=== PATIENT | male | born 1950 | race Caucasian/White ===

== ENCOUNTER → 2017-07-12 09:49 | Outpatient (CLI) | payer MEDICARE, OTHER, SELFPAY ==
[2017-07-12 11:12] LABS: PSA,Total- Diagnostic < 0.01 ng/mL (0.0-4.0)
== END ==
PROVIDERS: Family Provider Family Medicine; PCP Family Medicine; Visit Provider Urology
DX: C61 Malignant neoplasm of prostate (principal)
CPT/HCPCS: 36415; 84153

== ENCOUNTER → 2017-07-18 15:56 | Outpatient (CLI) | payer MEDICARE, OTHER, SELFPAY | PROVIDERS: Visit Provider Nurse Practitioner Adult Health | DX: C61 Malignant neoplasm of prostate (principal); R82.99 Other abnormal findings in urine | CPT/HCPCS: 87077; 87086; 87088; 87186 ==

== ENCOUNTER → 2017-09-19 09:23 | Outpatient (CLI) | payer MEDICARE, OTHER, SELFPAY ==
[2017-09-19 10:29] LABS: Absolute Neutrophil Count 1.8 X10^3/uL (2.0-7.7); Basophil# 0.03 X10^3/uL; Basophil% 0.9 % (0-1); Eosinophil# 0.05 X10^3/uL; Eosinophils% 1.4 % (0-5); Hematocrit 46.4 % (40-54); Hemoglobin 15.4 g/dl (13.0-16.5); Mean Corp Hgb Conc 33.2 g/gl (32-36); Mean Corpuscular Hgb 28.5 pg (27.0-32.0); Mean Corpuscular Volume 85.8 fL (80-94); Mean Platelet Vol. 9.8 fl (6.2-12.0); Monocyte# 0.29 X10^3/uL; Monocyte% 8.3 % (0-10); Neutrophil # 1.84 X10^3/uL (2.7-7.7); Neutrophil % 52.4 % (47-70); Platelet Count 223 K/mm3 (150-450); RBC Distribution Width CV 14.3 % (11.6-14.6); RBC Distribution Width SD 44.9 fl (35.1-43.9); Red Blood Count 5.41 M/mm3 (4.6-6.2); White Blood Count 3.5 K/mm3 (4.4-11.0)
[2017-09-19 10:30] LABS: POSITIVE COUNT NO; POSITIVE DIFFERENTIAL NO; POSITIVE MORPHOLOGY NO
[2017-09-19 11:03] LABS: AST(SGOT) 22 U/L (15-37); Alanine Aminotransfer ALT/SGPT 32 U/L (16-61); Albumin, Serum 3.5 g/dL (3.2-5.0); Alkaline Phosphatase 100 U/L (45-117); Anion Gap 9 (5-15); BUN 22 mg/dL (7-18); BUN/Creat Ratio 15.5 RATIO (10-20); Calcium,Total 8.8 mg/dL (8.5-10.1); Chloride 104 mmol/L (98-107); Creatinine, Serum 1.42 mg/dL (0.70-1.30); EST Glomerular Filtration Rate 53 mL/min (>60); Est Glom Filt Rate - Afr Amer 64 mL/min (>60); Globulin 3.6 g/dL (2.2-4.2); Glucose 127 mg/dL (74-106); Potassium 4.1 mmol/L (3.5-5.1); Protein, Total 7.1 g/dL (6.4-8.2); Sodium Level 142 mmol/L (136-145)
== END ==
PROVIDERS: Family Provider Family Medicine; PCP Family Medicine; Visit Provider Internal Medicine Rheumatology
DX: L40.59 Other psoriatic arthropathy (principal); L40.8 Other psoriasis; Z85.46 Personal history of malignant neoplasm of prostate
CPT/HCPCS: 36415; 80053; 85025

== ENCOUNTER → 2017-09-27 18:52 | Outpatient (CLI) | payer MEDICARE, OTHER, SELFPAY | PROVIDERS: Family Provider Family Medicine; PCP Family Medicine; Visit Provider Urology | DX: R31.9 Hematuria, unspecified (principal) | CPT/HCPCS: 87086; 87088 ==

== ENCOUNTER → 2018-01-26 06:27 | Outpatient (CLI) | payer MEDICARE, OTHER, SELFPAY ==
[2018-01-26 07:34] LABS: PSA,Total- Diagnostic < 0.01 ng/mL (0.0-4.0)
== END ==
PROVIDERS: Family Provider Family Medicine; PCP Family Medicine; Referring Provider Nurse Practitioner Adult Health; Visit Provider Nurse Practitioner Adult Health
DX: C61 Malignant neoplasm of prostate (principal); R82.99 Other abnormal findings in urine
CPT/HCPCS: 36415; 84153

== ENCOUNTER → 2018-04-14 08:01 | Outpatient (CLI) | payer MEDICARE, OTHER, SELFPAY ==
[2018-04-14 10:12] LABS: Erythrocyte Sedimentation Rate 13 mm/hr (0-20)
[2018-04-14 10:38] LABS: AST(SGOT) 21 U/L (15-37); Absolute Lymphocyte Count 1.46 X10^3/ul (0.83-4.51); Alanine Aminotransfer ALT/SGPT 26 U/L (16-61); Albumin, Serum 3.6 g/dL (3.2-5.0); Alkaline Phosphatase 86 U/L (45-117); Anion Gap 8 (5-15); BUN 26 mg/dL (7-18); BUN/Creat Ratio 17.7 RATIO (10-20); Basophil# 0.02 X10^3/uL; Basophil% 0.5 % (0-1); CRP < 2.90 mg/L (0.0-3.0); Calcium,Total 8.8 mg/dL (8.5-10.1); Chloride 109 mmol/L (98-107); Creatinine, Serum 1.47 mg/dL (0.70-1.30); EST Glomerular Filtration Rate 51 mL/min (>60); Eosinophil# 0.13 X10^3/uL; Eosinophils% 3.3 % (0-5); Est Glom Filt Rate - Afr Amer 61 mL/min (>60); Globulin 3.6 g/dL (2.2-4.2); Glucose 82 mg/dL (74-106); Hematocrit 48.5 % (40-54); Hemoglobin 15.5 g/dl (13.0-16.5); Lymphocyte # 1.46 X10^3/ul (4.0); Lymphocyte % 36.6 % (19-41); Mean Corpuscular Hgb 27.6 pg (27.0-32.0); Mean Corpuscular Volume 86.3 fL (80-94); Mean Platelet Vol. 10.1 fl (6.2-12.0); Monocyte# 0.43 X10^3/uL; Monocyte% 10.8 % (0-10); Neutrophil # 1.95 X10^3/uL (2.7-7.7); Neutrophil % 48.8 % (47-70); Platelet Count 214 K/mm3 (150-450); Potassium 4.1 mmol/L (3.5-5.1); Protein, Total 7.2 g/dL (6.4-8.2); RBC Distribution Width CV 14.5 % (11.6-14.6); RBC Distribution Width SD 45.6 fl (35.1-43.9); Red Blood Count 5.62 M/mm3 (4.6-6.2); Sodium Level 143 mmol/L (136-145)
[2018-04-14 10:39] LABS: POSITIVE COUNT NO; POSITIVE DIFFERENTIAL NO; POSITIVE MORPHOLOGY NO
--- OUTSIDE RECORDS SUMMARY | 2018-05-30 19:38 | XMS RPT_ITS ---
:1950 Author Organization OHIP Care Team Providers Name Role Phone Isamar Haddad Attending Unavailable Catie, Isamar Referring Unavailable MAYTE WHITFIELD Primary Care Unavailable Nickolas Segovia Attending Unavailable MAYTE WHITFIELD Primary Care Unavailable Melanie Tovar Attending Unavailable Melanie Tovar Attending Unavailable MAYTE WHITFIELD Primary Care Unavailable Melanie Tovar Referring Unavailable Melanie Tovar Attending Unavailable MAYTE WHITFIELD Primary Care Unavailable Germanlanki, Isamar Attending Unavailable Germanlandontrell, Isamar Referring Unavailable MAYTE WHITFIELD Primary Care Unavailable Nickolas Segovia Attending Unavailable MAYTE WHITFIELD Primary Care Unavailable PROBLEMS PROBLEMS DATE TYPE CONDITION / CODE ATTENDING STATUS SOURCE 04/14/2018 Unknown 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, 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 / Hospital L40.59(ICD-10) Repository 04/14/2018 Unknown L40.8 - Other Vellanki, Isamar Active [facility] psoriasis / Community L40.8(ICD-10) Hospital Repository 04/14/2018 Unknown Z85.46 - Personal Isamar Haddad Active [facility] history of Community malignant Hospital neoplasm of Repository prostate / Z85.46(ICD-10) 01/26/2018 Unknown C61 - Malignant Melanie Tovar Active [facility] neoplasm of M Community prostate / Hospital C61(ICD-10) Repository 07/18/2017 Unknown R82.99 - Other Melanie Tovar Active [facility] abnormal findings M [facility] in urine / Hospital R82.99(ICD-10) Repository PROCEDURES PROCEDURES No Procedure Records FoundRESULTS RESULTS ERYTHROCYTE SED RATE Collected: 04/14/2018 Status: F Source: [place] 8:07 AM [facility] REPOSITORY TYPE CODE TESTS RESULT OUT OF RANGE REFERENCE UNITS LAB L102.0000 0-20 mm/hr Normal SED RATE 13 Performed By: #### L101.9900, L100.0100 #### [facility] [address] [place], [address] CBC W/DIFF, AUTOMATED Collected: 04/14/2018 Status: F Source: [place] 8:07 AM [facility] REPOSITORY TYPE CODE TESTS RESULT OUT OF RANGE REFERENCE UNITS LAB L100.1000 4.4-11.0 K/mm3 Low WBC 4.0 LAB L100.1200 4.6-6.2 M/mm3 Normal RBC 5.62 LAB L100.1300 13.0-16.5 g/dl Normal HGB 15.5 LAB L100.1400 40-54 % Normal HCT 48.5 LAB L100.1500 80-94 fL Normal MCV 86.3 LAB L100.1600 27.0-32.0 pg Normal MCH 27.6 LAB L100.1700 32-36 g/gl Normal MCHC 32.0 LAB L100.1810 11.6-14.6 % Normal RDW CV 14.5 LAB L100.1820 35.1-43.9 fl High RDW SD 45.6 LAB L100.1900 150-450 K/mm3 Normal PLT 214 LAB L100.2000 6.2-12.0 fl Normal MPV 10.1 LAB L100.2100 47-70 % Normal NEUT% 48.8 LAB L100.2200 19-41 % Normal LY% 36.6 LAB L100.2300 0-10 % High MONO% 10.8 LAB L100.2400 0-5 % Normal EO% 3.3 LAB L100.2500 0-1 % Normal BASO% 0.5 LAB L100.2550 0.0-0.9 % Normal IM GRAN % 0.000 Result Comment: IG% - Immature Granulocytes (promyelocytes, myelocytes and metamyelocytes) > 1% indicates that a LEFT SHIFT is Present. LAB L100.2620 2.0-7.7 X10 3/uL Normal Absolute Neut 2.0 LAB L100.2720 0.83-4.51 X10 3/ul Normal Absolute Lymph 1.46 Performed By: #### L101.9900, L100.0100 #### [facility] [address] [place], [place], [address] COMPREHENSIVE METABOLIC Collected: 04/14/2018 Status: F Source: [facility] 8:07 AM [facility] REPOSITORY TYPE CODE TESTS RESULT OUT OF RANGE REFERENCE UNITS LAB L501.0100 74-106 mg/dL Normal GLU 82 Result Comment: Please note revised GLUCOSE reference range effective 2017. LAB L501.1000 7-18 mg/dL High BUN 26 LAB L501.1100 0.70-1.30 mg/dL High CREAT,SERUM 1.47 Result Comment: The validity of the calculated GFR AND GFRAA in patients over 70 years has not been determined. Clinical correlation is essential. LAB L501.1110 >60 mL/min Low EST GFR 51 Result Comment: Non- GFR Calc LAB L501.1115 >60 mL/min Normal EST GFR - AA 61 Result Comment: GFR Calc LAB L501.1300 10-20 RATIO Normal BUN/CRE 17.7 LAB L501.1500 6.4-8.2 g/dL T Normal PROT 7.2 LAB L501.1800 3.2-5.0 g/dL Normal ALB 3.6 LAB L501.1950 2.2-4.2 g/dL Normal GLOB 3.6 LAB L501.2000 0.9-2.4 RATIO Normal A/G 1.0 LAB L501.2200 8.5-10.1 mg/dL CA Normal 8.8 LAB L501.4100 15-37 U/L Normal AST 21 LAB L501.4305 45-117 U/L Normal ALK P 86 LAB L501.4405 16-61 U/L Normal ALT 26 LAB L501.4600 0.20-1.00 mg/dL T Normal BILI 0.40 LAB L501.5300 136-145 mmol/L NA Normal 143 LAB L501.5600 3.5-5.1 mmol/L K Normal 4.1 LAB L501.5900 98-107 mmol/L High CL 109 LAB L501.6100 21.0-32.0 mmol/L Normal CO2 26.0 LAB L501.6200 5-15 Normal GAP 8 Performed By: #### L500.4050, L501.6710 #### [facility] [address] [place], [address] CRP Collected: 04/14/2018 Status: F Source: [place] 8:07 AM [facility] REPOSITORY TYPE CODE TESTS RESULT OUT OF RANGE REFERENCE UNITS LAB L501.6710 0.0-3.0 mg/L Normal < 2.90 C-REACTIVE PROT Result Comment: C-Reactive Protein (CRP) provides useful information for the diagnosis, therapy and monitoring of inflammatory processes and associated diseases. For the evaluation of Relative Risk for Cardiovascular Disease, a High Sensitivity CRP (HSCRP) should be ordered. Performed By: #### L500.4050, L501.6710 #### [facility] [address] [place], [address] PSA,TOTAL- DIAGNOSTIC Collected: 01/26/2018 Status: F Source: [place] 6:35 AM [facility] REPOSITORY TYPE CODE TESTS RESULT OUT OF RANGE REFERENCE UNITS LAB L501.9940 0.0-4.0 ng/mL PSA, Normal DIAGNOSTIC < 0.01 Result Comment: This test was performed using the TPSA assay method for the [employer] chemistry system. Values obtained with different assay methods cannot be used interchangably. When changing PSA assays in the course of monitoring a patient, additional sequential testing should be carried out to confirm baseline values. Performed By: #### L501.9940 #### [facility] [address] [place], [address] Observed: 09/27/2017 Status: F Source: [facility] CULTURE, URINE 10:30 AM [facility] REPOSITORY Urine Culture Below infection level. ORGANISM 1: GPC Poss Enterococcus sp [place] Count <1000 Performed By: #### M100.0650 #### [facility] [address] [place], [address] CBC W/DIFF, AUTOMATED Collected: 09/19/2017 Status: F Source: [facility] 9:28 AM [facility] REPOSITORY TYPE CODE TESTS RESULT OUT OF RANGE REFERENCE UNITS LAB L100.1000 4.4-11.0 K/mm3 Low WBC 3.5 LAB L100.1200 4.6-6.2 M/mm3 Normal RBC 5.41 LAB L100.1300 13.0-16.5 g/dl Normal HGB 15.4 LAB L100.1400 40-54 % Normal HCT 46.4 LAB L100.1500 80-94 fL Normal MCV 85.8 LAB L100.1600 27.0-32.0 pg Normal MCH 28.5 LAB L100.1700 32-36 g/gl Normal MCHC 33.2 LAB L100.1810 11.6-14.6 % Normal RDW CV 14.3 LAB L100.1820 35.1-43.9 fl High RDW SD 44.9 LAB L100.1900 150-450 K/mm3 Normal PLT 223 LAB L100.2000 6.2-12.0 fl Normal MPV 9.8 LAB L100.2100 47-70 % Normal NEUT% 52.4 LAB L100.2200 19-41 % Normal LY% 37.0 LAB L100.2300 0-10 % Normal MONO% 8.3 LAB L100.2400 0-5 % Normal EO% 1.4 LAB L100.2500 0-1 % Normal BASO% 0.9 LAB L100.2550 0.0-0.9 % Normal IM GRAN % 0.000 Result Comment: IG% - Immature Granulocytes (promyelocytes, myelocytes and metamyelocytes) > 1% indicates that a LEFT SHIFT is Present. LAB L100.2620 2.0-7.7 X10 3/uL Low Absolute Neut 1.8 LAB L100.2720 0.83-4.51 X10 3/ul Normal Absolute Lymph 1.30 Performed By: #### L100.0100 #### [facility] [address] [place], [address] COMPREHENSIVE METABOLIC Collected: 09/19/2017 Status: F Source: [facility] [place] 9:28 AM [facility] REPOSITORY TYPE CODE TESTS RESULT OUT OF RANGE REFERENCE UNITS LAB L501.0100 74-106 mg/dL High GLU 127 Result Comment: Fasting Glucose result greater than or equal to 126 mg/dL suggests DIABETES MELLITUS per A.D.A. criteria. Please note revised GLUCOSE reference range effective 2017. LAB L501.1000 7-18 mg/dL High BUN 22 LAB L501.1100 0.70-1.30 mg/dL High CREAT,SERUM 1.42 Result Comment: The validity of the calculated GFR AND GFRAA in patients over 70 years has not been determined. Clinical correlation is essential. LAB L501.1110 >60 mL/min Low EST GFR 53 Result Comment: Non- GFR Calc LAB L501.1115 >60 mL/min Normal EST GFR - AA 64 Result Comment: GFR Calc LAB L501.1300 10-20 RATIO Normal BUN/CRE 15.5 LAB L501.1500 6.4-8.2 g/dL T Normal PROT 7.1 LAB L501.1800 3.2-5.0 g/dL Normal ALB 3.5 LAB L501.1950 2.2-4.2 g/dL Normal GLOB 3.6 LAB L501.2000 0.9-2.4 RATIO Normal A/G 1.0 LAB L501.2200 8.5-10.1 mg/dL CA Normal 8.8 LAB L501.4100 15-37 U/L Normal AST 22 LAB L501.4305 45-117 U/L Normal ALK P 100 LAB L501.4405 16-61 U/L Normal ALT 32 LAB L501.4600 0.20-1.00 mg/dL T Normal BILI 0.30 LAB L501.5300 136-145 mmol/L NA Normal 142 LAB L501.5600 3.5-5.1 mmol/L K Normal 4.1 LAB L501.5900 98-107 mmol/L CL Normal 104 LAB L501.6100 21.0-32.0 mmol/L Normal CO2 29.0 LAB L501.6200 5-15 Normal GAP 9 Performed By: #### L500.4050 #### [facility] [address] [place], [address] Observed: 07/18/2017 Status: F Source: [place] CULTURE, URINE 9:30 AM [facility] REPOSITORY Urine Culture ORGANISM 1: Klebsiella oxytoca [place] Count 80,000-100,000 Klebsiella oxytoca: REACTION Amoxacillin/Clavulanic Acid $ <=2 S Ampicillin $ 16 R Ampicillin/Sulbactam $ 4 S Cefazolin $ <=4 S Cefepime $ <=1 S Ceftriaxone $ <=1 S Ciprofloxacin $ <=0.25 S ESBL - Ertapenim $$$ <=0.5 S Gentamicin $ <=1 S Imipenem *NF <=0.25 S Levofloxacin $ <=0.12 S Nitrofurantoin $ >=512 R Piperacillin/Tazobactam $$ <=4 S Tobramycin $ <=1 S Trimethoprim/Sulfametho $ <=20 S (NF) indicates non-formulary drug at [facility]. Approval by Infectious Disease Specialist required before non-formulary drugs may be ordered and/or dispensed. Performed By: #### M100.0650 #### [facility] [address] [place], [address] PSA,TOTAL- DIAGNOSTIC Collected: 07/12/2017 Status: F Source: [place] 10:14 AM [facility] REPOSITORY TYPE CODE TESTS RESULT OUT OF RANGE REFERENCE UNITS LAB L501.9940 0.0-4.0 ng/mL PSA, Normal DIAGNOSTIC < 0.01 Result Comment: This test was performed using the TPSA assay method for the [employer] chemistry system. Values obtained with different assay methods cannot be used interchangably. When changing PSA assays in the course of monitoring a patient, additional sequential testing should be carried out to confirm baseline values. Performed By: #### L501.9940 #### [facility] [address] [place], [address] ALLERGIES ALLERGIES No Allergies Records FoundENCOUNTERS ENCOUNTERS ADMIT/DISCHARGE ACCOUNT ADMITTING ENCOUNTER LOCATION SOURCE NUMBER [facility] 04/14/2018 [id number] Ambulatory [facility] 4 [facility] ing:LAB Repository 01/26/2018 [id number] Ambulatory [facility] 6 [facility] ing:LAB.FUTUR Repository E 11/30/2017 [id number] Ambulatory [facility] 1 [facility] ing:LAB.FUTUR Repository E 09/27/2017 [id number] Ambulatory [facility] 1 [facility] ing:LABSPEC Repository 09/19/2017 [id number] Ambulatory [facility] 3 [facility] ing:LAB Repository 07/18/2017 [id number] Ambulatory [facility] 4 [facility] ing:LABSPEC Repository 07/12/2017 [id number] Ambulatory [facility] 5 [facility] ing:LAB Repository PAYERS PAYERS ENCOUNTER GUARANTOR PAYER SUBSCRIBER SOURCE 04/14/2018 NETTA S Primary NETTA S [facility] [id number] Insurance:MEDICARE LEHMANDOB: [address] Number: Repository [id number]: [phone] [id number] (HP) Date:2018-04-14 04/14/2018 Secondary NETTA S [facility] Insurance[facility] [id number] Hospital Number: Repository [id number] Date:[id number] [address]YS: 04/14/2018 Tertiary NOT GIVENUNK [facility] Insurance:SELF PAY [facility] Number: Effective Repository Date:2018-04-14 01/26/2018 NETTA S Primary NETTA S [facility] [id number] Insurance:MEDICARE LEHMANDOB: [facility] [id number] Number: Repository [address]Waq: [phone] [id number] (HP) Date:2017-07-18 01/26/2018 Secondary NETTA S [facility] Insurance:[facility] [id number] Hospital Number: Repository [id number] Date:[id number] [place] [address]LO: 01/26/2018 Tertiary NOT GIVENUNK [place] Insurance:SELF PAY [facility] Number: Effective Repository Date:2017-07-18 11/30/2017 NETTA S Primary NETTA S [facility] [id number] Insurance:MEDICARE LEHMANDOB: [facility] PART A [facility] [id number] [place] Number: Repository [address]Ttf: [id number] [phone] () Date:2017-07-19 11/30/2017 Secondary NETTA S [place] Insurance:EVERENCE LEHMANDOB: [facility] [id number] Hospital Number: Repository [id number] Date:[id number] [facility] [address] [address]EO: 11/30/2017 Tertiary NOT GIVENUNK [place] Insurance:SELF PAY [facility] Number: Effective Repository Date:2017-07-19 09/27/2017 NETTA S Primary NETTA S [facility] [id number] Insurance:MEDICARE LEHMANDOB: [facility] PART A [facility] [id number] [place] Number: Repository [id number]: 330 [id number] [phone] () Date:2017-09-27 09/27/2017 Secondary NETTA S [facility] Insurance:EVERENCE LEHMANDOB: [facility] [id number] Hospital Number: Repository [id number] Date:[id number] [address] [place] [place] [address]DB: 09/27/2017 Tertiary NOT GIVENUNK [facility] Insurance:SELF PAY [facility] Number: Effective Repository Date:2017-09-27 09/19/2017 NETTA S Primary NETTA S [facility] [id number] Insurance:MEDICARE LEHMANDOB: [facility] PART A [facility] [id number] [place] Number: Repository [phone]: 330 [id number] (HP) Date:2017-09-19 09/19/2017 Secondary NETTA S [facility] Insurance:EVERENCE LEANDOB: [facility] [id number] Hospital Number: Repository [id number] Date:[id number] [address] [place] [address] [place] [address]YO: 09/19/2017 Tertiary NOT GIVENUNK [place] Insurance:SELF PAY [facility]: Effective Repository Date:2017-09-19 07/18/2017 NETTA S Primary NETTA S [place] [id number] Insurance:MEDICARE LEANDOB: [facility] [id number] Repository [id number]: 330 [id number] () Date:2017-07-18 07/18/2017 Secondary NETTA S [facility] Insurance:EVERENCE LEHMANDOB: [facility] [id number] Hospital Number: Repository [id number] Date:[id number] [address] [place] [address]JN: 07/18/2017 Tertiary NOT GIVENUNK [facility] Insurance:SELF PAY [facility] Number: Effective Repository Date:2017-07-18 07/12/2017 NETTA S Primary NETTA S [facility] [id number] Insurance:MEDICARE LEANDOB: [facility] [id number] Number: Repository [id number]: 330 [id number] () Date:2017-07-12 07/12/2017 Secondary NETTA S [place] Insurance:EVERENCE LEHMANDOB: [facility] [id number] Hospital Number: Repository [id number] Date:4801-80-44UK [address] [place] [address]YI: 07/12/2017 Tertiary NOT GIVENUNK [facility] Insurance:SELF PAY [facility] Number: Effective Repository Date:2017-07-12
== END ==
PROVIDERS: Family Provider Family Medicine; PCP Family Medicine; Referring Provider Internal Medicine Rheumatology; Visit Provider Internal Medicine Rheumatology
DX: L40.59 Other psoriatic arthropathy (principal); L40.8 Other psoriasis; Z85.46 Personal history of malignant neoplasm of prostate
CPT/HCPCS: 36415; 80053; 85025; 85652; 86140

== ENCOUNTER → 2018-06-22 13:52 | Outpatient (CLI) | payer MEDICARE, OTHER, SELFPAY | PROVIDERS: Family Provider Family Medicine; PCP Family Medicine; Referring Provider Nurse Practitioner Adult Health; Visit Provider Nurse Practitioner Adult Health | DX: R39.15 Urgency of urination (principal); R30.0 Dysuria | CPT/HCPCS: 87077; 87086; 87088; 87186 ==

== ENCOUNTER → 2018-07-18 13:14 | Outpatient (CLI) | payer MEDICARE, OTHER, SELFPAY ==
[2018-07-18 14:42] LABS: PSA,Total- Diagnostic < 0.01 ng/mL (0.0-4.0)
== END ==
PROVIDERS: Family Provider Family Medicine; PCP Family Medicine; Referring Provider Nurse Practitioner Adult Health; Visit Provider Nurse Practitioner Adult Health
DX: C61 Malignant neoplasm of prostate (principal)
CPT/HCPCS: 36415; 84153

== ENCOUNTER → 2018-11-28 11:07 | Outpatient (CLI) | payer MEDICARE, OTHER, SELFPAY ==
[2018-11-28 11:39] LABS: Absolute Lymphocyte Count 1.42 X10^3/uL (0.83-4.51); Absolute Neutrophil Count 2.3 X10^3/uL (2.0-7.7); Basophil# 0.05 X10^3/uL; Basophil% 1.1 % (0-1); Eosinophil# 0.09 X10^3/uL; Hematocrit 46.4 % (40-54); Hemoglobin 14.7 g/dL (13.0-16.5); Lymphocyte # 1.42 X10^3/ul (4.0); Lymphocyte % 32.1 % (19-41); Mean Corp Hgb Conc 31.7 g/dL (32-36); Mean Corpuscular Hgb 27.6 pg (27.0-32.0); Mean Corpuscular Volume 87.1 fL (80-94); Mean Platelet Vol. 9.4 fl (6.2-12.0); Monocyte# 0.51 X10^3/uL; Monocyte% 11.5 % (0-10); NRBC Flagged by Analyzer 0 % (0-5); Neutrophil # 2.34 X10^3/uL (2.7-7.7); Neutrophil % 53.1 % (47-70); Platelet Count 191 K/mm3 (150-450); RBC Distribution Width CV 14.1 % (11.6-14.6); RBC Distribution Width SD 45.1 fl (35.1-43.9); Red Blood Count 5.33 M/mm3 (4.6-6.2); White Blood Count 4.4 K/mm3 (4.4-11.0)
[2018-11-28 11:56] LABS: Erythrocyte Sedimentation Rate 14 mm/hr (0-20)
[2018-11-28 12:52] LABS: AST(SGOT) 23 U/L (15-37); Alanine Aminotransfer ALT/SGPT 24 U/L (16-61); Albumin, Serum 3.5 g/dL (3.2-5.0); Alkaline Phosphatase 78 U/L (45-117); Anion Gap 7 (5-15); BUN 27 mg/dL (7-18); BUN/Creat Ratio 17.8 RATIO (10-20); CRP < 2.90 mg/L (0.0-3.0); Calcium,Total 8.6 mg/dL (8.5-10.1); Chloride 107 mmol/L (98-107); Creatinine, Serum 1.52 mg/dL (0.70-1.30); EST Glomerular Filtration Rate 49 mL/min (>60); Est Glom Filt Rate - Afr Amer 59 mL/min (>60); Globulin 3.6 g/dL (2.2-4.2); Glucose 83 mg/dL (74-106); Protein, Total 7.1 g/dL (6.4-8.2); Sodium Level 140 mmol/L (136-145)
== END ==
PROVIDERS: Family Provider Family Medicine; PCP Family Medicine; Referring Provider Internal Medicine Rheumatology; Visit Provider Internal Medicine Rheumatology
DX: L40.59 Other psoriatic arthropathy (principal); L40.8 Other psoriasis; Z85.46 Personal history of malignant neoplasm of prostate
CPT/HCPCS: 36415; 80053; 85025; 85652; 86140

== ENCOUNTER → 2019-01-23 08:03 | Outpatient (CLI) | payer MEDICARE, OTHER, SELFPAY ==
[2019-01-23 09:01] LABS: PSA,Total- Diagnostic < 0.01 ng/mL (0.0-4.0)
== END ==
LOC: LAB.FUTURE 08:05 → LAB 08:07
PROVIDERS: Family Provider Family Medicine; PCP Family Medicine; Visit Provider Nurse Practitioner Adult Health
DX: C61 Malignant neoplasm of prostate (principal)
CPT/HCPCS: 36415; 84153

== ENCOUNTER → 2019-08-01 10:10 | Outpatient (CLI) | payer MEDICARE, OTHER, SELFPAY ==
[2019-08-01 10:58] LABS: Absolute Lymphocyte Count 1.25 X10^3/uL (0.83-4.51); Absolute Neutrophil Count 2.5 X10^3/uL (2.0-7.7); Basophil# 0.02 X10^3/uL; Basophil% 0.5 % (0-1); Eosinophil# 0.06 X10^3/uL; Eosinophils% 1.4 % (0-5); Hematocrit 47.9 % (40-54); Hemoglobin 15.3 g/dL (13.0-16.5); Lymphocyte # 1.25 X10^3/ul (4.0); Mean Corp Hgb Conc 31.9 g/dL (32-36); Mean Corpuscular Hgb 27.1 pg (27.0-32.0); Mean Corpuscular Volume 84.8 fL (80-94); Mean Platelet Vol. 9.2 fl (6.2-12.0); Monocyte# 0.34 X10^3/uL; Monocyte% 8.2 % (0-10); NRBC Flagged by Analyzer 0 % (0-5); Neutrophil # 2.49 X10^3/uL (2.7-7.7); Neutrophil % 59.7 % (47-70); Platelet Count 207 K/mm3 (150-450); RBC Distribution Width CV 13.7 % (11.6-14.6); RBC Distribution Width SD 41.8 fl (35.1-43.9); Red Blood Count 5.65 M/mm3 (4.6-6.2); White Blood Count 4.2 K/mm3 (4.4-11.0)
[2019-08-01 11:12] LABS: Erythrocyte Sedimentation Rate 12 mm/hr (0-20)
[2019-08-01 11:21] LABS: AST(SGOT) 19 U/L (15-37); Alanine Aminotransfer ALT/SGPT 21 U/L (16-61); Albumin, Serum 3.5 g/dL (3.2-5.0); Alkaline Phosphatase 87 U/L (45-117); Anion Gap 5 (5-15); BUN 22 mg/dL (7-18); BUN/Creat Ratio 16.9 RATIO (10-20); CRP < 2.90 mg/L (0.0-3.0); Calcium,Total 8.4 mg/dL (8.5-10.1); Chloride 105 mmol/L (98-107); EST Glomerular Filtration Rate 58 mL/min (>60); Est Glom Filt Rate - Afr Amer 71 mL/min (>60); Globulin 3.6 g/dL (2.2-4.2); Glucose 107 mg/dL (74-106); PSA,Total- Diagnostic < 0.01 ng/mL (0.0-4.0); Potassium 3.9 mmol/L (3.5-5.1); Protein, Total 7.1 g/dL (6.4-8.2); Sodium Level 137 mmol/L (136-145)
== END ==
PROVIDERS: PCP Family Medicine; Referring Provider Internal Medicine Rheumatology; Visit Provider Internal Medicine Rheumatology
DX: L40.59 Other psoriatic arthropathy (principal); L40.8 Other psoriasis; Z85.46 Personal history of malignant neoplasm of prostate
CPT/HCPCS: 36415; 80053; 84153; 85025; 85652; 86140

== ENCOUNTER → 2020-01-22 12:06 | Outpatient (CLI) | payer MEDICARE, OTHER, SELFPAY ==
[2020-01-22 15:38] LABS: PSA,Total- Diagnostic < 0.01 ng/mL (0.0-4.0)
== END ==
PROVIDERS: PCP Family Medicine; Referring Provider Nurse Practitioner Adult Health; Visit Provider Nurse Practitioner Adult Health
DX: Z85.46 Personal history of malignant neoplasm of prostate (principal)
CPT/HCPCS: 36415; 84153

== ENCOUNTER → 2020-02-04 10:23 | Outpatient (CLI) | payer MEDICARE, OTHER, SELFPAY ==
[2020-02-04 11:13] LABS: Absolute Lymphocyte Count 1.44 X10^3/uL (0.83-4.51); Absolute Neutrophil Count 2.6 X10^3/uL (2.0-7.7); Basophil# 0.02 X10^3/uL; Basophil% 0.4 % (0-1); Eosinophils% 2.2 % (0-5); Hematocrit 48.1 % (40-54); Hemoglobin 15.5 g/dL (13.0-16.5); Lymphocyte # 1.44 X10^3/ul (4.0); Lymphocyte % 31.3 % (19-41); Mean Corp Hgb Conc 32.2 g/dL (32-36); Mean Corpuscular Hgb 28.1 pg (27.0-32.0); Mean Corpuscular Volume 87.3 fL (80-94); Mean Platelet Vol. 9.8 fl (6.2-12.0); Monocyte# 0.42 X10^3/uL; Monocyte% 9.1 % (0-10); NRBC Flagged by Analyzer 0 % (0-5); Neutrophil # 2.61 X10^3/uL (2.7-7.7); Neutrophil % 56.8 % (47-70); Platelet Count 228 K/mm3 (150-450); RBC Distribution Width CV 13.9 % (11.6-14.6); RBC Distribution Width SD 44.3 fl (35.1-43.9); Red Blood Count 5.51 M/mm3 (4.6-6.2); White Blood Count 4.6 K/mm3 (4.4-11.0)
[2020-02-04 12:19] LABS: AST(SGOT) 21 U/L (15-37); Alanine Aminotransfer ALT/SGPT 30 U/L (16-61); Albumin, Serum 3.6 g/dL (3.2-5.0); Alkaline Phosphatase 84 U/L (45-117); Anion Gap 4 (5-15); BUN 21 mg/dL (7-18); BUN/Creat Ratio 12.8 RATIO (10-20); Calcium,Total 8.5 mg/dL (8.5-10.1); Chloride 107 mmol/L (98-107); Creatinine, Serum 1.64 mg/dL (0.70-1.30); EST Glomerular Filtration Rate 45 mL/min (>60); Est Glom Filt Rate - Afr Amer 54 mL/min (>60); Globulin 3.5 g/dL (2.2-4.2); Glucose 119 mg/dL (74-106); Potassium 4.3 mmol/L (3.5-5.1); Protein, Total 7.1 g/dL (6.4-8.2); Sodium Level 139 mmol/L (136-145)
== END ==
PROVIDERS: PCP Family Medicine; Referring Provider Internal Medicine Rheumatology; Visit Provider Internal Medicine Rheumatology
DX: L40.59 Other psoriatic arthropathy (principal); L40.8 Other psoriasis; Z85.46 Personal history of malignant neoplasm of prostate
CPT/HCPCS: 36415; 80053; 85025

== ENCOUNTER → 2020-07-21 13:55 | Outpatient (CLI) | payer MEDICARE, OTHER, SELFPAY ==
[2020-07-21 14:24] LABS: Absolute Neutrophil Count 4.5 X10^3/uL (2.0-7.7); Basophil# 0.06 X10^3/uL; Basophil% 0.9 % (0-1); Eosinophil# 0.24 X10^3/uL; Eosinophils% 3.8 % (0-5); Hematocrit 45.6 % (40-54); Hemoglobin 14.6 g/dL (13.0-16.5); Lymphocyte % 18.8 % (19-41); Mean Corpuscular Hgb 28.1 pg (27.0-32.0); Mean Corpuscular Volume 87.7 fL (80-94); Mean Platelet Vol. 9.4 fl (6.2-12.0); Monocyte# 0.41 X10^3/uL; Monocyte% 6.4 % (0-10); NRBC Flagged by Analyzer 0 % (0-5); Neutrophil # 4.47 X10^3/uL (2.7-7.7); Neutrophil % 69.8 % (47-70); Platelet Count 259 K/mm3 (150-450); RBC Distribution Width CV 13.7 % (11.6-14.6); RBC Distribution Width SD 43.8 fl (35.1-43.9); White Blood Count 6.4 K/mm3 (4.4-11.0)
[2020-07-21 14:50] LABS: ALB/GLOB Ratio 0.9 RATIO (0.9-2.4); AST(SGOT) 20 U/L (15-37); Alanine Aminotransfer ALT/SGPT 28 U/L (16-61); Albumin, Serum 3.3 g/dL (3.2-5.0); Alkaline Phosphatase 129 U/L (45-117); Anion Gap 6 (5-15); BUN 21 mg/dL (7-18); BUN/Creat Ratio 14.3 RATIO (10-20); Calcium,Total 8.8 mg/dL (8.5-10.1); Chloride 104 mmol/L (98-107); Creatinine, Serum 1.47 mg/dL (0.70-1.30); EST Glomerular Filtration Rate 50 mL/min (>60); Est Glom Filt Rate - Afr Amer 61 mL/min (>60); Globulin 3.7 g/dL (2.2-4.2); Glucose 135 mg/dL (74-106); Potassium 3.9 mmol/L (3.5-5.1); Sodium Level 139 mmol/L (136-145)
== END ==
PROVIDERS: PCP Family Medicine; Referring Provider Internal Medicine Rheumatology; Visit Provider Internal Medicine Rheumatology
DX: L40.59 Other psoriatic arthropathy (principal); L40.8 Other psoriasis; Z85.46 Personal history of malignant neoplasm of prostate
CPT/HCPCS: 36415; 80053; 85025

== ENCOUNTER 2020-07-22 03:47 | Emergency (ER) | payer MEDICARE, OTHER, SELFPAY ==
[2020-07-22 03:47] VITALS: BP 177/85; PULSE 89; RESP 16; TEMP 36; O2SAT 98; BMI 26.0
--- NOTE | 2020-07-22 04:10 | ED.DCSUM_ITS ---
History of Present Illness Chief Complaint: Complaint Informant: Patient Narrative: Patient stated that he has hematuria that started tonight approximately 4 hours ago. He had a few episodes of bright red blood in his urine. He is restarted Plavix and aspirin 3 weeks ago after having a heart attack and stent placement. He does not have a local customer service receptionist [place]. Denies any UTI symptoms. He does self cath that she has scarring after prostate cancer treatment remotely. He does see a local urologist for this. He has never had hematuria. Current severity is mild. Has not noticed any clots. Past Medical History - Allergies and Home Meds Allergies/Adverse Reactions: Allergies ciprofloxacin [From Cipro] Allergy (Verified 07/22/20 03:53) Rash latex Allergy (Verified 07/22/20 03:53) Rash Sulfa (Sulfonamide Antibiotics) Allergy (Verified 07/22/20 03:53) Rash Primary Care Physician: Du Howe MD [Primary Care Provider] - Prior records reviewed: Yes Past Medical History: - - Coronary artery disease, prostate cancer Surgical History: - - Reviewed Smoking Status: Never smoker Alcohol: None Drugs: None Review of Systems General: Denies: Chills, Fever, Sweats Eyes: Denies: Visual changes - bilaterally, Diplopia ENT: Denies: Rhinorrhea, Sore throat Cardiovascular: Denies: Chest pain, Palpitations Respiratory: Denies: Dyspnea, Cough, Dyspnea on exertion Gastrointestinal: Denies: Abdominal pain, Nausea, Vomiting, Diarrhea, Melena, Hematochezia Genitourinary: Reports: Hematuria. Denies: Dysuria, Frequency Musculoskeletal: Denies: Back pain, Extremity Pain Skin: Denies: Rash, Wounds Neurological: Denies: Headache, Weakness, Numbness Physical Exam Vital Signs/Narrative: Vital Signs Temp Pulse Resp BP Pulse Ox 07/22/20 03:47 96.8 F L 89 16 177/85 H 98 General: Well nourished, Well developed, No Acute Distress Head: Normocephalic, Atraumatic Eyes: Perrl, EOMI ENT: Moist mucous membranes, No rhinorrhea Neck: Supple, Nontender Cardiovascular: Regular rate, Regular rhythm, No murmurs Respiratory: No distress, CTA bilaterally, Chest nontender Abdomen: Soft, Nontender, Nondistended, Normal bowel sounds Back: Nontender, Normal Inspection Extremities: Nontender, No edema Skin: Normal color, No rash Neurological: Alert, Oriented x3, Cranial nerves II-XII grossly intact, Normal Strength, Normal Sensation Psychological: Normal affect, Normal Mood Diagnostic/Tx/Re-eval - Medical Decision Making Saldivar catheter placed with bladder irrigation. This was able to be irrigated clear, clots. Urinalysis obtained. Analysis shows evidence of red blood cells significant white blood cells and 4+ bacteria. Urine culture sent. Given Augmentin. Given a leg bag. Initially we attempted an 18 Fijian coud? but could not get past the scar tissue therefore a 16 Fijian was placed. He understands he may have to flush this at home if it clots. He is used to handling his Saldivar catheter. We will follow-up with his urologist and customer service receptionist. He will hold his Plavix for 2 days ED Disposition - Plan for ED Patient: Disposition: Home or Assisted Living Diagnosis: Hematuria, Urinary tract infection Instructions: ED Bladder Infection, Male (Adult), ED Hematuria Prescriptions: Amox/Clavulanate Tablet [Augmentin Tablet] 875 mg PO Q12H #14 tab Prescription Printed Referrals: Dane Campbell MD [STAFF PHYSICIAN] - Additional Instructions: also follow-up with your urologist
[2020-07-22 04:41] LABS: Color, Urine Red (Yellow); Glucose, Dipstick Normal (Normal); Ketone-Dipstick Negative (Negative); Leukocyte Esterase-Dipstick 500 /ul (Negative); Mucous, Urine 0 SEEN /hpf (<or=2+); Nitrite-Dipstick Negative (Negative); Occult Blood-Urine 250 /ul (Negative); Protein-Dipstick 100 mg/dl (Negative); Squamous Epithelial Cells - UA 0 SEEN /hpf (0-5); Urine Bilirubin Dipstick Negative (Negative); Urine Clarity Cloudy (Clear); Urine Urobilinogen Normal (Normal)
[2020-07-22 04:50] LABS: Bacteria 4+ /hpf (None Seen)
[2020-07-22 04:52] LABS: White Blood Cells 10-25 SEEN /hpf (0-5)
[2020-07-22 04:53] LABS: Red Blood Cells-Urine > 100 SEEN /hpf (0-5)
[2020-07-22] MEDS: Amox/Clavulanate 875 MG Tablet PO (05:07)
== END 2020-07-22 05:26 | disposition home or self-care (01) ==
PROVIDERS: Emergency Provider Emergency Medicine; PCP Family Medicine
DX: R31.9 Hematuria, unspecified (principal); N39.0 Urinary tract infection, site not specified; I25.10 Atherosclerotic heart disease of native coronary artery without angina pectoris
CPT/HCPCS: 51702; 81001; 87086; 87088; 87186; 99284

== ENCOUNTER → 2021-01-07 09:12 | Outpatient (CLI) | payer MEDICARE, OTHER, SELFPAY ==
[2021-01-07 10:22] LABS: Absolute Lymphocyte Count 1.43 X10^3/uL (0.83-4.51); Basophil# 0.03 X10^3/uL; Basophil% 0.4 % (0-1); Eosinophil# 0.11 X10^3/uL; Eosinophils% 1.4 % (0-5); Hematocrit 47.7 % (40-54); Hemoglobin 15.1 g/dL (13.0-16.5); Lymphocyte # 1.43 X10^3/ul (0.83-4.51); Lymphocyte % 17.6 % (19-41); Mean Corp Hgb Conc 31.7 g/dL (32-36); Mean Corpuscular Hgb 27.7 pg (27.0-32.0); Mean Corpuscular Volume 87.4 fL (80-94); Mean Platelet Vol. 9.8 fl (6.2-12.0); Monocyte# 0.57 X10^3/uL; NRBC Flagged by Analyzer 0 % (0-5); Neutrophil # 5.95 X10^3/uL (2.7-7.7); Neutrophil % 73.4 % (47-70); Platelet Count 217 K/mm3 (150-450); RBC Distribution Width CV 14.2 % (11.6-14.6); Red Blood Count 5.46 M/mm3 (4.6-6.2); White Blood Count 8.1 K/mm3 (4.4-11.0)
[2021-01-07 10:48] LABS: ALB/GLOB Ratio 0.9 RATIO (0.9-2.4); AST(SGOT) 39 U/L (15-37); Alanine Aminotransfer ALT/SGPT 65 U/L (16-61); Albumin, Serum 3.4 g/dL (3.2-5.0); Alkaline Phosphatase 100 U/L (45-117); Anion Gap 5 (5-15); BUN 24 mg/dL (7-18); Calcium,Total 8.7 mg/dL (8.5-10.1); Chloride 105 mmol/L (98-107); Creatinine, Serum 1.41 mg/dL (0.70-1.30); EST Glomerular Filtration Rate 53 mL/min (>60); Est Glom Filt Rate - Afr Amer 64 mL/min (>60); Globulin 3.7 g/dL (2.2-4.2); Glucose 102 mg/dL (74-106); Potassium 4.2 mmol/L (3.5-5.1); Protein, Total 7.1 g/dL (6.4-8.2); Sodium Level 140 mmol/L (136-145)
== END ==
PROVIDERS: PCP Family Medicine; Referring Provider Internal Medicine Rheumatology; Visit Provider Internal Medicine Rheumatology
DX: L40.59 Other psoriatic arthropathy (principal); L40.8 Other psoriasis; Z85.46 Personal history of malignant neoplasm of prostate
CPT/HCPCS: 36415; 80053; 85025

== ENCOUNTER → 2021-01-16 07:36 | Outpatient (CLI) | payer MEDICARE, OTHER, SELFPAY ==
--- NOTE | 2021-01-16 07:45 | US_ITS ---
STUDY: ABDOMINAL ULTRASOUND - RIGHT UPPER QUADRANT REASON FOR VISIT: Male, 70 years old ELEVATED LIVER ENZYMES TECHNIQUE: Ultrasound evaluation of the right upper quadrant was performed with real-time and static munoz-scale imaging. TECHNICAL QUALITY: Limited. Examination limited by bowel gas. COMPARISON: None. FINDINGS: Liver: The liver measures 16.4 cm. There is normal echogenicity of the liver. The bile ducts are within normal limits. There is hepatic color flow. The direction of portal flow is hepatopetal. There is no demonstrated mass lesion. Gallbladder: Normal distended gallbladder. The gallbladder wall measures 2.9 mm. There is a negative sonographic Hendrickson''s sign. There is no pericholecystic fluid. There are no gallstones. Common Bile Duct (C.B.D.): The common bile duct measures 2.7 mm. Pancreas: There is nonvisualization of the pancreas due to overlying bowel gas. Right Kidney: Normal size of the right kidney. The right kidney measures 10.7 cm x 5 cm x 4.1 cm. Normal renal cortex. The right cortex measures 1.2 cm. There is a 9 mm x 9 mm x 9 mm right renal cyst with the finding suggests above the peripheral calcification. There is no right hydronephrosis. US/Liver IMPRESSION: Findings suggestive of a small lateral right renal cyst with rim calcification. Electronically Signed: Rahul Amador MD at 14:32 EDT , Service support ,
== END ==
PROVIDERS: PCP Family Medicine; Visit Provider Internal Medicine Rheumatology
DX: L40.59 Other psoriatic arthropathy (principal); L40.8 Other psoriasis; I25.10 Atherosclerotic heart disease of native coronary artery without angina pectoris; Z85.46 Personal history of malignant neoplasm of prostate
CPT/HCPCS: 76705

== ENCOUNTER → 2021-01-27 07:02 | Outpatient (CLI) | payer MEDICARE, OTHER, SELFPAY ==
--- NOTE | 2021-01-27 19:54 | STRESSREP_ITS ---
Stress Test Report Date: 01-27-2021 Procedure: Exercise tolerance test/imaging study Indications: CAD; status post MN; status post PCI Consent: Per the patient Procedure: The patient exercised on a Raciel protocol for 8 minutes and 25 completing Stage II and 2 minutes and 25 seconds of Stage III achieving a peak heart rate of 150 bpm (99% predicted maximal heart rate) with a peak blood pressure 190/60 mmHg and a peak MET capacity of 9 METs. The baseline ECG demonstrated sinus bradycardia. The peak exercise ECG demonstrated no obvious ECG changes. There were no cardiac dysrhythmias pretest, during exercise, or recovery. The functional capacity was considered good. There was no complaint of chest discomfort during exercise or recovery. The examination was discontinued secondary to dyspnea. Impression: 1. Technically adequate (percent predicted maximal heart rate greater than 85%) exercise tolerance test 2. Peak exercise ECG with no obvious ECG changes 3. There were no cardiac dysrhythmias pretest, during exercise, or recovery 4. Nuclear images pending Myocardial perfusion imaging study: Technique: The patient was injected with 11.3 mCi of technetium 99m Cardiolite and subsequently rest SPECT Cardiolite nuclear imaging was obtained in the horizontal long, vertical long, and short axis views. The patient exercised on a Raciel protocol for 8 minutes and 25 completing Stage II and 2 minutes and 25 seconds of Stage III achieving a peak heart rate of 150 bpm (99% predicted maximal heart rate) with a peak blood pressure 190/60 mmHg and a peak MET capacity of 9 METs. The patient was injected with 32.7 mCi of technetium 99m Cardiolite and subsequently stress SPECT Cardiolite nuclear imaging was obtained in the horizontal long, vertical long, and short axis views. A gated Cardiolite study at peak stress was obtained. Interpretation: Rest and stress SPECT Cardiolite nuclear imaging status post realignment, normalization, and attenuation correction, demonstrates the appearance on preattenuation images of diminished myocardial perfusion/tracer uptake in portions of the basal to mid inferior segments which appear to be somewhat more prominent following stress and on post attenuation images the appearance of subtle diminished tracer uptake in the basal towards mid inferior segments. There is diminished end systolic thickening and brightening in the aforementioned area. The gated Cardiolite study demonstrates myocardial thickening and inward wall motion. The reported LVEF is 74%. Impression: 1. Rest and stress SPECT Cardiolite nuclear imaging demonstrate myocardial perfusion changes concerning for an area of previous myocardial injury/infarction involving portions of the basal to mid inferior segments with post stress images concerning for an area of obey-infarct related myocardial ischemia. 2. The gated Cardiolite study reports an LVEF of 74%. This note was generated with [employer]asteBookation software. It may contain incorrect words, spelling, and punctuation that were not noted in checking the note before signing.
== END ==
PROVIDERS: PCP Family Medicine; Referring Provider Internal Medicine Cardiovascular Disease; Visit Provider Internal Medicine Cardiovascular Disease
DX: I25.10 Atherosclerotic heart disease of native coronary artery without angina pectoris (principal); I21.11 ST elevation (STEMI) myocardial infarction involving right coronary artery; I10 Essential (primary) hypertension; E78.2 Mixed hyperlipidemia; Z95.5 Presence of coronary angioplasty implant and graft
CPT/HCPCS: 78452; 93017; A9500; A4216

== ENCOUNTER → 2021-02-10 11:19 | Outpatient (CLI) | payer MEDICARE, OTHER, SELFPAY ==
[2021-02-10 13:57] LABS: PSA,Total- Diagnostic < 0.01 ng/mL (0.0-4.0)
== END ==
PROVIDERS: PCP Family Medicine; Referring Provider Urology; Visit Provider Urology
DX: Z85.46 Personal history of malignant neoplasm of prostate (principal)
CPT/HCPCS: 36415; 84153

== ENCOUNTER 2021-03-03 10:19 | Observation (INO) | payer MEDICARE, OTHER, SELFPAY ==
--- NOTE | 2021-02-19 11:20 | RAD_ITS ---
STUDY: X-RAY CHEST REASON FOR EXAM: Male, 71 years old. UPCOMING CARDIAC CATH, ABNORMAL STRESS TEST TECHNIQUE: PA and lateral chest radiographs COMPARISON: None. FINDINGS: The lungs are clear and expanded. There is no demonstrated pleural abnormality. Normal size heart. Normal mediastinum and jory. Normal visualized pulmonary arteries. Normal visualized aortic arch and descending thoracic aorta. There is no demonstrated abnormality of the visualized soft tissue structures of the upper abdomen. RAD/Chest PA and Lateral IMPRESSION: No acute abnormal cardiopulmonary finding. The the Electronically Signed: Dane Flores MD at 22:15 EDT Tel , Service support ,
[2021-02-19 12:08] LABS: Absolute Lymphocyte Count 1.75 X10^3/uL (0.83-4.51); Absolute Neutrophil Count 3.9 X10^3/uL (2.0-7.7); Basophil# 0.04 X10^3/uL; Basophil% 0.6 % (0-1); Eosinophil# 0.16 X10^3/uL; Eosinophils% 2.5 % (0-5); Hematocrit 45.9 % (40-54); Hemoglobin 14.9 g/dL (13.0-16.5); Lymphocyte # 1.75 X10^3/ul (0.83-4.51); Lymphocyte % 26.9 % (19-41); Mean Corp Hgb Conc 32.5 g/dL (32-36); Mean Corpuscular Hgb 27.8 pg (27.0-32.0); Mean Corpuscular Volume 85.6 fL (80-94); Mean Platelet Vol. 9.5 fl (6.2-12.0); Monocyte# 0.63 X10^3/uL; Monocyte% 9.7 % (0-10); NRBC Flagged by Analyzer 0 % (0-5); Neutrophil # 3.91 X10^3/uL (2.7-7.7); Platelet Count 226 K/mm3 (150-450); RBC Distribution Width CV 13.9 % (11.6-14.6); RBC Distribution Width SD 43.1 fl (35.1-43.9); Red Blood Count 5.36 M/mm3 (4.6-6.2); White Blood Count 6.5 K/mm3 (4.4-11.0)
[2021-02-19 12:18] LABS: International Normalized Ratio 1.1; Prothrombin Time (Protime)PT. 13.2 SECONDS (11.7-14.9)
[2021-02-19 12:19] LABS: Partial Thromboplast Time 30.8 Seconds (24.1-36.2)
[2021-02-19 13:07] LABS: Anion Gap 4 (5-15); BUN 21 mg/dL (7-18); BUN/Creat Ratio 15.2 RATIO (10-20); Calcium,Total 9.2 mg/dL (8.5-10.1); Chloride 107 mmol/L (98-107); Creatinine, Serum 1.38 mg/dL (0.70-1.30); EST Glomerular Filtration Rate 54 mL/min (>60); Est Glom Filt Rate - Afr Amer 66 mL/min (>60); Glucose 75 mg/dL (74-106); Potassium 4.2 mmol/L (3.5-5.1); Sodium Level 139 mmol/L (136-145)
[2021-03-02 09:03] VITALS: BMI 26.3
--- NOTE | 2021-03-02 17:56 | PCM.HP.BLA ---
History and Physical Date of Admission: 03/03/21 [facility] [address] [place] [address] [phone] OFFICE VISITDate of Service: 02/19/21 MR#:[id number]:[id number]: NETTA DAVIS [facility] #:[id number]:1950 Provider: FERNANDO Vuong/Sex: 71/M [facility] HPI HPI History of Present Illness Surgical H&P: Yes Details: This is a 71-year-old white male who presents today for outpatient cardiovascular visit. He has a history of underlying CAD with an acute inferior ST segment elevation KS requiring an RCA PTCA/stent with a 3 mm x 23 mm Xience stent. In June of this year, he was traveling and during his travels based upon ongoing concerning symptoms he stopped in [place]. He was evaluated at the [facility] in [place], [place]. At that time he was diagnosed with an acute inferior STEMI. He underwent diagnostic cardiac catheterization. Per the report the left main coronary artery was normal, the LAD had 30% stenosis in the midsection, the LCx was normal, the RCA had 99% thrombotic stenosis in the mid section. He subsequently underwent the aforementioned RCA PTCA/stent procedure. He also has a history of hypertension, hyperlipidemia, chronic kidney disease, and obstructive sleep apnea. He completed cardiac rehab with [facility]. 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 He underwent a stress test in December of this year which was abnormal. He is scheduled to have a cardiac catheterization on 03/03/2021. From a cardiac standpoint, the patient is doing well. He denies any palpitations, chest pain, pressure or heaviness. He does not have SOB, Orthopnea, and PND. He denies any bleeding issues; no blood in urine, stool or nosebleeds. He denies any decrease in energy level, myalgias, or claudication. He does not have edema, or sudden weight gain. He denies dizziness, lightheadedness, syncopal or near syncopal episodes, and headaches. Intake Vital Signs 02/19/21 09:58 Height 5 ft 11 in Weight: 189 lb BMI 26.3 BP 108/56 L Blood Pressure Location Lt brachial Position Sitting Respiration 16 Pulse 66 Pulse Source Auscultation Intake Visit Reasons: UPDATE H&P FOR CATH Outreach Clinician Required: No Accompanied by: None Is patient in pain?: No Allergies ciprofloxacin [From Cipro] Allergy (Verified 02/19/21 11:14) Rash latex Allergy (Verified 02/19/21 11:14) Rash Sulfa (Sulfonamide Antibiotics) Allergy (Verified 02/19/21 11:14) Rash Medications aspirin 81 mg tablet,delayed release 81 mg PO DAILY 07/22/20 [History Confirmed 02/19/21] atorvastatin 80 mg tablet 80 mg PO QHS #90 tab 11/17/20 [Rx Confirmed 02/19/21] clopidogrel 75 mg tablet 75 mg PO DAILY #90 tab 11/17/20 [Rx Confirmed 02/19/21] metoprolol succinate 25 mg tablet,extended release 24 hr 12.5 mg PO DAILY #45 tab 11/17/20 [Rx Confirmed 02/19/21] nitroglycerin 0.4 mg sublingual tablet 0.4 mg SL Q5-15M PRN #25 tab 11/17/20 [Rx Confirmed 02/19/21] nitrofurantoin monohydrate/macrocrystals 100 mg capsule 100 mg PO QWEEK cap 02/19/21 [History Confirmed 02/19/21] Ejection fraction %: 50 to 54 PFSH Medical History Abnormal stress test Atherosclerotic heart disease of [place] coronary artery without angina pectoris CKD (chronic kidney disease) stage 3, GFR 30-59 ml/min Essential hypertension History of prostate cancer Mixed hyperlipidemia LEON (obstructive sleep apnea) PAD (peripheral artery disease) Presence of stent in coronary artery (~06/30/20) ST elevation (STEMI) myocardial infarction Surgical History History of coronary artery stent placement (06/30/20) History of inguinal hernia repair Presence of coronary angioplasty implant and graft (~06/30/20) Family History Father CAD (coronary artery disease) Cancer Bladder Mother CAD (coronary artery disease) History of coronary artery bypass surgery Heart valve replaced Social History Smoking Status: Never smoker alcohol intake: never substance use type: does not use caffeine: Yes (3 servings daily) ROS Const Const: Negative for fatigue, weakness, fever(s), headache(s), chills, frequent falls, weight gain or weight loss Eyes Eyes: Negative for blind spots, loss of peripheral vision, transient loss of vision, blurry vision, change in vision, double vision, floaters or tunnel vision ENT ENT: Negative for headache(s), dizziness, Nosebleed/epistaxis, balance problems or neck pain Cardio Chest Pain: No Palpitations: No Edema: None Muscle aches with walking: None Resp Respiratory: Negative for SOB with activity, SOB at rest or SOB orthopnea\SOB lying down GI GI: Negative nausea, vomiting, heartburn, bloating, vomiting blood/hematemesis, bright, red blood in stools or black,tarry stools : Negative for hematuria Musc Musc: Negative for muscle aches/ myalgia, muscle weakness, joint pain or balance problems Skin Skin: Negative non-healing lesions, rash or unusual bruising Neuro Neuro: Negative for dizziness, lightheadedness, near syncope, syncope, orthostatic symptoms, frequent falls, headache(s), weakness, blurry vision or double vision Edward Hematologic/Lymphatic: Negative for easy bleeding or easy bruising Endo Endo: Negative for fatigue Psych Psych: Negative for anxiety or depression Allergy Allergy/Immunology: Negative for hives and Negative for rash Cardiology Exam Const Appearance: cooperative and no acute distress Orientation: alert and oriented x3 Head Head: normal to inspection Ears: hearing grossly normal bilaterally Nose: external nose normal Face and Sinus: face symmetric Eyes General: appearance normal, both eyes and all related structures Eyelids: eyelids normal Conjunctivae: conjunctivae normal Pupils: PERRL and pupil size EOM: EOM intact bilaterally Neck Neck: normal visual inspection Carotids: Negative bruit Chest Chest inspection: normal inspection of the chest and normal respiratory effort Auscultation: Bilateral: Clear to Auscultation Cardio Palpation: normal PMI Rate: regular rate Rhythm: regular rhythm Heart sounds: S1 normal and S2 normal; Negative rub, gallop or murmur GI GI: normal to inspection and soft; Negative no hepatosplenomegaly Neuro General: patient alert, patient oriented x3 and CN's II-XI intact bilaterally Skin Skin: no rashes or lesions noted Extremities Pulses: Normal: Right Posterior Tibial Pulse, Left Posterior Tibial Pulse, Right Radial Pulse and Left Radial Pulse Lower Extremity Edema: None: Bilateral Psych Psychological: normal affect Assessment and Plan Assessment and Plan (1) Abnormal stress test: Status: Acute Orders: Orders: 12 Lead EKG performed by [facility] Today Basic Metabolic Profile (BMP) Today Prothrombin Time w/INR Today CBC W/Diff, Automated Today Chest PA and Lateral Today Partial Thromboplast Time Today Alex Robertson PHOTO INTERN, PHOTO INTERN-C: Patient's stress test from 01/27/2021 was abnormal. He will be scheduled for a heart catheterization on 03/03/2021. His EKG today demonstrated sinus rhythm with heart rate of 61. Cardiac catheterization instructions given to patient. (2) Atherosclerotic heart disease of [place] coronary artery without angina pectoris: Status: Chronic Qualifiers: [place] vs. transplanted heart: [place] heart Qualified Code(s): I25.10 - Atherosclerotic heart disease of [place] coronary artery without angina pectoris Orders: Orders: 12 Lead EKG performed by [facility] Today Basic Metabolic Profile (BMP) Today Prothrombin Time w/INR Today CBC W/Diff, Automated Today Chest PA and Lateral Today Partial Thromboplast Time Today Alex Robertson PHOTO INTERN, PHOTO INTERN-C: Patient has a history of coronary artery disease. He denies any recent symptoms or events at this time. He did have an abnormal stress on 01/27/2021, in which we will obtain a cardiac catheterization to evaluate this. He will continue his current medications at this time. (3) Presence of stent in coronary artery: Status: Chronic Comment: PCI/CARLOS to mid RCA 06/30/20 @ [facility] in [place], [place] Orders: Orders: 12 Lead EKG performed by [facility] Today Alex Robertson NP, PHOTO INTERN-C: Patient has a history of coronary artery disease with stent placement in June 2020. He recently had an abnormal stress test on 01/27/2021. He denies any recent symptoms or events at this time. We will obtain a cardiac catheterization to evaluate his coronary arteries. He will continue with his current medications at this time. (4) PAD (peripheral artery disease): Status: Acute Alex Robertson NP, PHOTO INTERN-C: Patient has a history of peripheral artery disease. He does follow with Dr. Sparrow. He was last seen in September 2020 with plan to repeat scan approximately 1 year and we will continue to monitor on account of being asymptomatic. (5) CKD (chronic kidney disease) stage 3, GFR 30-59 ml/min: Status: Chronic Alex - Sabrina Robertson PHOTO INTERN, PHOTO INTERN-C: Patient does have a history of chronic kidney disease. We will obtain a BMP to monitor his kidney function. He will continue to follow-up with his PCP for this. (6) Essential hypertension: Status: Chronic Orders: Orders: 12 Lead EKG performed by [facility] Today Alex - Sabrina Robertson PHOTO INTERN, PHOTO INTERN-C: Patient has a history of hypertension. His blood pressure is well controlled in the office today. He will continue with his current medications. We will continue to monitor. (7) Mixed hyperlipidemia: Status: Chronic Plan - Sabrina Robertson PHOTO INTERN, PHOTO INTERN-C: Patient has a history of hyperlipidemia. His PCP monitors this. He will continue atorvastatin 80 mg p.o. daily. Plan Details Other Orders: Orders: Partial Thromboplast Time Today I21.11 Additional Comments: Patient will follow up in 3 months, or sooner if needed. Thank you for allowing me to participate in the care of your patient. Please don't hesitate to call if any issues arise. This note was generated using a voice recognition system and there may be incorrect words, spelling, or punctuation that were not noted when reviewing the office note prior to saving. Follow Up: 3 Months (PHOTO INTERN/PA) Keep as is (PFM) COVID (Procedure Consent) Procedure Criteria Procedure Criteria: Yes Elective The surgeon/proceduralist and patient have discussed in detail the risk of exposure to and/or potential harm posed by the COVID-19 virus with having a surgery/procedure at this time versus the risk of delaying the surgery/procedure. It is not possible to know either the risk of delaying the surgery or procedure or chance of getting an infection with perfect accuracy, but a joint decision was made between the patient and the surgeon/proceduralist to proceed at this time with the scheduled surgery/procedure as indicated on the consent form. Coding Level of Care Code Off vis,est,level 4 Diagnoses Abnormal stress test R94.39 Atherosclerotic heart disease of [place] coronary artery without angina pectoris I25.10 [place] vs. transplanted heart: [place] heart Presence of stent in coronary artery Z95.5 PAD (peripheral artery disease) I73.9 CKD (chronic kidney disease) stage 3, GFR 30-59 ml/min N18.30 Essential hypertension I10 Mixed hyperlipidemia E78.2 Coding Level of Care Code Off vis,est,level 4 Diagnoses Abnormal stress test R94.39 Atherosclerotic heart disease of [place] coronary artery without angina pectoris I25.10 [place] vs. transplanted heart: [place] heart Presence of stent in coronary artery Z95.5 PAD (peripheral artery disease) I73.9 CKD (chronic kidney disease) stage 3, GFR 30-59 ml/min N18.30 Essential hypertension I10 Mixed hyperlipidemia E78.2 Supplemental Info Supplemental Information While admitted to outside facility he underwent echocardiogram that per a summary report in his discharge findings it stated that the left ventricle was normal in size with mild LVH with moderate hypokinesis of the basal inferior septum and the basal to mid inferolateral wall with severe hypokinesis of the basal to mid inferior wall with an estimated LVEF 50% with no hemodynamically significant valvular abnormalities. Stress Test : Procedure: Exercise tolerance test/imaging study Indications: CAD; status post KS; status post PCI Consent: Per the patient Procedure: The patient exercised on a Raciel protocol for 8 minutes and 25 completing Stage II and 2 minutes and 25 seconds of Stage III achieving a peak heart rate of 150 bpm (99% predicted maximal heart rate) with a peak blood pressure 190/60 mmHg and a peak MET capacity of 9 METs. The baseline ECG demonstrated sinus bradycardia. The peak exercise ECG demonstrated no obvious ECG changes. There were no cardiac dysrhythmias pretest, during exercise, or recovery. The functional capacity was considered good. There was no complaint of chest discomfort during exercise or recovery. The examination was discontinued secondary to dyspnea. Impression: 1. Technically adequate (percent predicted maximal heart rate greater than 85%) exercise tolerance test 2. Peak exercise ECG with no obvious ECG changes 3. There were no cardiac dysrhythmias pretest, during exercise, or recovery 4. Nuclear images pending Myocardial perfusion imaging study: Technique: The patient was injected with 11.3 mCi of technetium 99m Cardiolite and subsequently rest SPECT Cardiolite nuclear imaging was obtained in the horizontal long, vertical long, and short axis views. The patient exercised on a Raciel protocol for 8 minutes and 25 completing Stage II and 2 minutes and 25 seconds of Stage III achieving a peak heart rate of 150 bpm (99% predicted maximal heart rate) with a peak blood pressure 190/60 mmHg and a peak MET capacity of 9 METs. The patient was injected with 32.7 mCi of technetium 99m Cardiolite and subsequently stress SPECT Cardiolite nuclear imaging was obtained in the horizontal long, vertical long, and short axis views. A gated Cardiolite study at peak stress was obtained. Interpretation: Rest and stress SPECT Cardiolite nuclear imaging status post realignment, normalization, and attenuation correction, demonstrates the appearance on preattenuation images of diminished myocardial perfusion/tracer uptake in portions of the basal to mid inferior segments which appear to be somewhat more prominent following stress and on post attenuation images the appearance of subtle diminished tracer uptake in the basal towards mid inferior segments. There is diminished end systolic thickening and brightening in the aforementioned area. The gated Cardiolite study demonstrates myocardial thickening and inward wall motion. The reported LVEF is 74%. Impression: 1. Rest and stress SPECT Cardiolite nuclear imaging demonstrate myocardial perfusion changes concerning for an area of previous myocardial injury/infarction involving portions of the basal to mid inferior segments with post stress images concerning for an area of obey-infarct related myocardial ischemia. 2. The gated Cardiolite study reports an LVEF of 74%. Labs: No Data to Display Diagnostics: Electrocardiogram Stress Test NM Stress Test Pulmonary: No Data to Display 02/19/21 1119<Electronically signed by Sabrina Robertson NP PHOTO INTERN-C>Date Sabrina Robertson NP PHOTO INTERN-C 02/24/21 0844<Electronically signed by Dane Campbell MD>Cosigner Signature:Date (if applicable)Dane Campbell MD CC: Dr. Du Howe MD ~ Assessment & Plan Addt'l Comments I have re-examined the patient. There are no clinical changes since date of exam.
[2021-03-03] VITALS (14 sets, daily range): BP systolic 100–139; BP diastolic 64–91; PULSE 63–94; RESP 16; TEMP 36.7–37.1; O2SAT 95–98; BMI 27.1
--- NOTE | 2021-03-03 11:21 | CL.I_ITS ---
Patient Name: NETTA DAVIS Study Date: 03/03/2021 Performing: Dasha Doyle MD Ht: 70.86 inches 180 cm : 1950 Wt: 189.6 lbs 86 kg Age: 71 Gender: male BSA: 2.06 PROCEDURE(S) PERFORMED [id number] W OR WO PTCA, SINGLE CORONARY ARTERY [id number] W OR WO PTCA, SINGLE CORONARY ARTERY CLINICAL PROFILE AND CO-MORBIDITIES Indications: Suspected CAD Heart Failure: None Stress/Imaging Date: 01/27/2021 Stress Test with SPECT MPI: Positive Intermediate Risk Angina Classification Anginal Classification w/in 2 Weeks: Anginal Equivalent Dyspnea CAD Presentations: Other: dyspnea on exertion CONCLUSIONS RECOMMENDATIONS Successful PCI of ostial RCA, mid RCA and mid LAD with CARLOS DESCRIPTION OF PROCEDURE The patient arrived to the procedure lab. The risks and benefits of the procedure as well as a full d escription of our services here and current unavailability of surgical backup were fully explained to the patient and/or their significant other prior to the catheterization. The Timeout was completed, verifying the correct patient and procedure. The patient's procedural site was prepped and draped in the usual fashion. Local anesthetic was given subcutaneously to right radial region with Lidocaine 2% Using a modified Seldinger technique,arterial access was obtained via the right radial artery, a 6Fr sheath was inserted. Right Coronary Artery selective angiography was then performed in multiple view s using a 5 Fr. 4.0 Zanoni catheter. Left Coronary Artery selective angiography was performed in multi ple views using a 5 Fr. 4.0 Zanoni catheter. Left Ventriculography was performed in HUBBARD projection usi ng a 5 Fr. Pigtail catheter. LV to AO pullback pressures were then recorded.The images were reviewed and options discussed. A decision was then made to proceed with an Intervention, IVUS o r other adjunct procedure. JR 4 Guide catheter was inserted and engaged into the RCA. BMW Guide wire was advanced to the RCA . Orsiro 3.5x15 Drug Eluting stent was inserted. Angiogram performed post stent deployment. Orsiro 3. 5x13 Drug Eluting stent was inserted. Angiogram performed post stent deployment. XB 3.0 Guide cathete r was inserted and engaged into the LCA. BMW Guide wire was advanced to the LAD. Emerge 2.5x15 Balloo n catheter was inserted. PTCA balloon inflated at 10 atms for 28 secs. Angiogram performed post ballo on dilatation. Orsiro 2.75x26 Drug Eluting stent was inserted. Angiogram performed post stent deploym ent. The arterial sheath was pulled and a TR Band was applied for hemostasis w/ 12ml air INTERVENTION INFORMATION LESION SITE: RCA (Mid) Lesion Complexity: High/C, chronic total occlusion: No, lesion at bifurcation: Yes, thrombus present: No, lesion length: 14 mm, culprit lesion: Yes, Previously treated lesion: No Pre Stenosis: 80 % Pre intervention GLADYS flow: 3 PROCEDURE: Drug Eluting Stent Post Stenosis: 0 % Post intervention GLADYS flow: 3 Lesion Devices: Cardinal 6 Fr JR4 100cm Guide Catheter Trinh .014 BMW [place] Straight 190cm Biotronik Orsiro MR CARLOS 3.5x15 LESION SITE: RCA (Ostial) Lesion Complexity: High/C, chronic total occlusion: No, lesion at bifurcation: No, thrombus present: No, lesion length: 8 mm, culprit lesion: Yes, Previously treated lesion: No Pre Stenosis: 70 % Pre intervention GLADYS flow: 3 PROCEDURE: Drug Eluting Stent with post dilatation Post Stenosis: 0 % Post intervention GLADYS flow: 3 Lesion Devices: Cardinal 6 Fr JR4 100cm Guide Catheter Trinh .014 BMW [place] Straight 190cm Biotronik Orsiro MR CARLOS 3.5x13 LESION SITE: LAD (Mid) Lesion Complexity: High/C, chronic total occlusion: No, lesion at bifurcation: No, thrombus present: No, lesion length: 22 mm, culprit lesion: Yes, Previously treated lesion: No Pre Stenosis: 80 % Pre intervention GLADYS flow: 3 PROCEDURE: Drug Eluting Stent with pre dilatation. 0 % Post intervention GLADYS flow: 3 Lesion Devices: Trinh .014 BMW [place] Straight 190cm Cardinal 6 Fr XB3.0 100cm Guide Catheter Abdifatah Sci EMERGE MR 2.50x15 BALLOON Biotronik Orsiro MR CARLOS 2.75x26 COMPLICATIONS No Complications PROCEDURE MEDICATIONS Versed 1 mg IV Fentanyl 50 mcg IV Oxygen: 2 L/min via nasal cannula Heparin given IA 03/03/2021 08:52:52 Heparin 6000 unit(s) IV 03/03/2021 09:41:33 Nitro 200 mcg IC 03/03/2021 09:59:24 Nitro 200 mcg IC 03/03/2021 09:59:24 Verapamil 2.5mg, Ntg 100mcgs, 3000 units of Heparin given IA 03/03/2021 08:52:52 SUMMARY OF HEMODYNAMIC DATA Time AIR REST ECG 08:13:18 Art 197/76 (114) 08:47:50 AO 141/74 (104) SA 08:55:17 LV 163/-8, 16 09:04:23 LV 164/-9, 22 09:04:29 LV 156/-13, 17 09:05:29 LV 162/-10, 22 09:05:36 LVp 164/-12, 22 09:05:41 AOp 149/65 (100) 09:05:46 Signed By Dasha Doyle MD On 03/03/2021 11:20:10 Dasha Doyle MD
--- NOTE | 2021-03-03 12:09 | PCS.PANDOC ---
PANDEMIC DOCUMENTATION INITIATED: Date: 12/15/2020 Time: 190
--- NOTE | 2021-03-03 12:19 | CRPHASE1_ITS ---
Patient Communication Former Patient:: Phase II PHII Cardiac Rehab Discussed with Patient:: Yes Guide to Cardiac Rehab Given to Patient:: Yes Cardiac Rehab Facility Choice List Given to Patient:: Yes Choice Program Other:: Communication Given to ANDERS Randhawa Refer Phase II Cardiac Rehab:: Yes Sessions:: 36 sessions - 3 days/wk, 12 weeks Cardiac Rehabilitation Info Cardiac Rehabilitation Program Information: Cardiac Rehabilitation is important for patients like you who are recovering from a heart problem. Cardiac rehabilitation programs are recognized as integral to the continued care of the patient with coronary heart disease. The cardiac rehabilitation program is designed to optimize a patient's physical, psychological, and social functioning. Health congregational care pastor work in cardiac rehabilitation programs and assist you with getting the treatments you need to get stronger and healthier - like exercise, healthy eating habits, and medications. Cardiac rehabilitation has been show to help people with heart problems live longer and have better life enjoyment than people who do not go to cardiac rehabilitation. Please contact the Cardiac Rehabilitation Program at [facility] at in two weeks if you have not heard from them.
--- NOTE | 2021-03-03 12:20 | CRPH1.INSTRU ---
General Education CAD and cardiac anatomy and function:: Patient communicates acknowledgment Explanation of diagnoses and procedures:: Patient communicates acknowledgment Sign/Symptoms of DC:: Patient communicates acknowledgment Antiplatelet therapy: Patient communicates acknowledgment Proper use of NTG-SL: Patient communicates acknowledgment Emergency procedures and activation of EMS: Patient communicates acknowledgment Compliance of all prescribed medications: Patient communicates acknowledgment Smoking Patient Nicotine/Smoking Risk Factors Are:: Never smoked Dyslipidemia Patient Dyslipidemia Risk Factors Are:: Total Cholesterol, Triglycerides, HDL, LDL Recommendations Include:: Lipid profile not available, Reviewed NCEP/ATP guidelines, Therapeutic Lifestyle Change dietary guidelines Dyslipidemia Response Code:: Patient communicates acknowledgment Overweight/Obesity Patient Overweight/Obesity Risk Factors Are:: BMI Normal [24-29 & > 65 years old] Recommendations Include:: Weight loss of 5-10%, Reduced calorie diet, Exercise 5-7 times/week Overweight/Obesity:: Patient communicates acknowledgment Hypertension Recommendations Include:: Maintain BP <130/85, DASH dietary guidelines, Decrease/maintain normal body weight, Moderation of ETOH Hypertension:: Patient communicates acknowledgment Heart Disease Patient Heart Disease Risk Factors Are:: Previous cardiac event Recommendations Include:: Educated family members of their risk Heart Disease Response Code:: Patient communicates acknowledgment Diabetes Patient Diabetes Risk Factors Are:: No documented hx of diabetes
[2021-03-03] MEDS: 0.9% Normal Saline 1,000 ML 80 ML IV (12:22)
[2021-03-03] MEDS: AMOXICILLIN 500 MG CAPSULE PO (21:29)
[2021-03-03] MEDS: Atorvastatin Calcium 80 MG Tablet PO (21:29)
--- NOTE | 2021-03-03 22:01 | CPS ---
Patient wears a CPAP of 10 at home. Will wear 2LNC O2 tonight because his machine is not here currently. Oxygen will be used to treat LEON. If patient has a hard time tonight sleeping, M[employer]IN[employer] HELPER told patient to let RN know so a CPAP machine can be provided.
[2021-03-04 03:00] VITALS: PULSE 60
[2021-03-04 03:31] VITALS: BP 105/72; PULSE 72; RESP 16; TEMP 36.8; O2SAT 100
[2021-03-04] MEDS: AMOXICILLIN 500 MG CAPSULE PO (05:24)
--- NOTE | 2021-03-04 05:55 | EKG12_ITS ---
Test Reason : AM EKG Blood Pressure : / mmHG Vent. Rate : 069 BPM Atrial Rate : 069 BPM P-R Int : 182 ms QRS Dur : 084 ms QT Int : 420 ms P-R-T Axes : 068 -03 029 degrees QTc Int : 450 ms Normal sinus rhythm Low voltage QRS (Limb Leads) Confirmed by PRASHANT VERDIN, DANE ([id number]), general expeditor DESIRAE VICTORIA ([id number]) on 03/05/2021 9:06:00 AM Referred By: Dane Cerda Confirmed By:DANE CERDA MD
[2021-03-04 07:33] VITALS: PULSE 80
[2021-03-04 07:47] VITALS: O2SAT 96
[2021-03-04 07:53] LABS: Absolute Lymphocyte Count 1.31 X10^3/uL (0.83-4.51); Absolute Neutrophil Count 3.9 X10^3/uL (2.0-7.7); Basophil# 0.03 X10^3/uL; Basophil% 0.5 % (0-1); Eosinophil# 0.24 X10^3/uL; Hematocrit 43.2 % (40-54); Hemoglobin 13.9 g/dL (13.0-16.5); Lymphocyte # 1.31 X10^3/ul (0.83-4.51); Lymphocyte % 21.6 % (19-41); Mean Corp Hgb Conc 32.2 g/dL (32-36); Mean Corpuscular Hgb 27.9 pg (27.0-32.0); Mean Corpuscular Volume 86.7 fL (80-94); Mean Platelet Vol. 10.1 fl (6.2-12.0); Monocyte# 0.62 X10^3/uL; Monocyte% 10.2 % (0-10); NRBC Flagged by Analyzer 0 % (0-5); Neutrophil # 3.85 X10^3/uL (2.7-7.7); Neutrophil % 63.4 % (47-70); Platelet Count 210 K/mm3 (150-450); RBC Distribution Width SD 44.5 fl (35.1-43.9); Red Blood Count 4.98 M/mm3 (4.6-6.2); White Blood Count 6.1 K/mm3 (4.4-11.0)
[2021-03-04 08:20] VITALS: BP 125/84; PULSE 75; RESP 16; TEMP 36.7; O2SAT 99
[2021-03-04 08:22] VITALS: BP 125/84; PULSE 75
[2021-03-04] MEDS: Metoprolol(XL)Succ 25 MG Tablet 12.5 MG PO (08:22)
[2021-03-04] MEDS: Aspirin 81 MG TAB.CHEW PO (08:23)
[2021-03-04] MEDS: Clopidogrel Bisulfate 75 MG Tablet PO (08:23)
[2021-03-04 08:31] LABS: ALB/GLOB Ratio 0.9 RATIO (0.9-2.4); AST(SGOT) 33 U/L (15-37); Alanine Aminotransfer ALT/SGPT 58 U/L (16-61); Albumin, Serum 2.9 g/dL (3.2-5.0); Alkaline Phosphatase 82 U/L (45-117); Anion Gap 4 (5-15); BUN 19 mg/dL (7-18); BUN/Creat Ratio 14.1 RATIO (10-20); Calcium,Total 8.3 mg/dL (8.5-10.1); Chloride 108 mmol/L (98-107); Creatinine, Serum 1.35 mg/dL (0.70-1.30); EST Glomerular Filtration Rate 56 mL/min (>60); Est Glom Filt Rate - Afr Amer 67 mL/min (>60); Estimated Creatinine Clearance 54.23 ml/min; Globulin 3.2 g/dL (2.2-4.2); Glucose 81 mg/dL (74-106); Potassium 4.2 mmol/L (3.5-5.1); Protein, Total 6.1 g/dL (6.4-8.2); Sodium Level 140 mmol/L (136-145)
--- NOTE | 2021-03-04 08:56 | CL.D_ITS ---
Patient Name: NETTA DAVIS Study Date: 03/03/2021 Performing: Dane Campbell MD Ht: 70.87 inches 180 cm : 1950 Wt: 189.6 lbs 86 kg Age: 71 Gender: male BSA: 2.06 PROCEDURE(S) PERFORMED [id number]/LV [id number] W OR WO PTCA, SINGLE CORONARY ARTERY [id number] W OR WO PTCA, SINGLE CORONARY ARTERY CLINICAL PROFILE AND INDICATIONS Indications: Suspected CAD Heart Failure: None Stress/Imaging Date: 01/27/2021tress Test with SPECT MPI: Positive Intermediate Risk Angina Classification Anginal Classification w/in 2 Weeks: Anginal Equivalent Dyspnea CAD Presentations: Other: dyspnea on exertion CONCLUSIONS Elevated Left Ventricular End Diastolic Pressure LV wall motion abnormality with overall preserved LV systolic function LVEF: by LV gram 55 % [place] Multivessel CAD RECOMMENDATIONS Risk factor modification Medical therapy Case discussed / reviewed with Dr. Doyle of Interventional Cardiology: Plan: proceed with RCA PCI and further evaluation / possible PCI of the LAD DESCRIPTION OF PROCEDURE The patient arrived to the procedure lab. The risks and benefits of the procedure as well as a full d escription of our services here and current unavailability of surgical backup were fully explained to the patient and/or their significant other prior to the catheterization. The Timeout was completed, verifying the correct patient and procedure. The patient's procedural site was prepped and draped in the usual fashion. Local anesthetic was given subcutaneously to right radial region with Lidocaine 2% . Using a modified Seldinger technique, arterial access was obtained via the right radial artery, a 6 Fr sheath was inserted. Right Coronary Artery selective angiography was then performed in multiple v iews using a 5 Fr. 4.0 [place] catheter. Left Coronary Artery selective angiography was performed in mu ltiple views using a 5 Fr. 4.0 [place] catheter. Left Ventriculography was performed in HUBBARD projection using a 5 Fr. Pig[place] catheter. LV to AO pullback pressures were then recorded.The arterial sheath was pulled and a TR Band was applied for hemostasis w/ 12ml air CORONARY ANGIOGRAPHY DOMINANCE: Right Dominant LEFT HEART ASSESSMENT Left Ventricular Ejection Fraction: by LV Gram 55 % Inferior Mid Hypokinesis LEFT MAIN: Angiographically normal LEFT ANTERIOR DESCENDING ARTERY: Mild luminal irregularities MID LAD: 50 % Stenosis, eccentric: somewhat hazy: 75 % Stenosis DIAGONAL 1: Proximal - 10 - 25 % Stenosis RIGHT CORONARY ARTERY: PROX RCA: eccentric: ulcerated plaque appearin % Stenosis MID RCA: Previously placed stent is patent AORTIC ROOT: Angiographically normal COMPLICATIONS No Complications PROCEDURE MEDICATIONS Versed 1 mg IV Fentanyl 50 mcg IV Oxygen: 2 L/min via nasal cannula Heparin given IA 03/03/2021 08:52:52 Heparin 6000 unit(s) IV 03/03/2021 09:41:33 Nitro 200 mcg IC 03/03/2021 09:59:24 Nitro 200 mcg IC 03/03/2021 09:59:24 Verapamil 2.5mg, Ntg 100mcgs, 3000 units of Heparin given IA 03/03/2021 08:52:52 SUMMARY OF HEMODYNAMIC DATA Time AIR REST ECG 08:13:18 Art 197/76 (114) 08:47:50 AO 141/74 (104) SA 08:55:17 LV 163/-8, 16 09:04:23 LV 164/-9, 22 09:04:29 LV 156/-13, 17 09:05:29 LV 162/-10, 22 09:05:36 LVp 164/-12, 22 09:05:41 AOp 149/65 (100) 09:05:46 Signed By Dane Campbell MD On 03/04/2021 08:55:37 Dane Campbell MD
--- NOTE | 2021-03-04 10:31 | DCINST_ITS ---
Discharge Instructions Diet Discharge Diet: Low fat / Low cholesterol Activity Discharge Activity: May Not Drive (x 48 hours ), May Shower (Today) and May Take a Tub Bath (in 7 days) Weight Bearing Status: - (Avoid heavy exertional activity x 1 week) Dressing / Incision Call your doctor if your incision/area has: Continuous Slow Oozing, Sudden Increased Bleeding, Increased Pain/ Swelling, Increased Redness, Foul Smelling Discharge and Swelling at the incision site Call your doctor if you observe: Fever of 101 or Higher, Shortness of breath, Fainting spells, Swelling in the ankles, Chest pain, Increased palpitations (irregular heartbeat) and Uncontrolled pain Remove Dressing in: 1 day Cleanse incision/area with: Soap & Water Follow Up Care Please Follow Up With: Dane Campbell MD When: [facility]: to contact patient and arrange a post hospital follow up appointment Test Results: Test results from this visit will be discussed in further detail at your follow-up appointment, if applicable. Discharge Plan Admission Admit Date/Time: 03/03/21 10:19 Primary Reason for Your Visit: Abnormal Stress Test: Cardiac Catheterization Attending Provider: Dane Campbell Primary Care Provider: Du Howe Discharge Orders/Prescriptions Prescriptions: Continued nitroglycerin 0.4 mg tablet, sublingual 0.4 mg SL Q5-15M PRN (Reason: chest pain) Qty: 25 RF: 3 metoprolol succinate 25 mg tablet extended release 24 hr 12.5 mg PO DAILY Qty: 45 RF: 3 clopidogrel [Plavix] 75 mg tablet 75 mg PO DAILY Qty: 90 RF: 3 atorvastatin 80 mg tablet 80 mg PO QHS Qty: 90 RF: 3 nitrofurantoin monohyd/m-cryst 100 mg capsule 100 mg PO QWEEK RF: 0 aspirin [Adult Aspirin Regimen] 81 mg tablet,delayed release (DR/EC) 81 mg PO DAILY RF: 0 amoxicillin 500 mg tablet 500 mg PO TID RF: 0 Referrals / Follow Up: Dane Campbell MD [STAFF PHYSICIAN] - 03/13/21 1:30 pm (This appointment will be with cardiac rehab) Du Howe MD [Primary Care Provider] -
--- NOTE | 2021-03-04 10:33 | CASEMGMT ---
RNCM ESTRADA Note: This medical writer went to patient bedside, introduced self and role. ESTRADA form explained and reviewed with patient for current treatment on this hospital stay. Informed his insurance plan determines coverage for outpatient stay and continual review is conducted to determine any changes in condition that may warrant inpatient stay. Patient acknowledges and states understanding. Denies any issues, concerns or questions with ESTRADA form. Form signed by patient. Patient provided a copy and original placed in patient hard chart. Louie Schulz RNCM
--- NOTE | 2021-03-04 10:37 | PCM.DC.SUM ---
Providers Date of Admission: 03/03/21 Primary Care Physician: Dr. Du Howe MD Reason For Visit: ABN STRESS TEST Diagnosis Discharge Diagnosis (1) Atherosclerotic heart disease of [place] coronary artery without angina pectoris: Status: Chronic Code(s): I25.10 - Atherosclerotic heart disease of [place] coronary artery without angina pectoris Qualifiers: [place] vs. transplanted heart: [place] heart Qualified Code(s): I25.10 - Atherosclerotic heart disease of [place] coronary artery without angina pectoris (2) Presence of stent in coronary artery: Status: Chronic Code(s): Z95.5 - Presence of coronary angioplasty implant and graft (3) Mixed hyperlipidemia: Status: Chronic Code(s): E78.2 - Mixed hyperlipidemia (4) Essential hypertension: Status: Chronic Code(s): I10 - Essential (primary) hypertension Medications at Discharge Home Medications aspirin 81 mg tablet,delayed release 81 mg PO DAILY 07/22/20 atorvastatin 80 mg tablet 80 mg PO QHS #90 tab 11/17/20 clopidogrel 75 mg tablet 75 mg PO DAILY #90 tab 11/17/20 metoprolol succinate 25 mg tablet,extended release 24 hr 12.5 mg PO DAILY #45 tab 11/17/20 nitroglycerin 0.4 mg sublingual tablet 0.4 mg SL Q5-15M PRN #25 tab 11/17/20 nitrofurantoin monohydrate/macrocrystals 100 mg capsule 100 mg PO QWEEK cap 02/19/21 amoxicillin 500 mg tablet 500 mg PO TID 03/02/21 Hospital Course Procedures Cardiac catheterization and - (Cardiac Intervention: PCI) Summary of Care Provided Minutes Spent on Discharge: 45 Hospital Course: The patient presented to [facility] for an abnormal exercise tolerance test/imaging study with plans for diagnostic cardiac catheterization. This was performed. The patient subsequently proceeded to cardiac intervention with PTCA/stent/CARLOS to the RCA distribution and subsequently the LAD distribution. The patient was monitored overnight. On this day the patient appeared to be symptomatically and hemodynamically stable. Status post review of his case he was felt stable for release home for continued outpatient cardiovascular follow-up. Physical Exam Const alert, oriented x3, no apparent distress and healthy appearing General Appearance: cooperative, comfortable, well kempt and well developed HEENT normocephalic, head/scalp atraumatic and hearing grossly normal bilaterally Eyes PERRL, EOMs intact bilaterally and conjunctivae normal Neck full ROM and no JVD Resp normal respiratory effort and clear to auscultation bilaterally Cardio regular rate, regular rhythm, S1 normal heart sound and S2 normal heart sound Heart Sounds: murmur systolic II/ soft sternal notch GI normal to inspection, nondistended, normoactive bowel sounds Extremity no pedal edema Peripheral Pulses: Yes radial pulses present right (No bruits: No hematoma) 2+ Neuro oriented x3, moves all extremities, no focal motor deficits and no sensory deficits noted Weight / BMI Weight Weight: 194 lb 2 oz Body Mass Index (BMI) 27.1 ABG / Lab / Microbiology Data Result Diagrams: 03/04/21 06:20 03/04/21 06:20 Laboratory: Laboratory Results - last 24 hr 03/04/21 06:20: WBC 6.1, RBC 4.98, Hgb 13.9, Hct 43.2, MCV 86.7, MCH 27.9, MCHC 32.2, RDW Std Deviation 44.5 H, RDW Coeff of Rod 14.0, Plt Count 210, MPV 10.1, Immature Gran % (Auto) 0.300, Neut % (Auto) 63.4, Lymph % (Auto) 21.6, Jenkins % (Auto) 10.2 H, Eos % (Auto) 4.0, Baso % (Auto) 0.5, Absolute Neuts (auto) 3.9, Absolute Lymphs (auto) 1.31, Nucleated RBC % 0 03/04/21 06:20: Sodium 140, Potassium 4.2, Chloride 108 H, Carbon Dioxide 28.0, Anion Gap 4 L, BUN 19 H, Creatinine 1.35 H, Estim Creat Clear Calc 54.23, Est GFR (MDRD) Af Amer 67, Est GFR (MDRD) Non-Af 56 L, BUN/Creatinine Ratio 14.1, Glucose 81, Calcium 8.3 L, Total Bilirubin 0.40, AST 33, ALT 58, Alkaline Phosphatase 82, Total Protein 6.1 L, Albumin 2.9 L, Globulin 3.2, Albumin/Globulin Ratio 0.9 D/C Instructions Discharge Diet: Low fat / Low cholesterol Weight Bearing Status: - (Avoid heavy exertional activity x 1 week) Call your doctor if your incision/area has: Continuous Slow Oozing, Sudden Increased Bleeding, Increased Pain/ Swelling, Increased Redness, Foul Smelling Discharge and Swelling at the incision site Call your doctor if you observe: Fever of 101 or Higher, Shortness of breath, Fainting spells, Swelling in the ankles, Chest pain, Increased palpitations (irregular heartbeat) and Uncontrolled pain Cleanse incision/area with: Soap & Water Please Follow Up With: Dane Campbell MD When: [facility]: to contact patient and arrange a post hospital follow up appointment Meaningful Use Info Meaningful Use Diagnoses (Choose all that apply): None applicable Discharge Plan Admission Admit Date/Time: 03/03/21 10:19 Primary Reason for Your Visit: Abnormal Stress Test: Cardiac Catheterization Attending Provider: Dane Campbell Primary Care Provider: Du Howe Discharge Orders/Prescriptions Prescriptions: Continued nitroglycerin 0.4 mg tablet, sublingual 0.4 mg SL Q5-15M PRN (Reason: chest pain) Qty: 25 RF: 3 metoprolol succinate 25 mg tablet extended release 24 hr 12.5 mg PO DAILY Qty: 45 RF: 3 clopidogrel [Plavix] 75 mg tablet 75 mg PO DAILY Qty: 90 RF: 3 atorvastatin 80 mg tablet 80 mg PO QHS Qty: 90 RF: 3 nitrofurantoin monohyd/m-cryst 100 mg capsule 100 mg PO QWEEK RF: 0 aspirin [Adult Aspirin Regimen] 81 mg tablet,delayed release (DR/EC) 81 mg PO DAILY RF: 0 amoxicillin 500 mg tablet 500 mg PO TID RF: 0 Referrals / Follow Up: Dane Campbell MD [STAFF PHYSICIAN] - 03/13/21 1:30 pm (This appointment will be with cardiac rehab) Du Howe MD [Primary Care Provider] -
--- NOTE | 2021-03-04 11:29 | PHA.DC.MR ---
Pharmacy Service has performed discharge medication reconciliation for this patient. The patient's discharge medication list was reviewed for discrepancies and discrepancies were resolved. Home Medications aspirin 81 mg tablet,delayed release 81 mg PO DAILY 07/22/20 atorvastatin 80 mg tablet 80 mg PO QHS #90 tab 11/17/20 clopidogrel 75 mg tablet 75 mg PO DAILY #90 tab 11/17/20 metoprolol succinate 25 mg tablet,extended release 24 hr 12.5 mg PO DAILY #45 tab 11/17/20 nitroglycerin 0.4 mg sublingual tablet 0.4 mg SL Q5-15M PRN #25 tab 11/17/20 nitrofurantoin monohydrate/macrocrystals 100 mg capsule 100 mg PO QWEEK cap 02/19/21 amoxicillin 500 mg tablet 500 mg PO TID 03/02/21
== END 2021-03-04 10:41 | disposition home or self-care (01) ==
LOC: PCU 11:47
PROVIDERS: Nurse Practitioner Gerontology; Admitting Provider Internal Medicine Cardiovascular Disease; PCP Family Medicine; Referring Provider Internal Medicine Cardiovascular Disease; Visit Provider Internal Medicine Cardiovascular Disease
DX: I25.10 Atherosclerotic heart disease of native coronary artery without angina pectoris (principal); E78.2 Mixed hyperlipidemia; I12.9 Hypertensive chronic kidney disease with stage 1 through stage 4 chronic kidney disease, or unspecified chronic kidney disease; G47.33 Obstructive sleep apnea (adult) (pediatric); I25.2 Old myocardial infarction; I73.9 Peripheral vascular disease, unspecified; R94.39 Abnormal result of other cardiovascular function study; R06.09 Other forms of dyspnea; N18.31 Chronic kidney disease, stage 3a; Z79.899 Other long term (current) drug therapy; Z79.82 Long term (current) use of aspirin; Z79.02 Long term (current) use of antithrombotics/antiplatelets; Z95.1 Presence of aortocoronary bypass graft; Z85.46 Personal history of malignant neoplasm of prostate; Z82.49 Family history of ischemic heart disease and other diseases of the circulatory system
CPT/HCPCS: 36415; 71046; 80048; 80053; 85025; 85610; 85730; 92928; 93005; 93458; 96360; 96361; 99152; 99153; 99218; C1874; J7030; J7040; Q9967; C1725; C1769; C1887; C1894; C9600; G0378

== ENCOUNTER → 2021-03-13 13:25 | Outpatient (CLI) | payer MEDICARE, OTHER, SELFPAY | PROVIDERS: PCP Family Medicine; Referring Provider Internal Medicine Cardiovascular Disease; Visit Provider Internal Medicine Cardiovascular Disease | DX: Z00.00 Encounter for general adult medical examination without abnormal findings (principal) ==

== ENCOUNTER 2021-05-06 08:46 | Outpatient (CLI) | payer MEDICARE, OTHER, SELFPAY ==
--- NOTE | 2021-05-06 08:56 | PCM.CR.ITP ---
Diagnosis - General Information Admitting Diagnosis: ST elevated AR, PCI w/coronary stenting Personal Learning Style:: Audio/Visual, Written Barriers to Learning: No Barriers Stage of change r/t lifestyle modifications:: Action Gave educational material for:: Treating Heart Disease, Emotions & Heart Disease, Stress Management & Relaxation, Sleep Disorders & Heart Disease, How The Heart Works, What it means to have Heart Disease, How Coronary Artery Disease is Diagnosed, Heart Procedures, What Heart Medications Do, Risk Factors & Modifications, Living an Active Life, Nutrition - Education/Goals Individual Counseling: Initial Assessment: Abnormal Cholesterol Levels, High Blood Pressure Cardiac Rehabilitation Goals: 1. Maintain the individual as the primary focus of care. 2. To improve the patient's quality of life. 3. Identification of cardiac risk factors and provide cardiac risk factor management. 4. Enhance the psychosocial status of the patient. 5. Reconditioning enough to allow the patient to resume customary activities. 6. Control symptoms of cardiac disease Personal Goals: Initial Assessment: Improve energy level, Improve muscle strength and endurance, Improve diet and eating habits (eat healthier), Control risk factors (learn risk factor modification) Scale for measuring improvement of personal goals: Enter appropriate number in Comments. 2 = Unchanged. 3 = Slightly Better. 4 = Moderate Improvement. 5 = Met my Goal - Diagnosis & Disease Process Outcomes/Goals: Pt IDs own risk factors & lifestyle modifications by Session 10, Verbalizes symptoms of angina & response by session 3., Pt independently manages Plan/Interventions: Assist Pt to ID & engage in lifestyle modification to reduce CVD risk, Instruct on individual risk factors, Review symptoms of angina & emergency actions, Review secondary diagnosis & identify educational needs. - Safety Referral to Physical Therapy: No Referral to [facility] Case Management: No Fall Risk Assessed:: Yes Assistive Devices:: None Exercise - Initial Assessment - Visit Date of Eval: 05/06/21 Session #:: 0 - Pre-cardiac rehb evaluation - Stress Test Date: 01/27/21 Protocol:: Raciel Resting HR (bpm):: 65 Maximum HR (bpm):: 150 Blood Pressure: 138/82 Maximum Blood Pressure: 188/78 MET LEVEL:: 10.10 EKG: No obvious ECG changes during stress test. - Physician Prescribed Exercise Modalities: Treadmill, Rower, Airdyne, NuStep Frequency: 3x/week for 12 weeks [36 sessions] Intensity: 60-80% of age predicted maximum heart rate reserve Current METSs:: 10.10 Target Heart Rate:: 150 Maximum Excercise HR:: 150 Resting Blood Pressure: 138/82 Maximum Exercise Blood Pressure: 188/78 EKG Type: NSR to sinus tach with no changes ECG changes during stress - Outcomes & Goals Goals:: Verbalizes understanding of THR, RPE & goal METS by session 6, Documents in home exercise log/reports 30 min aerobic 5 day/wk by DC, Demonstrates accurate pulse taking by DC - Intervention & Plan Exercise Program Goals: Instruct on personal THR & RPE, Instruct on MET level & personal MET goal, Show patient to take own pulse /validate performance until accurate, Instruct on home exercise - Physical Activity Home Exercise Physical Activity - Home Exercise: Safe Exercise, Warm-up, Self-monitoring, Cool-Down, Home Exercise > 30 min Daily, Sitting Time <3 hours/daily - Outcomes & Goals Outcomes/Goals: Demonstrates correct Warm-up/exercise Cool-Down (S3) if = 2.5 METs, Verbalizes symptoms of exercise intolerance by Session 3 (S3), Demonstrate safe equipment use (S3) & follows exercise prescrition (6) - Intervention & Plan Plan/Intervention: Instruct warm-up & cool-down if exercising at > 2 METs, Instruct on symptoms of exercise intolerance & actions to take, Instruct & monitor on saf, Assess intial functional capacity & safety risk Nutrition - Initial Assessment - Program Goals Nutrition Program Goals: LDL <100 optimal. 100 - 129 Near optimal. 130 - 159 Borderline High. 160 - 189 High. Total Cholesterol <200 desirable. 200 - 239 Borderline High. >/= 240 High. HDL < 40 Low >/=60 High. Triglycerides <150 desirable. <199 optimal. VlDL 5 - 40. HgbA1C <7%. BMI <25 Patient has diagnosis of Hyperlipidemia (ICD E78)?: Yes - Visit Date of Assessment:: 05/06/21 Session #:: 0 - pre-cardiac rehab - Cholesterol/Lipids Determine presence & major risk factors that modify LDL goal: Cigarette smoking, Hypertension or hypertensive medication, Family history of premature CHD in Male < 55 years: female <65 yearsFa, Age men > 45 years; women >/= 55 years Outcomes/Goals: Pt IDs own risk factors & lifestyle modifications by Session 10, Verbalizes symptoms of angina & response by session 3., Pt independently manages Intervention/Plan: Instruct on personal lipid levels & lipid goals/NCEP guidelines, Instruct on cholesterol Referral to dietitian:: Yes - MEDICAL NUTRITION THERAPY - Diabetes (Other Core Measures) Diabetes Type: Not Applicable - Weight Mgt (Other Care) Not Applicable: Yes Height: 5 ft 11 in Weight:: 194 lb BMI: 27.0 Diagnosis Overweight/Obesity BMI> 30% ICD-10 E66: No Diagnosis High BMI/Morbid Obesity BMI> 35% ICD-10 Z68: No Outcomes/Goals: Pt sets, maintains & shows weight loss goal & trend during rehab Intervention/Plan: Instruct on ideal BMI & set weight loss goal w/patient, Assist pt to ID & incorporate diet changes for weight loss by S9, Encourage goal of using 250-300dcal per session for weight loss - Healthy Eating Habits Will attend diet classes:: Yes Outcomes/Goals:: Consume diet rich in vegs,fruits,whole grain/high fiber,fish,lean meat, Limit sat/trans fats,cholesterol & added salts & sugars Intervention/Plan:: Assess current eating habits - Education Gave educational materials for:: Healthy eating Nutrition - 30-Day Assessment Nutrition - 60-Day Assessment Nutrition - 90-Day Assessment Nutrition - Final Assessment Medical - Initial Assessment - Visit Date of Eval: 05/06/21 Session #:: 0 - prE-CARDIAC REHAB EVALUATION - Medication Compliance Preventative Medication(s):: Aspirin, Clopidogrel/P2Y12 inhibit, Statin/lipid, Beta joseline H/O mental health issues: depression, anxiety, or addiction?: No Doesn?t believe in the benefits of treatment?: No Believes medications are unnecessary or harmful?: No Has a concern about medication side effects?: No Expresses concern over the cost of medications?: No Outcomes/Goals: Verbalizes medications,desired effect & common side effects @ DC, Pt self-reports following medication regimen, Keeps card in wallet w/medications listed by DC Interventions/plans: Instruct on medication effects & side effects, Review medication list w/patient every two weeks, Instruct importance of taking meds as ordered & assist problem solving - Tobacco Use Tobacco Use: Non-smoker - Hypertension Hypertension Diagnosis:: Hypertension ICD-10 I10 Resting Blood Pressure:: 138/82 [place] [employer] Hypertension Guidelines: [place] [employer] Hypertension Guidelines. Normal BP Less than 120/80. Elevated BP 120/80. Hypertension Stage 1: BP 130-139/80-89. Hypertesnion Stage 2: BP 140 or higher/90 or higher. Hypertension Crisis: BP higher than 180/120 Peak Exercise Blood Pressure:: 188/78 - STRESS TESTING Outcomes/Goals: Able to verbalize/achieve optimal blood pressure <130/80, Incorporates diet changes & exercise for blood pressure control by DC Interventions/plan: Instruct on optimal blood pressure, hypertension & medications, Instruct on effects of sodium, alcohol, stress, exercise &hypertension - Tobacco Cessation Referral Smoking Cessation Referral:: No Individual Education/Counseling:: No Education Schedule Given:: Yes Medical- 30-Day Assessment Medical- 60-Day Assessment Medical- 90-Day Assessment Medical - Final Assessment Psychosocial - Initial Assess - VIsit Date of Eval: 05/06/21 Session #:: 0 - PRE-CARDIAC REHAB EVAL Not Applicable: No - Psychosocial Test Tool Used:: Hannah Eason QOL Cardiac, PHQ-9 Questionnaire phq-9 Severity: Severity. 1-4 Minimal Depression. 5-9 Mild Depression. 10-14 Moderate Depression. 15-19 Moderately Sever Depression. 20-27 Severe Depression. Rule: - Referral to Behavioral Health PS - Interventions: Yes Attend Stress Management Classes, No Referral to Behavioral Health if PHQ-9 score >9:, No Referral to [facility], No Referral to Physician if PHQ-9 if score is 5-9: - Outcomes/Goals: See list Psychosocial Outcomes/Goals:: ID's personal stressors & 2 strategies to manage stress by discharge - Intervention/Plan: See List Interventions/Plan:: Assess stressors,coping strategies & signs of derpression on admission, Instruct/assist pt to develop coping & personal stress Mgt strategies, Instruct patient to recognize signs & symptoms of depression, Instruct patient to recog Psychosocial - 30-Day Assess Psychosocial - 60-Day Assess Psychosocial - 90-Day Assess Psychosocial - Final Assessmen Patient Health Questionnaire Initial Assessment 1. Little interest or pleasure in doing things: Not at all 2. Feeling down, depressed, or hopeless: Not at all 3. Trouble falling or staying asleep, or sleeping too much: Not at all 4. Feeling tired or having little energy: Several days 5. Poor appetite or overeating: Not at all 6. Feeling bad about yourself -- or that you are a failure or have let yourself or your family down: Not at all 7. Trouble concentrating on things, such as reading the newspaper or watching television: Several days 9. Thoughts that you would be better off , or of hurting yourself in some way: Not at all Total Score: 2 BERONICA-Q SV Test - Statements CAD is a disease of the arteries in the heart: False Examples of risk factors for heart disease: True Angina is chest pain or discomfort: True The benefits of resistance training include: True Eating more meat and dairy products: False Anti-platelet medications such as aspirin are important: True The only effective way to manage stress: False An exercise warm-up slowly increases heart rate: I Don't Know Prepared, processed foods usually have high sodium: True Depression is common after a heart attack: I Don't Know The statin medications lower cholesterol: True To control blood pressure, lower the amount of sodium: True If someone gets chest discomfort during walking: False Transfats are partially hydrogenated vegetable oils: True Sleep apnea that is not treated increases the risk: False To control cholesterol, one should become a vegetarian: True Someone knows if he/she is exercising at the right level: True Diabetes cannot be prevented with exercise & health eating: False Stress is a large risk for heart attack: True A diet that can help lower blood pressure is rich in: True - Total Score Total Correct Responses: 17 Self-Efficacy Initial Assessment We would like to know how confident you are in doing certain activities. Please select your confidence level for:: Select your confidence level for the following using the scale 1-10 where 1 is not at all confident and 10 is totally confident. Your score is the average of all 6 responses. Fatigue: How confident are you that you can keep the fatigue caused by your disease from interfering with the things you want to do? Select Number: 9 Physical Discomfort or Pain: How confident are you that you can keep the physical discomfort or pain of your disease from interfering with the things you want to do? Select Number: 8 Emotional Distress: How confident are you that you can keep the emotional distress caused by your disease from interfering with the things you want to do? Select Number: 8 Other Symptoms or Health Problems: How confident are you that you can keep other symptoms or health problems from interfering with the things you want to do? Select Number: 8 Different Tasks and Activities: How confident are you that you can do the different tasks and activities needed to manage your health condition so as to reduce your need to see a doctor? Select Number: 9 Medication: How confident are you that you can do things other than just taking medication to reduce how much your illness affects your everyday life? Select Number: 8 Total Score:: 8 Nutrition Survey - Nutrition Survey Initial Have you lost >10 lbs over the past 2 months without trying?: No Are you following a special diet at home for diabetes, low fat, or low salt?: No Are you interested in meeting with a dietitian for help understanding your diet?: Yes Do you eat less than 3 meals a day?: No Do you eat fatty meats (huynh, sausage, ribs, etc), fried foods, desserts, large amounts of salad dressings, margarine, butter, or cheese most days?: No Do you have food allergies? [Enter types in comment field]: No Do you eat in restaurants more than 3 times a week?: Yes Do you season food with salt, seasoning salt, or garlic salt?: No Do you used canned, boxed, frozen meals, or soups, seasoning packets?: No Total Score:: 2
--- NOTE | 2021-05-06 08:56 | PCM.CR.HP2 ---
CR - History & Physical - General Arrival date:: 05/06/21 Arrival time:: 08:56 Date of Referral:: 04/23/21 Date of CR Evaluation:: 05/06/21 Referring Physician: Dr. Dane Campbell Primary Diagnosis: PCI w/coronary stenting - History of Present Cardiac Event Onset Date: Enter Onset Date of cardiac illnesses in Comment field below Acute Myocardial Infarction within 12 months:: Yes - ST elevated OR 03/03/2021 PTCA or coronary stenting:: Yes - 03/03/2021 - Sleep Disorder Evaluation Hx of Sleep Apnea: Yes Do you snore loudly (louder than talking or can be heard through closed doors)?: Yes Do you often feel tired/ fatigued/ sleepy during daytime?: No - PATIENT HAS A HOME CPAP UNIT FOR HIS DIAGNOSED LEON. Has anyone observed you stop breathing during sleep?: Yes History of Hypertension (for STOP score): Yes STOP Results: Positive - Medications Home Medications: Ambulatory Orders Medication Instructions Recorded aspirin 81 mg tablet,delayed 81 mg PO DAILY 07/22/20 release atorvastatin 80 mg tablet 80 mg PO QHS #90 tab 11/17/20 clopidogrel 75 mg tablet 75 mg PO DAILY #90 tab 11/17/20 metoprolol succinate 25 mg 12.5 mg PO DAILY #45 tab 11/17/20 tablet,extended release 24 hr nitroglycerin 0.4 mg sublingual 0.4 mg SL Q5-15M PRN #25 tab 11/17/20 tablet nitrofurantoin 100 mg PO QWEEK cap 02/19/21 monohydrate/macrocrystals 100 mg capsule - Allergies Allergies/Adverse Reactions: Allergies ciprofloxacin [From Cipro] Allergy (Verified 03/25/21 14:47) Rash latex Allergy (Verified 03/25/21 14:47) Rash Sulfa (Sulfonamide Antibiotics) Allergy (Verified 03/25/21 14:47) Rash Advanced Directives - Advanced Directives Power of E Commerce Merchant: Yes Living Will: Yes Advance Directives Information Provided: No Advance Directives on File: No DNR Order?:: No - MOLST See MOLST form: No Past Medical History - Covid-19 Screening Fever: No Unexplained muscle aches: No Current respiratory symptoms: No Upper respiratory infections symptoms: No Gastro-intestinal symptoms: No Epp-Nzdy-Aoskth symptoms: No Has tested positive for COVID-19 in last 30 days: No Date of testin05/06/21 - PATIENT IS UNVACCINATED Had contact w/person w/symptoms or Covid-19 (+) last 14 days: No Has High Risk Exposures ID'd by Health dept/Inf Control team: No 65 years or older:: Yes Lives in Assisted Living facility:: No Has a chronic lung disease or moderate to severe asthma:: No Has a serious heart condition:: Yes Immunocompromised:: No Severely obese (Body Mass Index of 40 or higher):: No Diabetic:: No Has chronic kidney disease undergoing dialysis:: Yes Has liver disease:: No - Past Medical Illness Medical History: Past Medical History (Last Reviewed 03/25/21 @ 10:57 by Sabrina Robertson STEREOTYPE FINISHER, STEREOTYPE FINISHER-C) Abnormal stress test R94.39 Atherosclerotic heart disease of [place] coronary artery without angina pectoris I25.10 CKD (chronic kidney disease) stage 3, GFR 30-59 ml/min N18.30 Essential hypertension I10 History of prostate cancer Z85.46 Mixed hyperlipidemia E78.2 LEON (obstructive sleep apnea) G47.33 PAD (peripheral artery disease) I73.9 Presence of stent in coronary artery Onset Date: ~03/03/21 Z95.5 Successful PCI of ostial RCA, mid RCA and mid LAD with CARLOS 03/03/21; PCI/CARLOS to mid RCA 06/30/20 @ [facility] in [place], [place] ST elevation (STEMI) myocardial infarction I21.3 - Past Surgical History Surgical History: Past Surgical History (Last Reviewed 03/25/21 @ 10:57 by Sabrina Robertson STEREOTYPE FINISHER, STEREOTYPE FINISHER-C) History of coronary artery stent placement Onset Date: 06/30/20 Z95.5 Done in [place], [place] History of inguinal hernia repair Z98.890, Z87.19 Presence of coronary angioplasty implant and graft Onset Date: ~03/03/21 Z95.5 Successful PCI of ostial RCA, mid RCA and mid LAD with CARLOS 03/03/21; PCI/CARLOS to mid RCA 06/30/20 @ [facility] in [place], [place] Surgical History: - - Reviewed - Family History Summary Family History: Family History (Last Reviewed 03/25/21 @ 10:57 by Sabrina Robertson STEREOTYPE FINISHER, STEREOTYPE FINISHER-C) Father CAD (coronary artery disease) Cancer Bladder Mother CAD (coronary artery disease) History of coronary artery bypass surgery Heart valve replaced Social History - Smoking History Smoking Status: Never smoker Hx Tobacco Use: No Hx Smoking Exposure: No - Alcohol Use Alcohol Usage: No - Substance Abuse Hx Substance Use: No - Occupation Occupation (List type of work in comments):: Retired - Hobbies, Recreation, Social Activities Hobbies: Other Recreational Activities: I am able to engage in most, but not all activities Social Environment - Status Marital Status: - Current Living Arrangements Living Environment:: Alone - Children How many children do you have?: 4 Do any of your children live nearby?: Yes - Safety Do you feel safe in your surroundings?: Yes - Assistance Do you need any assistance at home?: NO Review of Systems - Review of Systems Hints: Right click = Denies (Slash). Left click = Reports ([place]) Review of Present Symptoms: Reports: Appetite - Normal, Appetite - Special Diet - LOW FAT, LOW SODIUM - CARDIAC DIET., Sleep - Normal. 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 THe patinet had previously started CR at [facility] but due to COVID their CR was closed. The patinet had completed 4 sessions before closing of [facility]. - Vital Signs Temperature: 98.4 F Respiratory Rate: 18 Pulse Ox: 99 Blood Pressure: 138/82 - Pulse Pulse Rate: 88 Pulse Rhythm: Regular - Hypertension Blood Pressure Sitting - Left Arm: 138/82 - Obesity Height: 5 ft 11 in Weight:: 194 lb Weight in Pounds: 194.0 lbs Body Mass Index (BMI): 27.0 Nutritional Referral for Obesity: No - Physical Inactivity Physical Inactivity: Reg Exercise 30 min/day - Risk Stratification Risk Guidelines: Lowest Risk: Risk Factor for Dyslipidemia, Risk Factor for Hypertension - 138/82 - Family History Family History: Family History (Last Reviewed 03/25/21 @ 10:57 by Sabrina Robertson NP, STEREOTYPE FINISHER-C) Father CAD (coronary artery disease) Cancer Mother CAD (coronary artery disease) History of coronary artery bypass surgery Heart valve replaced Motivation - Motivation to Participate On a scale of 1 to 10, how prepared are you to commit to attending program?: 10 What do you see as barriers to successfully being able to complete the program?: NONE What do you see as the benefits of succesfully completing the program? In other words, what do you hope to get out of participating in the program?: STRONGER, HEALTHIER, BETTER LIFE Are there issues you are dealing with that will interfere with completing the program?: NONE Do you have a spouse or signficant other, family or friends who will help support you to complete the program?: YES
[2021-05-06 09:14] VITALS: BP 138/82; BP 188/78; BMI 27.0
[2021-05-06 09:29] VITALS: BP 138/82; PULSE 88; RESP 18; TEMP 36.9; O2SAT 99; BMI 27.0
== END 2021-05-06 23:59 | disposition home or self-care (01) ==
LOC: CR 08:48
PROVIDERS: PCP Family Medicine; Referring Provider Internal Medicine Cardiovascular Disease; Visit Provider Internal Medicine Cardiovascular Disease
DX: I21.3 ST elevation (STEMI) myocardial infarction of unspecified site (principal); N18.30 Chronic kidney disease, stage 3 unspecified; E78.2 Mixed hyperlipidemia; Z85.46 Personal history of malignant neoplasm of prostate

== ENCOUNTER 2021-06-01 09:30 | Outpatient (RCR) | payer MEDICARE, OTHER, SELFPAY | END 2021-06-01 23:59 | LOC: CR 09:30 | PROVIDERS: PCP Family Medicine; Referring Provider Internal Medicine Cardiovascular Disease; Visit Provider Internal Medicine Cardiovascular Disease | DX: I25.10 Atherosclerotic heart disease of native coronary artery without angina pectoris (principal); I25.2 Old myocardial infarction; Z95.5 Presence of coronary angioplasty implant and graft | CPT/HCPCS: 93798 ==

== ENCOUNTER 2021-06-03 10:15 | Outpatient (RCR) | payer MEDICARE, OTHER, SELFPAY | END 2021-06-29 23:59 | LOC: NS 10:15 | PROVIDERS: PCP Family Medicine; Visit Provider Internal Medicine Cardiovascular Disease | DX: Z71.3 Dietary counseling and surveillance (principal); I25.2 Old myocardial infarction; E78.2 Mixed hyperlipidemia; Z85.46 Personal history of malignant neoplasm of prostate; N18.30 Chronic kidney disease, stage 3 unspecified | CPT/HCPCS: 97802 ==

== ENCOUNTER 2021-06-29 09:30 | Outpatient (RCR) | payer MEDICARE, OTHER, SELFPAY ==
--- NOTE | 2021-06-04 10:51 | CR.ITP_ITS ---
Diagnosis Exercise - 30-day Assessment - Visit Date of Eval: 06/04/21 Session #:: 11 - Physician Prescribed Exercise Modalities: Treadmill, Airdyne, NuStep Frequency: 3x/week for 12 weeks [36 sessions] Intensity: 60-80% of age predicted maximum heart rate reserve Current METSs:: 5 Target Heart Rate:: 98-127 Current RPE:: 12-13 Maximum Excercise HR:: 133 Resting Blood Pressure: 140/60 Maximum Exercise Blood Pressure: 162/70 EKG Type: NSR to ST with rare PAC - Outcomes & Goals Goals:: Verbalizes understanding of THR, RPE & goal METS by session 6, Documents in home exercise log/reports 30 min aerobic 5 day/wk by DC, Demonstrates accurate pulse taking by DC, Other additional outcome/goals: see below - Intervention & Plan Exercise Program Goals: Instruct on personal THR & RPE, Instruct on MET level & personal MET goal, Show patient to take own pulse /validate performance until accurate, Instruct on home exercise, Other additional plan/int - 30-day Reassessments 30 day Reassessments:: Progressing - Physical Activity Home Exercise Physical Activity - Home Exercise: Safe Exercise, Warm-up, Self-monitoring, Cool-Down, Home Exercise > 30 min Daily, Sitting Time <3 hours/daily - Outcomes & Goals Outcomes/Goals: Demonstrates correct Warm-up/exercise Cool-Down (S3) if = 2.5 METs, Verbalizes symptoms of exercise intolerance by Session 3 (S3), Demonstrate safe equipment use (S3) & follows exercise prescrition (6), Other: See below - Intervention & Plan Plan/Intervention: Instruct warm-up & cool-down if exercising at > 2 METs, Instruct on symptoms of exercise intolerance & actions to take, Instruct & monitor on saf, Assess intial functional capacity & safety risk, Other See below - 30-day Reassessments 30 day Reassessments:: Progressing Nutrition - Initial Assessment Nutrition - 30-Day Assessment - Program Goals Nutrition Program Goals: LDL <100 optimal. 100 - 129 Near optimal. 130 - 159 Borderline High. 160 - 189 High. Total Cholesterol <200 desirable. 200 - 239 Borderline High. >/= 240 High. HDL < 40 Low >/=60 High. Triglycerides <150 desirable. <199 optimal. VlDL 5 - 40. HgbA1C <7%. BMI <25 Patient has diagnosis of Hyperlipidemia (ICD E78)?: Yes - Visit Date of Assessment:: 06/04/21 Session #:: 11 - Cholesterol/Lipids Determine presence & major risk factors that modify LDL goal: Cigarette smoking, Hypertension or hypertensive medication, Low HDL cholesterol <40 mg/dL*, Family history of premature CHD in Male < 55 years: female <65 yearsFa, Age men > 45 years; women >/= 55 years Outcomes/Goals: Pt IDs own risk factors & lifestyle modifications by Session 10, Verbalizes symptoms of angina & response by session 3., Pt independently manages , Other Additional Outcomes/Goals: Intervention/Plan: Advocate for lipid panel cholesterol medication if applicable, Instruct on personal lipid levels & lipid goals/NCEP guidelines, Instruct on cholesterol, Other additional plan/int Referral to dietitian:: Yes - medical nutrition therapy 30-day Reassessments:: Progressing - Diabetes (Other Core Measures) Diabetes Type: Not Applicable - Weight Mgt (Other Care) Height: 5 ft 11 in Weight:: 87.543 kg BMI: 26.9 Diagnosis Overweight/Obesity BMI> 30% ICD-10 E66: No Diagnosis High BMI/Morbid Obesity BMI> 35% ICD-10 Z68: No Outcomes/Goals: Pt sets, maintains & shows weight loss goal & trend during rehab, Other additional outcomes/goals Intervention/Plan: Instruct on ideal BMI & set weight loss goal w/patient, Assist pt to ID & incorporate diet changes for weight loss by S9, Refer to Structured Weight Loss program as appropriate, Encourage goal of using 250- 300dcal per session for weight loss, Other additional plan/interventions 30 day Reassessments:: Progressing - Healthy Eating Habits Will attend diet classes:: Yes Outcomes/Goals:: Consume diet rich in vegs,fruits,whole grain/high fiber,fish,lean meat, Limit sat/trans fats,cholesterol & added salts & sugars, Other additional outcome/goals: Intervention/Plan:: Assess current eating habits, Other Additional plan/interventions 30-day Reassessments:: Progressing - Education Gave educational materials for:: Signs & symptoms of hypoglycemia, Signs & symptoms of hyperglycemia, Relate diabetes to coronary artery disease, Healthy eating Nutrition - 60-Day Assessment Nutrition - 90-Day Assessment Nutrition - Final Assessment Medical - Initial Assessment Medical- 30-Day Assessment - Visit Date of Eval: 06/04/21 Session #:: 11 - Medication Compliance Preventative Medication(s):: Aspirin, Clopidogrel/P2Y12 inhibit, Statin/lipid, Beta joseline H/O mental health issues: depression, anxiety, or addiction?: No Doesn?t believe in the benefits of treatment?: No Believes medications are unnecessary or harmful?: No Has a concern about medication side effects?: No Expresses concern over the cost of medications?: No Outcomes/Goals: Verbalizes medications,desired effect & common side effects @ DC, Pt self-reports following medication regimen, Keeps card in wallet w/medications listed by DC, Other additional outcome/goals: Interventions/plans: Instruct on medication effects & side effects, Review medication list w/patient every two weeks, Instruct importance of taking meds as ordered & assist problem solving, Other additional 30-day Reassessments:: Progressing - Tobacco Use Tobacco Use: Non-smoker - Hypertension Hypertension Diagnosis:: Hypertension ICD-10 I10 Resting Blood Pressure:: 140/60 [employer] Hypertension Guidelines: [place] [employer] Hypertension Guidelines. Normal BP Less than 120/80. Elevated BP 120/80. Hypertension Stage 1: BP 130-139/80-89. Hypertesnion Stage 2: BP 140 or higher/90 or higher. Hypertension Crisis: BP higher than 180/120 Peak Exercise Blood Pressure:: 162/70 Outcomes/Goals: Able to verbalize/achieve optimal blood pressure <130/80, Incorporates diet changes & exercise for blood pressure control by DC, Other additional outcomes/goals Interventions/plan: Instruct on optimal blood pressure, hypertension & medications, Instruct on effects of sodium, alcohol, stress, exercise &hypertension, Other additional plan/interventions 30 day Reassessments:: Progressing - Tobacco Cessation Referral Smoking Cessation Referral:: No Individual Education/Counseling:: No Education Schedule Given:: Yes Medical- 60-Day Assessment Medical- 90-Day Assessment Medical - Final Assessment Psychosocial - Initial Assess Psychosocial - 30-Day Assess - VIsit Date of Eval: 06/04/21 Session #:: 11 History of previous Mental disease:: No - Outcomes/Goals: See list Psychosocial Outcomes/Goals:: ID's personal stressors & 2 strategies to manage stress by discharge, Other Additional outcome/goals: - Intervention/Plan: See List Interventions/Plan:: Assess stressors,coping strategies & signs of derpression on admission, Instruct/assist pt to develop coping & personal stress Mgt strategies, Refer to Behavioral Health if appropriate, Refer to Physician if appropriate, Instruct patient to recognize signs & symptoms of depression, Instruct patient to recog, Other additional plan/intervention - 30-day Reassessments: 30 day Reassessments:: Progressing Psychosocial - 60-Day Assess Psychosocial - 90-Day Assess Psychosocial - Final Assessmen Patient Health Questionnaire 30-Day Re-eval Assessment 1. Little interest or pleasure in doing things: Not at all 2. Feeling down, depressed, or hopeless: Not at all 3. Trouble falling or staying asleep, or sleeping too much: Not at all 4. Feeling tired or having little energy: Several days 5. Poor appetite or overeating: Not at all 6. Feeling bad about yourself -- or that you are a failure or have let yourself or your family down: Not at all 7. Trouble concentrating on things, such as reading the newspaper or watching television: Several days 8. Moving or speaking so slowly that other people could have noticed. Or the opposite - being so fidgety or restless that you have been moving around a lot more than usual: Not at all 9. Thoughts that you would be better off , or of hurting yourself in some way: Not at all How difficult have these problems made it for you to do your work, take care of things at home, or get along with other people?: Not difficult at all Total Score: 2 Self-Efficacy 30-Day Re-eval Assessment We would like to know how confident you are in doing certain activities. Please select your confidence level for:: Select your confidence level for the following using the scale 1-10 where 1 is not at all confident and 10 is totally confident. Your score is the average of all 6 responses. Fatigue: How confident are you that you can keep the fatigue caused by your disease from interfering with the things you want to do? Select Number: 9 Physical Discomfort or Pain: How confident are you that you can keep the physical discomfort or pain of your disease from interfering with the things you want to do? Select Number: 8 Emotional Distress: How confident are you that you can keep the emotional distress caused by your disease from interfering with the things you want to do? Select Number: 8 Other Symptoms or Health Problems: How confident are you that you can keep other symptoms or health problems from interfering with the things you want to do? Select Number: 8 Different Tasks and Activities: How confident are you that you can do the different tasks and activities needed to manage your health condition so as to reduce your need to see a doctor? Select Number: 9 Medication: How confident are you that you can do things other than just taking medication to reduce how much your illness affects your everyday life? Select Number: 8 Total Score:: 8 Nutrition Survey
[2021-06-04 11:00] VITALS: BP 140/60; BP 162/70; BMI 26.9
== END 2021-06-29 23:59 ==
LOC: CR 09:30
PROVIDERS: PCP Family Medicine; Referring Provider Internal Medicine Cardiovascular Disease; Visit Provider Internal Medicine Cardiovascular Disease
DX: I25.10 Atherosclerotic heart disease of native coronary artery without angina pectoris (principal); I21.11 ST elevation (STEMI) myocardial infarction involving right coronary artery; Z95.5 Presence of coronary angioplasty implant and graft
CPT/HCPCS: 93798

== ENCOUNTER 2021-07-22 09:30 | Outpatient (RCR) | payer MEDICARE, OTHER, SELFPAY ==
[2021-06-04 11:00] VITALS: BMI 26.9
[2021-06-30 00:36] VITALS: BP 140/60; BP 162/70
--- NOTE | 2021-07-06 09:23 | PCM.CR.ITP ---
Diagnosis Exercise - 90-day Assessment - Visit Date of Eval: 07/06/21 Session #:: 30 - Physician Prescribed Exercise Modalities: Treadmill, Airdyne, NuStep Frequency: 3x/week for 12 weeks [36 sessions] Intensity: 60-80% of age predicted maximum heart rate reserve Current METSs:: 6 Target Heart Rate:: 98-127 Current RPE:: 13 Maximum Excercise HR:: 129 Resting Blood Pressure: 142/72 Maximum Exercise Blood Pressure: 174/76 EKG Type: NSR to ST with rare PAC - Outcomes & Goals Goals:: Verbalizes understanding of THR, RPE & goal METS by session 6, Documents in home exercise log/reports 30 min aerobic 5 day/wk by DC, Demonstrates accurate pulse taking by DC - Intervention & Plan Exercise Program Goals: Instruct on personal THR & RPE, Instruct on MET level & personal MET goal, Show patient to take own pulse /validate performance until accurate, Instruct on home exercise - 30-day Reassessments 30 day Reassessments:: Progressing - Physical Activity Home Exercise Physical Activity - Home Exercise: Safe Exercise, Warm-up, Self-monitoring, Cool-Down, Home Exercise > 30 min Daily, Sitting Time <3 hours/daily - Outcomes & Goals Outcomes/Goals: Demonstrates correct Warm-up/exercise Cool-Down (S3) if = 2.5 METs, Verbalizes symptoms of exercise intolerance by Session 3 (S3), Demonstrate safe equipment use (S3) & follows exercise prescrition (6) - Intervention & Plan Plan/Intervention: Instruct warm-up & cool-down if exercising at > 2 METs, Instruct on symptoms of exercise intolerance & actions to take, Instruct & monitor on saf, Assess intial functional capacity & safety risk - 30-day Reassessments 30 day Reassessments:: Progressing Nutrition - Initial Assessment Nutrition - 30-Day Assessment Nutrition - 60-Day Assessment Nutrition - 90-Day Assessment - Program Goals Nutrition Program Goals: LDL <100 optimal. 100 - 129 Near optimal. 130 - 159 Borderline High. 160 - 189 High. Total Cholesterol <200 desirable. 200 - 239 Borderline High. >/= 240 High. HDL < 40 Low >/=60 High. Triglycerides <150 desirable. <199 optimal. VlDL 5 - 40. HgbA1C <7%. BMI <25 Patient has diagnosis of Hyperlipidemia (ICD E78)?: Yes - Visit Date of Assessment:: 07/06/21 Session #:: 29 - Cholesterol/Lipids Determine presence & major risk factors that modify LDL goal: Hypertension or hypertensive medication, Family history of premature CHD in Male < 55 years: female <65 yearsFa, Age men > 45 years; women >/= 55 years Outcomes/Goals: Pt IDs own risk factors & lifestyle modifications by Session 10, Verbalizes symptoms of angina & response by session 3. Intervention/Plan: Instruct on personal lipid levels & lipid goals/NCEP guidelines, Instruct on cholesterol Referral to dietitian:: No - Diabetes (Other Core Measures) Diabetes Type: Not Applicable - Weight Mgt (Other Care) Not Applicable: Yes Height: 5 ft 11 in Weight:: 192 lb BMI: 26.7 Diagnosis Overweight/Obesity BMI> 30% ICD-10 E66: No Diagnosis High BMI/Morbid Obesity BMI> 35% ICD-10 Z68: No Outcomes/Goals: Pt sets, maintains & shows weight loss goal & trend during rehab Intervention/Plan: Instruct on ideal BMI & set weight loss goal w/patient, Encourage goal of using 250-300dcal per session for weight loss 30 day Reassessments:: Progressing - Healthy Eating Habits Will attend diet classes:: Yes Outcomes/Goals:: Consume diet rich in vegs,fruits,whole grain/high fiber,fish,lean meat, Limit sat/trans fats,cholesterol & added salts & sugars Intervention/Plan:: Assess current eating habits 30-day Reassessments:: Progressing - Education Gave educational materials for:: Healthy eating Nutrition - Final Assessment Medical - Initial Assessment Medical- 30-Day Assessment Medical- 60-Day Assessment Medical- 90-Day Assessment - Visit Date of Eval: 07/06/21 Session #:: 29 - Medication Compliance Preventative Medication(s):: Aspirin, Clopidogrel/P2Y12 inhibit, Statin/lipid, Beta joseline H/O mental health issues: depression, anxiety, or addiction?: No Doesn?t believe in the benefits of treatment?: No Believes medications are unnecessary or harmful?: No Has a concern about medication side effects?: No Expresses concern over the cost of medications?: No Outcomes/Goals: Verbalizes medications,desired effect & common side effects @ DC, Pt self-reports following medication regimen, Keeps card in wallet w/medications listed by DC Interventions/plans: Instruct on medication effects & side effects, Review medication list w/patient every two weeks, Instruct importance of taking meds as ordered & assist problem solving 30-day Reassessments:: Progressing - Tobacco Use Tobacco Use: Non-smoker - Hypertension Hypertension Diagnosis:: Hypertension ICD-10 I10 Resting Blood Pressure:: 142/72 [place] [employer] Hypertension Guidelines: [place] [employer] Hypertension Guidelines. Normal BP Less than 120/80. Elevated BP 120/80. Hypertension Stage 1: BP 130-139/80-89. Hypertesnion Stage 2: BP 140 or higher/90 or higher. Hypertension Crisis: BP higher than 180/120 Peak Exercise Blood Pressure:: 174/76 Outcomes/Goals: Able to verbalize/achieve optimal blood pressure <130/80, Incorporates diet changes & exercise for blood pressure control by DC Interventions/plan: Instruct on optimal blood pressure, hypertension & medications, Instruct on effects of sodium, alcohol, stress, exercise &hypertension 30 day Reassessments:: Met - Tobacco Cessation Referral Smoking Cessation Referral:: No Individual Education/Counseling:: No Education Schedule Given:: Yes Medical - Final Assessment Psychosocial - Initial Assess Psychosocial - 30-Day Assess Psychosocial - 60-Day Assess Psychosocial - 90-Day Assess - VIsit Date of Eval: 07/06/21 Session #:: 29 Not Applicable: Yes History of previous Mental disease:: No - Psychosocial Test Tool Used:: PHQ-9 Questionnaire phq-9 Severity: Severity. 1-4 Minimal Depression. 5-9 Mild Depression. 10-14 Moderate Depression. 15-19 Moderately Sever Depression. 20-27 Severe Depression. Rule: - Referral to Behavioral Health PS - Interventions: Yes Attend Stress Management Classes, No Referral to Behavioral Health if PHQ-9 score >9:, No Referral to [facility], No Referral to Physician if PHQ-9 if score is 5-9: - Outcomes/Goals: See list Psychosocial Outcomes/Goals:: ID's personal stressors & 2 strategies to manage stress by discharge - Intervention/Plan: See List Interventions/Plan:: Assess stressors,coping strategies & signs of derpression on admission, Instruct/assist pt to develop coping & personal stress Mgt strategies, Instruct patient to recognize signs & symptoms of depression, Instruct patient to recog - 30-day Reassessments: 30 day Reassessments:: Progressing Psychosocial - Final Assessmen Nutrition Survey
[2021-07-06 09:34] VITALS: BP 142/72; BP 174/76; BMI 26.7
== END 2021-07-30 23:59 | disposition home or self-care (01) ==
LOC: CR 09:30
PROVIDERS: PCP Family Medicine; Referring Provider Internal Medicine Cardiovascular Disease; Visit Provider Internal Medicine Cardiovascular Disease
DX: I21.11 ST elevation (STEMI) myocardial infarction involving right coronary artery (principal); I25.10 Atherosclerotic heart disease of native coronary artery without angina pectoris; Z95.5 Presence of coronary angioplasty implant and graft
CPT/HCPCS: 93798

== ENCOUNTER → 2021-08-31 | Outpatient (CLI) | payer MEDICARE, OTHER, SELFPAY ==
[2021-07-06 09:34] VITALS: BMI 26.7
[2021-08-31 11:56] LABS: Absolute Lymphocyte Count 1.67 X10^3/uL (0.83-4.51); Absolute Neutrophil Count 2.9 X10^3/uL (2.0-7.7); Basophil# 0.04 X10^3/uL; Basophil% 0.8 % (0-1); Eosinophil# 0.16 X10^3/uL; Eosinophils% 3.1 % (0-5); Hematocrit 47.5 % (40-54); Hemoglobin 15.1 g/dL (13.0-16.5); Lymphocyte # 1.67 X10^3/ul (0.83-4.51); Lymphocyte % 31.9 % (19-41); Mean Corp Hgb Conc 31.8 g/dL (32-36); Mean Corpuscular Hgb 27.6 pg (27.0-32.0); Mean Corpuscular Volume 86.8 fL (80-94); Mean Platelet Vol. 10.1 fl (6.2-12.0); Monocyte# 0.51 X10^3/uL; Monocyte% 9.7 % (0-10); NRBC Flagged by Analyzer 0 % (0-5); Neutrophil # 2.85 X10^3/uL (2.7-7.7); Neutrophil % 54.3 % (47-70); Platelet Count 225 K/mm3 (150-450); RBC Distribution Width CV 14.2 % (11.6-14.6); RBC Distribution Width SD 45.1 fl (35.1-43.9); Red Blood Count 5.47 M/mm3 (4.6-6.2); White Blood Count 5.2 K/mm3 (4.4-11.0)
[2021-08-31 12:29] LABS: AST(SGOT) 27 U/L (15-37); Alanine Aminotransfer ALT/SGPT 39 U/L (16-61); Albumin, Serum 3.4 g/dL (3.2-5.0); Alkaline Phosphatase 105 U/L (45-117); Anion Gap 5 (5-15); BUN 23 mg/dL (7-18); BUN/Creat Ratio 16.7 RATIO (10-20); Calcium,Total 8.1 mg/dL (8.5-10.1); Chloride 105 mmol/L (98-107); Creatinine, Serum 1.38 mg/dL (0.70-1.30); EST Glomerular Filtration Rate 54 mL/min (>60); Est Glom Filt Rate - Afr Amer 65 mL/min (>60); Globulin 3.5 g/dL (2.2-4.2); Glucose 106 mg/dL (74-106); Potassium 4.2 mmol/L (3.5-5.1); Protein, Total 6.9 g/dL (6.4-8.2); Sodium Level 137 mmol/L (136-145)
== END | disposition home or self-care (01) ==
LOC: LAB 11:15
PROVIDERS: PCP Family Medicine; Referring Provider Internal Medicine Rheumatology; Visit Provider Internal Medicine Rheumatology
DX: L40.59 Other psoriatic arthropathy (principal); L40.8 Other psoriasis; I25.10 Atherosclerotic heart disease of native coronary artery without angina pectoris; Z85.46 Personal history of malignant neoplasm of prostate
CPT/HCPCS: 36415; 80053; 85025

== ENCOUNTER → 2021-10-12 | Outpatient (CLI) | payer MEDICARE, OTHER, SELFPAY ==
[2021-07-06 09:34] VITALS: BMI 26.7
--- NOTE | 2021-10-12 09:02 | ART_ITS ---
Reason For Study: Stricture of Artery Procedure A bilateral upper extremity continuous wave Doppler with analog waveform analysis and segmental pressures. Left Segmental Pressures Left brachial= 132mmHg. Left radial= 139mmHg. Left ulnar= 145mmHg. Left digit = 121 mmHg. Right Segmental Pressures Right brachial= 136mmHg. Right radial= 168mmHg. Right ulnar= 158mmHg. Right digit = 140 mmHg. Indices The right wrist-brachial index is 1.24. The right digital-brachial index is 1.03. The left wrist- brachial index is 1.07. The left digital-brachial index is 0.89. VL/Ankle Brachial Index Interpretation Summary Bilateral normal wrist brachial index at 1.24 and 1.07. Ordering Physician: Randy Sparrow Referring Physician: Randy Sparrow Performed By: Mikala Zamora RDCS/JEEVANT
== END | disposition home or self-care (01) ==
LOC: CVS 08:58
PROVIDERS: PCP Family Medicine; Referring Provider Surgery Vascular Surgery; Visit Provider Surgery Vascular Surgery
DX: I77.1 Stricture of artery (principal)
CPT/HCPCS: 93922; 93931

== ENCOUNTER → 2021-12-21 | Outpatient (CLI) | payer MEDICARE, OTHER, SELFPAY ==
[2021-07-06 09:34] VITALS: BMI 26.7
[2021-12-21 12:36] LABS: Absolute Lymphocyte Count 1.56 X10^3/uL (0.83-4.51); Absolute Neutrophil Count 3.7 X10^3/uL (2.0-7.7); Basophil# 0.04 X10^3/uL; Basophil% 0.7 % (0-1); Eosinophil# 0.17 X10^3/uL; Eosinophils% 2.8 % (0-5); Hematocrit 45.2 % (40-54); Hemoglobin 14.6 g/dL (13.0-16.5); Lymphocyte # 1.56 X10^3/ul (0.83-4.51); Lymphocyte % 25.4 % (19-41); Mean Corp Hgb Conc 32.3 g/dL (32-36); Mean Corpuscular Hgb 28.3 pg (27.0-32.0); Mean Corpuscular Volume 87.6 fL (80-94); Monocyte# 0.62 X10^3/uL; Monocyte% 10.1 % (0-10); NRBC Flagged by Analyzer 0 % (0-5); Neutrophil # 3.74 X10^3/uL (2.7-7.7); Neutrophil % 60.7 % (47-70); Platelet Count 216 K/mm3 (150-450); RBC Distribution Width CV 14.2 % (11.6-14.6); RBC Distribution Width SD 45.6 fl (35.1-43.9); Red Blood Count 5.16 M/mm3 (4.6-6.2); White Blood Count 6.2 K/mm3 (4.4-11.0)
[2021-12-21 13:19] LABS: AST(SGOT) 29 U/L (15-37); Alanine Aminotransfer ALT/SGPT 43 U/L (16-61); Albumin, Serum 3.3 g/dL (3.2-5.0); Alkaline Phosphatase 92 U/L (45-117); Anion Gap 3 (5-15); BUN 20 mg/dL (7-18); BUN/Creat Ratio 12.7 RATIO (10-20); Calcium,Total 8.8 mg/dL (8.5-10.1); Chloride 107 mmol/L (98-107); Creatinine, Serum 1.57 mg/dL (0.70-1.30); EST Glomerular Filtration Rate 47 mL/min (>60); Est Glom Filt Rate - Afr Amer 56 mL/min (>60); Globulin 3.2 g/dL (2.2-4.2); Glucose 127 mg/dL (74-106); Potassium 4.5 mmol/L (3.5-5.1); Protein, Total 6.5 g/dL (6.4-8.2); Sodium Level 140 mmol/L (136-145)
== END | disposition home or self-care (01) ==
LOC: LAB 11:19
PROVIDERS: PCP Family Medicine; Referring Provider Internal Medicine Rheumatology; Visit Provider Internal Medicine Rheumatology
DX: L40.59 Other psoriatic arthropathy (principal); L40.8 Other psoriasis; I25.10 Atherosclerotic heart disease of native coronary artery without angina pectoris; Z85.46 Personal history of malignant neoplasm of prostate; Z79.899 Other long term (current) drug therapy
CPT/HCPCS: 36415; 80053; 85025

== ENCOUNTER → 2022-02-22 | Outpatient (CLI) | payer MEDICARE, OTHER, SELFPAY ==
[2021-07-06 09:34] VITALS: BMI 26.7
== END | disposition home or self-care (01) ==
LOC: LAB 13:04
PROVIDERS: PCP Family Medicine; Referring Provider Urology; Visit Provider Urology
DX: R35.0 Frequency of micturition (principal)
CPT/HCPCS: 87077; 87086; 87088; 87186

== ENCOUNTER → 2022-03-03 | Outpatient (CLI) | payer MEDICARE, OTHER, SELFPAY ==
[2021-07-06 09:34] VITALS: BMI 26.7
[2022-03-03 14:55] LABS: PSA,Total- Diagnostic < 0.01 ng/mL (0.0-4.0)
== END | disposition home or self-care (01) ==
LOC: LAB 14:04
PROVIDERS: PCP Family Medicine; Referring Provider Urology; Visit Provider Urology
DX: C61 Malignant neoplasm of prostate (principal)
CPT/HCPCS: 36415; 84153

== ENCOUNTER → 2022-04-12 | Outpatient (CLI) | payer MEDICARE, OTHER, SELFPAY ==
[2021-07-06 09:34] VITALS: BMI 26.7
[2022-04-12 12:05] LABS: Absolute Lymphocyte Count 1.52 X10^3/uL (0.83-4.51); Absolute Neutrophil Count 2.8 X10^3/uL (2.0-7.7); Basophil# 0.03 X10^3/uL; Basophil% 0.6 % (0-1); Eosinophil# 0.14 X10^3/uL; Eosinophils% 2.8 % (0-5); Hematocrit 45.8 % (40-54); Hemoglobin 15.1 g/dL (13.0-16.5); Lymphocyte # 1.52 X10^3/ul (0.83-4.51); Lymphocyte % 30.8 % (19-41); Mean Corpuscular Hgb 28.7 pg (27.0-32.0); Mean Corpuscular Volume 87.1 fL (80-94); Mean Platelet Vol. 9.6 fl (6.2-12.0); Monocyte# 0.41 X10^3/uL; Monocyte% 8.3 % (0-10); NRBC Flagged by Analyzer 0 % (0-5); Neutrophil # 2.83 X10^3/uL (2.7-7.7); Neutrophil % 57.3 % (47-70); Platelet Count 219 K/mm3 (150-450); RBC Distribution Width CV 14.3 % (11.6-14.6); RBC Distribution Width SD 45.7 fl (35.1-43.9); Red Blood Count 5.26 M/mm3 (4.6-6.2); White Blood Count 4.9 K/mm3 (4.4-11.0)
[2022-04-12 12:37] LABS: ALB/GLOB Ratio 1.1 RATIO (0.9-2.4); AST(SGOT) 22 U/L (15-37); Alanine Aminotransfer ALT/SGPT 37 U/L (16-61); Albumin, Serum 3.6 g/dL (3.2-5.0); Alkaline Phosphatase 84 U/L (45-117); Anion Gap 1 (5-15); BUN 20 mg/dL (7-18); BUN/Creat Ratio 14.3 RATIO (10-20); Calcium,Total 9.2 mg/dL (8.5-10.1); Chloride 106 mmol/L (98-107); EST Glomerular Filtration Rate 53 mL/min (>60); Est Glom Filt Rate - Afr Amer 64 mL/min (>60); Globulin 3.3 g/dL (2.2-4.2); Glucose 83 mg/dL (74-106); Potassium 4.3 mmol/L (3.5-5.1); Protein, Total 6.9 g/dL (6.4-8.2); Sodium Level 139 mmol/L (136-145)
== END | disposition home or self-care (01) ==
LOC: LAB 11:15
PROVIDERS: PCP Family Medicine; Referring Provider Internal Medicine Rheumatology; Visit Provider Internal Medicine Rheumatology
DX: L40.59 Other psoriatic arthropathy (principal); L40.8 Other psoriasis; I25.10 Atherosclerotic heart disease of native coronary artery without angina pectoris; Z85.46 Personal history of malignant neoplasm of prostate; Z79.899 Other long term (current) drug therapy
CPT/HCPCS: 36415; 80053; 85025

== ENCOUNTER → 2022-09-30 | Outpatient (CLI) | payer MEDICARE, OTHER, SELFPAY ==
[2021-07-06 09:34] VITALS: BMI 26.7
--- NOTE | 2022-09-30 09:50 | STRESSREP_ITS ---
Stress Test Report Date: 09/30/2022 Procedure: Exercise tolerance test/imaging study Indications: Coronary artery disease Consent: Per the patient Procedure: The patient exercised on a Raciel protocol for 8 minutes achieving a peak heart rate of 151 bpm (101% predicted maximal heart rate) with a peak blood pressure 152/80 mmHg and a peak MET capacity of 10.4 METs. The baseline ECG demonstrated normal sinus rhythm. The peak exercise ECG demonstrated no ischemic changes. There were no cardiac dysrhythmias pretest, during exercise, or recovery. The functional capacity was considered good. There was no complaint of chest discomfort during exercise or recovery. The examination was discontinued secondary to target heart rate being achieved. The patient was injected with 14.8 mCi of technetium 99m Cardiolite and subsequently rest SPECT Cardiolite nuclear imaging was obtained in the horizontal long, vertical long, and short axis views. Post-exercise, the patient was injected with 43.7 mCi of technetium 99m Cardiolite and subsequently stress SPECT Cardiolite nuclear imaging was obtained in the horizontal long, vertical long, and short axis views. A gated Cardiolite study at peak stress was obtained. Rest and stress SPECT Cardiolite nuclear imaging status post realignment, and normalization shows inferior perfusion defect that essentially remains unchanged post stress, suggestive of prior infarct. There is end systolic thickening and brightening. The gated Cardiolite study demonstrates myocardial thickening and inward wall motion. The reported LVEF is 75%. Impression: 1. Technically adequate (percent predicted maximal heart rate greater than 85%) exercise tolerance test 2. Peak exercise ECG with no ischemic changes 3. There were no cardiac dysrhythmias pretest, during exercise, or recovery 4. Rest and stress SPECT Cardiolite nuclear imaging demonstrate inferior infarct with no significant obey-infarct ischemia. 5. The gated Cardiolite study reports an LVEF of 75%. This note was generated with [employer] software. It may contain incorrect words, spelling, and punctuation that were not noted in checking the note before signing.
== END | disposition home or self-care (01) ==
LOC: CVS 06:50
PROVIDERS: PCP Family Medicine; Referring Provider Physician Assistant Medical; Visit Provider Physician Assistant Medical
DX: I25.10 Atherosclerotic heart disease of native coronary artery without angina pectoris (principal); Z95.5 Presence of coronary angioplasty implant and graft
CPT/HCPCS: 78452; 93017; A9500; A4216

== ENCOUNTER → 2022-10-04 | Outpatient (CLI) | payer MEDICARE, OTHER, SELFPAY ==
[2021-07-06 09:34] VITALS: BMI 26.7
[2022-10-04 14:38] LABS: Absolute Lymphocyte Count 1.52 X10^3/uL (0.83-4.51); Basophil# 0.03 X10^3/uL; Basophil% 0.6 % (0-1); Eosinophil# 0.17 X10^3/uL; Eosinophils% 3.3 % (0-5); Hemoglobin 14.9 g/dL (13.0-16.5); Lymphocyte # 1.52 X10^3/ul (0.83-4.51); Lymphocyte % 29.6 % (19-41); Mean Corp Hgb Conc 31.7 g/dL (32-36); Mean Corpuscular Hgb 27.9 pg (27.0-32.0); Mean Platelet Vol. 9.8 fl (6.2-12.0); Monocyte# 0.39 X10^3/uL; Monocyte% 7.6 % (0-10); NRBC Flagged by Analyzer 0 % (0-5); Neutrophil # 3.01 X10^3/uL (2.7-7.7); Neutrophil % 58.7 % (47-70); Platelet Count 198 K/mm3 (150-450); RBC Distribution Width CV 13.8 % (11.6-14.6); RBC Distribution Width SD 43.9 fl (35.1-43.9); Red Blood Count 5.34 M/mm3 (4.6-6.2); White Blood Count 5.1 K/mm3 (4.4-11.0)
[2022-10-04 15:08] LABS: ALB/GLOB Ratio 0.9 RATIO (0.9-2.4); AST(SGOT) 23 U/L (15-37); Alanine Aminotransfer ALT/SGPT 30 U/L (16-61); Albumin, Serum 3.4 g/dL (3.2-5.0); Alkaline Phosphatase 79 U/L (45-117); Anion Gap 5 (5-15); BUN 24 mg/dL (7-18); BUN/Creat Ratio 16.6 RATIO (10-20); Calcium,Total 8.6 mg/dL (8.5-10.1); Chloride 107 mmol/L (98-107); Creatinine, Serum 1.45 mg/dL (0.70-1.30); EST Glomerular Filtration Rate 51 mL/min (>60); Est Glom Filt Rate - Afr Amer 62 mL/min (>60); Globulin 3.6 g/dL (2.2-4.2); Glucose 124 mg/dL (74-106); Potassium 4.3 mmol/L (3.5-5.1); Sodium Level 141 mmol/L (136-145)
== END | disposition home or self-care (01) ==
PROVIDERS: PCP Family Medicine; Referring Provider Internal Medicine Rheumatology; Visit Provider Internal Medicine Rheumatology
DX: L40.59 Other psoriatic arthropathy (principal); Z79.899 Other long term (current) drug therapy; L40.8 Other psoriasis; Z85.46 Personal history of malignant neoplasm of prostate; I25.10 Atherosclerotic heart disease of native coronary artery without angina pectoris
CPT/HCPCS: 36415; 80053; 85025

== ENCOUNTER 2022-12-20 07:49 | Outpatient (CLI) | payer MEDICARE, OTHER, SELFPAY ==
[2021-07-06 09:34] VITALS: BMI 26.7
--- NOTE | 2022-12-20 07:51 | CDU_ITS ---
Reason For Study: Stricture of Artery Rt. Velocities/BP Lt. Velocities/BP Prox CCA 96.1/18.8 cm/sec. Prox CCA 108.9/14.5 cm/sec. Mid CCA 62.1/14.2 cm/sec. Mid CCA 78.1/12.3 cm/sec. Dist CCA 68.6/16.6 cm/sec. Dist CCA 70.7/11.8 cm/sec. Prox ICA 72.4/22.3 cm/sec. Prox ICA 64.8/16.6 cm/sec. Mid ICA 78.0/28.9 cm/sec. Mid ICA 85.3/31.4 cm/sec. Dist ICA 84.3/30.2 cm/sec. Dist ICA 69.9/22.6 cm/sec. Rt. ICA/CCA = 1.4. Lt. ICA/CCA = 1.1. Prox ECA 119.5/10.2 cm/sec. Prox ECA 117.7/10.1 cm/sec. Rt. Vert. 84.2/16.7 cm/sec. Right Extracranial There is homogeneous, smooth atherosclerotic plaque noted in the right common carotid artery. There is heterogeneous, irregular atherosclerotic plaque noted in the right internal carotid artery. There is intimal thickening but no significant atherosclerotic plaque noted in the right external carotid artery. Antegrade flow is noted in the right vertebral artery. Left Extracranial There is homogeneous, smooth atherosclerotic plaque noted in the left common carotid artery. There is heterogeneous, irregular atherosclerotic plaque noted in the left internal carotid artery. There is intimal thickening but no significant atherosclerotic plaque noted in the left external carotid artery. Abnormal waveforms noted in Lt Vertebral Artery. Possible retrograde flow. Procedure Carotid Duplex 19571. This is a Carotid Duplex examination using B-mode, color flow and specral Doppler. The exam was diagnostic. Exam performed in department. VL/Carotid Duplex Ultrasound Interpretation Summary Mild (<50%) stenosis right extracranial internal carotid. Mild (<50%) stenosis left extracranial internal carotid. Flow within the right verterbral artery is antegrade. Flow wi thin the left verterbral artery is retrograde, consistent with a subclavian steal phenomenon. Ordering Physician: Randy Sparrow Referring Physician: Du Howe Performed By: Delmer Matias RVT
--- NOTE | 2022-12-20 07:51 | ART_ITS ---
Reason For Study: Stricture of Artery Procedure A bilateral upper extremity continuous wave Doppler with analog waveform analysis and segmental pressures. Left Segmental Pressures Left brachial= 118mmHg. Left forearm by way of the radial artery = 121mmHg. Left ulnar= 143mmHg. Left radial= 139mmHg. The left brachial waveforms are biphasic. The left radial waveforms are biphasic. The left ulnar waveforms are biphasic. Right Segmental Pressures Right brachial= 131mmHg. Right forearm pressure by way of the radial artery = 139mmHg. Right ulnar= 181mmHg. Right radial= 174mmHg. Right digit = 146 mmHg. The right brachial waveforms are triphasic. The right radial waveforms are triphasic. The right ulnar waveforms are triphasic. Indices The right wrist-brachial index is 1.38. The right digital-brachial index is 1.11. The left wrist- brachial index is 1.09. The left digital-brachial index is 1.04. VL/Ankle Brachial Index Interpretation Summary Bilateral arms normal and WBI 1.38 and 1.09. Ordering Physician: Randy Sparrow Referring Physician: Du Howe Performed By: Delmer Matias RVT
--- NOTE | 2022-12-20 07:51 | ADUUE_ITS ---
Reason For Study: Stricture of Artery LEFT Left Subclavian velocity = 128.4 cm/sec. Left Axillary velocity = 50.8 cm/sec. Left Brachial velocity = 59.8 cm/sec. Left Radial velocity = 47.1 cm/sec. Left Ulnar velocity = 50.9 cm/sec. /US Art Duplex Unilat UP Extrem Interpretation Summary Left arm no stenosis and triphasic flow,. Ordering Physician: Randy Sparrow Referring Physician: Du Howe Performed By: Delmer Matias RVT
== END 2022-12-20 23:59 | disposition home or self-care (01) ==
LOC: CVS 07:50
PROVIDERS: PCP Family Medicine; Referring Provider Surgery Vascular Surgery; Visit Provider Surgery Vascular Surgery
DX: I77.1 Stricture of artery (principal); M79.89 Other specified soft tissue disorders; M79.602 Pain in left arm; I10 Essential (primary) hypertension; I65.23 Occlusion and stenosis of bilateral carotid arteries
CPT/HCPCS: 93880; 93922; 93931

== ENCOUNTER → 2023-03-25 | Outpatient (CLI) | payer MEDICARE, OTHER, SELFPAY ==
[2021-07-06 09:34] VITALS: BMI 26.7
[2023-03-25 08:39] LABS: PSA,Total- Diagnostic < 0.01 ng/mL (0.0-4.0)
== END | disposition home or self-care (01) ==
LOC: LAB.FUTURE 08:01 → LAB 08:03
PROVIDERS: PCP Family Medicine; Referring Provider Registered Nurse; Visit Provider Registered Nurse
DX: C61 Malignant neoplasm of prostate (principal)
CPT/HCPCS: 36415; 84153

== ENCOUNTER → 2023-05-25 | Outpatient (CLI) | payer MEDICARE, OTHER, SELFPAY ==
[2021-07-06 09:34] VITALS: BMI 26.7
--- OUTSIDE RECORDS SUMMARY | 2023-05-25 12:18 | XMS RPT_ITS | CCD ---
Author Name Unknown Address [address] [place] [address] Organization [facility] Care Team Providers Care Residential Living Assistant Name Role Phone MAYTE WHITFIELD MD Primary Care Physician MAYTE WHITFIELD MD Attending Unavailable MAYTE WHITFIELD MD Primary Care Unavailable MAYTE WHITFIELD MD Attending Unavailable MAYTE WHITFIELD MD Primary Care Unavailable Allergies Allergy Classification Reported Allergen(s) Allergy Type Date of Onset Reaction(s) Facility (3 sources) Ciprofloxacin; Translations: [ciprofloxacin] Drug Allergy Rash [facility] (3 sources) Latex Drug allergy Blisters [facility] (3 sources) levoFLOXacin; Translations: [levofloxacin] Drug Allergy Rash [facility] (3 sources) Sulfonamides (Antibiotic); Translations: [sulfa drugs] Drug allergy Rash [facility] Medications Current Medications Medication Drug Class(es) Dates Sig (Normalized) Sig (Original) aspirin 81 mg delayed release oral tablet (3 sources) Platelet Aggregation Inhibitor, Nonsteroidal Anti-inflammatory Drug Start: 07-09-2020 aspirin 81 mg oral delayed release tablet Dose : 81 mg = 1 tab(s), Oral, qDay, # 30 tab(s), 0 Refill(s) Start Date: 07/09/20 Status: Ordered Problems Active Problems Problem Classification Problem Date Documented Da te Episodic/Chronic Cancer of prostate (5 sources) Malignant tumor of prostate; Translations: [Malignant neoplasm of prostate] Onset: 01-06-2022 04-20-2019 Chronic Coma; stupor; and brain damage (3 sources) Daytime somnolence 04-20-2019 Episodic Coronary atherosclerosis and other heart disease (5 sources) Coronary arteriosclerosis; Translations: [Atherosclerotic heart disease of [place] coronary artery without angina pectoris] Onset: 01-06-2022 10-13-2020 Chronic Disorders of lipid metabolism (5 sources) Mixed hyperlipidemia; Translations: [Mixed hyperlipidemia] Onset: 01-06-2022 04-20-2019 Chronic Other aftercare (3 sources) Post-discharge follow-up 07-09-2020 Episodic Other diseases of kidney and ureters (3 sources) Renal impairment 04-20-2019 Episodic Residual codes; unclassified (3 sources) Obstructive sleep apnea syndrome 04-20-2019 Chronic Residual codes; unclassified (2 sources) Obstructive sleep apnea (adult) (pediatric); Translations: [Obstructive sleep apnea (adult) (pediatric)] Onset: 01-06-2022 Chronic Past or Other Problems Problem Classification Problem Date Documented Da te Episodic/Chronic Other diseases of kidney and ureters (2 sources) Disorder of kidney and ureter, unspecified; Translations: [Disorder of kidney and ureter, unspecified] Onset: 01-06-2022 Episodic Results Test Name Value Interpretation Reference Range Facil ity Encounters Encounter Date Encounter Type Care Provider Facility Start: 07-16-2022 End: 07-17-2022 ambulatory MAYTE WHITFIELD MD Facility:B Start: 07-16-2022 End: 07-16-2022 Patient encounter procedure MAYTE WHITFIEDL MD [facility] Start: 01-06-2022 End: 01-11-2022 ambulatory MAYTE WHITFIELD MD Facility:[facility] Start: 01-06-2022 End: 01-10-2022 Outreach Lab MAYTE WHITFIELD MD [facility] Start: 04-09-2021 End: 04-20-[address] WEI CERDA MD [facility] Procedures Date Procedure Procedure Detail Performing Clinician History of percutane ous transluminal coronary angioplasty DR WEI CERDA MD History of repair of inguinal hernia DR WEI CERDA MD Payers Date Payer Category Payer Medicare [id number] 2022 Unknown [id number] 1950 Unknown [id number] 1950 Unknown [id number] Social History Date Type Detail Facility Start: 04-20-2019 Never smoked t obacco (finding) [facility] Sex Assigned At Male [facility] Evaluation + Plan note LaboratoryRadiology Note Date & Type Note Facility Evaluation + Plan note Future Appointments Appointment Date:07/20/2021 10:30:00 AM Scheduled Provider:MAYTE WHITFIELD MD Location:[facility] Appointment Type:PC OV Future Scheduled TestsLipid Profile 07/19/21Complete Metabolic Panel 07/19/21US Abdomen Complete 01/06/[address] [facility] Evaluation + Plan note Note Date & Type Note Facility Evaluation + Plan note Future Appointments Appointment Date:01/26/2022 10:00:00 AM Scheduled Provider:MAYTE WHITFIELD MD Location:[facility] Appointment Type:PC OV [facility] Evaluation + Plan note Note Date & Type Note Facility Evaluation + Plan note Future Appointments Appointment Date:07/27/2022 10:00:00 AM Scheduled Provider:MAYTE WHITFIELD MD Location:[facility] Appointment Type:PC OV [facility] Hospital course Narrative Note Date & Type Note Facility Hospital course Narrative No data available for this section [facility] Hospital Discharge instructions Note Date & Type Note Facility Hospital Discharge instructions No data available for this section [facility] Progress note Note Date & Type Note Facility Progress note No data available for this section [facility] Summary Purpose Family History No Family History Records FoundNo Family History Records Found Advance Directives No Advanced Directives Records FoundNo Advanced Directives Records Found Additional Source Comments (unrecognized sect ion and content) No Status Records FoundNo Status Records Found INFORMATION SOURCE (unrecogn ized section and content) DATE CREATED AUTHOR AUTHOR'S ORGANIZ ATION 07/17/2022 [facility] ([place]) Care Team (unrecognized sect ion and content) Care Team Personnel Name: MAYTE WHITFIELD MD Position: P4 Physician - Primary Care Med Service: Active Provider Member Role: Primary Care Physician Address: Address: [address] [place] [address] Care Team Related Persons Name: LEONARDO DAVIS Patient Care team informatio n (unrecognized section and content) Care Team Personnel Name: MAYTE WHITFIELD MD Position: P4 Physician - Primary Care Member Role: Primary Care Physician Address: Address: [address] [place] [address] Care Team Related Persons Name: LEONARDO DAVIS FOR RECORDS PERTAINING TO PATIENTS WHO ARE OR HAVE BEEN ENROLLED IN A CHEMICAL DEPENDENCY/SUBSTANCEABUSE PROGRAM, SOME INFORMATION MAY BE OMITTED. This clinical summary was aggregated from multiple sources. Caution should be exercised in using it in the provision of clinical care. This summary normalizes information from multiple sources, and as a consequence, information in this document may materially change the coding, format and clinical context of patient data. In addition, data may be omitted in some cases. CLINICAL DECISIONS SHOULD BE BASED ON THE PRIMARY CLINICAL RECORDS. [facility] [employer] [facility] provides no warranty or guarantee of the accuracy or completeness of information in this document.
[2023-05-25 12:34] LABS: Absolute Lymphocyte Count 1.49 X10^3/uL (0.83-4.51); Basophil# 0.03 X10^3/uL; Basophil% 0.6 % (0-1); Eosinophil# 0.21 X10^3/uL; Eosinophils% 4.1 % (0-5); Hematocrit 45.9 % (40-54); Hemoglobin 14.3 g/dL (13.0-16.5); Lymphocyte # 1.49 X10^3/ul (0.83-4.51); Lymphocyte % 29.2 % (19-41); Mean Corp Hgb Conc 31.2 g/dL (32-36); Mean Corpuscular Hgb 27.4 pg (27.0-32.0); Mean Corpuscular Volume 88.1 fL (80-94); Mean Platelet Vol. 10.2 fl (6.2-12.0); Monocyte# 0.38 X10^3/uL; Monocyte% 7.4 % (0-10); NRBC Flagged by Analyzer 0 % (0-5); Neutrophil # 2.98 X10^3/uL (2.7-7.7); Neutrophil % 58.3 % (47-70); Platelet Count 180 K/mm3 (150-450); RBC Distribution Width SD 44.9 fl (35.1-43.9); Red Blood Count 5.21 M/mm3 (4.6-6.2); White Blood Count 5.1 K/mm3 (4.4-11.0)
[2023-05-25 13:17] LABS: AST(SGOT) 26 U/L (15-37); Alanine Aminotransfer ALT/SGPT 32 U/L (16-61); Albumin, Serum 3.4 g/dL (3.2-5.0); Alkaline Phosphatase 75 U/L (45-117); Anion Gap 3 (5-15); BUN 22 mg/dL (7-18); BUN/Creat Ratio 16.3 RATIO (10-20); Calcium,Total 8.9 mg/dL (8.5-10.1); Chloride 109 mmol/L (98-107); Creatinine, Serum 1.35 mg/dL (0.70-1.30); EST Glomerular Filtration Rate 55 mL/min (>60); Est Glom Filt Rate - Afr Amer 67 mL/min (>60); Globulin 3.4 g/dL (2.2-4.2); Glucose 124 mg/dL (74-106); Potassium 3.7 mmol/L (3.5-5.1); Protein, Total 6.8 g/dL (6.4-8.2); Sodium Level 140 mmol/L (136-145)
== END | disposition home or self-care (01) ==
LOC: LAB 11:53
PROVIDERS: PCP Family Medicine; Referring Provider Internal Medicine Rheumatology; Visit Provider Internal Medicine Rheumatology
DX: L40.59 Other psoriatic arthropathy (principal); L40.8 Other psoriasis; I25.10 Atherosclerotic heart disease of native coronary artery without angina pectoris; Z79.899 Other long term (current) drug therapy
CPT/HCPCS: 36415; 80053; 85025

== ENCOUNTER → 2024-01-10 | Outpatient (CLI) | payer MEDICARE, OTHER, SELFPAY ==
[2021-07-06 09:34] VITALS: BMI 26.7
[2024-01-10 17:04] LABS: Absolute Lymphocyte Count 1.71 X10^3/uL (0.83-4.51); Absolute Neutrophil Count 2.8 X10^3/uL (2.0-7.7); Basophil# 0.05 X10^3/uL; Eosinophil# 0.19 X10^3/uL; Eosinophils% 3.7 % (0-5); Hematocrit 47.6 % (40-54); Lymphocyte # 1.71 X10^3/ul (0.83-4.51); Lymphocyte % 33.1 % (19-41); Mean Corp Hgb Conc 31.5 g/dL (32-36); Mean Corpuscular Hgb 27.1 pg (27.0-32.0); Mean Corpuscular Volume 85.9 fL (80-94); Mean Platelet Vol. 9.8 fl (6.2-12.0); Monocyte# 0.45 X10^3/uL; Monocyte% 8.7 % (0-10); NRBC Flagged by Analyzer 0 % (0-5); Neutrophil # 2.75 X10^3/uL (2.7-7.7); Neutrophil % 53.3 % (47-70); Platelet Count 230 K/mm3 (150-450); RBC Distribution Width SD 43.8 fl (35.1-43.9); Red Blood Count 5.54 M/mm3 (4.6-6.2); White Blood Count 5.2 K/mm3 (4.4-11.0)
[2024-01-10 17:10] LABS: Erythrocyte Sedimentation Rate 1 mm/hr (0-20)
[2024-01-10 17:23] LABS: ALB/GLOB Ratio 0.9 RATIO (0.9-2.4); AST(SGOT) 58 U/L (15-37); Alanine Aminotransfer ALT/SGPT 40 U/L (16-61); Albumin, Serum 3.4 g/dL (3.2-5.0); Alkaline Phosphatase 85 U/L (45-117); Anion Gap 5 (5-15); BUN 21 mg/dL (7-18); BUN/Creat Ratio 12.1 RATIO (10-20); CRP < 2.90 mg/L (0.0-3.0); Calcium,Total 9.2 mg/dL (8.5-10.1); Chloride 106 mmol/L (98-107); Creatinine, Serum 1.73 mg/dL (0.70-1.30); EST Glomerular Filtration Rate 41 mL/min (>60); Est Glom Filt Rate - Afr Amer 50 mL/min (>60); Globulin 3.7 g/dL (2.2-4.2); Glucose 102 mg/dL (74-106); Potassium 4.3 mmol/L (3.5-5.1); Protein, Total 7.1 g/dL (6.4-8.2); Sodium Level 140 mmol/L (136-145)
== END | disposition home or self-care (01) ==
LOC: LAB 16:33
PROVIDERS: PCP Family Medicine; Referring Provider Internal Medicine Rheumatology; Visit Provider Internal Medicine Rheumatology
DX: L40.59 Other psoriatic arthropathy (principal); Z79.899 Other long term (current) drug therapy
CPT/HCPCS: 36415; 80053; 85025; 85652; 86140

== ENCOUNTER → 2024-03-26 | Outpatient (CLI) | payer MEDICARE, OTHER, SELFPAY ==
[2021-07-06 09:34] VITALS: BMI 26.7
[2024-03-26 09:49] LABS: PSA,Total - Annual Screen < 0.01 ng/mL (0.00-4.00)
== END | disposition home or self-care (01) ==
LOC: LAB 08:06
PROVIDERS: PCP Family Medicine; Referring Provider Urology; Visit Provider Urology
DX: Z12.5 Encounter for screening for malignant neoplasm of prostate (principal)
CPT/HCPCS: 36415; 84153; G0103

== ENCOUNTER → 2024-12-27 | Outpatient (CLI) | payer MEDICARE, OTHER, SELFPAY ==
[2021-07-06 09:34] VITALS: BMI 26.7
[2024-12-27 14:22] LABS: Hematocrit 44.9 % (40-54); Hemoglobin 14.6 g/dL (13.0-16.5); Immature Granulocytes Count 0.010 X10^3/uL (0.0-0.0); Mean Corp Hgb Conc 32.5 g/dL (32-36); Mean Corpuscular Volume 85.5 fL (80-94); Mean Platelet Vol. 9.8 fl (6.2-12.0); NRBC Flagged by Analyzer 0 % (0-5); Platelet Count 231 K/mm3 (150-450); RBC Distribution Width CV 14.4 % (11.6-14.6); RBC Distribution Width SD 44.9 fl (35.1-43.9); Red Blood Count 5.25 M/mm3 (4.6-6.2); White Blood Count 6.4 K/mm3 (4.4-11.0)
[2024-12-27 15:02] LABS: AST(SGOT) 26 U/L (<=37); Alanine Aminotransfer ALT/SGPT 19 U/L (<=46); Albumin, Serum 3.9 g/dL (3.4-4.8); Alkaline Phosphatase 78 U/L (40-129); Anion Gap 11 (5-15); BUN 24 mg/dL (4-19); BUN/Creat Ratio 15.3 RATIO (10-20); Calcium,Total 9.1 mg/dL (7.6-11.0); Carbon Dioxide 24.7 mmol/L (21.0-32.0); Chloride 103 mmol/L (98-108); Globulin 2.7 g/dL (2.2-4.2); Glucose 107 mg/dL (70-99); Potassium 4.7 mmol/L (3.3-5.1)
--- OUTSIDE RECORDS SUMMARY | 2024-12-27 19:29 | XMS RPT_ITS | CCD ---
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 Du Whitfield Primary Care Provider Dr. Dane Cerda Attending Provider Dr. Du Whitfield Referring Provider NATALI Davalos Attending Provider Dr. Du Whitfield Primary Care Provider Dr. Du Whitfield Primary Care Provider Dr. Du Whitfield Referring Provider NATALI Davalos Attending Provider Dr. Du Whitfield Primary Care Provider Dr. Du Whitfield Referring Provider NATALI Davalos Attending Provider Dr. Du Whitfield Primary Care Provider NATALI Davalos Referring Provider NATALI Davalos Other Provider Dr. Sharlene Cunningham Attending Provider Dr. Du Whitfield Referring Provider Marcelo DOMINGUEZ NP-C Sabrina Attending Provider Dr. Du Whitfield Primary Care Provider Dr. Du Whitfield Referring Provider FERNANDO Robertson NP Attending Provider DYLAN GU MD Attending Unavailable DU WHITFIELD MD Primary Care Unavailable DU WHITFIELD MD Primary Care Unavailable DU WHITFIELD MD Attending Unavailable DU WHITFIELD MD Primary Care Unavailable DU WHITFIELD MD Attending Unavailable DU WHITFIELD MD Primary Care Unavailable DU WHITFIELD MD Attending Unavailable DU WHITFIELD MD Primary Care Unavailable DU WHITFIELD MD Attending Unavailable DYLAN GU MD Attending Unavailable DU WHITFIELD MD Primary Care Unavailable DYLAN GU MD Attending Unavailable DU WHITFIELD MD Primary Care Unavailable DU WHITFIELD MD Primary Care Unavailable DU WHITFIELD MD Attending Unavailable DU WHITFIELD MD Primary Care Unavailable HUSSAIN FACTORY MAINTENANCE MANAGER-DIRECTOR CLINICAL OPERATIONS, SAYEDA Attending Unavailab Grey Le Referring Unavailable Du Whitfield Primary Care Unavailable Grey Haddad Attending Unavailable Du Whitfield Primary Care Unavailable Nickolas Segovia Attending Unavailable Nickolas Segovia Referring Unavailable Du Whitfield Primary Care Unavailable Nickolas Segovia Attending Unavailable Du Whitfield Referring Unavailable Ravi Gibbons Attending Unavailable Du Whitfield Primary Care Unavailable Du Whitfield Primary Care Unavailable Du Whitfield Referring Unavailable Sabrina Robertson NP Attending Unavailable DU WHITFIELD MD Primary Care Unavailable DU WHITFIELD MD Attending Unavailable DU WHITFIELD MD Primary Care Unavailable DU WHITFIELD MD Attending Unavailable DU WHITFIELD MD Primary Care Unavailable DR GREY HADDAD MD Attending Unavailabl DYLAN Pantoja MD Attending Unavailable DU WHITFIELD MD Primary Care Unavailable DU WHITFIELD MD Attending Unavailable DU WHITFIELD MD Primary Care Unavailable DU WHITFIELD MD Primary Care Unavailable DU WHITFIELD MD Attending Unavailable DU WHITFIELD MD Primary Care Unavailable MAST FACTORY MAINTENANCE MANAGER-DIRECTOR CLINICAL OPERATIONS, CURTIS Attending Unavailabl e Allergies Allergy Classification Reported Allergen(s) Allergy Type Date of Onset Reaction(s) Facility (20 sources) Ciprofloxacin; Translations: [ciprofloxacin] Drug Allergy 2 [facility] (20 sources) Latex; Translations: [latex] Drug allergy 2 Blisters, [facility] (13 sources) levoFLOXacin; Translations: [levofloxacin] Drug Allergy [facility] (13 sources) Sulfonamides (Antibiotic); Translations: [sulfa drugs] Drug allergy [facility] (11 sources) Sulfonamides (Antibiotic); Translations: [Sulfa (Sulfonamide Antibiotics)] Allergy to substance 2 Rash [facility] (4 sources) atorvastatin Drug Allergy 3 Myalgias [facility] (1 source) atorvastatin Drug Allergy 5 [facility] (1 source) Ciprofloxacin Drug Allergy 5 [facility] Medications Current Medications Medication Drug Class(es) Dates Sig (Normalized) Sig (Original) aspirin 81 mg delayed release oral tablet (20 sources) Platelet Aggregation Inhibitor, Nonsteroidal Anti-inflammatory Drug Start: 07-09-2020 aspirin 81 mg oral delayed release tablet Dose : 81 mg = 1 tab(s), Oral, qDay, # 30 tab(s), 0 Refill(s) Start Date: 07/09/20 Status: Ordered Quantity: 30.0 Unit: tab(s) Repeat number: 1 Start: 07-09-2020 aspirin 81 mg oral delayed release tablet Dose : 81 mg = 1 tab(s), Oral, qDay, # 30 tab(s), 0 Refill(s) Start Date: 07/09/20 Status: Ordered carvedilol 12.5 mg oral tablet (1 source) alpha-Adrenergic Margarette, beta-Adrenergic Margarette Start: 01-20-2024 carvedilol 12.5 mg oral tablet Dose : 12.5 mg = 1 tab(s), Oral, BID, # 60 tab(s), 0 Refill(s) Start Date: 01/20/24 Status: Ordered Quantity: 60.0 Unit: tab(s) Repeat number: 1 cefdinir 300 mg oral capsule (3 sources) Cephalosporin Antibacterial Start: 08-21-2024 End: 08-28-2024 cefdinir 300 mg oral capsule Dose : 300 mg = 1 cap(s), Oral, q12h, # 14 cap(s), 0 Refill(s), Pharmacy: [id number], 176, cm, 08/21/24 13:36:00 EDT, Height, 90, kg, 08/21/24 13:36:00 EDT, Dosing Weight Start Date: 08/21/24 Stop Date: 08/28/24 Status: Ordered Quantity: 14.0 Unit: cap(s) Repeat number: 1 Start: 07-26-2023 End: 08-05-2023 cefdinir 300 mg oral capsule Dose : 300 mg = 1 cap(s), Oral, q12h, X 10 day(s), # 20 cap(s), 0 Refill(s), 08/05/23 8:47:00 AM EDT, Pharmacy: [facility], Mixed hyperlipidemia LEON - Obstructive sleep apnea, 180.3, cm, 07/26/23 8:06:00 EDT, Height, 88.5, kg, 07/26/23 8:06:00 EDT, Dosing Weight Start Date: 07/26/23 Stop Date: 08/05/23 Status: Ordered clopidogrel 75 mg oral tablet (20 sources) [id number] Platelet Inhibitor Start: 07-09-2020 End: 08-04-2022 clopidogrel 75 mg oral tablet Dose : 75 mg = 1 tab(s), Oral, qDay, # 30 tab(s), 0 Refill(s) Start Date: 07/09/20 Status: Ordered Quantity: 30.0 Unit: tab(s) Repeat number: 1 nitroglycerin 0.4 mg sublingual tablet (20 sources) Nitrate Vasodilator Start: 07-09-2020 End: 11-17-2020 nitroglycerin 0.4 mg sublingual tablet 0.4 mg Dose = 1 tab(s), Sublingual, q5min, PRN as needed for chest pain, # 100 tab(s), 0 Refill(s) Start Date: 07/09/20 Status: Ordered Quantity: 100.0 Unit: tab(s) Repeat number: 1 nitroglycerin 0.4 mg sublingual tablet (1 source) Start: 07-09-2020 nitroglycerin 0.4 mg sublingual tablet 0.4 mg Dose = 1 tab(s), Sublingual, q5min, PRN as needed for chest pain, # 100 tab(s), 0 Refill(s) Start Date: 07/09/20 Status: Ordered rosuvastatin calcium 20 mg oral tablet (10 sources) HMG-CoA Reductase Inhibitor Start: 07-19-2024 rosuvastatin 20 mg o ral tablet Dose : 20 mg = 1 tab(s), Oral, Daily, # 90 tab(s), 3 Refill(s), Pharmacy: [facility], Mixed hyperlipidemia Prostate cancer, 176.8, cm, 07/19/24 8:24:00 EDT, Height, kg, 07/19/24 8:24:00 EDT, Dosing Weight Start Date: 07/19/24 Status: Ordered Quantity: 90.0 Unit: tab(s) Repeat number: 4 Indications: Malignant neoplasm of prostate; Mixed hyperlipidemia; Start: 07-26-2023 rosuvastatin 2 0 mg oral tablet Dose : 20 mg = 1 tab(s), Oral, Daily, # 90 tab(s), 3 Refill(s), Pharmacy: [facility], Mixed hyperlipidemia Prostate cancer, 180.3, cm, 07/26/23 8:06:00 EDT, Height, kg, 07/26/23 8:06:00 EDT, Dosing Weight Start Date: 07/26/23 Status: Ordered Start: 10-11-2022 take 20 mg by mouth once daily Rosuvastatin Active 20 MG PO DAILY October 10, 2022 11:00pm Vitamin D with Minerals oral tablet (11 sources) Start: 04-20-2019 take 1 tablet by mouth once daily Vitamin D with Minerals oral tablet Dose = 1 tab(s), Oral, qDay, # 30 tab(s), 0 Refill(s) Start Date: 04/20/19 Status: Ordered Quantity: 30.0 Unit: tab(s) Repeat number: 1 Start: 04-20-2019 take 1 tablet by kt th once daily Vitamin D with Minerals oral tablet Dose = 1 tab(s), Oral, qDay, # 30 tab(s), 0 Refill(s) Start Date: 04/20/19 Status: Ordered Completed/Discontinued Medications Medication Drug Class(es) Dates Sig (Normalized) Sig (Original) amoxicillin 500 mg oral tablet (10 sources) Penicillin-class Antibacterial Start: 03-02-2021 End: 03-25-2021 take 500 mg by mouth three times daily Amoxicillin Discontinued 500 MG PO THREE TIMES A DAY March 01, 2021 11:00pm March 25, 2021 2:30pm x7 days amoxicillin 875 mg / clavulanate 125 mg oral tablet (10 sources) Penicillin-class Antibacterial Start: 07-22-2020 End: 08-14-2020 take 875 mg by mouth every twelve hours Amoxicillin-Pot Clavulanate Discontinued 875 MG PO Q12H 14 July 21, 2020 11:00pm August 14, 2020 9:45am apremilast 30 mg oral tablet (8 sources) Start: 09-21-2021 End: 03-22-2022 take 1 tablet by mouth once Apremilast (Otezla) 30 mg tablet Discontinued 30 MG PO ONCE September 20, 2021 11:00pm March 22, 2022 8:33am atorvastatin 80 mg oral tablet (20 sources) HMG-CoA Reductase Inhibitor Start: 07-09-2020 End: 07-02-2022 take 80 mg by mouth at bedtime Atorvastatin Discontinued 80 MG PO AT BEDTIME September 08, 2021 7:45am July 02, 2022 9:05am On Hold: Myalgias lisinopril 2.5 mg oral tablet (10 sources) Angiotensin Converting Enzyme Inhibitor Start: 08-08-2020 End: 11-17-2020 take 2.5 mg by mouth once daily Lisinopril Discontinued 2.5 MG PO DAILY August 07, 2020 11:00pm November 17, 2020 9:36am On Hold: Order Changed 24 hr metoprolol succinate 25 mg extended release oral tablet (20 sources) beta-Adrenergic Margarette Start: 08-14-2020 End: 08-04-2022 take 12.5 mg by mouth once daily Metoprolol Succinate Discontinued 12.5 MG PO DAILY September 08, 2021 7:45am August 04, 2022 2:46pm Start: 08-08-2020 End: 08-14-2020 take 25 mg by mouth once daily Metoprolol Succinate Di scontinued 25 MG PO DAILY August 07, 2020 11:00pm August 14, 2020 9:44am Start: 07-09-2020 Metoprolol Suc cinate ER 25 mg oral TABLET extended release Dose : 25 mg = 1 tab(s), Oral, qDay, # 30 tab(s), 0 Refill(s) Start Date: 07/09/20 Status: Ordered nitrofurantoin, macrocrystals 25 mg / nitrofurantoin, monohydrate 75 mg oral capsule (20 sources) Nitrofuran Antibacterial Start: 03-22-2022 nitrofurantoin macrocrystals-monohydrate 100 mg oral capsule Dose : 100 mg = 1 cap(s), Oral, qWeek, 0 Refill(s), 84.6 Start Date: 07/27/22 Status: Ordered Repeat number: 1 Start: 03-22-2022 End: 03-22-2022 take 1 capsule by mouth twice daily at mealtime Nitrofurantoin Monohyd/M-Cryst (Macrobid) 100 mg capsule Discontinued 100 MG PO TWICE A DAY March 22, 2022 12:00am March 22, 2022 8:55am must administer with a meal/food Start: 02-19-2021 End: 05-18-2021 take 100 mg by mouth every week Nitrofurantoin Monohyd/M-Cryst Discontinued 100 MG PO EVERY WEEK February 18, 2021 11:00pm May 18, 2021 9:02am Start: 08-14-2020 End: 11-17-2020 take 1 capsule by mouth every week at mealtime Nitrofurantoin Monohyd/M-Cryst (Macrobid) 100 mg capsule Discontinued 100 MG PO EVERY WEEK August 13, 2020 11:00pm November 17, 2020 9:37am must administer with a meal/food pravastatin sodium 40 mg oral tablet (8 sources) HMG-CoA Reductase Inhibitor Start: 07-02-2022 End: 10-11-2022 take 20 mg by mouth at bedtime Pravastatin Discontinued 20 MG PO AT BEDTIME July 02, 2022 12:00am October 11, 2022 9:30am Start: 07-02-2022 End: 07-02-2022 take 40 mg by mouth at bedtime Pravastatin Discontinue d 40 MG PO AT BEDTIME July 02, 2022 12:00am July 02, 2022 9:07am Problems Active Problems Problem Classification Problem Date Documented Da te Episodic/Chronic Acute myocardial infarction (10 sources) Myocardial infarction; Translations: [ST elevation (STEMI) myocardial infarction of unspecified site] 08-14-2020 Chronic Cancer of prostate (18 sources) Malignant tumor of prostate; Translations: [Malignant neoplasm of prostate] Onset: 07-26-2023 04-20-2019 Chronic Chronic kidney disease (12 sources) Chronic kidney disease stage 3; Translations: [Stage 3 chronic kidney disease] 08-08-2020 Chronic Coma; stupor; and brain damage (13 sources) Daytime somnolence 04-20-2019 Episodic Coronary atherosclerosis and other heart disease (20 sources) Coronary arteriosclerosis; Translations: [Coronary atherosclerosis] Onset: 07-26-2023 10-13-2020 Chronic Deficiency and other anemia (1 source) Anemia of chronic renal failure; Translations: [Anemia in chronic kidney disease] Chronic Diabetes mellitus without complication (1 source) Diabetes mellitus without complication; Translations: [Diabetes mellitus due to underlying condition without complications] Chronic Disorders of lipid metabolism (20 sources) Mixed hyperlipidemia; Translations: [Mixed hyperlipidemia] Onset: 07-26-2023 04-20-2019 Chronic Essential hypertension (16 sources) Essential hypertension; Translations: [Essential (primary) hypertension] Chronic Genitourinary symptoms and ill-defined conditions (1 source) Urinary catheter in situ 08-21-2024 Chronic Genitourinary symptoms and ill-defined conditions (20 sources) Blood in urine; Translations: [Hematuria, unspecified] Onset: 07-26-2023 07-23-2020 Episodic Heart valve disorders (1 source) Heart murmur 07-19-2024 Episodic Hypertension with complications and secondary hypertension (1 source) Chronic kidney disease due to hypertension; Translations: [Hypertensive chronic kidney disease with stage 1 through stage 4 chronic kidney disease, or unspecified chronic kidney disease] Chronic Nutritional deficiencies (1 source) Vitamin D deficiency; Translations: [Vitamin D deficiency, unspecified] Chronic Other aftercare (13 sources) Post-discharge follow-up 07-09-2020 Episodic Other circulatory disease (10 sources) Stenosis of left subclavian artery; Translations: [Stricture of artery] 09-21-2021 Chronic Other circulatory disease (6 sources) Stricture of artery; Translations: [Stricture of artery] Chronic Other circulatory disease (1 source) Carotid bruit 07-19-2024 Episodic Other diseases of kidney and ureters (13 sources) Renal impairment 04-20-2019 Episodic Other ear and sense organ disorders (10 sources) Hearing loss of right ear 01-25-2023 Chronic Other inflammatory condition of skin (1 source) Other psoriatic arthropathy; Translations: [Other psoriatic arthropathy] Onset: 01-31-2024 Chronic Other screening for suspected conditions (not mental disorders or infectious disease) (11 sources) Cardiovascular stress test abnormal; Translations: [Abnormal result of other cardiovascular function study] Onset: 04-23-2024 01-30-2021 Episodic Peripheral and visceral atherosclerosis (10 sources) Peripheral vascular disease, unspecified; Translations: [Peripheral arterial disease] 08-25-2020 Chronic Residual codes; unclassified (20 sources) Obstructive sleep apnea syndrome; Translations: [Obstructive sleep apnea (adult) (pediatric)] 04-20-2019 Chronic Residual codes; unclassified (2 sources) Obstructive sleep apnea (adult) (pediatric); Translations: [Obstructive sleep apnea (adult) (pediatric)] Onset: 07-26-2023 Chronic Residual codes; unclassified (2 sources) Other specified health status; Translations: [Other specified health status] Onset: 08-21-2024 Episodic Urinary tract infections (13 sources) Urinary tract infectious disease; Translations: [Urinary tract infection, site not specified] 07-23-2020 Episodic Past or Other Problems Problem Classification Problem Date Documented Da te Episodic/Chronic Coronary atherosclerosis and other heart disease (14 sources) Stented coronary artery; Translations: [Presence of coronary angioplasty implant and graft] Onset: 03-02-2021 Episodic Results Test Name Value Interpretation Reference Range Facility CEFTRIAXONE:SUSC:PT:ISOLATE: ORDQN:MICon 08-21-2024 cefTRIAXone LUZ MARIA [Susc] >100,000 cfu/ml Proteus mirabilis [facility] Work Phone: cefTRIAXone LUZ MARIA [Susc]on Proteus mirabilis Proteus mirabilis [facility] Work Phone: .Auto Diffon 07-11-2024 Basophil, Absolute 0.0 10 3/mcL Normal 0.0-0.2 [facility] Comment on above: Performed By: #### C BC, ADIFF, ANEU, FE, IBC, FERR, URIC, RFP, GFR #### [facility] [address] [place] [address] #### PTH #### [address] [address] Basophils/100 WBC (Bld) 0.9 % Normal 0.0-2.5 [facility] Comment on above: Performed By: #### C BC, ADIFF, ANEU, FE, IBC, FERR, URIC, RFP, GFR #### [address] [address] #### PTH #### [address] [address] Eosinophil, Absolute 0.2 10 3/mcL Normal 0.0-0.7 [facility] Comment on above: Performed By: #### C BC, ADIFF, ANEU, FE, IBC, FERR, URIC, RFP, GFR #### [place] [address] #### PTH #### [address] [address] Eosinophils/100 WBC (Bld) 4.9 % Normal 0.0-7.0 [facility] Comment on above: Performed By: #### C BC, ADIFF, ANEU, FE, IBC, FERR, URIC, RFP, GFR #### [place] [address] #### PTH #### [address] [address] Lymphocyte, Absolute 1.5 10 3/mcL Normal 0.9-4.3 [facility] Comment on above: Performed By: #### C BC, ADIFF, ANEU, FE, IBC, FERR, URIC, RFP, GFR #### [place] [address] #### PTH #### [address] [address] Lymphocytes/100 WBC (Bld) 30.2 % Normal 20.0-40.0 [facility] Comment on above: Performed By: #### C BC, ADIFF, ANEU, FE, IBC, FERR, URIC, RFP, GFR #### [place] [address] #### PTH #### [address] [address] Monocyte, Absolute 0.5 10 3/mcL Normal 0.1-1.4 [facility] Comment on above: Performed By: #### C BC, ADIFF, ANEU, FE, IBC, FERR, URIC, RFP, GFR #### [address] [address] #### PTH #### [address] [address] Monocytes/100 WBC (Bld) 9.4 % Normal 2.0-13.0 [facility] Comment on above: Performed By: #### C BC, ADIFF, ANEU, FE, IBC, FERR, URIC, RFP, GFR #### [address] [address] #### PTH #### [address] [address] Neutrophils/100 WBC (Bld) 54.6 % Normal 50.0-75.0 [facility] Comment on above: Performed By: #### C BC, ADIFF, ANEU, FE, IBC, FERR, URIC, RFP, GFR #### [address] [address] #### PTH #### [address] [address] .GFRon 07-11-2024 Estimated Glomerular Filtration Rate 41 ml/min/1.73sqm Normal [facility] Comment on above: Result Comment: Stages of Chronic Kidney Disease (CKD) Stage Description eGFR(ml/min/1.73 sq.m.) CKD 1 Normal kidney function or >=90 normal kindney function with possible kidney damage (ex. Proteinuria) CKD 2 Kidney damage with mild loss 60-89 of kidney function CKD 3a Mild to moderate loss of kidney 45-59 function CKD 3b Moderate to severe loss of 30-44 of kindey function CKD 4 Severe loss of kidney function 15-29 CKD 5 Kidney failure <15 Note: (go live 2024) the eGFR calculation was updated to the 2020 CKD-EPI creatinine equation without a race factor to calculate the eGFR results. Performed By: #### C BC, ADIFF, ANEU, FE, IBC, FERR, URIC, RFP, GFR #### [address] [address] #### PTH #### [address] [address] .NEUABSon 07-11-2024 Neutrophil, Absolute 2.6 10 3/mcL Normal 2.3-8.1 [facility] Comment on above: Performed By: #### C BC, ADIFF, ANEU, FE, IBC, FERR, URIC, RFP, GFR #### [place] [address] #### PTH #### [place] [address] CBCon 07-11-2024 Erythrocyte distribution width (RBC) [Ratio] 14.4 % Normal 11.5-15.5 [facility] Comment on above: Performed By: #### C BC, ADIFF, ANEU, FE, IBC, FERR, URIC, RFP, GFR #### [place] [address] #### PTH #### [place] [address] Hematocrit (Bld) [Volume fraction] 46.0 % Normal 40.0-52.0 [facility] Comment on above: Performed By: #### C BC, ADIFF, ANEU, FE, IBC, FERR, URIC, RFP, GFR #### [place] [address] #### PTH #### [place] [address] Hgb 15.1 G/dL Normal 13.0-17.5 [facility] Comment on above: Performed By: #### C BC, ADIFF, ANEU, FE, IBC, FERR, URIC, RFP, GFR #### [place] [address] #### PTH #### [place] [address] MCH (RBC) [Entitic mass] 27.8 pg Normal 27.0-33.0 [facility] Comment on above: Performed By: #### C BC, ADIFF, ANEU, FE, IBC, FERR, URIC, RFP, GFR #### [place] [address] #### PTH #### [place] [address] MCHC 32.8 G/dL Normal 32.0-36.0 [facility] Comment on above: Performed By: #### C BC, ADIFF, ANEU, FE, IBC, FERR, URIC, RFP, GFR #### [place] [address] #### PTH #### [place] [address] MCV (RBC) [Entitic vol] 84.6 fL Normal 81.0-100.0 [facility] Comment on above: Performed By: #### C BC, ADIFF, ANEU, FE, IBC, FERR, URIC, RFP, GFR #### [place] [address] #### PTH #### [place] [address] Platelet 250 10 3/mcL Normal 150-450 [facility] Comment on above: Performed By: #### C BC, ADIFF, ANEU, FE, IBC, FERR, URIC, RFP, GFR #### [place] [address] #### PTH #### [place] [address] Platelet mean volume (Bld) [Entitic vol] 7.4 fL Normal 6.4-10.5 [facility] Comment on above: Performed By: #### C BC, ADIFF, ANEU, FE, IBC, FERR, URIC, RFP, GFR #### [place] [address] #### PTH #### [place] [address] RBC 5.44 10 6/mcL Normal 4.50-6.00 [facility] Comment on above: Performed By: #### C BC, ADIFF, ANEU, FE, IBC, FERR, URIC, RFP, GFR #### [address] [address] #### PTH #### [address] [address] WBC 4.8 10 3/mcL Normal 4.5-10.8 [facility] Comment on above: Performed By: #### C BC, ADIFF, ANEU, FE, IBC, FERR, URIC, RFP, GFR #### [place] [address] #### PTH #### [place] [address] CMPon 07-11-2024 Albumin Level 3.6 G/dL Normal 3.4-4.8 [facility] Comment on above: Performed By: #### C BC, ADIFF, ANEU, FE, IBC, FERR, URIC, RFP, GFR #### [place] [address] #### PTH #### [place] [address] Albumin/Globulin [Mass ratio] 1.0 {ratio} Low 1.1-2.5 [facility] Comment on above: Performed By: #### C BC, ADIFF, ANEU, FE, IBC, FERR, URIC, RFP, GFR #### [place] [address] #### PTH #### [place] [address] ALP [Catalytic activity/Vol] 87 U/L Normal 40-135 [facility] Comment on above: Performed By: #### C BC, ADIFF, ANEU, FE, IBC, FERR, URIC, RFP, GFR #### [address] [address] #### PTH #### [place] [address] ALT [Catalytic activity/Vol] 21 U/L Normal 16-63 [facility] Comment on above: Performed By: #### C BC, ADIFF, ANEU, FE, IBC, FERR, URIC, RFP, GFR #### [place] [address] #### PTH #### [address] [address] AST [Catalytic activity/Vol] 22 U/L Normal 10-40 [facility] Comment on above: Performed By: #### C BC, ADIFF, ANEU, FE, IBC, FERR, URIC, RFP, GFR #### [place] [address] #### PTH #### [place] [address] Bili Total 0.4 mg/dL Normal 0.2-1.0 [facility] Comment on above: Result Comment: Use of this assay is not recommended for patients undergoing treatment with eltrombopag due to the potential for falsely elevated results. Performed By: #### C BC, ADIFF, ANEU, FE, IBC, FERR, URIC, RFP, GFR #### [place] [address] #### PTH #### [place] [address] BUN/Creatinine Ratio 15 ratio Normal 7-27 [facility] Comment on above: Performed By: #### C BC, ADIFF, ANEU, FE, IBC, FERR, URIC, RFP, GFR #### [place] [address] #### PTH #### [place] [address] Calcium [Mass/Vol] 9.7 mg/dL Normal 8.4-10.2 [facility] Comment on above: Performed By: #### C BC, ADIFF, ANEU, FE, IBC, FERR, URIC, RFP, GFR #### [place] [address] #### PTH #### [address] [address] Chloride [Moles/Vol] 102 mmol/L Normal 98-107 [facility] Comment on above: Performed By: #### C BC, ADIFF, ANEU, FE, IBC, FERR, URIC, RFP, GFR #### [address] [address] #### PTH #### [place] [address] CO2 [Moles/Vol] 30 mmol/L Normal 23-31 [facility] Comment on above: Performed By: #### C BC, ADIFF, ANEU, FE, IBC, FERR, URIC, RFP, GFR #### [place] [address] #### PTH #### [place] [address] Creatinine [Mass/Vol] 1.75 mg/dL High 0.70-1.30 [facility] Comment on above: Result Comment: Test ing performed on Siemens Dimension EXL analyzer using a modified kinetic Dwight technique. Performed By: #### C BC, ADIFF, ANEU, FE, IBC, FERR, URIC, RFP, GFR #### [place] [address] #### PTH #### [place] [address] Electrolyte Balance 6.0 mEq/L Normal 4.0-15.0 [facility] Comment on above: Performed By: #### C BC, ADIFF, ANEU, FE, IBC, FERR, URIC, RFP, GFR #### [place] [address] #### PTH #### [place] [address] Globulin 3.6 G/dL Normal 1.5-3.8 [facility] Comment on above: Performed By: #### C BC, ADIFF, ANEU, FE, IBC, FERR, URIC, RFP, GFR #### [place] [address] #### PTH #### [address] [address] Glucose [Mass/Vol] 83 mg/dL Normal 83-110 [facility] Comment on above: Performed By: #### C BC, ADIFF, ANEU, FE, IBC, FERR, URIC, RFP, GFR #### [address] [address] #### PTH #### [address] [address] Potassium [Moles/Vol] 4.1 mmol/L Normal 3.5-5.1 [facility] Comment on above: Performed By: #### C BC, ADIFF, ANEU, FE, IBC, FERR, URIC, RFP, GFR #### [place] [place] [address] #### PTH #### [place] [address] Sodium [Moles/Vol] 138 mmol/L Normal 136-145 [facility] Comment on above: Performed By: #### C BC, ADIFF, ANEU, FE, IBC, FERR, URIC, RFP, GFR #### [place] [address] #### PTH #### [address] [address] Total Protein 7.2 G/dL Normal 6.4-8.2 [facility] Comment on above: Performed By: #### C BC, ADIFF, ANEU, FE, IBC, FERR, URIC, RFP, GFR #### [place] [address] #### PTH #### [address] [address] Urea nitrogen [Mass/Vol] 27 mg/dL High 7-18 [facility] Comment on above: Performed By: #### C BC, ADIFF, ANEU, FE, IBC, FERR, URIC, RFP, GFR #### [place] [address] #### PTH #### [address] [address] LIPIDon 07-11-2024 Cholesterol [Mass/Vol] 173 mg/dL Normal 0-200 [facility] Comment on above: Result Comment: Chol esterol Reference Interval: Less than 200 Desirable 200-239 Borderline high risk 240 and above High risk Performed By: #### C BC, ADIFF, ANEU, FE, IBC, FERR, URIC, RFP, GFR #### [address] [address] #### PTH #### [place] [address] Cholesterol in HDL [Mass/Vol] 54 mg/dL Normal 40-60 [facility] Comment on above: Performed By: #### C BC, ADIFF, ANEU, FE, IBC, FERR, URIC, RFP, GFR #### [place] [address] #### PTH #### [place] [address] Cholesterol in LDL [Mass/Vol] 94 mg/dL Normal 0-130 [facility] Comment on above: Performed By: #### C BC, ADIFF, ANEU, FE, IBC, FERR, URIC, RFP, GFR #### [address] [address] #### PTH #### [place] [address] Triglyceride [Mass/Vol] 124 mg/dL Normal 0-150 [facility] Comment on above: Result Comment: Trig lyceride Reference Interval: Less than 150 Normal 150-199 Borderline high risk 200-499 High risk 500 or higher Very high risk Performed By: #### C BC, ADIFF, ANEU, FE, IBC, FERR, URIC, RFP, GFR #### [place] [address] #### PTH #### [place] [address] .Auto Diffon 07-03-2024 Basophil, Absolute 0.1 10 3/mcL Normal 0.0-0.2 [facility] Comment on above: Performed By: #### C BC, ADIFF, ANEU, FE, IBC, FERR, URIC, RFP, GFR #### [address] [address] #### PTH #### [address] [address] Basophils/100 WBC (Bld) 0.8 % Normal 0.0-2.5 [facility] Comment on above: Performed By: #### C BC, ADIFF, ANEU, FE, IBC, FERR, URIC, RFP, GFR #### [place] [address] #### PTH #### [address] [address] Eosinophil, Absolute 0.2 10 3/mcL Normal 0.0-0.7 [facility] Comment on above: Performed By: #### C BC, ADIFF, ANEU, FE, IBC, FERR, URIC, RFP, GFR #### [place] [address] #### PTH #### [address] [address] Eosinophils/100 WBC (Bld) 2.8 % Normal 0.0-7.0 [facility] Comment on above: Performed By: #### C BC, ADIFF, ANEU, FE, IBC, FERR, URIC, RFP, GFR #### [place] [address] #### PTH #### [address] [address] Lymphocyte, Absolute 1.5 10 3/mcL Normal 0.9-4.3 [facility] Comment on above: Performed By: #### C BC, ADIFF, ANEU, FE, IBC, FERR, URIC, RFP, GFR #### [place] [address] #### PTH #### [address] [address] Lymphocytes/100 WBC (Bld) 22.6 % Normal 20.0-40.0 [facility] Comment on above: Performed By: #### C BC, ADIFF, ANEU, FE, IBC, FERR, URIC, RFP, GFR #### [address] [address] #### PTH #### [address] [address] Monocyte, Absolute 0.6 10 3/mcL Normal 0.1-1.4 [facility] Comment on above: Performed By: #### C BC, ADIFF, ANEU, FE, IBC, FERR, URIC, RFP, GFR #### [address] [address] #### PTH #### [address] [address] Monocytes/100 WBC (Bld) 8.9 % Normal 2.0-13.0 [facility] Comment on above: Performed By: #### C BC, ADIFF, ANEU, FE, IBC, FERR, URIC, RFP, GFR #### [address] [address] #### PTH #### [address] [address] Neutrophils/100 WBC (Bld) 64.9 % Normal 50.0-75.0 [facility] Comment on above: Performed By: #### C BC, ADIFF, ANEU, FE, IBC, FERR, URIC, RFP, GFR #### [address] [address] #### PTH #### [address] [address] .GFRon 07-03-2024 Estimated Glomerular Filtration Rate 43 ml/min/1.73sqm Normal [facility] Comment on above: Result Comment: Stages of Chronic Kidney Disease (CKD) Stage Description eGFR(ml/min/1.73 sq.m.) CKD 1 Normal kidney function or >=90 normal kindney function with possible kidney damage (ex. Proteinuria) CKD 2 Kidney damage with mild loss 60-89 of kidney function CKD 3a Mild to moderate loss of kidney 45-59 function CKD 3b Moderate to severe loss of 30-44 of kindey function CKD 4 Severe loss of kidney function 15-29 CKD 5 Kidney failure <15 Note: ( live 06/05/2024) the eGFR calculation was updated to the 2020 CKD-EPI creatinine equation without a race factor to calculate the eGFR results. Performed By: #### C BC, ADIFF, ANEU, FE, IBC, FERR, URIC, RFP, GFR #### [address] [address] #### PTH #### [place] [address] Estimated Glomerular Filtration Rate 40 ml/min/1.73sqm Normal [facility] Comment on above: Result Comment: Stages of Chronic Kidney Disease (CKD) Stage Description eGFR(ml/min/1.73 sq.m.) CKD 1 Normal kidney function or >=90 normal kindney function with possible kidney damage (ex. Proteinuria) CKD 2 Kidney damage with mild loss 60-89 of kidney function CKD 3a Mild to moderate loss of kidney 45-59 function CKD 3b Moderate to severe loss of 30-44 of kindey function CKD 4 Severe loss of kidney function 15-29 CKD 5 Kidney failure <15 Note: ( live 06/05/2024) the eGFR calculation was updated to the 2020 CKD-EPI creatinine equation without a race factor to calculate the eGFR results. Performed By: #### C BC, ADIFF, ANEU, FE, IBC, FERR, URIC, RFP, GFR #### [address] [address] #### PTH #### [place] [address] .NEUABSon 07-03-2024 Neutrophil, Absolute 4.2 10 3/mcL Normal 2.3-8.1 [facility] Comment on above: Performed By: #### C BC, ADIFF, ANEU, FE, IBC, FERR, URIC, RFP, GFR #### [address] [address] #### PTH #### [place] [address] CBCon 07-03-2024 Erythrocyte distribution width (RBC) [Ratio] 14.2 % Normal 11.5-15.5 [facility] Comment on above: Performed By: #### C BC, ADIFF, ANEU, FE, IBC, FERR, URIC, RFP, GFR #### [address] [address] #### PTH #### [place] [address] Hematocrit (Bld) [Volume fraction] 45.8 % Normal 40.0-52.0 [facility] Comment on above: Performed By: #### C BC, ADIFF, ANEU, FE, IBC, FERR, URIC, RFP, GFR #### [place] [address] #### PTH #### [place] [address] Hgb 15.2 G/dL Normal 13.0-17.5 [facility] Comment on above: Performed By: #### C BC, ADIFF, ANEU, FE, IBC, FERR, URIC, RFP, GFR #### [place] [address] #### PTH #### [place] [address] MCH (RBC) [Entitic mass] 27.8 pg Normal 27.0-33.0 [facility] Comment on above: Performed By: #### C BC, ADIFF, ANEU, FE, IBC, FERR, URIC, RFP, GFR #### [place] [address] #### PTH #### [place] [address] MCHC 33.1 G/dL Normal 32.0-36.0 [facility] Comment on above: Performed By: #### C BC, ADIFF, ANEU, FE, IBC, FERR, URIC, RFP, GFR #### [place] [address] #### PTH #### [place] [address] MCV (RBC) [Entitic vol] 84.2 fL Normal 81.0-100.0 [facility] Comment on above: Performed By: #### C BC, ADIFF, ANEU, FE, IBC, FERR, URIC, RFP, GFR #### [address] [address] #### PTH #### [place] [address] Platelet 270 10 3/mcL Normal 150-450 [facility] Comment on above: Performed By: #### C BC, ADIFF, ANEU, FE, IBC, FERR, URIC, RFP, GFR #### [place] [address] #### PTH #### [place] [address] Platelet mean volume (Bld) [Entitic vol] 7.4 fL Normal 6.4-10.5 [facility] Comment on above: Performed By: #### C BC, ADIFF, ANEU, FE, IBC, FERR, URIC, RFP, GFR #### [place] [address] #### PTH #### [place] [address] RBC 5.45 10 6/mcL Normal 4.50-6.00 [facility] Comment on above: Performed By: #### C BC, ADIFF, ANEU, FE, IBC, FERR, URIC, RFP, GFR #### [place] [address] #### PTH #### [place] [address] WBC 6.5 10 3/mcL Normal 4.5-10.8 [facility] Comment on above: Performed By: #### C BC, ADIFF, ANEU, FE, IBC, FERR, URIC, RFP, GFR #### [place] [address] #### PTH #### [place] [address] CMPon 07-03-2024 Albumin Level 3.7 G/dL Normal 3.4-4.8 [facility] Comment on above: Performed By: #### C BC, ADIFF, ANEU, FE, IBC, FERR, URIC, RFP, GFR #### [address] [address] #### PTH #### [address] [address] Albumin/Globulin [Mass ratio] 1.0 {ratio} Low 1.1-2.5 [facility] Comment on above: Performed By: #### C BC, ADIFF, ANEU, FE, IBC, FERR, URIC, RFP, GFR #### [place] [address] #### PTH #### [address] [address] ALP [Catalytic activity/Vol] 95 U/L Normal 40-135 [facility] Comment on above: Performed By: #### C BC, ADIFF, ANEU, FE, IBC, FERR, URIC, RFP, GFR #### [address] [address] #### PTH #### [address] [address] ALT [Catalytic activity/Vol] 26 U/L Normal 16-63 [facility] Comment on above: Performed By: #### C BC, ADIFF, ANEU, FE, IBC, FERR, URIC, RFP, GFR #### [place] [address] #### PTH #### [address] [address] AST [Catalytic activity/Vol] 23 U/L Normal 10-40 [facility] Comment on above: Performed By: #### C BC, ADIFF, ANEU, FE, IBC, FERR, URIC, RFP, GFR #### [address] [address] #### PTH #### [address] [address] Bili Total 0.4 mg/dL Normal 0.2-1.0 [facility] Comment on above: Result Comment: Use of this assay is not recommended for patients undergoing treatment with eltrombopag due to the potential for falsely elevated results. Performed By: #### C BC, ADIFF, ANEU, FE, IBC, FERR, URIC, RFP, GFR #### [place] [address] #### PTH #### [address] [address] BUN/Creatinine Ratio 14 ratio Normal 7-27 [facility] Comment on above: Performed By: #### C BC, ADIFF, ANEU, FE, IBC, FERR, URIC, RFP, GFR #### [place] [address] #### PTH #### [address] [address] Calcium [Mass/Vol] 9.2 mg/dL Normal 8.4-10.2 [facility] Comment on above: Performed By: #### C BC, ADIFF, ANEU, FE, IBC, FERR, URIC, RFP, GFR #### [place] [address] #### PTH #### [address] [address] Chloride [Moles/Vol] 104 mmol/L Normal 98-107 [facility] Comment on above: Performed By: #### C BC, ADIFF, ANEU, FE, IBC, FERR, URIC, RFP, GFR #### [place] [address] #### PTH #### [address] [address] CO2 [Moles/Vol] 29 mmol/L Normal 23-31 [facility] Comment on above: Performed By: #### C BC, ADIFF, ANEU, FE, IBC, FERR, URIC, RFP, GFR #### [place] [address] #### PTH #### [address] [address] Creatinine [Mass/Vol] 1.77 mg/dL High 0.70-1.30 [facility] Comment on above: Result Comment: Test ing performed on Siemens Dimension EXL analyzer using a modified kinetic Dwight technique. Performed By: #### C BC, ADIFF, ANEU, FE, IBC, FERR, URIC, RFP, GFR #### [place] [address] #### PTH #### [place] [address] Electrolyte Balance 5.0 mEq/L Normal 4.0-15.0 [facility] Comment on above: Performed By: #### C BC, ADIFF, ANEU, FE, IBC, FERR, URIC, RFP, GFR #### [place] [address] #### PTH #### [place] [address] Globulin 3.7 G/dL Normal 1.5-3.8 [facility] Comment on above: Performed By: #### C BC, ADIFF, ANEU, FE, IBC, FERR, URIC, RFP, GFR #### [place] [address] #### PTH #### [address] [address] Glucose [Mass/Vol] 72 mg/dL Low 83-110 [facility] Comment on above: Performed By: #### C BC, ADIFF, ANEU, FE, IBC, FERR, URIC, RFP, GFR #### [place] [address] #### PTH #### [address] [address] Potassium [Moles/Vol] 4.7 mmol/L Normal 3.5-5.1 [facility] Comment on above: Performed By: #### C BC, ADIFF, ANEU, FE, IBC, FERR, URIC, RFP, GFR #### [place] [id number] #### PTH #### [address] [address] Sodium [Moles/Vol] 138 mmol/L Normal 136-145 [facility] Comment on above: Performed By: #### C BC, ADIFF, ANEU, FE, IBC, FERR, URIC, RFP, GFR #### [address] [address] #### PTH #### [place] [address] Total Protein 7.4 G/dL Normal 6.4-8.2 [facility] Comment on above: Performed By: #### C BC, ADIFF, ANEU, FE, IBC, FERR, URIC, RFP, GFR #### [place] [address] #### PTH #### [place] [address] Urea nitrogen [Mass/Vol] 24 mg/dL High 7-18 [facility] Comment on above: Performed By: #### C BC, ADIFF, ANEU, FE, IBC, FERR, URIC, RFP, GFR #### [place] [address] #### PTH #### [address] [address] CRPon 07-03-2024 C-Reactive Protein 0.4 mg/dL High 0.0-0.3 [facility] Comment on above: Performed By: #### C BC, ADIFF, ANEU, FE, IBC, FERR, URIC, RFP, GFR #### [address] [address] #### PTH #### [place] [address] CRURon 07-03-2024 U Creatinine 47.4 mg/dL Normal [facility] Comment on above: Performed By: #### C BC, ADIFF, ANEU, FE, IBC, FERR, URIC, RFP, GFR #### [address] [address] #### PTH #### [place] [address] ESRon 07-03-2024 Erythrocyte Sed Rate 8 mm/hr Normal 0-20 [facility] Comment on above: Performed By: #### C BC, ADIFF, ANEU, FE, IBC, FERR, URIC, RFP, GFR #### [place] [address] #### PTH #### [place] [address] FEon 07-03-2024 Iron [Mass/Vol] 66 ug/dL Normal 65-175 [facility] Comment on above: Performed By: #### C BC, ADIFF, ANEU, FE, IBC, FERR, URIC, RFP, GFR #### [place] [address] #### PTH #### [place] [address] Daisha 07-03-2024 Ferritin [Mass/Vol] 109.0 ng/mL Normal 26.0-388.0 [facility] Comment on above: Performed By: #### C BC, ADIFF, ANEU, FE, IBC, FERR, URIC, RFP, GFR #### [place] [address] #### PTH #### [place] [address] IBCon 07-03-2024 TIBC 272 mcg/dL Normal 250-450 [facility] Comment on above: Performed By: #### C BC, ADIFF, ANEU, FE, IBC, FERR, URIC, RFP, GFR #### [place] [address] #### PTH #### [place] [address] LABORATORYOrdered By: SYSTEM SYSTEM on 07-03-2024 Creatinine (U) [Mass/Vol] 47.4 mg/dL Invalid Interpretation Code AO ADM SS Protein (U) [Mass/Vol] 12 mg/dL Invalid Interpretation Code AO ADM SS Albumin BCP dye [Mass/Vol] 3.7 G/dL Normal 3.4 - 4.8 G/dL AO ADM SS Albumin/Globulin [Mass ratio] 1.0 {ratio} Low 1.1 - 2.5 ratio AO ADM SS ALP [Catalytic activity/Vol] 95 U/L Normal 40 - 135 U/L AO ADM SS ALT With P-5'-P [Catalytic activity/Vol] 26 U/L Normal 16 - 63 U/L AO ADM SS AST With P-5'-P [Catalytic activity/Vol] 23 U/L Normal 10 - 40 U/L AO ADM SS Bilirubin [Mass/Vol] 0.4 mg/dL Normal 0.2 - 1 .0 mg/dL AO ADM SS Comment on above: Interpretive Data: U se of this assay is not recommended for patients undergoing treatment with eltrombopag due to the potential for falsely elevated results. Calcium [Mass/Vol] 9.2 mg/dL Normal 8.4 - 10. 2 mg/dL AO ADM SS Chloride [Moles/Vol] 104 mmol/L Normal 98 - 10 7 mmol/L AO ADM SS CO2 [Moles/Vol] 29 mmol/L Normal 23 - 31 mmol/L AO ADM SS Creatinine [Mass/Vol] 1.77 mg/dL High 0.70 - 1.30 mg/dL AO ADM SS Comment on above: Interpretive Data: T esting performed on Siemens Dimension EXL analyzer using a modified kinetic Dwight technique. CRP [Mass/Vol] 0.4 mg/dL High 0.0 - 0.3 mg/dL AO ADM SS Electrolyte Balance 5.0 mEq/L Normal 4.0 - 15 .0 mEq/L AO ADM SS Estimated Glomerular Filtration Rate 40 ml/min/1.73sqm Invalid Interpretation Code AO Chemistry S Comment on above: Interpretive Data: Stages of Chronic Kidney Disease (CKD) Stage Description eGFR(ml/min/1.73 sq.m.) CKD 1 Normal kidney function or >=90 normal kindney function with possible kidney damage (ex. Proteinuria) CKD 2 Kidney damage with mild loss 60-89 of kidney function CKD 3a Mild to moderate loss of kidney 45-59 function CKD 3b Moderate to severe loss of 30-44 of kindey function CKD 4 Severe loss of kidney function 15-29 CKD 5 Kidney failure <15 Note: (go live 2024) the eGFR calculation was updated to the 2020 CKD-EPI creatinine equation without a race factor to calculate the eGFR results. Globulin 3.7 G/dL Normal 1.5 - 3.8 G/dL AO ADM SS Glucose [Mass/Vol] 72 mg/dL Low 83 - 110 mg/dL AO ADM SS Potassium [Moles/Vol] 4.7 mmol/L Normal 3.5 - 5.1 mmol/L AO ADM SS Protein [Mass/Vol] 7.4 G/dL Normal 6.4 - 8.2 G/dL AO ADM SS Sodium [Moles/Vol] 138 mmol/L Normal 136 - 145 mmol/L AO ADM SS Urea nitrogen [Mass/Vol] 24 mg/dL High 7 - 18 mg/dL AO ADM SS Urea nitrogen/Creatinine [Mass ratio] 14 ratio Normal 7 - 27 ratio AO ADM SS Albumin BCP dye [Mass/Vol] 3.8 G/dL Normal 3.4 - 4.8 G/dL AO ADM SS Basophils (Bld) [#/Vol] 0.1 103/mcL Normal 0.0 - 0.2 10^3/mcL AO Workflow SS Basophils/100 WBC (Bld) 0.8 % Normal 0.0 - 2.5 % AO Workflow SS Calcium [Mass/Vol] 9.4 mg/dL Normal 8.4 - 10. 2 mg/dL AO ADM SS Chloride [Moles/Vol] 105 mmol/L Normal 98 - 10 7 mmol/L AO ADM SS CO2 [Moles/Vol] 31 mmol/L Normal 23 - 31 mmol/L AO ADM SS Creatinine [Mass/Vol] 1.67 mg/dL High 0.70 - 1.30 mg/dL AO ADM SS Comment on above: Interpretive Data: T esting performed on Siemens Dimension EXL analyzer using a modified kinetic Dwight technique. Electrolyte Balance 6.0 mEq/L Normal 4.0 - 15 .0 mEq/L AO ADM SS Eosinophil, Absolute 0.2 103/mcL Normal 0.0 - 0 .7 10^3/mcL AO Workflow SS Eosinophils/100 WBC (Bld) 2.8 % Normal 0.0 - 7.0 % AO Workflow SS Erythrocyte distribution width (RBC) [Ratio] 14.2 % Normal 11.5 - 15.5 % AO Workflow SS Estimated Glomerular Filtration Rate 43 ml/min/1.73sqm Invalid Interpretation Code AO Chemistry S Comment on above: Interpretive Data: Stages of Chronic Kidney Disease (CKD) Stage Description eGFR(ml/min/1.73 sq.m.) CKD 1 Normal kidney function or >=90 normal kindney function with possible kidney damage (ex. Proteinuria) CKD 2 Kidney damage with mild loss 60-89 of kidney function CKD 3a Mild to moderate loss of kidney 45-59 function CKD 3b Moderate to severe loss of 30-44 of kindey function CKD 4 Severe loss of kidney function 15-29 CKD 5 Kidney failure <15 Note: (go live 2024) the eGFR calculation was updated to the 2020 CKD-EPI creatinine equation without a race factor to calculate the eGFR results. Ferritin [Mass/Vol] 109.0 ng/mL Normal 26.0 - 388.0 ng/mL AO ADM SS Glucose [Mass/Vol] 75 mg/dL Low 83 - 110 mg/dL AO ADM SS Hematocrit (Bld) [Volume fraction] 45.8 % Normal 40.0 - 52.0 % AO Workflow SS Hemoglobin (Bld) [Mass/Vol] 15.2 G/dL Normal 13.0 - 17.5 G/dL AO Workflow SS Iron [Mass/Vol] 66 ug/dL Normal 65 - 175 mcg/dL AO ADM SS Iron binding capacity [Mass/Vol] 272 mcg/dL Normal 250 - 450 mcg/dL AO ADM SS Lymphocytes (Bld) [#/Vol] 1.5 103/mcL Normal 0.9 - 4.3 10^3/mcL AO Workflow SS Lymphocytes/100 WBC (Bld) 22.6 % Normal 20.0 - 40.0 % AO Workflow SS MCH (RBC) [Entitic mass] 27.8 pg Normal 27.0 - 33.0 pg AO Workflow SS MCHC 33.1 G/dL Normal 32.0 - 36.0 G/dL AO Workflow SS MCV (RBC) [Entitic vol] 84.2 fL Normal 81.0 - 100.0 fL AO Workflow SS Monocytes (Bld) [#/Vol] 0.6 103/mcL Normal 0.1 - 1.4 10^3/mcL AO Workflow SS Monocytes/100 WBC (Bld) 8.9 % Normal 2.0 - 13.0 % AO Workflow SS Neutrophils (Bld) [#/Vol] 4.2 103/mcL Normal 2.3 - 8.1 10^3/mcL AO Workflow SS Neutrophils/100 WBC (Bld) 64.9 % Normal 50.0 - 75.0 % AO Workflow SS Parathyrin.intact [Mass/Vol] 49.1 pg/mL Normal 18.5 - 88.0 pg/mL AH ADM SS Phosphate [Mass/Vol] 4.1 mg/dL Normal 2.3 - 4 .1 mg/dL AO ADM SS Platelet mean volume (Bld) [Entitic vol] 7.4 fL Normal 6.4 - 10.5 fL AO Workflow SS Platelets (Bld) [#/Vol] 270 103/mcL Normal 150 - 450 10^3/mcL AO Workflow SS Potassium [Moles/Vol] 4.9 mmol/L Normal 3.5 - 5.1 mmol/L AO ADM SS RBC (Bld) [#/Vol] 5.45 106/mcL Normal 4.50 - 6.0 0 10^6/mcL AO Workflow SS Sodium [Moles/Vol] 142 mmol/L Normal 136 - 145 mmol/L AO ADM SS Urea nitrogen [Mass/Vol] 24 mg/dL High 7 - 18 mg/dL AO ADM SS Urea nitrogen/Creatinine [Mass ratio] 14 ratio Normal 7 - 27 ratio AO ADM SS Uric Acid Lvl 5.6 mg/dL Normal 3.5 - 7.2 mg/dL AO ADM SS WBC (Bld) [#/Vol] 6.5 103/mcL Normal 4.5 - 10.8 10^3/mcL AO Workflow SS LABORATORYOrdered By: Natividad Thornton on 07-03-2024 ESR Photometric method (Bld) [Velocity] 8 mm/hr Normal 0 - 20 mm/hr AO Man Heme SS PRURon 07-03-2024 U Protein 12 mg/dL Normal [facility] Comment on above: Performed By: #### C BC, ADIFF, ANEU, FE, IBC, FERR, URIC, RFP, GFR #### [place] [id number] [place], [place] [address] #### PTH #### [facility] [address] [place] [address] PTHon 07-03-2024 PTH, Intact 49.1 pg/mL Normal 18.5-88.0 [facility] Comment on above: Performed By: #### C BC, ADIFF, ANEU, FE, IBC, FERR, URIC, RFP, GFR #### [address] [address] #### PTH #### [address] [address] RFPon 07-03-2024 Albumin Level 3.8 G/dL Normal 3.4-4.8 [facility] Comment on above: Performed By: #### C BC, ADIFF, ANEU, FE, IBC, FERR, URIC, RFP, GFR #### [address] [address] #### PTH #### [address] [address] BUN/Creatinine Ratio 14 ratio Normal 7-27 [facility] Comment on above: Performed By: #### C BC, ADIFF, ANEU, FE, IBC, FERR, URIC, RFP, GFR #### [place] [address] #### PTH #### [address] [address] Calcium [Mass/Vol] 9.4 mg/dL Normal 8.4-10.2 [facility] Comment on above: Performed By: #### C BC, ADIFF, ANEU, FE, IBC, FERR, URIC, RFP, GFR #### [place] [address] #### PTH #### [address] [address] Chloride [Moles/Vol] 105 mmol/L Normal 98-107 [facility] Comment on above: Performed By: #### C BC, ADIFF, ANEU, FE, IBC, FERR, URIC, RFP, GFR #### [place] [address] #### PTH #### [address] [address] CO2 [Moles/Vol] 31 mmol/L Normal 23-31 [facility] Comment on above: Performed By: #### C BC, ADIFF, ANEU, FE, IBC, FERR, URIC, RFP, GFR #### [address] [address] #### PTH #### [address] [address] Creatinine [Mass/Vol] 1.67 mg/dL High 0.70-1.30 [facility] Comment on above: Result Comment: Test ing performed on Siemens Dimension EXL analyzer using a modified kinetic Dwight technique. Performed By: #### C BC, ADIFF, ANEU, FE, IBC, FERR, URIC, RFP, GFR #### [place] [address] #### PTH #### [address] [address] Electrolyte Balance 6.0 mEq/L Normal 4.0-15.0 [facility] Comment on above: Performed By: #### C BC, ADIFF, ANEU, FE, IBC, FERR, URIC, RFP, GFR #### [place] [address] #### PTH #### [address] [address] Glucose [Mass/Vol] 75 mg/dL Low 83-110 [facility] Comment on above: Performed By: #### C BC, ADIFF, ANEU, FE, IBC, FERR, URIC, RFP, GFR #### [place] [address] #### PTH #### [address] [address] Phosphate [Mass/Vol] 4.1 mg/dL Normal 2.3-4.1 [facility] Comment on above: Performed By: #### C BC, ADIFF, ANEU, FE, IBC, FERR, URIC, RFP, GFR #### [place] [address] #### PTH #### [address] [address] Potassium [Moles/Vol] 4.9 mmol/L Normal 3.5-5.1 [facility] Comment on above: Performed By: #### C BC, ADIFF, ANEU, FE, IBC, FERR, URIC, RFP, GFR #### [address] [address] #### PTH #### [address] [address] Sodium [Moles/Vol] 142 mmol/L Normal 136-145 [facility] Comment on above: Performed By: #### C BC, ADIFF, ANEU, FE, IBC, FERR, URIC, RFP, GFR #### [address] [address] #### PTH #### [place] [address] Urea nitrogen [Mass/Vol] 24 mg/dL High 7-18 [facility] Comment on above: Performed By: #### C BC, ADIFF, ANEU, FE, IBC, FERR, URIC, RFP, GFR #### [address] [address] #### PTH #### [place] [address] URICon 07-03-2024 Uric Acid Lvl 5.6 mg/dL Normal 3.5-7.2 [facility] Comment on above: Performed By: #### C BC, ADIFF, ANEU, FE, IBC, FERR, URIC, RFP, GFR #### [place] [id number] #### PTH #### [place] [address] Cardiology Visit Reporton Cardiology Visit Report [facility] [address] [place] [address]. [address] [place], [place] [id number] OFFICE VISIT Date of Service: 05/24/24 MR#: [id number] Acct: [id number] Name: NETTA VILLEGAS Rep #: [id number] : 1950 Provider: Dr. Ravi Gibbons MD Age/Sex: 74/M Location: [facility] Status: Signed HPI HPI History of Present Illness Details: Netta Villegas is a 74-year-old gentleman who presents here today for a cardiovascular follow-up. He has a history of coronary artery disease with acute inferior ST segment elevation myocardial infarction in June 2020 where he needed to have stenting to his RCA. 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 He also has a history of hypertension, hyperlipidemia, chronic kidney disease and obstructive sleep apnea. He underwent a stress test on 09/30/2022 which demonstrated technically adequate exercise stress test, inferior infarct with no significant obey-infarct ischemia. From a cardiac standpoint, the patient is doing well. He denies any palpitations, chest pain, pressure or heaviness. He denies SOB, Orthopnea, and PND. He does not have bleeding issues; no blood in urine, stool or nosebleeds. He denies any decrease in energy level, myalgias, or claudication. He does not have edema, or sudden weight gain. He denies dizziness, lightheadedness, syncopal or near syncopal episodes, and headaches. He continues to walk 2-3 miles a day. 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 Required: No Accompanied by: Self Is patient in pain?: No Allergies ciprofloxacin (From Cipro) Allergy (Verified 05/24/24 09:07) Rash latex Allergy (Verified 05/24/24 09:07) Rash Sulfa (Sulfonamide Antibiotics) Allergy (Verified 05/24/24 09:07) Rash atorvastatin Adverse Reaction (Intermediate, Verified 05/24/24 09:07) Myalgias Medications ???Medication ???Instructions ???Recorded ???Confirmed ???Type aspirin 81 mg tablet,delayed 81 mg PO DAILY 07/22/20 05/24/24 History release (Adult Aspirin Regimen) nitroglycerin 0.4 mg sublingual 0.4 mg sublingual Q5-15M PRN chest 11/17/20 05/24/24 Rx tablet pain #25 tabs rosuvastatin 20 mg tablet 20 mg PO DAILY 10/11/22 05/24/24 History clopidogrel 75 mg tablet (Plavix) 75 mg PO DAILY #90 tabs 07/19/23 05/24/24 Rx carvedilol 12.5 mg tablet 12.5 mg PO BID 01/20/24 05/24/24 History nitrofurantoin 100 mg PO .COMPLEX 05/24/24 05/24/24 History monohydrate/macrocrystals 100 mg capsule (Macrobid) Have you fallen in the past year?: No PFSH Medical History Abnormal stress test PAD (peripheral artery disease) History of prostate cancer Mixed hyperlipidemia LEON (obstructive sleep apnea) CKD (chronic kidney disease) stage 3, GFR 30-59 ml/min Essential hypertension Presence of stent in coronary artery ( 03/03/21) ST elevation (STEMI) myocardial infarction Atherosclerotic heart disease of [place] coronary artery without angina pectoris Surgical History History of inguinal hernia repair Presence of coronary angioplasty implant and graft ( 03/03/21) History of coronary artery stent placement (06/30/20) Family History Father CAD (coronary artery disease) Cancer Bladder Mother CAD (coronary artery disease) History of coronary artery bypass surgery Heart valve replaced Social History Smoking Status: Never smoker alcohol intake: never substance use type: does not use caffeine: Yes (3 servings daily) ROS Const Const: Negative for fatigue, weakness, headache(s), daytime sleepiness or difficulty sleeping ENT ENT: Negative for headache(s), dizziness or Nosebleed/epistaxis Cardio Chest Pain: No Palpitations: No Edema: None Resp Respiratory: Negative for SOB with activity, SOB at rest, SOB orthopnea SOB lying down or Cough GI GI: Negative nausea, vomiting or heartburn Neuro Neuro: Negative for dizziness, lightheadedness, near syncope, headache(s) or weakness Endo Endo: Negative for fatigue Cardiology Exam Const Appearance: cooperative, healthy appearing, comfortable, no acute distress and well developed Nutritional Appearance: overweight Orientation: alert, awake and oriented x (more content not included)... Normal [facility] PSA,Total - Annual Screenon 03-26-2024 PSA,TOT SCREEN < 0.01 Normal 0.00-4.00 [facility] Comment on above: Result Comment: This test was performed using the TPSA assay method for the [employer] chemistry system. Values obtained with different assay methods cannot be used interchangably. When changing PSA assays in the course of monitoring a patient, additional sequential testing should be carried out to confirm baseline values. Performed By: #### L 501.9910 #### [facility] [address] [place], [address] .Auto Diffon 01-16-2024 Basophil, Absolute 0.0 10 3/mcL Normal 0.0-0.2 [facility] Comment on above: Performed By: #### C BC, ADIFF, ANEU, FE, IBC, FERR, URIC, RFP, GFR #### [address] [address] #### PTH #### [address] [address] Basophils/100 WBC (Bld) 0.6 % Normal 0.0-2.5 [facility] Comment on above: Performed By: #### C BC, ADIFF, ANEU, FE, IBC, FERR, URIC, RFP, GFR #### [address] [address] #### PTH #### [address] [address] Eosinophil, Absolute 0.2 10 3/mcL Normal 0.0-0.4 [facility] Comment on above: Performed By: #### C BC, ADIFF, ANEU, FE, IBC, FERR, URIC, RFP, GFR #### [address] [address] #### PTH #### [address] [address] Eosinophils/100 WBC (Bld) 4.6 % Normal 0.0-7.0 [facility] Comment on above: Performed By: #### C BC, ADIFF, ANEU, FE, IBC, FERR, URIC, RFP, GFR #### [address] [address] #### PTH #### [address] [address] Lymphocyte, Absolute 1.6 10 3/mcL Normal 0.8-3.9 [facility] Comment on above: Performed By: #### C BC, ADIFF, ANEU, FE, IBC, FERR, URIC, RFP, GFR #### [address] [address] #### PTH #### [address] [address] Lymphocytes/100 WBC (Bld) 31.2 % Normal 10.0-50.0 [facility] Comment on above: Performed By: #### C BC, ADIFF, ANEU, FE, IBC, FERR, URIC, RFP, GFR #### [place] [address] #### PTH #### [address] [address] Monocyte, Absolute 0.5 10 3/mcL Normal 0.2-1.0 [facility] Comment on above: Performed By: #### C BC, ADIFF, ANEU, FE, IBC, FERR, URIC, RFP, GFR #### [address] [address] #### PTH #### [address] [address] Monocytes/100 WBC (Bld) 9.7 % Normal 1.7-13.0 [facility] Comment on above: Performed By: #### C BC, ADIFF, ANEU, FE, IBC, FERR, URIC, RFP, GFR #### [place] [address] #### PTH #### [address] [address] Neutrophils/100 WBC (Bld) 53.9 % Normal 37.0-80.0 [facility] Comment on above: Performed By: #### C BC, ADIFF, ANEU, FE, IBC, FERR, URIC, RFP, GFR #### [address] [address] #### PTH #### [address] [address] .GFRon 01-16-2024 GFR 57 ml/min/1.73sqm Normal [facility] Comment on above: Result Comment: GFR Population mean for , Non- Americans Ages 20-29 = 116 mL/min/1.73 sq.m. Ages 30-39 = 107 mL/min/1.73 sq.m. Ages 40-49 = 99 mL/min/1.73 sq.m. Ages 50-59 = 93 mL/min/1.73 sq.m. Ages 60-69 = 85 mL/min/1.73 sq.m. Ages 70+ = 75 mL/min/1.73 sq.m. Chronic Kidney Disease: Less than 60 mL/min/1.73 square meters End Stage Renal Disease: Less than 15 mL/min/1.73 square meters Performed By: #### C BC, ADIFF, ANEU, FE, IBC, FERR, URIC, RFP, GFR #### [address] [address] #### PTH #### [address] [address] GFR Non- 47 ml/min/1.73sqm Normal [facility] Comment on above: Result Comment: GFR Population mean for , Non- Americans Ages 20-29 = 116 mL/min/1.73 sq.m. Ages 30-39 = 107 mL/min/1.73 sq.m. Ages 40-49 = 99 mL/min/1.73 sq.m. Ages 50-59 = 93 mL/min/1.73 sq.m. Ages 60-69 = 85 mL/min/1.73 sq.m. Ages 70+ = 75 mL/min/1.73 sq.m. Chronic Kidney Disease: Less than 60 mL/min/1.73 square meters End Stage Renal Disease: Less than 15 mL/min/1.73 square meters Performed By: #### C BC, ADIFF, ANEU, FE, IBC, FERR, URIC, RFP, GFR #### [place] [address] #### PTH #### [place] [address] .NEUABSon 01-16-2024 Neutrophil, Absolute 2.8 10 3/mcL Low 2.9-6.2 [facility] Comment on above: Performed By: #### C BC, ADIFF, ANEU, FE, IBC, FERR, URIC, RFP, GFR #### [place] [address] #### PTH #### [place] [address] CBCon 01-16-2024 Erythrocyte distribution width (RBC) [Ratio] 14.9 % High 11.5-14.5 [facility] Comment on above: Performed By: #### C BC, ADIFF, ANEU, FE, IBC, FERR, URIC, RFP, GFR #### [place] [address] #### PTH #### [place] [address] Hematocrit (Bld) [Volume fraction] 45.5 % Normal 42.0-52.0 [facility] Comment on above: Performed By: #### C BC, ADIFF, ANEU, FE, IBC, FERR, URIC, RFP, GFR #### [place] [address] #### PTH #### [place] [address] Hgb 15.0 G/dL Normal 14.0-18.0 [facility] Comment on above: Performed By: #### C BC, ADIFF, ANEU, FE, IBC, FERR, URIC, RFP, GFR #### [place] [address] #### PTH #### [place] [address] MCH (RBC) [Entitic mass] 28.1 pg Normal 27.0-31.2 [facility] Comment on above: Performed By: #### C BC, ADIFF, ANEU, FE, IBC, FERR, URIC, RFP, GFR #### [place] [address] #### PTH #### [place] [address] MCHC 33.0 G/dL Normal 31.8-35.4 [facility] Comment on above: Performed By: #### C BC, ADIFF, ANEU, FE, IBC, FERR, URIC, RFP, GFR #### [place] [address] #### PTH #### [place] [address] MCV (RBC) [Entitic vol] 85.2 fL Normal 80.0-94.0 [facility] Comment on above: Performed By: #### C BC, ADIFF, ANEU, FE, IBC, FERR, URIC, RFP, GFR #### [place] [address] #### PTH #### [place] [address] Platelet 213 10 3/mcL Normal 130-400 [facility] Comment on above: Performed By: #### C BC, ADIFF, ANEU, FE, IBC, FERR, URIC, RFP, GFR #### [place] [address] #### PTH #### [place] [address] Platelet mean volume (Bld) [Entitic vol] 7.8 fL Normal 7.4-10.4 [facility] Comment on above: Performed By: #### C BC, ADIFF, ANEU, FE, IBC, FERR, URIC, RFP, GFR #### [place] [address] #### PTH #### [place] [address] RBC 5.35 10 6/mcL Normal 4.04-6.13 [facility] Comment on above: Performed By: #### C BC, ADIFF, ANEU, FE, IBC, FERR, URIC, RFP, GFR #### [place] [address] #### PTH #### [place] [address] WBC 5.2 10 3/mcL Normal 4.6-10.8 [facility] Comment on above: Performed By: #### C BC, ADIFF, ANEU, FE, IBC, FERR, URIC, RFP, GFR #### [place] [address] #### PTH #### [address] 01-16-2024 Albumin Level 3.7 G/dL Normal 3.4-4.8 [facility] Comment on above: Performed By: #### C BC, ADIFF, ANEU, FE, IBC, FERR, URIC, RFP, GFR #### [place] [address] #### PTH #### [place] [address] Albumin/Globulin [Mass ratio] 1.1 {ratio} Normal 1.1-2.5 [facility] Comment on above: Performed By: #### C BC, ADIFF, ANEU, FE, IBC, FERR, URIC, RFP, GFR #### [place] [address] #### PTH #### [place] [address] ALP [Catalytic activity/Vol] 86 U/L Normal 40-135 [facility] Comment on above: Performed By: #### C BC, ADIFF, ANEU, FE, IBC, FERR, URIC, RFP, GFR #### [address] [address] #### PTH #### [place] [address] ALT [Catalytic activity/Vol] 44 U/L Normal 16-63 [facility] Comment on above: Performed By: #### C BC, ADIFF, ANEU, FE, IBC, FERR, URIC, RFP, GFR #### [place] [address] #### PTH #### [place] [address] AST [Catalytic activity/Vol] 23 U/L Normal 10-40 [facility] Comment on above: Performed By: #### C BC, ADIFF, ANEU, FE, IBC, FERR, URIC, RFP, GFR #### [place] [address] #### PTH #### [place] [address] Bili Total 0.4 mg/dL Normal 0.2-1.0 [facility] Comment on above: Result Comment: Use of this assay is not recommended for patients undergoing treatment with eltrombopag due to the potential for falsely elevated results. Performed By: #### C BC, ADIFF, ANEU, FE, IBC, FERR, URIC, RFP, GFR #### [place] [address] #### PTH #### [place] [address] BUN/Creatinine Ratio 16 ratio Normal 7-27 [facility] Comment on above: Performed By: #### C BC, ADIFF, ANEU, FE, IBC, FERR, URIC, RFP, GFR #### [place] [address] #### PTH #### [place] [address] Calcium [Mass/Vol] 9.1 mg/dL Normal 8.4-10.2 [facility] Comment on above: Performed By: #### C BC, ADIFF, ANEU, FE, IBC, FERR, URIC, RFP, GFR #### [place] [address] #### PTH #### [place] [address] Chloride [Moles/Vol] 103 mmol/L Normal 98-107 [facility] Comment on above: Performed By: #### C BC, ADIFF, ANEU, FE, IBC, FERR, URIC, RFP, GFR #### [place] [address] #### PTH #### [place] [address] CO2 [Moles/Vol] 32 mmol/L High 23-31 [facility] Comment on above: Performed By: #### C BC, ADIFF, ANEU, FE, IBC, FERR, URIC, RFP, GFR #### [place] [address] #### PTH #### [place] [address] Creatinine [Mass/Vol] 1.47 mg/dL High 0.70-1.30 [facility] Comment on above: Result Comment: Test ing performed on Siemens Dimension EXL analyzer using a modified kinetic [employer] technique. Performed By: #### C BC, ADIFF, ANEU, FE, IBC, FERR, URIC, RFP, GFR #### [place] [address] #### PTH #### [place] [address] Electrolyte Balance 4.0 mEq/L Normal 4.0-15.0 [facility] Comment on above: Performed By: #### C BC, ADIFF, ANEU, FE, IBC, FERR, URIC, RFP, GFR #### [place] [address] #### PTH #### [place] [address] Globulin 3.4 G/dL Normal [facility] Comment on above: Performed By: #### C BC, ADIFF, ANEU, FE, IBC, FERR, URIC, RFP, GFR #### [address] [address] #### PTH #### [address] [address] Glucose [Mass/Vol] 97 mg/dL Normal 83-110 [facility] Comment on above: Performed By: #### C BC, ADIFF, ANEU, FE, IBC, FERR, URIC, RFP, GFR #### [address] [address] #### PTH #### [address] [address] Potassium [Moles/Vol] 4.6 mmol/L Normal 3.5-5.1 [facility] Comment on above: Performed By: #### C BC, ADIFF, ANEU, FE, IBC, FERR, URIC, RFP, GFR #### [place] [address] #### PTH #### [address] [address] Sodium [Moles/Vol] 139 mmol/L Normal 136-145 [facility] Comment on above: Performed By: #### C BC, ADIFF, ANEU, FE, IBC, FERR, URIC, RFP, GFR #### [address] [address] #### PTH #### [address] [address] Total Protein 7.1 G/dL Normal 6.4-8.2 [facility] Comment on above: Performed By: #### C BC, ADIFF, ANEU, FE, IBC, FERR, URIC, RFP, GFR #### [address] [address] #### PTH #### [address] [address] Urea nitrogen [Mass/Vol] 23 mg/dL High 7-18 [facility] Comment on above: Performed By: #### C BC, ADIFF, ANEU, FE, IBC, FERR, URIC, RFP, GFR #### [place] [id number] [place], [place] [address] #### PTH #### [address] [address] LABORATORYOrdered By: SYSTEM SYSTEM on 01-16-2024 Albumin BCP dye [Mass/Vol] 3.7 G/dL Normal 3.4 - 4.8 G/dL AO ADM SS Albumin/Globulin [Mass ratio] 1.1 {ratio} Normal 1.1 - 2.5 ratio AO ADM SS ALP [Catalytic activity/Vol] 86 U/L Normal 40 - 135 U/L AO ADM SS ALT With P-5'-P [Catalytic activity/Vol] 44 U/L Normal 16 - 63 U/L AO ADM SS AST With P-5'-P [Catalytic activity/Vol] 23 U/L Normal 10 - 40 U/L AO ADM SS Basophils (Bld) [#/Vol] 0.0 103/mcL Normal 0.0 - 0.2 10^3/mcL AO Workflow SS Basophils/100 WBC (Bld) 0.6 % Normal 0.0 - 2.5 % AO Workflow SS Bilirubin [Mass/Vol] 0.4 mg/dL Normal 0.2 - 1 .0 mg/dL AO ADM SS Comment on above: Interpretive Data: U se of this assay is not recommended for patients undergoing treatment with eltrombopag due to the potential for falsely elevated results. Calcium [Mass/Vol] 9.1 mg/dL Normal 8.4 - 10. 2 mg/dL AO ADM SS Chloride [Moles/Vol] 103 mmol/L Normal 98 - 10 7 mmol/L AO ADM SS CO2 [Moles/Vol] 32 mmol/L High 23 - 31 mmol/L AO ADM SS Creatinine [Mass/Vol] 1.47 mg/dL High 0.70 - 1.30 mg/dL AO ADM SS Comment on above: Interpretive Data: T esting performed on Siemens Dimension EXL analyzer using a modified kinetic [employer] technique. Electrolyte Balance 4.0 mEq/L Normal 4.0 - 15 .0 mEq/L AO ADM SS Eosinophil, Absolute 0.2 103/mcL Normal 0.0 - 0 .4 10^3/mcL AO Workflow SS Eosinophils/100 WBC (Bld) 4.6 % Normal 0.0 - 7.0 % AO Workflow SS Erythrocyte distribution width (RBC) [Ratio] 14.9 % High 11.5 - 14.5 % AO Workflow SS GFR/1.73 sq M.predicted among blacks MDRD (S/P/Bld) [Vol rate/Area] 57 ml/min/1.73sqm Invalid Interpretation Code AO Chemistry S Comment on above: Interpretive Data: GFR Population mean for , Non- Americans Ages 20-29 = 116 mL/min/1.73 sq.m. Ages 30-39 = 107 mL/min/1.73 sq.m. Ages 40-49 = 99 mL/min/1.73 sq.m. Ages 50-59 = 93 mL/min/1.73 sq.m. Ages 60-69 = 85 mL/min/1.73 sq.m. Ages 70+ = 75 mL/min/1.73 sq.m. Chronic Kidney Disease: Less than 60 mL/min/1.73 square meters End Stage Renal Disease: Less than 15 mL/min/1.73 square meters GFR/1.73 sq M.predicted among non-blacks MDRD (S/P/Bld) [Vol rate/Area] 47 ml/min/1.73sqm Invalid Interpretation Code AO Chemistry S Comment on above: Interpretive Data: GFR Population mean for , Non- Americans Ages 20-29 = 116 mL/min/1.73 sq.m. Ages 30-39 = 107 mL/min/1.73 sq.m. Ages 40-49 = 99 mL/min/1.73 sq.m. Ages 50-59 = 93 mL/min/1.73 sq.m. Ages 60-69 = 85 mL/min/1.73 sq.m. Ages 70+ = 75 mL/min/1.73 sq.m. Chronic Kidney Disease: Less than 60 mL/min/1.73 square meters End Stage Renal Disease: Less than 15 mL/min/1.73 square meters Globulin 3.4 G/dL Invalid Interpretation Code AO ADM SS Glucose [Mass/Vol] 97 mg/dL Normal 83 - 110 mg/dL AO ADM SS Hematocrit (Bld) [Volume fraction] 45.5 % Normal 42.0 - 52.0 % AO Workflow SS Hemoglobin (Bld) [Mass/Vol] 15.0 G/dL Normal 14.0 - 18.0 G/dL AO Workflow SS Lymphocytes (Bld) [#/Vol] 1.6 103/mcL Normal 0.8 - 3.9 10^3/mcL AO Workflow SS Lymphocytes/100 WBC (Bld) 31.2 % Normal 10.0 - 50.0 % AO Workflow SS MCH (RBC) [Entitic mass] 28.1 pg Normal 27.0 - 31.2 pg AO Workflow SS MCHC 33.0 G/dL Normal 31.8 - 35.4 G/dL AO Workflow SS MCV (RBC) [Entitic vol] 85.2 fL Normal 80.0 - 94.0 fL AO Workflow SS Monocytes (Bld) [#/Vol] 0.5 103/mcL Normal 0.2 - 1.0 10^3/mcL AO Workflow SS Monocytes/100 WBC (Bld) 9.7 % Normal 1.7 - 13.0 % AO Workflow SS Neutrophils (Bld) [#/Vol] 2.8 103/mcL Low 2.9 - 6.2 10^3/mcL AO Workflow SS Neutrophils/100 WBC (Bld) 53.9 % Normal 37.0 - 80.0 % AO Workflow SS Platelet mean volume (Bld) [Entitic vol] 7.8 fL Normal 7.4 - 10.4 fL AO Workflow SS Platelets (Bld) [#/Vol] 213 103/mcL Normal 130 - 400 10^3/mcL AO Workflow SS Potassium [Moles/Vol] 4.6 mmol/L Normal 3.5 - 5.1 mmol/L AO ADM SS Prostate specific Ag [Mass/Vol] ng/mL Normal 0.00 - 4.00 ng/mL AO ADM SS Protein [Mass/Vol] 7.1 G/dL Normal 6.4 - 8.2 G/dL AO ADM SS RBC (Bld) [#/Vol] 5.35 106/mcL Normal 4.04 - 6.1 3 10^6/mcL AO Workflow SS Sodium [Moles/Vol] 139 mmol/L Normal 136 - 145 mmol/L AO ADM SS Urea nitrogen [Mass/Vol] 23 mg/dL High 7 - 18 mg/dL AO ADM SS Urea nitrogen/Creatinine [Mass ratio] 16 ratio Normal 7 - 27 ratio AO ADM SS WBC (Bld) [#/Vol] 5.2 103/mcL Normal 4.6 - 10.8 10^3/mcL AO Workflow SS LABORATORYOrdered By: Nakul Garcia on 01-16-2024 Cholesterol [Mass/Vol] 183 mg/dL Normal 0 - 200 mg/dL AO ADM SS Comment on above: Interpretive Data: C holesterol Reference Interval: Less than 200 Desirable 200-239 Borderline high risk 240 and above High risk Cholesterol in HDL [Mass/Vol] 51 mg/dL Normal 40 - 60 mg/dL AO ADM SS Cholesterol in LDL [Mass/Vol] 104 mg/dL Normal 0 - 130 mg/dL AO ADM SS Triglyceride [Mass/Vol] 139 mg/dL Normal 0 - 150 mg/dL AO ADM SS Comment on above: Interpretive Data: T riglyceride Reference Interval: Less than 150 Normal 150-199 Borderline high risk 200-499 High risk 500 or higher Very high risk LIPIDon 01-16-2024 Cholesterol [Mass/Vol] 183 mg/dL Normal 0-200 [facility] Comment on above: Result Comment: Chol esterol Reference Interval: Less than 200 Desirable 200-239 Borderline high risk 240 and above High risk Performed By: #### C BC, ADIFF, ANEU, FE, IBC, FERR, URIC, RFP, GFR #### [address] [address] #### PTH #### [address] [address] Cholesterol in HDL [Mass/Vol] 51 mg/dL Normal 40-60 [facility] Comment on above: Performed By: #### C BC, ADIFF, ANEU, FE, IBC, FERR, URIC, RFP, GFR #### [address] [address] #### PTH #### [address] [address] Cholesterol in LDL [Mass/Vol] 104 mg/dL Normal 0-130 [facility] Comment on above: Performed By: #### C BC, ADIFF, ANEU, FE, IBC, FERR, URIC, RFP, GFR #### [address] [address] #### PTH #### [address] [address] Triglyceride [Mass/Vol] 139 mg/dL Normal 0-150 [facility] Comment on above: Result Comment: Trig lyceride Reference Interval: Less than 150 Normal 150-199 Borderline high risk 200-499 High risk 500 or higher Very high risk Performed By: #### C BC, ADIFF, ANEU, FE, IBC, FERR, URIC, RFP, GFR #### [address] [address] #### PTH #### [address] [address] PSAon 01-16-2024 Prostate Specific Antigen <0.05 Normal 0.00-4.00 [facility] Comment on above: Performed By: #### C BC, ADIFF, ANEU, FE, IBC, FERR, URIC, RFP, GFR #### [address] [address] #### PTH #### [place] [address] CBC W/Diff, Automatedon 09 0-2023 Absolute Lymph 1.71 X10 3/uL Normal 0.83-4.51 [facility] Comment on above: Performed By: #### L [id number], L101.9900, L100.0100, [id number] #### [facility] [address] [place], [address] Absolute Neut 2.8 X10 3/uL Normal 2.0-7.7 [facility] Comment on above: Performed By: #### L [id number], L101.9900, L100.0100, [id number] #### [facility] [address] [place], [address] Basophils/100 WBC (Bld) 1.0 % Normal 0-1 [facility] Comment on above: Performed By: #### L [id number], L101.9900, L100.0100, [id number] #### [facility] [address] [place], [address] Eosinophils/100 WBC (Bld) 3.7 % Normal 0-5 [facility] Comment on above: Performed By: #### L [id number], L101.9900, L100.0100, [id number] #### [facility] [address] [place], [address] Erythrocyte distribution width (RBC) [Ratio] 14.0 % Normal 11.6-14.6 [facility] Comment on above: Performed By: #### L [id number], L101.9900, L100.0100, [id number] #### [facility] [address] [place], [address] Hematocrit (Bld) [Volume fraction] 47.6 % Normal 40-54 [facility] Comment on above: Performed By: #### L [id number], L101.9900, L100.0100, [id number] #### [facility] [address] [place], [address] Hemoglobin (Bld) [Mass/Vol] 15.0 g/dL Normal 13.0-16.5 [facility] Comment on above: Performed By: #### L [id number], L101.9900, L100.0100, [id number] #### [facility] [address] [place], [address] IG% 0.200 Normal 0.0-0.9 [facility] Comment on above: Result Comment: IG% - Immature Granulocytes (promyelocytes, myelocytes and metamyelocytes) > 1% indicates that a LEFT SHIFT is Present. Performed By: #### L 501.6710, L101.9900, L100.0100, [id number] #### [facility] [address] [place], [address] Lymphocytes/100 WBC (Bld) 33.1 % Normal 19-41 [facility] Comment on above: Performed By: #### L 501.6710, L101.9900, L100.0100, [id number] #### [facility] [address] [place], [address] MCH (RBC) [Entitic mass] 27.1 pg Normal 27.0-32.0 [facility] Comment on above: Performed By: #### L 501.6710, L101.9900, L100.0100, [id number] #### [facility] [address] [place], [address] MCHC (RBC) [Mass/Vol] 31.5 g/dL Low 32-36 [facility] Comment on above: Performed By: #### L 501.6710, L101.9900, L100.0100, [id number] #### [facility] [address] [place], [address] MCV (RBC) [Entitic vol] 85.9 fL Normal 80-94 [facility] Comment on above: Performed By: #### L 501.6710, L101.9900, L100.0100, [id number] #### [facility] [address] [place], [address] Monocytes/100 WBC (Bld) 8.7 % Normal 0-10 [facility] Comment on above: Performed By: #### L 501.6710, L101.9900, L100.0100, [id number] #### [facility] [address] [place], [address] Neutrophils/100 WBC (Bld) 53.3 % Normal 47-70 [facility] Comment on above: Performed By: #### L 501.6710, L101.9900, L100.0100, [id number] #### [facility] [address] [place], [address] Nucleated RBC (Bld) [#/Vol] 0 10*3/uL Normal 0-5 [facility] Comment on above: Performed By: #### L 501.6710, L101.9900, L100.0100, [id number] #### [facility] [address] [place], [address] Platelet mean volume (Bld) [Entitic vol] 9.8 fL Normal 6.2-12.0 [facility] Comment on above: Performed By: #### L 501.6710, L101.9900, L100.0100, [id number] #### [facility] [address] [place], [address] Platelets (Bld) [#/Vol] 230 10*3/uL Normal 150-450 [facility] Comment on above: Performed By: #### L 501.6710, L101.9900, L100.0100, [id number] #### [facility] [address] [place], [address] RBC (Bld) [#/Vol] 5.54 10*6/uL Normal 4.6-6.2 [facility] Comment on above: Performed By: #### L 501.6710, L101.9900, L100.0100, [id number] #### [facility] [address] [place], [address] RDW SD 43.8 fl Normal 35.1-43.9 [facility] Comment on above: Performed By: #### L 501.6710, L101.9900, L100.0100, [id number] #### [facility] [address] [place], [address] WBC (Bld) [#/Vol] 5.2 10*3/uL Normal 4.4-11.0 [facility] Comment on above: Performed By: #### L 501.6710, L101.9900, L100.0100, L500.4050 #### [facility] [address] [place], [address] CRPon 01-10-2024 C-REACTIVE PROT < 2.90 Normal 0.0-3.0 [facility] Comment on above: Result Comment: C-Re active Protein (CRP) provides useful information for the diagnosis, therapy and monitoring of inflammatory processes and associated diseases. For the evaluation of Relative Risk for Cardiovascular Disease, a High Sensitivity CRP (HSCRP) should be ordered. Performed By: #### L 501.6710, L101.9900, L100.0100, L500.4050 #### [facility] [address] [place], [address] Comprehensive Metabolic Prof ilon 01-10-2024 Albumin [Mass/Vol] 3.4 g/dL Normal 3.2-5.0 [facility] Comment on above: Performed By: #### L 501.6710, L101.9900, L100.0100, L500.4050 #### [facility] [address] [place], [address] Albumin/Globulin [Mass ratio] 0.9 {ratio} Normal 0.9-2.4 [facility] Comment on above: Performed By: #### L 501.6710, L101.9900, L100.0100, L500.4050 #### [facility] [address] [place], [address] ALK P 85 U/L Normal 45-117 [facility] Comment on above: Performed By: #### L 501.6710, L101.9900, L100.0100, L500.4050 #### [facility] [address] [place], [address] ALT [Catalytic activity/Vol] 40 U/L Normal 16-61 [facility] Comment on above: Performed By: #### L 501.6710, L101.9900, L100.0100, L500.4050 #### [facility] [address] [place], [address] AST [Catalytic activity/Vol] 58 U/L High 15-37 [facility] Comment on above: Performed By: #### L 501.6710, L101.9900, L100.0100, L500.4050 #### [facility] [address] [place], [address] Bilirubin [Mass/Vol] 0.30 mg/dL Normal 0.20-1.00 [facility] Comment on above: Result Comment: For patients on eltrombopag therapy, use of Dimension [place] TBIL is not recommended. Performed By: #### L 501.6710, L101.9900, L100.0100, L500.4050 #### [facility] [address] [place], [address] BUN/CRE 12.1 RATIO Normal 10-20 [facility] Comment on above: Performed By: #### L 501.6710, L101.9900, L100.0100, L500.4050 #### [facility] [address] [place], [address] CA,Total 9.2 mg/dL Normal 8.5-10.1 [facility] Comment on above: Performed By: #### L 501.6710, L101.9900, L100.0100, L500.4050 #### [facility] [address] [place], [address] Chloride [Moles/Vol] 106 mmol/L Normal 98-107 [facility] Comment on above: Performed By: #### L 501.6710, L101.9900, L100.0100, L500.4050 #### [facility] [address] [place], [address] CO2 [Moles/Vol] 29.0 mmol/L Normal 21.0-32.0 [facility] Comment on above: Performed By: #### L 501.6710, L101.9900, L100.0100, L500.4050 #### [facility] [address] [place], [address] Creatinine [Mass/Vol] 1.73 mg/dL High 0.70-1.30 [facility] Comment on above: Result Comment: The validity of the calculated GFR GFRAA in patients over 70 years has not been determined. Clinical correlation is essential. Performed By: #### L 501.6710, L101.9900, L100.0100, L500.4050 #### [facility] [address] [place], [address] EST GFR - AA 50 mL/min Low >60 [facility] Comment on above: Result Comment: Afri can Palestinian GFR Calc Performed By: #### L 501.6710, L101.9900, L100.0100, L500.4050 #### [facility] [address] [place], [address] GAP 5 Normal 5-15 [facility] Comment on above: Performed By: #### L 501.6710, L101.9900, L100.0100, L500.4050 #### [facility] [address] [place], [address] GFR/1.73 sq M.predicted among non-blacks MDRD (S/P/Bld) [Vol rate/Area] 41 mL/min/{1.73_m2} Low >60 [facility] Comment on above: Result Comment: Non- GFR Calc Performed By: #### L 501.6710, L101.9900, L100.0100, L500.4050 #### [facility] [address] [place], [address] Globulin (S) [Mass/Vol] 3.7 g/dL Normal 2.2-4.2 [facility] Comment on above: Performed By: #### L 501.6710, L101.9900, L100.0100, L500.4050 #### [facility] [address] [place], [address] Glucose [Mass/Vol] 102 mg/dL Normal 74-106 [facility] Comment on above: Result Comment: Fast ing Glucose result from 100 to 125 mg/dL suggests IMPAIRED HOMEOSTASIS per A.D.A. criteria. Performed By: #### L 501.6710, L101.9900, L100.0100, L500.4050 #### [facility] [address] [place], [address] Potassium [Moles/Vol] 4.3 mmol/L Normal 3.5-5.1 [facility] Comment on above: Performed By: #### L 501.6710, L101.9900, L100.0100, L500.4050 #### [facility] [address] [place], [address] Sodium [Moles/Vol] 140 mmol/L Normal 136-145 [facility] Comment on above: Performed By: #### L 501.6710, L101.9900, L100.0100, L500.4050 #### [facility] [address] [place], [address] T PROT 7.1 g/dL Normal 6.4-8.2 [facility] Comment on above: Performed By: #### L 501.6710, L101.9900, L100.0100, L500.4050 #### [facility] [address] [place], [address] Urea nitrogen [Mass/Vol] 21 mg/dL High 7-18 [facility] Comment on above: Performed By: #### L 501.6710, L101.9900, L100.0100, L500.4050 #### [facility] [address] [place], [address] Erythrocyte Sed Rateon 01-09 SED RATE 1 mm/hr Normal 0-20 [facility] Comment on above: Performed By: #### L 501.6710, L101.9900, L100.0100, L500.4050 #### [facility] [address] [place], [address] .GFRon 01-04-2024 GFR 59 ml/min/1.73sqm Normal [facility] ([place]) Comment on above: Result Comment: GFR Population mean for , Non- Americans Ages 20-29 = 116 mL/min/1.73 sq.m. Ages 30-39 = 107 mL/min/1.73 sq.m. Ages 40-49 = 99 mL/min/1.73 sq.m. Ages 50-59 = 93 mL/min/1.73 sq.m. Ages 60-69 = 85 mL/min/1.73 sq.m. Ages 70+ = 75 mL/min/1.73 sq.m. Chronic Kidney Disease: Less than 60 mL/min/1.73 square meters End Stage Renal Disease: Less than 15 mL/min/1.73 square meters Performed By: #### G , RFP #### [place] [address] GFR Non- 49 ml/min/1.73sqm Normal [facility] ([place]) Comment on above: Result Comment: GFR Population mean for , Non- Americans Ages 20-29 = 116 mL/min/1.73 sq.m. Ages 30-39 = 107 mL/min/1.73 sq.m. Ages 40-49 = 99 mL/min/1.73 sq.m. Ages 50-59 = 93 mL/min/1.73 sq.m. Ages 60-69 = 85 mL/min/1.73 sq.m. Ages 70+ = 75 mL/min/1.73 sq.m. Chronic Kidney Disease: Less than 60 mL/min/1.73 square meters End Stage Renal Disease: Less than 15 mL/min/1.73 square meters Performed By: #### G FR, RFP #### [place] [address] [place], [place] [address] CRURon 01-04-2024 U Creatinine 89.3 mg/dL Normal 39.0-259.0 [facility] ([place]) Comment on above: Performed By: #### P RUJuan, CRUR ####[address] [address] LABORATORYOrdered By: SYSTEM SYSTEM on 01-04-2024 Creatinine (U) [Mass/Vol] 89.3 mg/dL Normal 39.0 - 259.0 mg/dL AO ADM SS Protein (U) [Mass/Vol] 23 mg/dL High 0 - 11 mg/dL AO ADM SS Albumin BCP dye [Mass/Vol] 3.8 G/dL Normal 3.4 - 4.8 G/dL AO ADM SS Calcium [Mass/Vol] 9.0 mg/dL Normal 8.4 - 10. 2 mg/dL AO ADM SS Chloride [Moles/Vol] 104 mmol/L Normal 98 - 10 7 mmol/L AO ADM SS CO2 [Moles/Vol] 28 mmol/L Normal 23 - 31 mmol/L AO ADM SS Creatinine [Mass/Vol] 1.43 mg/dL High 0.70 - 1.30 mg/dL AO ADM SS Comment on above: Interpretive Data: T esting performed on Siemens Dimension EXL analyzer using a modified kinetic Dwight technique. Electrolyte Balance 7.0 mEq/L Normal 4.0 - 15 .0 mEq/L AO ADM SS GFR/1.73 sq M.predicted among blacks MDRD (S/P/Bld) [Vol rate/Area] 59 ml/min/1.73sqm Invalid Interpretation Code AO Chemistry S Comment on above: Interpretive Data: GFR Population mean for , Non- Americans Ages 20-29 = 116 mL/min/1.73 sq.m. Ages 30-39 = 107 mL/min/1.73 sq.m. Ages 40-49 = 99 mL/min/1.73 sq.m. Ages 50-59 = 93 mL/min/1.73 sq.m. Ages 60-69 = 85 mL/min/1.73 sq.m. Ages 70+ = 75 mL/min/1.73 sq.m. Chronic Kidney Disease: Less than 60 mL/min/1.73 square meters End Stage Renal Disease: Less than 15 mL/min/1.73 square meters GFR/1.73 sq M.predicted among non-blacks MDRD (S/P/Bld) [Vol rate/Area] 49 ml/min/1.73sqm Invalid Interpretation Code AO Chemistry S Comment on above: Interpretive Data: GFR Population mean for , Non- Americans Ages 20-29 = 116 mL/min/1.73 sq.m. Ages 30-39 = 107 mL/min/1.73 sq.m. Ages 40-49 = 99 mL/min/1.73 sq.m. Ages 50-59 = 93 mL/min/1.73 sq.m. Ages 60-69 = 85 mL/min/1.73 sq.m. Ages 70+ = 75 mL/min/1.73 sq.m. Chronic Kidney Disease: Less than 60 mL/min/1.73 square meters End Stage Renal Disease: Less than 15 mL/min/1.73 square meters Glucose [Mass/Vol] 68 mg/dL Low 83 - 110 mg/dL AO ADM SS Phosphate [Mass/Vol] 3.8 mg/dL Normal 2.3 - 4 .1 mg/dL AO ADM SS Potassium [Moles/Vol] 4.7 mmol/L Normal 3.5 - 5.1 mmol/L AO ADM SS Sodium [Moles/Vol] 139 mmol/L Normal 136 - 145 mmol/L AO ADM SS Urea nitrogen [Mass/Vol] 25 mg/dL High 7 - 18 mg/dL AO ADM SS Urea nitrogen/Creatinine [Mass ratio] 17 ratio Normal 7 - 27 ratio AO ADM SS PRURon 01-04-2024 U Protein 23 mg/dL High 0-11 [facility] ([place]) Comment on above: Performed By: #### SIVA CLARK ####[address] [place], [place] [address] RFPon 01-04-2024 Albumin Level 3.8 G/dL Normal 3.4-4.8 [facility] ([place]) Comment on above: Performed By: #### G FR, RFP #### [address] [address] BUN/Creatinine Ratio 17 ratio Normal 7-27 [facility] ([place]) Comment on above: Performed By: #### Darren RIVERO, RFP #### [address] [address] Calcium [Mass/Vol] 9.0 mg/dL Normal 8.4-10.2 [facility] ([place]) Comment on above: Performed By: #### Darren RIVERO, RFP #### [address] [address] Chloride [Moles/Vol] 104 mmol/L Normal 98-107 [facility] ([place]) Comment on above: Performed By: #### Darren RIVERO, RFP #### [address] [address] CO2 [Moles/Vol] 28 mmol/L Normal 23-31 [facility] ([place]) Comment on above: Performed By: #### Darren RIVERO, RFP #### [address] [address] Creatinine [Mass/Vol] 1.43 mg/dL High 0.70-1.30 [facility] ([place]) Comment on above: Result Comment: Test ing performed on Siemens Dimension EXL analyzer using a modified kinetic Dwight technique. Performed By: #### Darren RIVERO, RFP #### [address] [address] Electrolyte Balance 7.0 mEq/L Normal 4.0-15.0 [facility] ([place]) Comment on above: Performed By: #### Darren RIVERO, RFP #### [address] [address] Glucose [Mass/Vol] 68 mg/dL Low 83-110 [facility] ([place] Comment on above: Performed By: #### Darren RIVERO, RFP #### [address] [address] Phosphate [Mass/Vol] 3.8 mg/dL Normal 2.3-4.1 [facility] ([place]) Comment on above: Performed By: #### G FR, RFP #### [facility] [address] [place], [place] [address] Potassium [Moles/Vol] 4.7 mmol/L Normal 3.5-5.1 [facility] ([place]) Comment on above: Performed By: #### G FR, RFP #### [facility] [address] [place], [place] [address] Sodium [Moles/Vol] 139 mmol/L Normal 136-145 [facility] ([place]) Comment on above: Performed By: #### G FR, RFP #### [place] [address] [place], [place] [address] Urea nitrogen [Mass/Vol] 25 mg/dL High 7-18 [facility] ([place]) Comment on above: Performed By: #### G FR, RFP #### [place] [address] [place], [place] [address] SPEon 11-10-2023 SPE Interpretation Normal serum protein electrophoresis pattern. No abnormality detected. Normal [facility] ([place]) Comment on above: Result Comment: Elec tronically Signed by: WALI KISER 11/10/2023 12:36 EDT Performed By: #### U ELSY, RFP, CBC, VIDH, ADIFF, FES, GFR, A1C, ANEU, FERR ####[address] [address]#### SPE ####[place] [address] Albumin 3.6 G/dL Normal 3.3-5.0 [facility] ([place]) Comment on above: Performed By: #### U ELSY, RFP, CBC, VIDH, ADIFF, FES, GFR, A1C, ANEU, FERR ####[address] [address]#### SPE ####[address] [address] Alpha 1 0.2 G/dL Normal 0.1-0.4 [facility] ([place]) Comment on above: Performed By: #### U ELSY, RFP, CBC, VIDH, ADIFF, FES, GFR, A1C, ANEU, FERR ####[address] [address]#### SPE ####[address] [address] Alpha 2 0.7 G/dL Normal 0.6-1.2 [facility] ([place]) Comment on above: Performed By: #### U ELSY, RFP, CBC, VIDH, ADIFF, FES, GFR, A1C, ANEU, FERR ####[place] [address]#### SPE ####[place] [address] Beta 0.9 G/dL Normal 0.6-1.3 [facility] ([place]) Comment on above: Performed By: #### U ELSY, RFP, CBC, VIDH, ADIFF, FES, GFR, A1C, ANEU, FERR ####[place] [address]#### SPE ####[place] [address] Gamma 1.0 G/dL Normal 0.7-1.6 [facility] ([place]) Comment on above: Performed By: #### U ELSY, RFP, CBC, VIDH, ADIFF, FES, GFR, A1C, ANEU, FERR ####[place] [address]#### SPE ####[place] [address] PTHon 11-09-2023 PTH, Intact 31.9 pg/mL Normal 18.5-88.0 [facility] ([place]) Comment on above: Performed By: #### P TH ####[place] [address] .Auto Diffon 11-08-2023 Basophil, Absolute 0.0 10 3/mcL Normal 0.0-0.2 [facility] ([place]) Comment on above: Performed By: #### U ELSY, RFP, CBC, VIDH, ADIFF, FES, GFR, A1C, ANEU, FERR ####[place] [address]#### SPE ####[address] [address] Basophils/100 WBC (Bld) 0.7 % Normal 0.0-2.5 [facility] ([place]) Comment on above: Performed By: #### U ELSY, RFP, CBC, VIDH, ADIFF, FES, GFR, A1C, ANEU, FERR ####[place] [address]#### SPE ####[address] [address] Eosinophil, Absolute 0.1 10 3/mcL Normal 0.0-0.4 [facility] ([place]) Comment on above: Performed By: #### U ELSY, RFP, CBC, VIDH, ADIFF, FES, GFR, A1C, ANEU, FERR ####[place] [address]#### SPE ####[address] [address] Eosinophils/100 WBC (Bld) 2.4 % Normal 0.0-7.0 [facility] ([place]) Comment on above: Performed By: #### U ELSY, RFP, CBC, VIDH, ADIFF, FES, GFR, A1C, ANEU, FERR ####[place] [address]#### SPE ####[place] [address] Lymphocyte, Absolute 1.3 10 3/mcL Normal 0.8-3.9 [facility] ([place]) Comment on above: Performed By: #### U ELSY, RFP, CBC, VIDH, ADIFF, FES, GFR, A1C, ANEU, FERR ####[place] [address]#### SPE ####[address] [address] Lymphocytes/100 WBC (Bld) 25.1 % Normal 10.0-50.0 [facility] ([place]) Comment on above: Performed By: #### U ELSY, RFP, CBC, VIDH, ADIFF, FES, GFR, A1C, ANEU, FERR ####[place] [address]#### SPE ####[address] [address] Monocyte, Absolute 0.4 10 3/mcL Normal 0.2-1.0 [facility] ([place]) Comment on above: Performed By: #### U ELSY, RFP, CBC, VIDH, ADIFF, FES, GFR, A1C, ANEU, FERR ####[place] [address]#### SPE ####[address] [address] Monocytes/100 WBC (Bld) 7.4 % Normal 1.7-13.0 [facility] ([place]) Comment on above: Performed By: #### U ELSY, RFP, CBC, VIDH, ADIFF, FES, GFR, A1C, ANEU, FERR ####[place] [address]#### SPE ####[address] [address] Neutrophils/100 WBC (Bld) 64.4 % Normal 37.0-80.0 [facility] ([place]) Comment on above: Performed By: #### U ELSY, RFP, CBC, VIDH, ADIFF, FES, GFR, A1C, ANEU, FERR ####[place] [address]#### SPE ####[address] [address] .GFRon 11-08-2023 GFR 54 ml/min/1.73sqm Normal [facility] ([place]) Comment on above: Result Comment: GFR Population mean for , Non- Americans Ages 20-29 = 116 mL/min/1.73 sq.m. Ages 30-39 = 107 mL/min/1.73 sq.m. Ages 40-49 = 99 mL/min/1.73 sq.m. Ages 50-59 = 93 mL/min/1.73 sq.m. Ages 60-69 = 85 mL/min/1.73 sq.m. Ages 70+ = 75 mL/min/1.73 sq.m. Chronic Kidney Disease: Less than 60 mL/min/1.73 square meters End Stage Renal Disease: Less than 15 mL/min/1.73 square meters Performed By: #### U ELSY, RFP, CBC, VIDH, ADIFF, FES, GFR, A1C, ANEU, FERR ####[place] [address] [place] [id number]#### SPE ####[place] [address] GFR Non- 44 ml/min/1.73sqm Normal [facility] ([place]) Comment on above: Result Comment: GFR Population mean for , Non- Americans Ages 20-29 = 116 mL/min/1.73 sq.m. Ages 30-39 = 107 mL/min/1.73 sq.m. Ages 40-49 = 99 mL/min/1.73 sq.m. Ages 50-59 = 93 mL/min/1.73 sq.m. Ages 60-69 = 85 mL/min/1.73 sq.m. Ages 70+ = 75 mL/min/1.73 sq.m. Chronic Kidney Disease: Less than 60 mL/min/1.73 square meters End Stage Renal Disease: Less than 15 mL/min/1.73 square meters Performed By: #### U ELSY, RFP, CBC, VIDH, ADIFF, FES, GFR, A1C, ANEU, FERR ####[place] [id number]#### SPE ####[place] [address] .NEUABSon 11-08-2023 Neutrophil, Absolute 3.4 10 3/mcL Normal 2.9-6.2 [facility] ([place]) Comment on above: Performed By: #### U ELSY, RFP, CBC, VIDH, ADIFF, FES, GFR, A1C, ANEU, FERR ####[place] [address] [place], [place] [address]#### SPE ####[place] [address] A1Con 11-08-2023 HbA1c (Bld) [Mass fraction] 6.2 % Normal 4.3-6.4 [facility] ([place]) Comment on above: Performed By: #### U ELSY, RFP, CBC, VIDH, ADIFF, FES, GFR, A1C, ANEU, FERR ####[place] [address]#### SPE ####[place] [address] CBCon 11-08-2023 Erythrocyte distribution width (RBC) [Ratio] 14.9 % High 11.5-14.5 [facility] ([place]) Comment on above: Performed By: #### U ELSY, RFP, CBC, VIDH, ADIFF, FES, GFR, A1C, ANEU, FERR ####[place] [address]#### SPE ####[place] [address] Hematocrit (Bld) [Volume fraction] 43.5 % Normal 42.0-52.0 [facility] ([place]) Comment on above: Performed By: #### U ELSY, RFP, CBC, VIDH, ADIFF, FES, GFR, A1C, ANEU, FERR ####[place] [address]#### SPE ####[place] [address] Hgb 14.4 G/dL Normal 14.0-18.0 [facility] ([place]) Comment on above: Performed By: #### U ELSY, RFP, CBC, VIDH, ADIFF, FES, GFR, A1C, ANEU, FERR ####[place] [address]#### SPE ####[place] [address] MCH (RBC) [Entitic mass] 27.9 pg Normal 27.0-31.2 [facility] ([place]) Comment on above: Performed By: #### U ELSY, RFP, CBC, VIDH, ADIFF, FES, GFR, A1C, ANEU, FERR ####[place] [address]#### SPE ####[place] [address] MCHC 33.0 G/dL Normal 31.8-35.4 [facility] ([place]) Comment on above: Performed By: #### U ELYS, RFP, CBC, VIDH, ADIFF, FES, GFR, A1C, ANEU, FERR ####[place] [address]#### SPE ####[place] [address] MCV (RBC) [Entitic vol] 84.5 fL Normal 80.0-94.0 [facility] ([place]) Comment on above: Performed By: #### U ELSY, RFP, CBC, VIDH, ADIFF, FES, GFR, A1C, ANEU, FERR ####[place] [address]#### SPE ####[place] [address] Platelet 235 10 3/mcL Normal 130-400 [facility] ([place]) Comment on above: Performed By: #### U ELSY, RFP, CBC, VIDH, ADIFF, FES, GFR, A1C, ANEU, FERR ####[place] [address]#### SPE ####[place] [address] Platelet mean volume (Bld) [Entitic vol] 7.4 fL Normal 7.4-10.4 [facility] ([place]) Comment on above: Performed By: #### U ELSY, RFP, CBC, VIDH, ADIFF, FES, GFR, A1C, ANEU, FERR ####[place] [address]#### SPE ####[place] [address] RBC 5.14 10 6/mcL Normal 4.04-6.13 [facility] ([place]) Comment on above: Performed By: #### U ELSY, RFP, CBC, VIDH, ADIFF, FES, GFR, A1C, ANEU, FERR ####[place] [address]#### SPE ####[place] [address] WBC 5.3 10 3/mcL Normal 4.6-10.8 [facility] ([place]) Comment on above: Performed By: #### U ELSY, RFP, CBC, VIDH, ADIFF, FES, GFR, A1C, ANEU, FERR ####[place] [address]#### SPE ####[place] [address] CRURon 11-08-2023 U Creatinine 39.2 mg/dL Normal 39.0-259.0 [facility] ([place]) Comment on above: Performed By: #### U A, CRUR, PRUR #### [place] [address] Daisha 11-08-2023 Ferritin [Mass/Vol] 106.0 ng/mL Normal 26.0-388.0 [facility] ([place]) Comment on above: Performed By: #### U ELSY, RFP, CBC, VIDH, ADIFF, FES, GFR, A1C, ANEU, FERR ####[place] [address]#### SPE ####[place] [address] FESon 11-08-2023 Iron [Mass/Vol] 65 ug/dL Normal 65-175 [facility] ([place]) Comment on above: Performed By: #### U ELSY, RFP, CBC, VIDH, ADIFF, FES, GFR, A1C, ANEU, FERR ####[place] [address]#### SPE ####[place] [address] Iron Sat 23 % Normal [facility] ([place]) Comment on above: Performed By: #### U ELSY, RFP, CBC, VIDH, ADIFF, FES, GFR, A1C, ANEU, FERR ####[id number] [place], [place] [address]#### SPE ####[address] [address] TIBC 283 mcg/dL Normal 250-450 [facility] ([place]) Comment on above: Performed By: #### U ELSY, RFP, CBC, VIDH, ADIFF, FES, GFR, A1C, ANEU, FERR ####[facility] [place], [place] [address]#### SPE ####[address] [address] LABORATORYOrdered By: Ramon santiago on 11-08-2023 Appearance (U) Clear (11/08/23 1:34 PM) Normal Clear AO Auto Urine SS Bilirubin Ql (U) Negative (11/08/23 1:34 PM) Normal Negative AO Auto Urine SS Color (U) Yellow (11/08/23 1:34 PM) Normal AO Auto Urine SS Glucose Test strip (U) [Mass/Vol] Negative Normal Negative AO Auto Urine SS Hemoglobin Auto test strip (U) [Mass/Vol] Negative (11/08/23 1:34 PM) Normal Negative AO Auto Urine SS Ketones Ql (U) Negative Normal Negative AO Auto Urine SS UA Leuk Est Negative (11/08/23 1:34 PM) Normal Negative AO Auto Urine SS UA Nitrite Negative (11/08/23 1:34 PM) Normal Negative AO Auto Urine SS UA pH 7.0 (11/08/23 1:34 PM) Normal 5.0 - 8.0 AO Auto Urine SS UA Protein Negative Normal Negative AO Auto Urine SS UA Spec Grav 1.015 (11/08/23 1:34 PM) Normal 1.015-1.025 AO Auto Urine SS UA Specimen Type Not Given (11/08/23 1:34 PM) Normal AO Auto Urine SS UA Urobilinogen 0.2 E.U./dL Normal 0.2-1.0 AO Auto Urine SS LABORATORYOrdered By: SYSTEM SYSTEM on 11-08-2023 Creatinine (U) [Mass/Vol] 39.2 mg/dL Normal 39.0 - 259.0 mg/dL AO ADM SS Protein (U) [Mass/Vol] mg/dL Normal 0 - 11 mg/dL AO ADM SS 25-hydroxyvitamin D3 [Mass/Vol] 97.8 ng/mL Invalid Interpretation Code AO ADM SS Comment on above: Interpretive Data: I nterpretive Values Based on Total 25(OH) Vitamin D: Deficient <20 ng/mL Insufficient 20 - <30 ng/mL Sufficient 30-100 ng/mL Albumin BCP dye [Mass/Vol] 3.7 G/dL Normal 3.4 - 4.8 G/dL AO ADM SS Basophil, Absolute 0.0 103/mcL Normal 0.0 - 0.2 10^3/mcL AO Workflow SS Basophils/100 WBC (Bld) 0.7 % Normal 0.0 - 2.5 % AO Workflow SS Calcium [Mass/Vol] 9.4 mg/dL Normal 8.4 - 10. 2 mg/dL AO ADM SS Chloride [Moles/Vol] 104 mmol/L Normal 98 - 10 7 mmol/L AO ADM SS CO2 [Moles/Vol] 27 mmol/L Normal 23 - 31 mmol/L AO ADM SS Creatinine [Mass/Vol] 1.55 mg/dL High 0.70 - 1.30 mg/dL AO ADM SS Electrolyte Balance 9.0 mEq/L Normal 4.0 - 15 .0 mEq/L AO ADM SS Eosinophil, Absolute 0.1 103/mcL Normal 0.0 - 0 .4 10^3/mcL AO Workflow SS Eosinophils/100 WBC (Bld) 2.4 % Normal 0.0 - 7.0 % AO Workflow SS Erythrocyte distribution width (RBC) [Ratio] 14.9 % High 11.5 - 14.5 % AO Workflow SS Ferritin [Mass/Vol] 106.0 ng/mL Normal 26.0 - 388.0 ng/mL AO ADM SS GFR/1.73 sq M.predicted among blacks MDRD (S/P/Bld) [Vol rate/Area] 54 ml/min/1.73sqm Invalid Interpretation Code AO Chemistry S Comment on above: Interpretive Data: GFR Population mean for , Non- Americans Ages 20-29 = 116 mL/min/1.73 sq.m. Ages 30-39 = 107 mL/min/1.73 sq.m. Ages 40-49 = 99 mL/min/1.73 sq.m. Ages 50-59 = 93 mL/min/1.73 sq.m. Ages 60-69 = 85 mL/min/1.73 sq.m. Ages 70+ = 75 mL/min/1.73 sq.m. Chronic Kidney Disease: Less than 60 mL/min/1.73 square meters End Stage Renal Disease: Less than 15 mL/min/1.73 square meters GFR/1.73 sq M.predicted among non-blacks MDRD (S/P/Bld) [Vol rate/Area] 44 ml/min/1.73sqm Invalid Interpretation Code AO Chemistry S Comment on above: Interpretive Data: GFR Population mean for , Non- Americans Ages 20-29 = 116 mL/min/1.73 sq.m. Ages 30-39 = 107 mL/min/1.73 sq.m. Ages 40-49 = 99 mL/min/1.73 sq.m. Ages 50-59 = 93 mL/min/1.73 sq.m. Ages 60-69 = 85 mL/min/1.73 sq.m. Ages 70+ = 75 mL/min/1.73 sq.m. Chronic Kidney Disease: Less than 60 mL/min/1.73 square meters End Stage Renal Disease: Less than 15 mL/min/1.73 square meters Glucose [Mass/Vol] 99 mg/dL Normal 83 - 110 mg/dL AO ADM SS HbA1c (Bld) [Mass fraction] 6.2 % Normal 4.3 - 6.4 % AO ADM SS Hematocrit (Bld) [Volume fraction] 43.5 % Normal 42.0 - 52.0 % AO Workflow SS Hemoglobin (Bld) [Mass/Vol] 14.4 G/dL Normal 14.0 - 18.0 G/dL AO Workflow SS Iron [Mass/Vol] 65 ug/dL Normal 65 - 175 mcg/dL AO ADM SS Iron binding capacity [Mass/Vol] 283 mcg/dL Normal 250 - 450 mcg/dL AO ADM SS Iron Sat 23 % Invalid Interpretation Code AO ADM SS Lymphocyte, Absolute 1.3 103/mcL Normal 0.8 - 3 .9 10^3/mcL AO Workflow SS Lymphocytes/100 WBC (Bld) 25.1 % Normal 10.0 - 50.0 % AO Workflow SS MCH (RBC) [Entitic mass] 27.9 pg Normal 27.0 - 31.2 pg AO Workflow SS MCHC 33.0 G/dL Normal 31.8 - 35.4 G/dL AO Workflow SS MCV (RBC) [Entitic vol] 84.5 fL Normal 80.0 - 94.0 fL AO Workflow SS Monocyte, Absolute 0.4 103/mcL Normal 0.2 - 1.0 10^3/mcL AO Workflow SS Monocytes/100 WBC (Bld) 7.4 % Normal 1.7 - 13.0 % AO Workflow SS Neutrophil, Absolute 3.4 103/mcL Normal 2.9 - 6 .2 10^3/mcL AO Workflow SS Neutrophils/100 WBC (Bld) 64.4 % Normal 37.0 - 80.0 % AO Workflow SS Phosphate [Mass/Vol] 3.8 mg/dL Normal 2.3 - 4 .1 mg/dL AO ADM SS Platelet mean volume (Bld) [Entitic vol] 7.4 fL Normal 7.4 - 10.4 fL AO Workflow SS Platelets (Bld) [#/Vol] 235 103/mcL Normal 130 - 400 10^3/mcL AO Workflow SS Potassium [Moles/Vol] 4.3 mmol/L Normal 3.5 - 5.1 mmol/L AO ADM SS RBC (Bld) [#/Vol] 5.14 106/mcL Normal 4.04 - 6.1 3 10^6/mcL AO Workflow SS Sodium [Moles/Vol] 140 mmol/L Normal 136 - 145 mmol/L AO ADM SS Urea nitrogen [Mass/Vol] 22 mg/dL High 7 - 18 mg/dL AO ADM SS Urea nitrogen/Creatinine [Mass ratio] 14 ratio Normal 7 - 27 ratio AO ADM SS Uric Acid Lvl 5.7 mg/dL Normal 3.5 - 7.2 mg/dL AO ADM SS WBC (Bld) [#/Vol] 5.3 103/mcL Normal 4.6 - 10.8 10^3/mcL AO Workflow SS LABORATORYOrdered By: Julianna Bales on 11-08-2023 Protein [Mass/Vol] 6.5 G/dL Normal 5.7 - 8.2 G/dL AH ADM SS Comment on above: Interpretive Data: * *Note - New Reference Range in effect 19 PRURon 11-08-2023 U Protein <6 Normal 0-11 [facility] ([place]) Comment on above: Performed By: #### U SIVA Spencer, PRUR ####[place] [id number] [place] [id number] RFPon 11-08-2023 Albumin Level 3.7 G/dL Normal 3.4-4.8 [facility] ([place]) Comment on above: Performed By: #### U ELSY, RFP, CBC, VIDH, ADIFF, FES, GFR, A1C, ANEU, FERR ####[place] [address]#### SPE ####[place] [address] BUN/Creatinine Ratio 14 ratio Normal 7-27 [facility] ([place]) Comment on above: Performed By: #### U ELSY, RFP, CBC, VIDH, ADIFF, FES, GFR, A1C, ANEU, FERR ####[place] [address]#### SPE ####[place] [address] Calcium [Mass/Vol] 9.4 mg/dL Normal 8.4-10.2 [facility] ([place]) Comment on above: Performed By: #### U ELSY, RFP, CBC, VIDH, ADIFF, FES, GFR, A1C, ANEU, FERR ####[place] [address]#### SPE ####[address] [address] Chloride [Moles/Vol] 104 mmol/L Normal 98-107 [facility] ([place]) Comment on above: Performed By: #### U ELSY, RFP, CBC, VIDH, ADIFF, FES, GFR, A1C, ANEU, FERR ####[place] [address]#### SPE ####[place] [address] CO2 [Moles/Vol] 27 mmol/L Normal 23-31 [facility] ([place]) Comment on above: Performed By: #### U ELSY, RFP, CBC, VIDH, ADIFF, FES, GFR, A1C, ANEU, FERR ####[place] [address]#### SPE ####[address] [address] Creatinine [Mass/Vol] 1.55 mg/dL High 0.70-1.30 [facility] ([place]) Comment on above: Performed By: #### U ELSY, RFP, CBC, VIDH, ADIFF, FES, GFR, A1C, ANEU, FERR ####[place] [address]#### SPE ####[address] [address] Electrolyte Balance 9.0 mEq/L Normal 4.0-15.0 [facility] ([place]) Comment on above: Performed By: #### U ELSY, RFP, CBC, VIDH, ADIFF, FES, GFR, A1C, ANEU, FERR ####[place] [address]#### SPE ####[place] [address] Glucose [Mass/Vol] 99 mg/dL Normal 83-110 [facility] ([place]) Comment on above: Performed By: #### U ELSY, RFP, CBC, VIDH, ADIFF, FES, GFR, A1C, ANEU, FERR ####[place] [address]#### SPE ####[place] [address] Phosphate [Mass/Vol] 3.8 mg/dL Normal 2.3-4.1 [facility] ([place]) Comment on above: Performed By: #### U ELSY, RFP, CBC, VIDH, ADIFF, FES, GFR, A1C, ANEU, FERR ####[place] [address]#### SPE ####[place] [address] Potassium [Moles/Vol] 4.3 mmol/L Normal 3.5-5.1 [facility] ([place]) Comment on above: Performed By: #### U ELSY, RFP, CBC, VIDH, ADIFF, FES, GFR, A1C, ANEU, FERR ####[address] [address]#### SPE ####[address] [address] Sodium [Moles/Vol] 140 mmol/L Normal 136-145 [facility] ([place]) Comment on above: Performed By: #### U ELSY, RFP, CBC, VIDH, ADIFF, FES, GFR, A1C, ANEU, FERR ####[place] [address]#### SPE ####[place] [address] Urea nitrogen [Mass/Vol] 22 mg/dL High -18 [facility] ([place]) Comment on above: Performed By: #### U ELSY, RFP, CBC, VIDH, ADIFF, FES, GFR, A1C, ANEU, FERR ####[place] [address]#### SPE ####[place] [address] SPEon 11-08-2023 Total Protein 6.5 G/dL Normal 5.7-8.2 [facility] ([place]) Comment on above: Result Comment: No te - New Reference Range in effect 19 Performed By: #### U ELSY, RFP, CBC, VIDH, ADIFF, FES, GFR, A1C, ANEU, FERR ####[place] [address]#### SPE ####[place] [address] UAon 11-08-2023 Color (U) Yellow Normal [facility] ([place]) Comment on above: Performed By: #### SIVA Diallo, PRUR #### [address] [address] Glucose (U) [Mass/Vol] Negative Normal Negative [facility] ([place]) Comment on above: Performed By: #### SIVA Diallo, PRUR #### [address] [address] Ketones Ql (U) Negative Normal Negative [facility] ([place]) Comment on above: Performed By: #### U A, CRNICOLE, PRUR #### [place] [address] UA Appear Clear Normal Clear [facility] ([place]) Comment on above: Performed By: #### U A, CRUR, PRUR #### [place] [address] UA Blood Negative Normal Negative [facility] ([place]) Comment on above: Performed By: #### U A, CRUR, PRUR #### [place] [address] UA Leuk Est Negative Normal Negative [facility] ([place]) Comment on above: Performed By: #### U A, CRUR, PRUR #### [place] [address] UA Nitrite Negative Normal Negative [facility] ([place]) Comment on above: Performed By: #### U A, CRUR, PRUR #### [place] [address] UA pH 7.0 Normal 5.0 - 8.0 [facility] ([place]) Comment on above: Performed By: #### U A, CRUR, PRUR #### [place] [address] UA Protein Negative Normal Negative [facility] ([place]) Comment on above: Performed By: #### U A, CRUR, PRUR #### [place] [address] UA Spec Grav 1.015 Normal 1.015-1.025 [facility] ([place]) Comment on above: Performed By: #### U A, CRUR, PRUR #### [place] [address] UA Specimen Type Not Given Normal [facility] ([place]) Comment on above: Performed By: #### U A, CRUR, PRUR #### [place] [address] UA Urobilinogen 0.2 E.U./dL Normal 0.2-1.0 [facility] ([place]) Comment on above: Performed By: #### U SIVA Spencer, PRUR #### [address] [place], [place] [address] Urobilinogen (U) [Mass/Vol] Negative Normal Negative [facility] ([place]) Comment on above: Performed By: #### SIVA Diallo, PRUR #### [address] [place], [place] [address] URICon 11-08-2023 Uric Acid Lvl 5.7 mg/dL Normal 3.5-7.2 [facility] ([place]) Comment on above: Performed By: #### U ELSY, RFP, CBC, VIDH, ADIFF, FES, GFR, A1C, ANEU, FERR ####[place] [address]#### SPE ####[place] [address] VIDHon 11-08-2023 Vit. D 25-Hydroxy 97.8 ng/mL Normal [facility] ([place]) Comment on above: Result Comment: Inte rpretive Values Based on Total 25(OH) Vitamin D: Deficient <20 ng/mL Insufficient 20 - <30 ng/mL Sufficient 30-100 ng/mL Performed By: #### U ELSY, RFP, CBC, VIDH, ADIFF, FES, GFR, A1C, ANEU, FERR ####[place] [address]#### SPE ####[place] [address] CEFUROXIME:SUSC:PT:ISOLATE:O RDQN:MICon 10-25-2023 Cefuroxime LUZ MARIA [Susc] 10,000 - 50,000 cfu/ml Morganella morganii [facility] Work Phone: Cefuroxime LUZ MARIA [Susc]on 10-01 Morganella morganii Morganella morganii [facility] Work Phone: Cardiology Visit Reporton Cardiology Visit Report [facility] [address] [place], [place] [address] OFFICE VISIT Date of Service: 09/19/23 MR#: [id number] Acct: [id number] Name: NETTA VILLEGAS Rep #: [id number] : 1950 Provider: FERNANDO simpson Age/Sex: 73/M Location: [facility] Status: Signed HPI HPI History of Present Illness Details: Netta Villegas is a 73-year-old gentleman who presents here today for a cardiovascular follow-up. He has a history of coronary artery disease with acute inferior ST segment elevation myocardial infarction in June 2020 where he needed to have stenting to his RCA. 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 He also has a history of hypertension, hyperlipidemia, chronic kidney disease and obstructive sleep apnea. He underwent a stress test on 09/30/2022 which demonstrated technically adequate exercise stress test, inferior infarct with no significant obey-infarct ischemia. From a cardiac standpoint, the patient is doing well. He denies any palpitations, chest pain, pressure or heaviness. He denies SOB, Orthopnea, and PND. He does not have bleeding issues; no blood in urine, stool or nosebleeds. He denies any decrease in energy level, myalgias, or claudication. He does not have edema, or sudden weight gain. He denies dizziness, lightheadedness, syncopal or near syncopal episodes, and headaches. He continues to walk 2-3 miles a day. Intake Vital Signs 03/28/23 09:54 09/19/23 08:46 Height 5 ft 11 in 5 ft 11 in Weight: 195 lb BMI 27.1 BP 101/63 Blood Pressure Location Lt brachial Position Sitting Respiration 18 Pulse 86 Pulse Source Monitor Pulse Oximetry (%) 95 Intake Visit Reasons: 6 M FU Grave Digger Required: No Is patient in pain?: No Allergies ciprofloxacin (From Cipro) Allergy (Verified 09/19/23 09:01) Rash latex Allergy (Verified 09/19/23 09:01) Rash Sulfa (Sulfonamide Antibiotics) Allergy (Verified 09/19/23 09:01) Rash atorvastatin Adverse Reaction (Intermediate, Verified 09/19/23 09:01) Myalgias Medications ???Medication ???Instructions ???Recorded ???Confirmed ???Type aspirin 81 mg tablet,delayed 81 mg PO DAILY 07/22/20 09/19/23 History release (Adult Aspirin Regimen) nitroglycerin 0.4 mg sublingual 0.4 mg sublingual Q5-15M PRN chest 11/17/20 09/19/23 Rx tablet pain #25 tabs nitrofurantoin 100 mg PO .COMPLEX 03/22/22 09/19/23 History monohydrate/macrocrystals 100 mg capsule (Macrobid) rosuvastatin 20 mg tablet 20 mg PO DAILY 10/11/22 09/19/23 History clopidogrel 75 mg tablet (Plavix) 75 mg PO DAILY #90 tabs 07/19/23 09/19/23 Rx metoprolol succinate 25 mg 12.5 mg (1/2 x 25 mg) PO DAILY #45 07/19/23 09/19/23 Rx tablet,extended release 24 hr tabs PFSH Medical History Abnormal stress test PAD (peripheral artery disease) History of prostate cancer Mixed hyperlipidemia LEON (obstructive sleep apnea) CKD (chronic kidney disease) stage 3, GFR 30-59 ml/min Essential hypertension Presence of stent in coronary artery ( 03/03/21) ST elevation (STEMI) myocardial infarction Atherosclerotic heart disease of [place] coronary artery without angina pectoris Surgical History History of inguinal hernia repair Presence of coronary angioplasty implant and graft ( 03/03/21) History of coronary artery stent placement (06/30/20) Family History Father CAD (coronary artery disease) Cancer Bladder Mother CAD (coronary artery disease) History of coronary artery bypass surgery Heart valve replaced Social History Smoking Status: Never smoker alcohol intake: never substance use type: does not use caffeine: Yes (3 servings daily) ROS Const Const: Negative for fatigue, weakness, fever(s), headache(s), chills, frequent falls, weight gain or weight loss Eyes Eyes: Negative for blind spots, loss of peripheral vision, transient loss of vision, blurry vision, change in vision, double vision, floaters or tunnel vision ENT ENT: Negative for headache(s), dizziness, Nosebleed/epistaxis, balance problems or neck pain Cardio Chest Pain: No Palpitations: No Edema: None Muscle aches with walking: None Resp Respiratory: Negative for SOB with activity, SOB at rest or SOB orthopnea SOB lying down GI GI: Negative nausea, vomiting, heartburn, bloating, vomiting blood/hematemesis, bright, red blood in stools or black,tarry stools Musc Musc: Negative for muscle aches/ myalgia, muscle weakne (more content not included)... Normal [facility] US RENALon 09-06-2023 US RENAL ORIGINAL EXAMINATION: ULTRASOUND OF THE KIDNEYS 09/06/2023 7:45 am COMPARISON: None. HISTORY: ORDERING SYSTEM PROVIDED HISTORY: Reason for Exam: Renal function not improved History of prostate carcinoma. FINDINGS: Right and left kidneys measure 10.0 x 4.6 x 4.5 cm, and 9.9 x 4.2 x 5.1 cm respectively. There is no renal cortical thinning. Renal cortex is isoechoic to the adjacent liver consistent with a component of medical renal disease. There are 2 cysts associated with the left kidney measuring 0.7 cm, and 1.1 cm in greatest dimension. No hydronephrosis or stone disease is apparent. There is appropriate venous and arterial blood flow with Doppler interrogation. Urinary bladder contains 111 mL of urine prior to voiding. Bladder wall is unremarkable. A 39 mL residual volume is seen following voiding. Prostatic volume is 12 mL which is not enlarged. IMPRESSION: 1. Increased renal cortical echogenicity consistent with a component of medical renal disease. 2. Small left renal cysts. 3. Small post void residual volume in the urinary bladder. Interpreted by: Cirilo Deutsch DO Preliminary Report By: Cirilo Deutsch DO Electronically signed By Cirilo Deutsch DO Dictated Date: 09/06/2023 9:14:26 AM Prelim Date: 09/06/2023 9:18:54 AM Sign Date: 09/06/2023 9:18:54 AM Ordering Provider: DU WHITFIELD Normal [facility] ([place]) .GFRon 07-29-2023 GFR 46 ml/min/1.73sqm Normal [facility] ([place]) Comment on above: Result Comment: GFR Population mean for , Non- Americans Ages 20-29 = 116 mL/min/1.73 sq.m. Ages 30-39 = 107 mL/min/1.73 sq.m. Ages 40-49 = 99 mL/min/1.73 sq.m. Ages 50-59 = 93 mL/min/1.73 sq.m. Ages 60-69 = 85 mL/min/1.73 sq.m. Ages 70+ = 75 mL/min/1.73 sq.m. Chronic Kidney Disease: Less than 60 mL/min/1.73 square meters End Stage Renal Disease: Less than 15 mL/min/1.73 square meters Performed By: #### B MP, GFR, PSA ####[address] [place], [place] [address] GFR Non- 38 ml/min/1.73sqm Normal [facility] ([place]) Comment on above: Result Comment: GFR Population mean for , Non- Americans Ages 20-29 = 116 mL/min/1.73 sq.m. Ages 30-39 = 107 mL/min/1.73 sq.m. Ages 40-49 = 99 mL/min/1.73 sq.m. Ages 50-59 = 93 mL/min/1.73 sq.m. Ages 60-69 = 85 mL/min/1.73 sq.m. Ages 70+ = 75 mL/min/1.73 sq.m. Chronic Kidney Disease: Less than 60 mL/min/1.73 square meters End Stage Renal Disease: Less than 15 mL/min/1.73 square meters Performed By: #### B MP, GFR, PSA ####[address] [place], [place] [address] BMPon 07-29-2023 BUN/Creatinine Ratio 20 ratio Normal 7-27 [facility] ([place]) Comment on above: Performed By: #### B MP, GFR, PSA ####[address] [place], [place] [address] Calcium [Mass/Vol] 8.0 mg/dL Low 8.4-10.2 [facility] ([place]) Comment on above: Performed By: #### B MP, GFR, PSA ####[address] [place], [place] [address] Chloride [Moles/Vol] 99 mmol/L Normal 98-107 [facility] ([place]) Comment on above: Performed By: #### B MP, GFR, PSA ####[address] [place], [place] [address] CO2 [Moles/Vol] 28 mmol/L Normal 23-31 [facility] ([place]) Comment on above: Performed By: #### B MP, GFR, PSA ####[address] [place], [place] [address] Creatinine [Mass/Vol] 1.78 mg/dL High 0.70-1.30 [facility] ([place]) Comment on above: Performed By: #### B MP, GFR, PSA ####[address] [place], [place] [address] Electrolyte Balance 4.0 mEq/L Normal 4.0-15.0 [facility] ([place]) Comment on above: Performed By: #### B MP, GFR, PSA ####[address] [place], [place] [address] Glucose [Mass/Vol] 166 mg/dL High 83-110 [facility] ([place]) Comment on above: Performed By: #### B MP, GFR, PSA ####[address] [place], [place] [address] Potassium [Moles/Vol] 4.0 mmol/L Normal 3.5-5.1 [facility] ([place]) Comment on above: Performed By: #### B MP, GFR, PSA ####[address] [place], [place] [address] Sodium [Moles/Vol] 131 mmol/L Low 136-145 [facility] ([place]) Comment on above: Performed By: #### B MP, GFR, PSA ####[address] [place], [place] [address] Urea nitrogen [Mass/Vol] 36 mg/dL High 7-18 [facility] ([place]) Comment on above: Performed By: #### B MP, GFR, PSA ####[address] [place], [place] [address] LABORATORYOrdered By: SYSTEM SYSTEM on 07-29-2023 Calcium [Mass/Vol] 8.0 mg/dL Low 8.4 - 10. 2 mg/dL AO ADM SS Chloride [Moles/Vol] 99 mmol/L Normal 98 - 10 7 mmol/L AO ADM SS CO2 [Moles/Vol] 28 mmol/L Normal 23 - 31 mmol/L AO ADM SS Creatinine [Mass/Vol] 1.78 mg/dL High 0.70 - 1.30 mg/dL AO ADM SS Electrolyte Balance 4.0 mEq/L Normal 4.0 - 15 .0 mEq/L AO ADM SS GFR/1.73 sq M.predicted among blacks MDRD (S/P/Bld) [Vol rate/Area] 46 ml/min/1.73sqm Invalid Interpretation Code AO Chemistry S Comment on above: Interpretive Data: GFR Population mean for , Non- Americans Ages 20-29 = 116 mL/min/1.73 sq.m. Ages 30-39 = 107 mL/min/1.73 sq.m. Ages 40-49 = 99 mL/min/1.73 sq.m. Ages 50-59 = 93 mL/min/1.73 sq.m. Ages 60-69 = 85 mL/min/1.73 sq.m. Ages 70+ = 75 mL/min/1.73 sq.m. Chronic Kidney Disease: Less than 60 mL/min/1.73 square meters End Stage Renal Disease: Less than 15 mL/min/1.73 square meters GFR/1.73 sq M.predicted among non-blacks MDRD (S/P/Bld) [Vol rate/Area] 38 ml/min/1.73sqm Invalid Interpretation Code AO Chemistry S Comment on above: Interpretive Data: GFR Population mean for , Non- Americans Ages 20-29 = 116 mL/min/1.73 sq.m. Ages 30-39 = 107 mL/min/1.73 sq.m. Ages 40-49 = 99 mL/min/1.73 sq.m. Ages 50-59 = 93 mL/min/1.73 sq.m. Ages 60-69 = 85 mL/min/1.73 sq.m. Ages 70+ = 75 mL/min/1.73 sq.m. Chronic Kidney Disease: Less than 60 mL/min/1.73 square meters End Stage Renal Disease: Less than 15 mL/min/1.73 square meters Glucose [Mass/Vol] 166 mg/dL High 83 - 110 mg/dL AO ADM SS Potassium [Moles/Vol] 4.0 mmol/L Normal 3.5 - 5.1 mmol/L AO ADM SS Prostate specific Ag [Mass/Vol] ng/mL Normal 0.00 - 4.00 ng/mL AO ADM SS Sodium [Moles/Vol] 131 mmol/L Low 136 - 145 mmol/L AO ADM SS Urea nitrogen [Mass/Vol] 36 mg/dL High 7 - 18 mg/dL AO ADM SS Urea nitrogen/Creatinine [Mass ratio] 20 ratio Normal 7 - 27 ratio AO ADM SS PSAon 07-29-2023 Prostate Specific Antigen <0.05 Normal 0.00-4.00 [facility] ([place]) Comment on above: Performed By: #### B MP, GFR, PSA ####[address] [place] [address] LEVOFLOXACIN:SUSC:PT:ISOLATE :ORDQN:MICon 07-26-2023 levoFLOXacin LUZ MARIA [Susc] >100,000 cfu/ml Proteus mirabilis [facility] Work Phone: levoFLOXacin LUZ MARIA [Susc]on Proteus mirabilis Proteus mirabilis [facility] Work Phone: .GFRon 07-21-2023 GFR 51 ml/min/1.73sqm Normal [facility] ([place]) Comment on above: Result Comment: GFR Population mean for , Non- Americans Ages 20-29 = 116 mL/min/1.73 sq.m. Ages 30-39 = 107 mL/min/1.73 sq.m. Ages 40-49 = 99 mL/min/1.73 sq.m. Ages 50-59 = 93 mL/min/1.73 sq.m. Ages 60-69 = 85 mL/min/1.73 sq.m. Ages 70+ = 75 mL/min/1.73 sq.m. Chronic Kidney Disease: Less than 60 mL/min/1.73 square meters End Stage Renal Disease: Less than 15 mL/min/1.73 square meters Performed By: #### C MP, GFR, LIPID #### [address] [address] GFR Non- 42 ml/min/1.73sqm Normal [facility] ([place]) Comment on above: Result Comment: GFR Population mean for , Non- Americans Ages 20-29 = 116 mL/min/1.73 sq.m. Ages 30-39 = 107 mL/min/1.73 sq.m. Ages 40-49 = 99 mL/min/1.73 sq.m. Ages 50-59 = 93 mL/min/1.73 sq.m. Ages 60-69 = 85 mL/min/1.73 sq.m. Ages 70+ = 75 mL/min/1.73 sq.m. Chronic Kidney Disease: Less than 60 mL/min/1.73 square meters End Stage Renal Disease: Less than 15 mL/min/1.73 square meters Performed By: #### C MP, GFR, LIPID #### [address] [address] CMPon 07-21-2023 Albumin Level 3.5 G/dL Normal 3.4-4.8 [facility] ([place]) Comment on above: Performed By: #### C MP, GFR, LIPID #### [address] [address] Albumin/Globulin [Mass ratio] 1.1 {ratio} Normal 1.1-2.5 [facility] ([place]) Comment on above: Performed By: #### C MP, GFR, LIPID #### [place] [address] [place], [place] [address] ALP [Catalytic activity/Vol] 85 U/L Normal 40-135 [facility] ([place]) Comment on above: Performed By: #### C MP, GFR, LIPID #### [address] [address] ALT [Catalytic activity/Vol] 29 U/L Normal 16-63 [facility] ([place]) Comment on above: Performed By: #### C MP, GFR, LIPID #### [address] [address] AST [Catalytic activity/Vol] 21 U/L Normal 10-40 [facility] ([place]) Comment on above: Performed By: #### C MP, GFR, LIPID #### [address] [address] Bili Total 0.4 mg/dL Normal 0.2-1.0 [facility] ([place]) Comment on above: Result Comment: Use of this assay is not recommended for patients undergoing treatment with eltrombopag due to the potential for falsely elevated results. Performed By: #### C MP, GFR, LIPID #### [address] [address] BUN/Creatinine Ratio 17 ratio Normal 7-27 [facility] ([place]) Comment on above: Performed By: #### C MP, GFR, LIPID #### [address] [address] Calcium [Mass/Vol] 8.9 mg/dL Normal 8.4-10.2 [facility] ([place]) Comment on above: Performed By: #### C MP, GFR, LIPID #### [address] [address] Chloride [Moles/Vol] 103 mmol/L Normal 98-107 [facility] ([place]) Comment on above: Performed By: #### C MP, GFR, LIPID #### [address] [address] CO2 [Moles/Vol] 27 mmol/L Normal 23-31 [facility] ([place]) Comment on above: Performed By: #### C MP, GFR, LIPID #### [address] [address] Creatinine [Mass/Vol] 1.62 mg/dL High 0.70-1.30 [facility] ([place]) Comment on above: Performed By: #### C MP, GFR, LIPID #### [address] [address] Electrolyte Balance 9.0 mEq/L Normal 4.0-15.0 [facility] ([place]) Comment on above: Performed By: #### C MP, GFR, LIPID #### [address] [address] Globulin 3.2 G/dL Normal [facility] ([place]) Comment on above: Performed By: #### C MP, GFR, LIPID #### [address] [address] Glucose [Mass/Vol] 85 mg/dL Normal 83-110 [facility] ([place]) Comment on above: Performed By: #### C MP, GFR, LIPID #### [address] [address] Potassium [Moles/Vol] 4.6 mmol/L Normal 3.5-5.1 [facility] ([place]) Comment on above: Performed By: #### C MP, GFR, LIPID #### [address] [address] Sodium [Moles/Vol] 139 mmol/L Normal 136-145 [facility] ([place] Comment on above: Performed By: #### C MP, GFR, LIPID #### [address] [address] Total Protein 6.7 G/dL Normal 6.4-8.2 [facility] ([place]) Comment on above: Performed By: #### C MP, GFR, LIPID #### [address] [address] Urea nitrogen [Mass/Vol] 28 mg/dL High 7-18 [facility] ([place]) Comment on above: Performed By: #### C MP, GFR, LIPID #### [address] [address] LIPIDon 07-21-2023 Cholesterol [Mass/Vol] 157 mg/dL Normal 0-200 [facility] ([place]) Comment on above: Result Comment: Chol esterol Reference Interval: Less than 200 Desirable 200-239 Borderline high risk 240 and above High risk Performed By: #### C MP, GFR, LIPID #### [address] [place], [place] [address] Cholesterol in HDL [Mass/Vol] 46 mg/dL Normal 40-60 [facility] ([place]) Comment on above: Performed By: #### C MP, GFR, LIPID #### [address] [place], [place] [address] Cholesterol in LDL [Mass/Vol] 86 mg/dL Normal 0-130 [facility] ([place]) Comment on above: Performed By: #### C MP, GFR, LIPID #### [address] [address] Triglyceride [Mass/Vol] 124 mg/dL Normal 0-150 [facility] ([place]) Comment on above: Result Comment: Trig lyceride Reference Interval: Less than 150 Normal 150-199 Borderline high risk 200-499 High risk 500 or higher Very high risk Performed By: #### C MP, GFR, LIPID #### [address] [address] No Panel InformationOrdered By: ANGELICA Montes De Oca on 03-25-2023 Prostate Specific Antigen Total < 0.01 ng/mL 0.0-4.0 [facility] Comment on above: This test was perfor med using the TPSA assay method for [facility] chemistry system. Values obtained with differentassay methods cannot be used interchangably.When changing PSA assays in the course of monitoring apatient, additional sequential testing should be carriedout to confirm baseline values. .GFRon 01-21-2023 GFR 55 ml/min/1.73sqm Normal [facility] ([place]) Comment on above: Result Comment: GFR Population mean for , Non- Americans Ages 20-29 = 116 mL/min/1.73 sq.m. Ages 30-39 = 107 mL/min/1.73 sq.m. Ages 40-49 = 99 mL/min/1.73 sq.m. Ages 50-59 = 93 mL/min/1.73 sq.m. Ages 60-69 = 85 mL/min/1.73 sq.m. Ages 70+ = 75 mL/min/1.73 sq.m. Chronic Kidney Disease: Less than 60 mL/min/1.73 square meters End Stage Renal Disease: Less than 15 mL/min/1.73 square meters Performed By: #### G FR, RFP #### [id number] [place], [place] [address] GFR Non- 45 ml/min/1.73sqm Normal [facility] ([place]) Comment on above: Result Comment: GFR Population mean for , Non- Americans Ages 20-29 = 116 mL/min/1.73 sq.m. Ages 30-39 = 107 mL/min/1.73 sq.m. Ages 40-49 = 99 mL/min/1.73 sq.m. Ages 50-59 = 93 mL/min/1.73 sq.m. Ages 60-69 = 85 mL/min/1.73 sq.m. Ages 70+ = 75 mL/min/1.73 sq.m. Chronic Kidney Disease: Less than 60 mL/min/1.73 square meters End Stage Renal Disease: Less than 15 mL/min/1.73 square meters Performed By: #### G FR, RFP #### [address] [place], [place] [address] CMPon 01-21-2023 Albumin Level 3.8 G/dL Normal 3.4-4.8 [facility] ([place]) Comment on above: Performed By: #### L IPID, PSA, GFR, CMP ####[address] [place], [place] [address] Albumin/Globulin [Mass ratio] 1.1 {ratio} Normal 1.1-2.5 [facility] ([place]) Comment on above: Performed By: #### L IPID, PSA, GFR, CMP ####[address] [place], [place] [address] ALP [Catalytic activity/Vol] 78 U/L Normal 40-135 [facility] ([place]) Comment on above: Performed By: #### L IPID, PSA, GFR, CMP ####[address] [place], [place] [address] ALT [Catalytic activity/Vol] 33 U/L Normal 16-63 [facility] ([place]) Comment on above: Performed By: #### L IPID, PSA, GFR, CMP ####[address] [place], [place] [address] AST [Catalytic activity/Vol] 21 U/L Normal 10-40 [facility] ([place]) Comment on above: Performed By: #### L IPID, PSA, GFR, CMP ####[address] [place], [place] [address] Bili Total 0.4 mg/dL Normal 0.2-1.0 [facility] ([place]) Comment on above: Result Comment: Use of this assay is not recommended for patients undergoing treatment with eltrombopag due to the potential for falsely elevated results. Performed By: #### L IPID, PSA, GFR, CMP ####[address] [place], [place] [address] BUN/Creatinine Ratio 14 ratio Normal 7-27 [facility] ([place]) Comment on above: Performed By: #### L IPID, PSA, GFR, CMP ####[address] [place], [place] [address] Calcium [Mass/Vol] 8.7 mg/dL Normal 8.4-10.2 [facility] ([place]) Comment on above: Performed By: #### L IPID, PSA, GFR, CMP ####[address] [place], [place] [address] Chloride [Moles/Vol] 103 mmol/L Normal 98-107 [facility] ([place]) Comment on above: Performed By: #### L IPID, PSA, GFR, CMP ####[address] [place], [place] [address] CO2 [Moles/Vol] 29 mmol/L Normal 23-31 [facility] ([place]) Comment on above: Performed By: #### L IPID, PSA, GFR, CMP ####[address] [place], [place] [address] Creatinine [Mass/Vol] 1.53 mg/dL High 0.70-1.30 [facility] ([place]) Comment on above: Performed By: #### L IPID, PSA, GFR, CMP ####[address] [place], [place] [address] Electrolyte Balance 10.0 mEq/L Normal 4.0-15.0 [facility] ([place]) Comment on above: Performed By: #### L IPID, PSA, GFR, CMP ####[address] [place], [place] [address] Globulin 3.4 G/dL Normal [facility] ([place]) Comment on above: Performed By: #### L IPID, PSA, GFR, CMP ####[address] [place], [place] [address] Glucose [Mass/Vol] 81 mg/dL Low 83-110 [facility] ([place]) Comment on above: Performed By: #### L IPID, PSA, GFR, CMP ####[address] [place], [place] [address] Potassium [Moles/Vol] 4.7 mmol/L Normal 3.5-5.1 [facility] ([place]) Comment on above: Performed By: #### L IPID, PSA, GFR, CMP ####[address] [place], [place] [address] Sodium [Moles/Vol] 142 mmol/L Normal 136-145 [facility] ([place]) Comment on above: Performed By: #### L IPID, PSA, GFR, CMP ####[address] [place], [place] [address] Total Protein 7.2 G/dL Normal 6.4-8.2 [facility] ([place]) Comment on above: Performed By: #### L IPID, PSA, GFR, CMP ####[address] [place], [place] [address] Urea nitrogen [Mass/Vol] 22 mg/dL High 7-18 [facility] ([place]) Comment on above: Performed By: #### L IPID, PSA, GFR, CMP ####[facility] [place], [place] [address] LIPIDon 01-21-2023 Cholesterol [Mass/Vol] 153 mg/dL Normal 0-200 [facility] ([place]) Comment on above: Result Comment: Chol esterol Reference Interval: Less than 200 Desirable 200-239 Borderline high risk 240 and above High risk Performed By: #### G FR, RFP #### [address] [place], [place] [address] Cholesterol in HDL [Mass/Vol] 52 mg/dL Normal 40-60 [facility] ([place]) Comment on above: Performed By: #### G FR, RFP #### [address] [place], [place] [address] Cholesterol in LDL [Mass/Vol] 74 mg/dL Normal 0-130 [facility] ([place]) Comment on above: Performed By: #### G FR, RFP #### [address] [place], [place] [address] Triglyceride [Mass/Vol] 135 mg/dL Normal 0-150 [facility] ([place]) Comment on above: Result Comment: Trig lyceride Reference Interval: Less than 150 Normal 150-199 Borderline high risk 200-499 High risk 500 or higher Very high risk Performed By: #### G FR, RFP #### [address] [place], [place] [address] PSAon 01-21-2023 Prostate Specific Antigen <0.05 Normal 0.00-4.00 [facility] ([place]) Comment on above: Performed By: #### L IPID, PSA, GFR, CMP ####[facility] [place], [place] [address] Absolute lymphocyte countOrd ered By: Dr. Haddad on 10-04-2022 Lymphocytes Auto (Unsp spec) [#/Vol] 1.52 10*3/uL 0.83-4.51 [facility] Basophil percentageOrdered B y: Dr. Haddad on 10-04-2022 Basophils/100 WBC (Bld) 0.6 % 0-1 [facility] Bilirubin [Mass/Vol] 0.40 mg/dL 0.20-1.00 [facility] Comment on above: For patients on eltr ombopag therapy, use of Dimension [place] TBIL is not recommended. Chloride [Moles/Vol] 107 mmol/L 98-107 [facility] Eosinophils/100 WBC (Bld) 3.3 % 0-5 [facility] Glucose [Mass/Vol] 124 mg/dL 74-106 [facility] Comment on above: Fasting Glucose resu lt from 100 to 125 mg/dL suggests IMPAIRED HOMEOSTASIS per A.D.A. criteria. Neutrophils (Bld) [#/Vol] 3.0 10*3/uL 2.0-7.7 [facility] Neutrophils/100 WBC (Bld) 58.7 % 47-70 [facility] Potassium [Moles/Vol] 4.3 mmol/L 3.5-5.1 [facility] Protein [Mass/Vol] 7.0 g/dL 6.4-8.2 [facility] Sodium [Moles/Vol] 141 mmol/L 136-145 [facility] WBC (Bld) [#/Vol] 5.1 10*3/uL 4.4-11.0 [facility] Blood erythrocytes count (nu mber/volume)Ordered By: Dr. Haddad on 10-04-2022 RBC (Bld) [#/Vol] 5.34 10*6/uL 4.6-6.2 [facility] Blood hemoglobin measurement (mass/volume)Ordered By: Dr. Haddad on 10-04-2022 Hemoglobin (Bld) [Mass/Vol] 14.9 g/dL 13.0-16.5 [facility] Blood lymphocytes/100 leukoc ytesOrdered By: Dr. Haddad on 10-04-2022 Lymphocytes/100 WBC (Bld) 29.6 % 19-41 [facility] Blood monocytes/100 leukocyt esOrdered By: Dr. Haddad on 10-04-2022 Monocytes/100 WBC (Bld) 7.6 % 0-10 [facility] Blood platelet mean volumeOr dered By: Dr. Haddad on 10-04-2022 Platelet mean volume (Bld) [Entitic vol] 9.8 fL 6.2-12.0 [facility] Determination of erythrocyte mean corpuscular volume (MCV)Ordered By: Dr. Haddad on 10-04-2022 MCV (RBC) [Entitic vol] 88.0 fL 80-94 [facility] Hematocrit Auto (Bld) [Volum e fraction]Ordered By: Dr. Haddad on 10-04-2022 Hematocrit (Bld) [Volume fraction] 47.0 % 40-54 [facility] Laboratory - Chemistry and C hemistry - challengeOrdered By: Dr. Haddad on 10-04-2022 ALP [Catalytic activity/Vol] 79 U/L 45-117 [facility] ALT [Catalytic activity/Vol] 30 U/L 16-61 [facility] CO2 [Moles/Vol] 29.0 mmol/L 21.0-32.0 [facility] Globulin (S) [Mass/Vol] 3.6 g/dL 2.2-4.2 [facility] Urea nitrogen/Creatinine [Mass ratio] 16.6 mg/mg 10-20 [facility] Laboratory - Hematology and Cell countsOrdered By: Dr. Haddad on 10-04-2022 Erythrocyte distribution width (RBC) [Entitic vol] 43.9 fL 35.1-43.9 [facility] Erythrocyte distribution width (RBC) [Ratio] 13.8 % 11.6-14.6 [facility] Immature granulocytes/100 WBC (Bld) 0.200 % 0.0-0.9 [facility] Comment on above: IG% - Immature Granu locytes (promyelocytes, myelocytes and metamyelocytes) > 1% indicates that a LEFT SHIFT is Present. MCH (RBC) [Entitic mass] 27.9 pg 27.0-32.0 [facility] Nucleated RBC/100 WBC (Bld) [Ratio] 0 % 0-5 [facility] MCHC Auto (RBC) [Mass/Vol]Or dered By: Dr. Haddad on 10-04-2022 MCHC (RBC) [Mass/Vol] 31.7 g/dL 32-36 [facility] No Panel InformationOrdered By: Dr. Haddad on 10-04-2022 Estimated GFR (MDRD) Amer 62 mL/min >60 [facility] Comment on above: GFR Calc Estimated GFR (MDRD) Non-Af Amer 51 mL/min >60 [facility] Comment on above: Non- GFR Calc Platelets bldOrdered By: Dr. Haddad on 10-04-2022 Platelets (Bld) [#/Vol] 198 10*3/uL 150-450 [facility] Serum or plasma albumin marta urement (mass/volume)Ordered By: Dr. Haddad on 10-04-2022 Albumin [Mass/Vol] 3.4 g/dL 3.2-5.0 [facility] Serum or plasma albumin/glob ulin mass ratioOrdered By: Dr. Haddad on 10-04-2022 Albumin/Globulin [Mass ratio] 0.9 {ratio} 0.9-2.4 [facility] Serum or plasma calcium marta urement (mass/volume)Ordered By: Dr. Haddad on 10-04-2022 Calcium [Mass/Vol] 8.6 mg/dL 8.5-10.1 [facility] Serum or plasma creatinine m easurement (mass/volume)Ordered By: Dr. Haddad on 10-04-2022 Creatinine [Mass/Vol] 1.45 mg/dL 0.70-1.30 [facility] Comment on above: The validity of the calculated GFR & GFRAA in patients over 70 years has not been determined. Clinical correlation is essential. Serum or plasma urea nitroge n measurement (mass/volume)Ordered By: Dr. Haddad on 10-04-2022 Urea nitrogen [Mass/Vol] 24 mg/dL 7-18 [facility] Thin prep Papanicolaou smear with manual screeningOrdered By: Dr. Haddad on 10-04-2022 Thin prep Papanicolaou smear with manual screening 23 U/L 15-37 [facility] Thin prep Papanicolaou smear with manual screening 5 5-15 [facility] LABORATORYOrdered By: SYSTEM SYSTEM on 07-16-2022 Albumin BCP dye [Mass/Vol] 3.6 G/dL Invalid Interpretation Code 3.4 - 4.8 G/dL AO ADM SS Albumin/Globulin [Mass ratio] 1.2 {ratio} Invalid Interpretation Code 1.1 - 2.5 ratio AO ADM SS ALP [Catalytic activity/Vol] 106 U/L Invalid Interpretation Code 40 - 135 U/L AO ADM SS ALT With P-5'-P [Catalytic activity/Vol] 32 U/L Invalid Interpretation Code 16 - 63 U/L AO ADM SS AST With P-5'-P [Catalytic activity/Vol] 21 U/L Invalid Interpretation Code 10 - 40 U/L AO ADM SS Bilirubin [Mass/Vol] 0.3 mg/dL Invalid Interpretation Code 0.2 - 1.0 mg/dL AO ADM SS Calcium [Mass/Vol] 9.0 mg/dL Invalid Interpretation Code 8.4 - 10.2 mg/dL AO ADM SS Chloride [Moles/Vol] 104 mmol/L Invalid Interpretation Code 98 - 107 mmol/L AO ADM SS CO2 [Moles/Vol] 29 mmol/L Invalid Interpretation Code 23 - 31 mmol/L AO ADM SS Creatinine [Mass/Vol] 1.56 mg/dL Invalid Interpretation Code 0.70 - 1.30 mg/dL AO ADM SS Electrolyte Balance 9.0 mEq/L Invalid Interpretation Code 4.0 - 15.0 mEq/L AO ADM SS GFR 53 ml/min/1.73sqm Invalid Interpretation Code AO Chemistry S GFR Non- 44 ml/min/1.73sqm Invalid Interpretation Code AO Chemistry S Globulin 3.1 G/dL Invalid Interpretation Code AO ADM SS Glucose [Mass/Vol] 129 mg/dL Invalid Interpretation Code 83 - 110 mg/dL AO ADM SS Potassium [Moles/Vol] 4.8 mmol/L Invalid Interpretation Code 3.5 - 5.1 mmol/L AO ADM SS Protein [Mass/Vol] 6.7 G/dL Invalid Interpretation Code 6.4 - 8.2 G/dL AO ADM SS Sodium [Moles/Vol] 142 mmol/L Invalid Interpretation Code 136 - 145 mmol/L AO ADM SS Urea nitrogen [Mass/Vol] 30 mg/dL Invalid Interpretation Code 7 - 18 mg/dL AO ADM SS Urea nitrogen/Creatinine [Mass ratio] 19 ratio Invalid Interpretation Code 7 - 27 ratio AO ADM SS Uric Acid Lvl 5.9 mg/dL Invalid Interpretation Code 3.5 - 7.2 mg/dL AO ADM SS LABORATORYOrdered By: Lena Gore on 07-16-2022 Basophil, Absolute 0.0 103/mcL Invalid Interpretation Code 0.0 - 0.2 10^3/mcL AO Workflow SS Basophils/100 WBC (Bld) 1.0 % Invalid Interpretation Code 0.0 - 2.5 % AO Workflow SS Eosinophil, Absolute 0.2 103/mcL Invalid Interpretation Code 0.0 - 0.4 10^3/mcL AO Workflow SS Eosinophils/100 WBC (Bld) 4.3 % Invalid Interpretation Code 0.0 - 7.0 % AO Workflow SS Erythrocyte distribution width (RBC) [Ratio] 14.3 % Invalid Interpretation Code 11.5 - 14.5 % AO Workflow SS Hematocrit (Bld) [Volume fraction] 44.0 % Invalid Interpretation Code 42.0 - 52.0 % AO Workflow SS Hemoglobin (Bld) [Mass/Vol] 14.7 G/dL Invalid Interpretation Code 14.0 - 18.0 G/dL AO Workflow SS Lymphocyte, Absolute 1.2 103/mcL Invalid Interpretation Code 0.8 - 3.9 10^3/mcL AO Workflow SS Lymphocytes/100 WBC (Bld) 28.7 % Invalid Interpretation Code 10.0 - 50.0 % AO Workflow SS MCH (RBC) [Entitic mass] 28.1 pg Invalid Interpretation Code 27.0 - 31.2 pg AO Workflow SS MCHC 33.3 G/dL Invalid Interpretation Code 31.8 - 35.4 G/dL AO Workflow SS MCV (RBC) [Entitic vol] 84.3 fL Invalid Interpretation Code 80.0 - 94.0 fL AO Workflow SS Monocyte, Absolute 0.3 103/mcL Invalid Interpretation Code 0.2 - 1.0 10^3/mcL AO Workflow SS Monocytes/100 WBC (Bld) 6.4 % Invalid Interpretation Code 1.7 - 13.0 % AO Workflow SS Neutrophil, Absolute 2.5 103/mcL Invalid Interpretation Code 2.9 - 6.2 10^3/mcL AO Workflow SS Neutrophils/100 WBC (Bld) 59.6 % Invalid Interpretation Code 37.0 - 80.0 % AO Workflow SS Platelet mean volume (Bld) [Entitic vol] 7.6 fL Invalid Interpretation Code 7.4 - 10.4 fL AO Workflow SS Platelets (Bld) [#/Vol] 246 103/mcL Invalid Interpretation Code 130 - 400 10^3/mcL AO Workflow SS RBC (Bld) [#/Vol] 5.22 106/mcL Invalid Interpretation Code 4.04 - 6.13 10^6/mcL AO Workflow SS WBC (Bld) [#/Vol] 4.1 103/mcL Invalid Interpretation Code 4.6 - 10.8 10^3/mcL AO Workflow SS LABORATORYOrdered By: Nakul Garcia on 07-16-2022 Cholesterol [Mass/Vol] 198 mg/dL Invalid Interpretation Code 0 - 200 mg/dL AO ADM SS Cholesterol in HDL [Mass/Vol] 50 mg/dL Invalid Interpretation Code 40 - 60 mg/dL AO ADM SS Cholesterol in LDL [Mass/Vol] 123 mg/dL Invalid Interpretation Code 0 - 130 mg/dL AO ADM SS Triglyceride [Mass/Vol] 124 mg/dL Invalid Interpretation Code 0 - 150 mg/dL AO ADM SS Absolute lymphocyte counton 04-12-2022 Lymphocytes Auto (Unsp spec) [#/Vol] 1.52 10*3/uL 0.83-4.51 [facility] Work Phone: Basophil percentageon 2021 Basophils/100 WBC (Bld) 0.6 % 0-1 [facility] Work Phone: Bilirubin [Mass/Vol] 0.70 mg/dL 0.20-1.00 [facility] Work Phone: Comment on above: For patients on eltr ombopag therapy, use of Dimension [place] TBIL is not recommended. Chloride [Moles/Vol] 106 mmol/L 98-107 [facility] Work Phone: Eosinophils/100 WBC (Bld) 2.8 % 0-5 [facility] Work Phone: Glucose [Mass/Vol] 83 mg/dL 74-106 [facility] Work Phone: Neutrophils (Bld) [#/Vol] 2.8 10*3/uL 2.0-7.7 [facility] Work Phone: Neutrophils/100 WBC (Bld) 57.3 % 47-70 [facility] Work Phone: Potassium [Moles/Vol] 4.3 mmol/L 3.5-5.1 [facility] Work Phone: Protein [Mass/Vol] 6.9 g/dL 6.4-8.2 [facility] Work Phone: Sodium [Moles/Vol] 139 mmol/L 136-145 [facility] Work Phone: WBC (Bld) [#/Vol] 4.9 10*3/uL 4.4-11.0 [facility] Work Phone: Blood erythrocytes count (nu mber/volume)on 04-12-2022 RBC (Bld) [#/Vol] 5.26 10*6/uL 4.6-6.2 [facility] Work Phone: Blood hemoglobin measurement (mass/volume)on 04-12-2022 Hemoglobin (Bld) [Mass/Vol] 15.1 g/dL 13.0-16.5 [facility] Work Phone: Blood lymphocytes/100 leukoc yteson 04-12-2022 Lymphocytes/100 WBC (Bld) 30.8 % 19-41 [facility] Work Phone: Blood monocytes/100 leukocyt eson 04-12-2022 Monocytes/100 WBC (Bld) 8.3 % 0-10 [facility] Work Phone: Blood platelet mean volumeon 04-12-2022 Platelet mean volume (Bld) [Entitic vol] 9.6 fL 6.2-12.0 [facility] Work Phone: Determination of erythrocyte mean corpuscular volume (MCV)on 04-12-2022 MCV (RBC) [Entitic vol] 87.1 fL 80-94 [facility] Work Phone: Hematocrit Auto (Bld) [Volum e fraction]on 04-12-2022 Hematocrit (Bld) [Volume fraction] 45.8 % 40-54 [facility] Work Phone: Laboratory - Chemistry and C hemistry - challengeon 04-12-2022 ALP [Catalytic activity/Vol] 84 U/L 45-117 [facility] Work Phone: ALT [Catalytic activity/Vol] 37 U/L 16-61 [facility] Work Phone: [phone] CO2 [Moles/Vol] 32.0 mmol/L 21.0-32.0 [facility] Work Phone: [phone] Globulin (S) [Mass/Vol] 3.3 g/dL 2.2-4.2 [facility] Work Phone: [phone] Urea nitrogen/Creatinine [Mass ratio] 14.3 mg/mg 10-20 [facility] Work Phone: [phone] Laboratory - Hematology and Cell countson 04-12-2022 Erythrocyte distribution width (RBC) [Entitic vol] 45.7 fL 35.1-43.9 [facility] Work Phone: [phone] Erythrocyte distribution width (RBC) [Ratio] 14.3 % 11.6-14.6 [facility] Work Phone: [phone] Immature granulocytes/100 WBC (Bld) 0.200 % 0.0-0.9 [facility] Work Phone: [phone] Comment on above: IG% - Immature Granu locytes (promyelocytes, myelocytes and metamyelocytes) > 1% indicates that a LEFT SHIFT is Present. MCH (RBC) [Entitic mass] 28.7 pg 27.0-32.0 [facility] Work Phone: [phone] Nucleated RBC/100 WBC (Bld) [Ratio] 0 % 0-5 [facility] Work Phone: [phone] MCHC Auto (RBC) [Mass/Vol]on 04-12-2022 MCHC (RBC) [Mass/Vol] 33.0 g/dL 32-36 [facility] Work Phone: [phone] No Panel Informationon 04-12 Estimated GFR (MDRD) Amer 64 mL/min >60 [facility] Work Phone: [phone] Comment on above: GFR Calc Estimated GFR (MDRD) Non-Af Amer 53 mL/min >60 [facility] Work Phone: [phone] Comment on above: Non- GFR Calc Platelets bldon 04-12-2022 Platelets (Bld) [#/Vol] 219 10*3/uL 150-450 [facility] Work Phone: Serum or plasma albumin marta urement (mass/volume)on 04-12-2022 Albumin [Mass/Vol] 3.6 g/dL 3.2-5.0 [facility] Work Phone: [phone] Serum or plasma albumin/glob ulin mass ratioon 04-12-2022 Albumin/Globulin [Mass ratio] 1.1 {ratio} 0.9-2.4 [facility] Work Phone: [phone] Serum or plasma calcium marta urement (mass/volume)on 04-12-2022 Calcium [Mass/Vol] 9.2 mg/dL 8.5-10.1 [facility] Work Phone: [phone] Serum or plasma creatinine m easurement (mass/volume)on 04-12-2022 Creatinine [Mass/Vol] 1.40 mg/dL 0.70-1.30 [facility] Work Phone: Comment on above: The validity of the calculated GFR & GFRAA in patients over 70 years has not been determined. Clinical correlation is essential. Serum or plasma urea nitroge n measurement (mass/volume)on 04-12-2022 Urea nitrogen [Mass/Vol] 20 mg/dL 7-18 [facility] Work Phone: Thin prep Papanicolaou smear with manual screeningon 04-12-2022 Thin prep Papanicolaou smear with manual screening 22 U/L 15-37 [facility] Work Phone: Thin prep Papanicolaou smear with manual screening 1 5-15 [facility] Work Phone: No Panel Informationon 03-03 Prostate Specific Antigen Total < 0.01 ng/mL 0.0-4.0 [facility] Work Phone: Comment on above: This test was perfor med using the TPSA assay method for [employer] chemistry system. Values obtained with differentassay methods cannot be used interchangably.When changing PSA assays in the course of monitoring apatient, additional sequential testing should be carriedout to confirm baseline values. LABORATORYOrdered By: Paige Lopez on 01-06-2022 Albumin BCP dye [Mass/Vol] 3.7 G/dL Invalid Interpretation Code 3.4 - 4.8 G/dL AO ADM SS Albumin/Globulin [Mass ratio] 1.2 {ratio} Invalid Interpretation Code 1.1 - 2.5 ratio AO ADM SS ALP [Catalytic activity/Vol] 98 U/L Invalid Interpretation Code 40 - 135 U/L AO ADM SS ALT With P-5'-P [Catalytic activity/Vol] 53 U/L Invalid Interpretation Code 16 - 63 U/L AO ADM SS AST With P-5'-P [Catalytic activity/Vol] 38 U/L Invalid Interpretation Code 10 - 40 U/L AO ADM SS Bilirubin [Mass/Vol] 0.7 mg/dL Invalid Interpretation Code 0.2 - 1.0 mg/dL AO ADM SS Calcium [Mass/Vol] 8.2 mg/dL Invalid Interpretation Code 8.4 - 10.2 mg/dL AO ADM SS Chloride [Moles/Vol] 103 mmol/L Invalid Interpretation Code 98 - 107 mmol/L AO ADM SS Cholesterol [Mass/Vol] 146 mg/dL Invalid Interpretation Code 0 - 200 mg/dL AO ADM SS Cholesterol in HDL [Mass/Vol] 51 mg/dL Invalid Interpretation Code 40 - 60 mg/dL AO ADM SS Cholesterol in LDL [Mass/Vol] 83 mg/dL Invalid Interpretation Code 0 - 130 mg/dL AO ADM SS CO2 [Moles/Vol] 27 mmol/L Invalid Interpretation Code 23 - 31 mmol/L AO ADM SS Creatinine [Mass/Vol] 1.54 mg/dL Invalid Interpretation Code 0.70 - 1.30 mg/dL AO ADM SS Electrolyte Balance 9.0 mEq/L Invalid Interpretation Code 4.0 - 15.0 mEq/L AO ADM SS Globulin 3.1 G/dL Invalid Interpretation Code AO ADM SS Glucose [Mass/Vol] 77 mg/dL Invalid Interpretation Code 83 - 110 mg/dL AO ADM SS Potassium [Moles/Vol] 4.1 mmol/L Invalid Interpretation Code 3.5 - 5.1 mmol/L AO ADM SS Protein [Mass/Vol] 6.8 G/dL Invalid Interpretation Code 6.4 - 8.2 G/dL AO ADM SS Sodium [Moles/Vol] 139 mmol/L Invalid Interpretation Code 136 - 145 mmol/L AO ADM SS Triglyceride [Mass/Vol] 62 mg/dL Invalid Interpretation Code 0 - 150 mg/dL AO ADM SS Urea nitrogen [Mass/Vol] 20 mg/dL Invalid Interpretation Code 7 - 18 mg/dL AO ADM SS Urea nitrogen/Creatinine [Mass ratio] 13 ratio Invalid Interpretation Code 7 - 27 ratio AO ADM SS LABORATORYOrdered By: Bonnie Miles on 01-06-2022 Basophil, Absolute 0.0 103/mcL Invalid Interpretation Code 0.0 - 0.2 10^3/mcL AO Workflow SS Basophils/100 WBC (Bld) 0.5 % Invalid Interpretation Code 0.0 - 2.5 % AO Workflow SS Eosinophil, Absolute 0.1 103/mcL Invalid Interpretation Code 0.0 - 0.4 10^3/mcL AO Workflow SS Eosinophils/100 WBC (Bld) 2.1 % Invalid Interpretation Code 0.0 - 7.0 % AO Workflow SS Erythrocyte distribution width (RBC) [Ratio] 14.6 % Invalid Interpretation Code 11.5 - 14.5 % AO Workflow SS Hematocrit (Bld) [Volume fraction] 44.1 % Invalid Interpretation Code 42.0 - 52.0 % AO Workflow SS Hemoglobin (Bld) [Mass/Vol] 14.8 G/dL Invalid Interpretation Code 14.0 - 18.0 G/dL AO Workflow SS Lymphocyte, Absolute 0.4 103/mcL Invalid Interpretation Code 0.8 - 3.9 10^3/mcL AO Workflow SS Lymphocytes/100 WBC (Bld) 9.6 % Invalid Interpretation Code 10.0 - 50.0 % AO Workflow SS MCH (RBC) [Entitic mass] 28.1 pg Invalid Interpretation Code 27.0 - 31.2 pg AO Workflow SS MCHC 33.6 G/dL Invalid Interpretation Code 31.8 - 35.4 G/dL AO Workflow SS MCV (RBC) [Entitic vol] 83.8 fL Invalid Interpretation Code 80.0 - 94.0 fL AO Workflow SS Monocyte, Absolute 0.7 103/mcL Invalid Interpretation Code 0.2 - 1.0 10^3/mcL AO Workflow SS Monocytes/100 WBC (Bld) 16.0 % Invalid Interpretation Code 1.7 - 13.0 % AO Workflow SS Neutrophil, Absolute 3.0 103/mcL Invalid Interpretation Code 2.9 - 6.2 10^3/mcL AO Workflow SS Neutrophils/100 WBC (Bld) 71.8 % Invalid Interpretation Code 37.0 - 80.0 % AO Workflow SS Platelet mean volume (Bld) [Entitic vol] 7.6 fL Invalid Interpretation Code 7.4 - 10.4 fL AO Workflow SS Platelets (Bld) [#/Vol] 209 103/mcL Invalid Interpretation Code 130 - 400 10^3/mcL AO Workflow SS RBC (Bld) [#/Vol] 5.26 106/mcL Invalid Interpretation Code 4.04 - 6.13 10^6/mcL AO Workflow SS WBC (Bld) [#/Vol] 4.2 103/mcL Invalid Interpretation Code 4.6 - 10.8 10^3/mcL AO Workflow SS LABORATORYOrdered By: SYSTEM SYSTEM on 01-06-2022 GFR 54 ml/min/1.73sqm Invalid Interpretation Code AO Chemistry S GFR Non- 45 ml/min/1.73sqm Invalid Interpretation Code AO Chemistry S LABORATORYOrdered By: Nakul Garcia on 01-06-2022 Prostate specific Ag [Mass/Vol] ng/mL Invalid Interpretation Code 0.00 - 4.00 ng/mL AO ADM SS Absolute lymphocyte counton 12-21-2021 Lymphocytes Auto (Unsp spec) [#/Vol] 1.56 10*3/uL 0.83-4.51 [facility] Work Phone: Basophil percentageon 2021 Basophils/100 WBC (Bld) 0.7 % 0-1 [facility] Work Phone: Bilirubin [Mass/Vol] 0.50 mg/dL 0.20-1.00 [facility] Work Phone: Comment on above: For patients on eltr ombopag therapy, use of Dimension [place] TBIL is not recommended. Chloride [Moles/Vol] 107 mmol/L 98-107 [facility] Work Phone: Eosinophils/100 WBC (Bld) 2.8 % 0-5 [facility] Work Phone: Glucose [Mass/Vol] 127 mg/dL 74-106 [facility] Work Phone: Comment on above: Fasting Glucose resu lt greater than or equal to 126 mg/dL suggests DIABETES MELLITUS per A.D.A. criteria. Neutrophils (Bld) [#/Vol] 3.7 10*3/uL 2.0-7.7 [facility] Work Phone: [phone] Neutrophils/100 WBC (Bld) 60.7 % 47-70 [facility] Work Phone: [phone] Potassium [Moles/Vol] 4.5 mmol/L 3.5-5.1 [facility] Work Phone: [phone] Protein [Mass/Vol] 6.5 g/dL 6.4-8.2 [facility] Work Phone: [phone] Sodium [Moles/Vol] 140 mmol/L 136-145 [facility] Work Phone: [phone] WBC (Bld) [#/Vol] 6.2 10*3/uL 4.4-11.0 [facility] Work Phone: [phone] Blood erythrocytes count (nu mber/volume)on 12-21-2021 RBC (Bld) [#/Vol] 5.16 10*6/uL 4.6-6.2 [facility] Work Phone: [phone] Blood hemoglobin measurement (mass/volume)on 12-21-2021 Hemoglobin (Bld) [Mass/Vol] 14.6 g/dL 13.0-16.5 [facility] Work Phone: [phone] Blood lymphocytes/100 leukoc yteson 12-21-2021 Lymphocytes/100 WBC (Bld) 25.4 % 19-41 [facility] Work Phone: [phone] Blood monocytes/100 leukocyt eson 12-21-2021 Monocytes/100 WBC (Bld) 10.1 % 0-10 [facility] Work Phone: [phone] Blood platelet mean volumeon 12-21-2021 Platelet mean volume (Bld) [Entitic vol] 10.0 fL 6.2-12.0 [facility] Work Phone: [phone] Determination of erythrocyte mean corpuscular volume (MCV)on 12-21-2021 MCV (RBC) [Entitic vol] 87.6 fL 80-94 [facility] Work Phone: [phone] Hematocrit Auto (Bld) [Volum e fraction]on 12-21-2021 Hematocrit (Bld) [Volume fraction] 45.2 % 40-54 [facility] Work Phone: [phone] Laboratory - Chemistry and C hemistry - challengeon 12-21-2021 ALP [Catalytic activity/Vol] 92 U/L 45-117 [facility] Work Phone: [phone] ALT [Catalytic activity/Vol] 43 U/L 16-61 [facility] Work Phone: [phone] CO2 [Moles/Vol] 30.0 mmol/L 21.0-32.0 [facility] Work Phone: [phone] Globulin (S) [Mass/Vol] 3.2 g/dL 2.2-4.2 [facility] Work Phone: [phone] Urea nitrogen/Creatinine [Mass ratio] 12.7 mg/mg 10-20 [facility] Work Phone: [phone] Laboratory - Hematology and Cell countson 12-21-2021 Erythrocyte distribution width (RBC) [Entitic vol] 45.6 fL 35.1-43.9 [facility] Work Phone: [phone] Erythrocyte distribution width (RBC) [Ratio] 14.2 % 11.6-14.6 [facility] Work Phone: [phone] Immature granulocytes/100 WBC (Bld) 0.300 % 0.0-0.9 [facility] Work Phone: [phone] Comment on above: IG% - Immature Granu locytes (promyelocytes, myelocytes and metamyelocytes) > 1% indicates that a LEFT SHIFT is Present. MCH (RBC) [Entitic mass] 28.3 pg 27.0-32.0 [facility] Work Phone: [phone] Nucleated RBC/100 WBC (Bld) [Ratio] 0 % 0-5 [facility] Work Phone: [phone] MCHC Auto (RBC) [Mass/Vol]on 08-22-2022 MCHC (RBC) [Mass/Vol] 32.3 g/dL 32-36 [facility] Work Phone: No Panel Informationon 12-21 Estimated GFR (MDRD) Amer 56 mL/min >60 [facility] Work Phone: Comment on above: GFR Calc Estimated GFR (MDRD) Non-Af Amer 47 mL/min >60 [facility] Work Phone: Comment on above: Non- GFR Calc Platelets bldon 12-21-2021 Platelets (Bld) [#/Vol] 216 10*3/uL 150-450 [facility] Work Phone: Serum or plasma albumin marta urement (mass/volume)on 12-21-2021 Albumin [Mass/Vol] 3.3 g/dL 3.2-5.0 [facility] Work Phone: Serum or plasma albumin/glob ulin mass ratioon 12-21-2021 Albumin/Globulin [Mass ratio] 1.0 {ratio} 0.9-2.4 [facility] Work Phone: Serum or plasma calcium marta urement (mass/volume)on 12-21-2021 Calcium [Mass/Vol] 8.8 mg/dL 8.5-10.1 [facility] Work Phone: Serum or plasma creatinine m easurement (mass/volume)on 12-21-2021 Creatinine [Mass/Vol] 1.57 mg/dL 0.70-1.30 [facility] Work Phone: Comment on above: The validity of the calculated GFR & GFRAA in patients over 70 years has not been determined. Clinical correlation is essential. Serum or plasma urea nitroge n measurement (mass/volume)on 12-21-2021 Urea nitrogen [Mass/Vol] 20 mg/dL 7-18 [facility] Work Phone: Thin prep Papanicolaou smear with manual screeningon 12-21-2021 Thin prep Papanicolaou smear with manual screening 29 U/L 15-37 [facility] Work Phone: Thin prep Papanicolaou smear with manual screening 3 5-15 [facility] Work Phone: Absolute lymphocyte counton 08-31-2021 Lymphocytes Auto (Unsp spec) [#/Vol] 1.67 10*3/uL 0.83-4.51 [facility] Work Phone: Basophil percentageon 2021 Basophils/100 WBC (Bld) 0.8 % 0-1 [facility] Work Phone: Bilirubin [Mass/Vol] 0.40 mg/dL 0.20-1.00 [facility] Work Phone: Comment on above: For patients on eltr ombopag therapy, use of Dimension [place] TBIL is not recommended. Chloride [Moles/Vol] 105 mmol/L 98-107 [facility] Work Phone: Eosinophils/100 WBC (Bld) 3.1 % 0-5 [facility] Work Phone: Glucose [Mass/Vol] 106 mg/dL 74-106 [facility] Work Phone: Comment on above: Fasting Glucose resu lt from 100 to 125 mg/dL suggests IMPAIRED HOMEOSTASIS per A.D.A. criteria. Neutrophils (Bld) [#/Vol] 2.9 10*3/uL 2.0-7.7 [facility] Work Phone: Neutrophils/100 WBC (Bld) 54.3 % 47-70 [facility] Work Phone: Potassium [Moles/Vol] 4.2 mmol/L 3.5-5.1 [facility] Work Phone: Protein [Mass/Vol] 6.9 g/dL 6.4-8.2 [facility] Work Phone: Sodium [Moles/Vol] 137 mmol/L 136-145 [facility] Work Phone: WBC (Bld) [#/Vol] 5.2 10*3/uL 4.4-11.0 [facility] Work Phone: Blood erythrocytes count (nu mber/volume)on 08-31-2021 RBC (Bld) [#/Vol] 5.47 10*6/uL 4.6-6.2 [facility] Work Phone: Blood hemoglobin measurement (mass/volume)on 08-31-2021 Hemoglobin (Bld) [Mass/Vol] 15.1 g/dL 13.0-16.5 [facility] Work Phone: [phone] Blood lymphocytes/100 leukoc yteson 08-31-2021 Lymphocytes/100 WBC (Bld) 31.9 % 19-41 [facility] Work Phone: [phone] Blood monocytes/100 leukocyt eson 08-31-2021 Monocytes/100 WBC (Bld) 9.7 % 0-10 [facility] Work Phone: Blood platelet mean volumeon 08-31-2021 Platelet mean volume (Bld) [Entitic vol] 10.1 fL 6.2-12.0 [facility] Work Phone: Determination of erythrocyte mean corpuscular volume (MCV)on 08-31-2021 MCV (RBC) [Entitic vol] 86.8 fL 80-94 [facility] Work Phone: [phone] Hematocrit Auto (Bld) [Volum e fraction]on 08-31-2021 Hematocrit (Bld) [Volume fraction] 47.5 % 40-54 [facility] Work Phone: Laboratory - Chemistry and C hemistry - challengeon 08-31-2021 ALP [Catalytic activity/Vol] 105 U/L 45-117 [facility] Work Phone: [phone] ALT [Catalytic activity/Vol] 39 U/L 16-61 [facility] Work Phone: [phone] CO2 [Moles/Vol] 27.0 mmol/L 21.0-32.0 [facility] Work Phone: [phone] Globulin (S) [Mass/Vol] 3.5 g/dL 2.2-4.2 [facility] Work Phone: [phone] Urea nitrogen/Creatinine [Mass ratio] 16.7 mg/mg 10-20 [facility] Work Phone: [phone] Laboratory - Hematology and Cell countson 08-31-2021 Erythrocyte distribution width (RBC) [Entitic vol] 45.1 fL 35.1-43.9 [facility] Work Phone: [phone] Erythrocyte distribution width (RBC) [Ratio] 14.2 % 11.6-14.6 [facility] Work Phone: [phone] Immature granulocytes/100 WBC (Bld) 0.200 % 0.0-0.9 [facility] Work Phone: [phone] Comment on above: IG% - Immature Granu locytes (promyelocytes, myelocytes and metamyelocytes) > 1% indicates that a LEFT SHIFT is Present. MCH (RBC) [Entitic mass] 27.6 pg 27.0-32.0 [facility] Work Phone: [phone] Nucleated RBC/100 WBC (Bld) [Ratio] 0 % 0-5 [facility] Work Phone: [phone] MCHC Auto (RBC) [Mass/Vol]on 08-31-2021 MCHC (RBC) [Mass/Vol] 31.8 g/dL 32-36 [facility] Work Phone: [phone] Panel Informationon 08-31 Estimated GFR (MDRD) Amer 65 mL/min >60 [facility] Work Phone: [phone] Comment on above: GFR Calc Estimated GFR (MDRD) Non-Af Amer 54 mL/min >60 [facility] Work Phone: [phone] Comment on above: Non- GFR Calc Platelets bldon 08-31-2021 Platelets (Bld) [#/Vol] 225 10*3/uL 150-450 [facility] Work Phone: [phone] Serum or plasma albumin marta urement (mass/volume)on 08-31-2021 Albumin [Mass/Vol] 3.4 g/dL 3.2-5.0 [facility] Work Phone: [phone] Serum or plasma albumin/glob ulin mass ratioon 08-31-2021 Albumin/Globulin [Mass ratio] 1.0 {ratio} 0.9-2.4 [facility] Work Phone: [phone] Serum or plasma calcium marta urement (mass/volume)on 08-31-2021 Calcium [Mass/Vol] 8.1 mg/dL 8.5-10.1 [facility] Work Phone: [phone] Serum or plasma creatinine m easurement (mass/volume)on 08-31-2021 Creatinine [Mass/Vol] 1.38 mg/dL 0.70-1.30 [facility] Work Phone: Comment on above: The validity of the calculated GFR & GFRAA in patients over 70 years has not been determined. Clinical correlation is essential. Serum or plasma urea nitroge n measurement (mass/volume)on 08-31-2021 Urea nitrogen [Mass/Vol] 23 mg/dL 7-18 [facility] Work Phone: [phone] Thin prep Papanicolaou smear with manual screeningon 08-31-2021 Thin prep Papanicolaou smear with manual screening 27 U/L 15-37 [facility] Work Phone: Thin prep Papanicolaou smear with manual screening 5 5-15 [facility] Work Phone: CBC and Differentialon 01-24 Abs Baso 0.04 k/uL Normal 0.00-0.10 [facility] Comment on above: Performed By: #### C BCJENNA CMP ####[facility] [place], [place] [phone] Abs [place] 0.46 k/uL Normal 0.00-0.86 [facility] Comment on above: Performed By: #### C BCJENNA CMP ####[facility] [place], [place] [phone] Abs Neut 3.73 k/uL Normal 1.45-7.50 [facility] Comment on above: Performed By: #### C MANNY CMP ####[facility]ClevelandCarla [place] [phone] Basophils/100 WBC Auto (Bld) 0.7 % Normal [facility] Comment on above: Performed By: #### C BCDIF, CMP ####[facility]ClevelWes[address] [place] [phone] DTYPE Auto Diff Normal [facility] Comment on above: Performed By: #### C BCDIF, CMP ####[place] [address] [address]im [place] [phone] Eosinophils 0.14 10*3/uL Normal 0.00-0.45 [facility] Comment on above: Performed By: #### C BCDIF, CMP ####[place] [address] [address] [phone] Eosinophils/100 leukocytes 2.4 % Normal [facility] Comment on above: Performed By: #### C BCDIF, CMP ####[place] [address] [address] [phone] Erythrocyte distribution width Auto Ratio (RBC) 13.9 % Normal 11.5-15.0 [facility] Comment on above: Performed By: #### C BCDIF, CMP ####[place] [address] [address] [place] [phone] Erythrocytes (RBC) 5.62 10*6/uL Normal 4.20-6.00 [facility] Comment on above: Performed By: #### C BCDIF, CMP ####[facility] [place] [phone] Erythrocytes (RBC) 0.00 10*6/uL Normal 0.00 [facility] Comment on above: Performed By: #### C BCDIF, CMP ####[facility] [place] [phone] Erythrocytes (RBC) 0.0 /100 WBC Normal 0 [facility] Comment on above: Performed By: #### C BCDIF, CMP ####[place] [phone] Hematocrit (HCT) 48.8 % Normal 39.0-51.0 [facility] Comment on above: Performed By: #### C BCDIF, CMP ####[place] [phone] Hemoglobin mass conc (Bld) 15.6 g/dL Normal 13.0-17.0 [facility] Comment on above: Performed By: #### C BCDIF, CMP ####[place] [phone] Lymphocytes 1.50 10*3/uL Normal 1.00-4.00 [facility] Comment on above: Performed By: #### C BCDIF, CMP ####[place] [phone] Lymphocytes/100 leukocytes 25.6 % Normal [facility] Comment on above: Performed By: #### C BCDIF, CMP ####[place] [phone] MCH 27.8 pG Normal 26.0-34.0 [facility] Comment on above: Performed By: #### C BCDIF, CMP ####[place] [phone] MCHC mass conc (RBC) 32.0 g/dL Normal 30.5-36.0 [facility] Comment on above: Performed By: #### C BCDIF, CMP ####[place] [phone] MCV 86.8 fL Normal 80.0-100.0 [facility] Comment on above: Performed By: #### C BCDIF, CMP ####[address]ClevelCharleroi, [place] [phone] Monocytes/100 leukocytes 7.8 % Normal [facility] Comment on above: Performed By: #### C BCDIF, CMP ####[facility]CSh[address], [place] [phone] Neutrophils/100 WBC Auto (Bld) 63.5 % Normal [facility] Comment on above: Performed By: #### C BCDIF, CMP ####[place] [address], [place] [phone] Platelet mean volume (PMV) 10.5 fL Normal 9.0-12.7 [facility] Comment on above: Performed By: #### C BCDIF, CMP ####[place] [address], [place] [phone] Platelets 243 10*3/uL Normal 150-400 [facility] Comment on above: Performed By: #### C BCDIF, CMP ####[place] [address] [address], [place] [phone] WBC (Leukocytes) 5.87 10*3/uL Normal 3.70-11.[address] [facility] Comment on above: Performed By: #### C BCDIF, CMP ####[place] [address] [address], [place] [phone] Comp Metabolic Panelon 01-24 Alanine aminotransferase (ALT) 16 U/L Normal 10-54 [facility] Comment on above: Performed By: #### C BCDIF, CMP ####[place] [address] [address]ClevelChar[address], [place] [phone] Albumin 4.0 g/dL Normal 3.9-4.9 [facility] Comment on above: Performed By: #### C BCDIF, CMP ####[place] [address]ClevelChar[address], [place] [phone] Alkaline phosphatase (ALP) 74 U/L Normal 36-108 [facility] Comment on above: Performed By: #### C BCDIF, CMP ####[place] [address] [address] [phone] Anion gap 9 mmol/L Normal 9-18 [facility] Comment on above: Performed By: #### C BCDIF, CMP ####[place] [address] [address]CMark [place] [phone] Aspartate aminotransferase (AST) 23 U/L Normal 14-40 [facility] Comment on above: Performed By: #### C BCDIF, CMP ####[place] [address] [address] [place] [phone] Bilirubin (total) 0.3 mg/dL Normal 0.2-1.3 [facility] Comment on above: Performed By: #### C BCDIF, CMP ####[place] [address] [address]CSte[address] [place] [phone] Calcium 9.1 mg/dL Normal 8.5-10.2 [facility] Comment on above: Performed By: #### C BCDIF, CMP ####[place] [address] [address] [place] [phone] Chloride 102 mmol/L Normal 97-105 [facility] Comment on above: Performed By: #### C BCDIF, CMP ####[place] [address] [address]CM[address] [place] [phone] CO2 26 mmol/L Normal 22-30 [facility] Comment on above: Performed By: #### C BCDIF, CMP ####[place] [address] [address] [place] [phone] Creatinine 1.44 mg/dL High 0.73-1.22 [facility] Comment on above: Performed By: #### C BCDIF, CMP ####[place] [address] [address] [phone] eGFR (non-black) 49 . Normal [facility] Comment on above: Result Comment: eGFR (Estimated GFR) Units of measure: mL/min/1.73 meters squaredeGFR is derived from the reexpressed MDRD Study equation using the following parameters: serum creatinine, age, gender and race. The creatinine assay has been calibrated to be traceable to IDMS.An eGFR <60 mL/min/1.73m2 for >3 months is consistent with chronic kidney disease. Refer to KDOQI guidelines for clinical interpretation.In patients with unstable renal function, e.g. those with acute kidney injury, the eGFR may not accurately reflect actual GFR. Performed By: #### C BCDIF, CMP ####[address] [phone] eGFR (non-black) 60 mL/min/{1.73_m2} Normal [facility] Comment on above: Performed By: #### C BCDIF, CMP ####[address] [phone] Glucose mass conc 107 mg/dL High 74-99 [facility] Comment on above: Result Comment: The [place] [employer] (ADA) provides guidance for cutoff values for fasting glucose and random glucose. The ADA defines fasting as no caloric intake for at least 8 hours. Fasting plasma glucose results between 100 to 125 mg/dL indicate increased risk for diabetes (prediabetes).Fasting plasma glucose results greater than or equal to 126 mg/dL meet the criteria for diagnosis of diabetes. In the absence of unequivocal hyperglycemia, results should be confirmed by repeat testing. In a patient with classic symptoms of hyperglycemia or hyperglycemic crisis, random plasma glucose results greater than or equal to 200 mg/dL meet the criteria for diagnosis of diabetes.Reference: Standards of Medical Care in Diabetes 2016, [place] [employer]. Diabetes Care. 2016.39(Suppl 1). Performed By: #### C BCDIF, CMP ####[place] [address] [place], [place] [phone] Potassium molar conc 4.4 mmol/L Normal 3.7-5.1 [facility] Comment on above: Performed By: #### C BCDIF, CMP ####[facility] [address] [place], [place] [phone] Protein 7.1 g/dL Normal 6.3-8.0 [facility] Comment on above: Performed By: #### C BCDIF, CMP ####[facility] [address] [place], [place] [phone] Sodium 137 mmol/L Normal 136-144 [facility] Comment on above: Performed By: #### C BCDIF, CMP ####[facility] [address] [place], [place] [phone] Urea nitrogen 23 mg/dL Normal 9-24 [facility] Comment on above: Performed By: #### C BCDIF, CMP ####[facility] [address] [place], [place] [phone] PSA, [employer] 01-24-2017 PSA, Diagnostic <0.03 Normal 0.00-2.59 [facility] Comment on above: Result Comment: Kristina greg PSA test methodology used is the Electrochemiluminescence Immunoassay.For an individual patient, the significance of a PSA level should be interpreted in a broad clinical context, including age, race, family history, digital rectal exam, prostate size, results of prior testing (prostate biopsy, free PSA, PCA3), and use of 5-alpha reductase inhibitors.Considering the high incidence of asymptomatic cancer in the general population that may not pose an ultimate risk to a patient, the decision to recommend urological evaluation or prostate biopsy should be individualized after consideration of all these factors.REFERENCE:Jocelin Bryan M.D., M.P.H., Gucci Flynn M.D., Ph.D., Wero Ames M.D., Susanna Demarco, M.P.H., Nancy Perera Sc.D. Effect of Verification Bias on Screening for Prostate Cancer by Measurement of Prostatic Specific Antigen. N Engl J Med 2003,349:335-42. Performed By: #### P SA ####[facility] [place], [place] [phone] Culture, urine Bacteria identified Cx Nom (U) Proteus mirabilis [facility] Work Phone: Vital Signs Date Time Vital Sign Value Performing Clinician Faci miladys 03-28-2023 09:54-0500 Body height 180.[address] Du Whitfield Work Phone: [facility] 03-28-2023 09:54-0500 Body mass index (BMI) [Ratio] 27 kg/m2 Dr. Du Whitfield Work Phone: [facility] 03-28-2023 09:54-0500 Body weight 87.[address] Du Whitfield Work Phone: [facility] 03-28-2023 09:54-0500 Diastolic blood pressure 64 mm[Hg] Dr. Du Whitfield Work Phone: [facility] 03-28-2023 09:54-0500 Heart rate 75 /min Dr. Du Whitfield Work Phone: [facility] 03-28-2023 09:54-0500 Respiratory rate 18 /min Dr. Du Whitfield Work Phone: [facility] 03-28-2023 09:54-0500 SaO2% (BldA) [Mass fraction] 99 % Dr. Du Whitfield Work Phone: [facility] 03-28-2023 09:54-0500 Systolic blood pressure 101 mm[Hg] Dr. Du Whitfield Work Phone: [facility] 10-11-2022 10:27-0400 Body height 180.[address] Du Whitfield Work Phone: [facility] 10-11-2022 10:27-0400 Body mass index (BMI) [Ratio] 27.3 kg/m2 Dr. Du Whitfield Work Phone: [facility] 10-11-2022 10:27-0400 Body weight 88.[address] Du Whitfield Work Phone: [facility] 10-11-2022 10:27-0400 Diastolic blood pressure 71 mm[Hg] Dr. Du Whitfield Work Phone: [facility] 10-11-2022 10:27-0400 Heart rate 56 /min Dr. Du Whitfield Work Phone: [facility] 10-11-2022 10:27-0400 Respiratory rate 18 /min Dr. Du Whitfield Work Phone: [facility] 10-11-2022 10:27-0400 SaO2% (BldA) [Mass fraction] 99 % Dr. Du Whitfield Work Phone: [facility] 10-11-2022 10:27-0400 Systolic blood pressure 115 mm[Hg] Dr. Du Whitfield Work Phone: [facility] 03-22-2022 08:30-0500 Body height 180.[address] Du Whitfield Work Phone: [facility] Work Phone: 03-22-2022 08:30-0500 Diastolic blood pressure 60 mm[Hg] Dr. Du Whitfield Work Phone: [facility] Work Phone: 03-22-2022 08:30-0500 Systolic blood pressure 118 mm[Hg] Dr. Du Whitfield Work Phone: [facility] Work Phone: 03-22-2022 08:30-0500 Body mass index (BMI) [Ratio] 26 kg/m2 Dr. Du Whitfield Work Phone: [facility] Work Phone: 03-22-2022 08:30-0500 Body weight 84.[address] Du Whitfield Work Phone: [facility] Work Phone: 03-22-2022 08:30-0500 Heart rate 86 /min Dr. Du Whitfield Work Phone: [facility] Work Phone: 03-22-2022 08:30-0500 Respiratory rate 18 /min Dr. Du Whitfield Work Phone: [facility] Work Phone: 03-22-2022 08:30-0500 SaO2% (BldA) [Mass fraction] 99 % Dr. Du Whitfield Work Phone: [facility] Work Phone: 09-21-2021 11:21-0400 Diastolic blood pressure 60 mm[Hg] Dr. Du Whitfield Work Phone: [facility] Work Phone: 09-21-2021 11:21-0400 Systolic blood pressure 131 mm[Hg] Dr. Du Whitfield Work Phone: [facility] Work Phone: 09-21-2021 10:53-0400 Body height 180.[address] Du Whitfield Work Phone: [facility] Work Phone: 09-21-2021 10:53-0400 Body mass index (BMI) [Ratio] 25.9 kg/m2 Dr. Du Whitfield Work Phone: [facility] Work Phone: 09-21-2021 10:53-0400 Body weight 84.[address] Du Whitfield Work Phone: [facility] Work Phone: 09-21-2021 10:53-0400 Heart rate 67 /min Dr. Du Whitfield Work Phone: [facility] Work Phone: 09-21-2021 10:53-0400 Respiratory rate 18 /min Dr. Du Whitfield Work Phone: [facility] Work Phone: 09-21-2021 10:53-0400 SaO2% (BldA) [Mass fraction] 98 % Dr. Du Whitfield Work Phone: [facility] Work Phone: 07-06-2021 08:34-0500 Body height 180.[address] Du Whitfield Work Phone: [facility] Work Phone: 07-06-2021 08:34-0500 Body weight 87.[address] Du Whitfield Work Phone: [facility] Work Phone: 06-04-2021 10:00-0500 Body weight 87.[address] Du Whitfield Work Phone: [facility] Work Phone: 06-03-2021 10:19-0500 Body weight 86.[address] Du Whitfield Work Phone: [facility] Work Phone: 05-18-2021 07:59-0500 Body mass index (BMI) [Ratio] 27.4 kg/m2 Dr. Du Whitfield Work Phone: [facility] Work Phone: 05-18-2021 07:59-0500 Body weight 89.[address] Du Whitfield Work Phone: [facility] Work Phone: 05-18-2021 07:59-0500 Diastolic blood pressure 71 mm[Hg] Dr. Du Whitfield Work Phone: [facility] Work Phone: 05-18-2021 07:59-0500 Heart rate 71 /min Dr. Du Whitfield Work Phone: [facility] Work Phone: 05-18-2021 07:59-0500 Respiratory rate 18 /min Dr. Du Whitfield Work Phone: [facility] Work Phone: 05-18-2021 07:59-0500 SaO2% (BldA) [Mass fraction] 100 % Dr. Du Whitfield Work Phone: [facility] Work Phone: 05-18-2021 07:59-0500 Systolic blood pressure 130 mm[Hg] Dr. Du Whitfield Work Phone: [facility] Work Phone: 05-06-2021 08:29-0500 Body mass index (BMI) [Ratio] 27 kg/m2 Dr. Du Whitfield Work Phone: [facility] Work Phone: 05-06-2021 08:29-0500 Body temperature 98.4 [degF] Dr. Du Whitfield Work Phone: [facility] Work Phone: 05-06-2021 08:29-0500 Body weight 87.[address] Du Whitfield Work Phone: [facility] Work Phone: 05-06-2021 08:29-0500 Diastolic blood pressure 82 mm[Hg] Dr. Du Whitfield Work Phone: [facility] Work Phone: 05-06-2021 08:29-0500 Heart rate 88 /min Dr. Du Whitfield Work Phone: [facility] Work Phone: 05-06-2021 08:29-0500 Respiratory rate 18 /min Dr. Du Whitfield Work Phone: [facility] Work Phone: 05-06-2021 08:29-0500 SaO2% (BldA) [Mass fraction] 99 % Dr. Du Whitfield Work Phone: [facility] Work Phone: 05-06-2021 08:29-0500 Systolic blood pressure 138 mm[Hg] Dr. Du Whitfield Work Phone: [facility] Work Phone: Encounters Encounter Date Encounter Type Care Provider Facility Start: 08-21-2024 End: 08-25-2024 ambulatory DU WHITFIELD MD [facility] Start: 08-21-2024 End: 08-25-2024 Outreach Lab CURTIS MAST FACTORY MAINTENANCE MANAGER-DIRECTOR CLINICAL OPERATIONS [facility] Start: 08-13-2024 End: 08-13-2024 ambulatory DU WHITFIELD MD [facility] Start: 07-11-2024 End: 07-11-2024 ambulatory DU WHITFIELD MD Facility:[facility] Start: 07-03-2024 End: 07-03-2024 ambulatory DU WHITFIELD MD [facility] Start: 07-03-2024 End: 07-03-2024 Patient encounter procedure DYLAN GU MD [facility] Start: 05-24-2024 End: 05-24-2024 ambulatory Du Whitfield Facility:[facility] Start: 03-26-2024 End: 03-26-2024 ambulatory Du Whitfield Facility:[facility] Start: 01-16-2024 End: 01-16-2024 ambulatory DU WHITFIELD MD Facility:[facility] Start: 01-16-2024 End: 01-16-2024 Patient encounter procedure DU WHITFIELD MD [facility] Start: 01-11-2024 ambulatory DU WHITFIELD MD Faci lity:[facility] Start: 01-10-2024 End: 01-10-2024 ambulatory Grey Haddad Facility:[facility] Start: 01-04-2024 ambulatory DYLAN GU MD Facil ity:[facility] Start: 01-04-2024 End: 01-04-2024 Patient encounter procedure DYLAN GU MD [facility] Start: 11-30-2023 ambulatory DYLAN GU MD Facil ity:[facility] Start: 11-08-2023 End: 11-08-2023 ambulatory DYLAN GU MD Facility:[facility] Start: 11-08-2023 End: 11-08-2023 Patient encounter procedure DYLAN GU MD [facility] Start: 10-25-2023 End: 10-29-2023 ambulatory DU WHITFIELD MD Facility:[facility] Start: 10-25-2023 End: 10-29-2023 Outreach Lab BETOBELINDA HUSSAIN FACTORY MAINTENANCE MANAGER-DIRECTOR CLINICAL OPERATIONS [facility] Start: 09-19-2023 End: 09-19-2023 ambulatory Du Whitfield Facility:[facility] Start: 09-06-2023 End: 09-06-2023 ambulatory DU WHITFIELD MD Facility[facility] Start: 09-06-2023 End: 09-06-2023 Patient encounter procedure DU WHITFIELD MD [facility] Start: 07-29-2023 End: 07-29-2023 ambulatory DU WHITFIELD MD Facility[facility] Start: 07-29-2023 End: 07-29-2023 Patient encounter procedure DU WHITFIELD MD [facility] Start: 07-26-2023 End: 07-30-2023 ambulatory DU WHITFIELD MD [facility] Start: 07-26-2023 End: 07-30-2023 Outreach Lab DU WHITFIELD MD [facility] Start: 07-21-2023 End: 07-21-2023 ambulatory DU WHITFIELD MD [facility] Start: 03-28-2023 End: 03-28-[address] Du Whitfield Work Phone: [facility] Work Phone: Start: 03-25-2023 End: 03-25-[address] Du Whitfield Work Phone: [facility] Work Phone: Start: 03-25-2023 End: 03-25-[address] Du Whitfield Work Phone: [facility] Work Phone: Start: 01-21-2023 End: 01-21-2023 ambulatory DU WHITFIELD MD Facility:[facility] Start: 12-20-2022 End: 12-20-[address] Du Whitfield Work Phone: [facility] Work Phone: Start: 12-20-2022 End: 12-20-[address] [facility] Start: 10-11-2022 End: 10-11-[address] Du Whitfield Work Phone: [facility] Work Phone: Start: 10-04-2022 End: 10-04-[address] Du Whitfield Work Phone: [facility] Work Phone: Start: 10-04-2022 End: 10-04-[address] Du Whitfield Work Phone: [facility] Start: 09-30-2022 Non-patient / Non-visit Dr. Ruiz Work Phone: [facility] Start: 09-30-2022 End: 09-30-[address] Du Whitfield Work Phone: [facility] Work Phone: Start: 09-30-2022 End: 09-30-[address] Du Whit[facility] Start: 07-16-2022 End: 07-16-2022 Patient encounter procedure DU WHITFIELD MD [facility] Start: 04-12-2022 End: 04-12-[address] Du Whitfield Work Phone: [facility] Work Phone: Start: 04-12-2022 End: 04-12-[address] Du [facility] Start: 03-22-2022 End: 03-22-[address] Du Whitfield Work Phone: [facility] Start: 03-03-2022 End: 03-03-2022 ambulatory [facility] Work Phone: Start: 03-03-2022 End: 03-03-2022 [facility] Start: 02-22-2022 End: 02-22-2022 ambulatory [facility] Work Phone: Start: 02-22-2022 End: 02-22-2022 Patient encounter procedure [facility] Start: 01-06-2022 End: 01-10-2022 Outreach Lab DU WHITFIELD MD [facility] Start: 12-21-2021 End: 12-21-[address] Du Whitfield Work Phone: [facility] Work Phone: Start: 12-21-2021 End: 12-21-[address] Du Whit[facility] Start: 10-12-2021 End: 10-12-[address] Du Whitfield [facility] Start: 09-21-2021 End: 09-21-[address] Du Whitfield Work Phone: [facility] Start: 08-31-2021 End: 08-31-[address] Du Whitfield Work Phone: [facility] Start: 07-22-2021 End: 07-30-[address] Du Whitfield Work Phone: [facility] Start: 06-29-2021 End: 06-29-[address] Du Whitfield Work Phone: [facility] Start: 06-03-2021 End: 06-29-[address] Du Whit[facility] Start: 06-01-2021 End: 06-01-[address] Du Whitfield Work Phone: [facility] Start: 05-18-2021 End: 05-18-[address] Du Whitfield Work Phone: [facility] Start: 05-06-2021 End: 05-06-[address] Du Whitfield Work Phone: [facility] Start: 04-23-2021 Non-patient / Non-visit Dr. Ruiz Work Phone: [facility] Start: 04-09-2021 End: 04-20-[address] DANE CERDA MD [facility] Procedures Date Procedure Procedure Detail Performing Clinician Start: 09-30-2022 Radionuclide imaging of perfusion of myocardium under exercise stress Dr. Du Whitfield Work Phone: Start: 06-30-2020 History of placement of stent for coronary artery disease History of coronary artery stent placement Dr. Du Whitfield Work Phone: History of percutane ous transluminal coronary angioplasty DR DANE CERDA MD History of repair of inguinal hernia DR DANE CERDA MD Urine culture Plan of Treatment Date Care Activity Detail Author Radionuclide imaging of perfusion of myocardium under exercise stress [facility] Work Phone: Payers Date Payer Category Payer Unknown [id number] 2023 Self-pay [id number] 2023 Medicare [id number] 2023 Medicare [id number] 2023 Unknown [id number] 2018 Medicare [id number] 1950 Unknown [id number] 2.16.8 [id number] 1950 Unknown [id number] 2.16.8 [id number] 1950 Unknown [id number] 2.16.8 40.1.890042.3.579.2.627 1950 Unknown [id number] 2.16.8 40.1.480745.3.579.2.627 1950 Unknown [id number] 2.16.8 40.1.567722.3.579.2.627 1950 Unknown [id number] 2.16.8 40.1.141015.3.579.2.627 1950 Unknown [id number] 2.16.8 40.1.962251.3.579.2.627 1950 Unknown [id number] 2.16.8 40.1.201429.3.579.2.627 1950 Unknown [id number] 2.16.8 40.1.477104.3.579.2.627 1951 Unknown [id number] 2.16.8 40.1.818985.3.579.2.627 1951 Unknown [id number] 2.16.8 40.1.335242.3.579.2.627 1950 Unknown [id number] 2.16.8 40.1.573194.3.579.2.627 1950 Unknown [id number] 2.16.8 40.1.164119.3.579.2.627 1951 Unknown [id number] 2.16.8 40.1.750558.3.579.2.627 1950 Unknown [id number] 2.16.8 40.1.406379.3.579.2.627 1950 Unknown [id number] 2.16.8 40.1.164300.3.579.2.627 Unknown [id number] 2.16.8 40.1.560827.3.579.2.462 Unknown [id number] 2.16.8 40.1.468288.3.579.2.462 Unknown [id number] 2.16.8 40.1.775951.3.579.2.462 Unknown [id number] 2.16.8 40.1.523385.3.579.2.462 Unknown [id number] 2.16.8 40.1.137785.3.579.2.462 Social History Date Type Detail Facility Start: 04-20-2019 End: 08-21-2024 Never smoked tobacco (finding) [facility] Start: 1950 Sex Assigned At Male A [facility] Start: 05-18-2021 End: 03-28-2023 Tobacco smoking status NHIS Unknown if ever smoked [facility] Start: 07-22-2020 None [facility] Sexual Orientation [facility] Start: 10-25-2018 Sex Male (finding) [facility] Medical Equipment Procedure Code Equipment Code Equipment Origin al Text Equipment Identifier Dates ([id number]) Drug-eluting coronary artery stent, bioabsorbable-polyme r-coated ()[id number] FDA Start: 03-03-2021 ([id number]) Drug-eluting coronary artery stent, bioabsorbable-polyme r-coated ()[id number] FDA Start: 03-03-2021 ([id number]) Drug-eluting coronary artery stent, bioabsorbable-polyme r-coated ()[id number] [facility] Start: 03-03-2021 Clinical Notes 03-02-2021 to 08-23-2024 Note Date & Type Note Facility 08-23-2024 Note . MICRO - Microbiology PROCEDURE: Urine Culture [*1] SOURCE: Urine BODY SITE: COLLECTED DATE/TIME: 08/21/2024 16:12 EDT RECEIVED DATE/TIME: 08/21/2024 18:41 EDT START DATE/TIME: 08/21/2024 18:42 EDT FREE TEXT SOURCE: FINAL REPORTS Final Report [] Verified Date/Time/Personnel: 08/23/2024 07:53 EDT >100,000 cfu/ml Proteus mirabilis PRELIMINARY REPORTS Preliminary Report [] Verified Date/Time/Personnel: 08/22/2024 11:10 EDT >100,000 cfu/ml Proteus mirabilis LUZ MARIA to follow Preliminary Report [] Verified Date/Time/Personnel: 08/21/2024 19:59 EDT Specimen received in lab. SUSCEPTIBILITY RESULTS Proteus mirabilis Antibiotic LUZ MARIA Dilut LUZ MARIA Inter Ampicillin <=8 Susceptible Ampicillin/ <=4/2 Susceptible Sulbactam Aztreonam <=4 Susceptible Cefazolin <=2 Susceptible Ceftazidime/ <=4 Susceptible Avibactam Ceftolozane/ <=2 Susceptible Tazobactam Ciprofloxacin <=0.25 Susceptible Ertapenem <=0.5 Susceptible Gentamicin <=2 Susceptible ID Panel Not Not Applicable Applicable Levofloxacin <=0.5 Susceptible Meropenem <=1 Susceptible Minocycline >8 Resistant Nitrofurantoin >64 Resistant Trimethoprim/ <=0.5/9.5 Susceptible Sulfa Performing Locations *1: This test was performed at: [facility], [address] [place] [address], [facility] , [facility] 10-27-2023 Note . MICRO - Microbiology PROCEDURE: Urine Culture [*1] SOURCE: Urine, Clean Catch BODY SITE: COLLECTED DATE/TIME: 10/25/2023 11:54 EDT RECEIVED DATE/TIME: 10/25/2023 14:51 EDT START DATE/TIME: 10/25/2023 14:51 EDT FREE TEXT SOURCE: FINAL REPORTS Final Report [] Verified Date/Time/Personnel: 10/27/2023 07:46 EDT 10,000 - 50,000 cfu/ml Morganella morganii PRELIMINARY REPORTS Preliminary Report [] Verified Date/Time/Personnel: 10/26/2023 11:03 EDT 10,000 - 50,000 cfu/ml Morganella morganii LUZ MARIA to follow SUSCEPTIBILITY RESULTS Morganella morganii Antibiotic LUZ MARIA Dilut LUZ MARIA Inter Ampicillin >16 Resistant Ampicillin/ 16/8 Intermediate Sulbactam Aztreonam <=4 Susceptible Cefazolin >16 Resistant Cefotaxime <=2 Susceptible Cefuroxime >16 Resistant Ciprofloxacin <=0.25 Susceptible Ertapenem <=0.5 Susceptible Gentamicin <=2 Susceptible ID Panel Not Not Applicable Applicable Imipenem <=1 Susceptible Levofloxacin <=0.5 Susceptible Meropenem <=1 Susceptible Minocycline <=4 Susceptible Nitrofurantoin 64 Resistant Piperacillin/ <=8 Susceptible Tazobactam Trimethoprim/ <=0.5/9.5 Susceptible Sulfa Performing Locations *1: This test was performed at: [facility], [address] [place] [address], [id number] , [facility] ([place]) 09-06-2023 Note ORIGINAL EXAMINATION: ULTRASOUND OF THE KIDNEYS 09/06/2023 7:45 am COMPARISON: None. HISTORY: ORDERING SYSTEM PROVIDED HISTORY: Reason for Exam: Renal function not improved History of prostate carcinoma. FINDINGS: Right and left kidneys measure 10.0 x 4.6 x 4.5 cm, and 9.9 x 4.2 x 5.1 cm respectively. There is no renal cortical thinning. Renal cortex is isoechoic to the adjacent liver consistent with a component of medical renal disease. There are 2 cysts associated with the left kidney measuring 0.7 cm, and 1.1 cm in greatest dimension. No hydronephrosis or stone disease is apparent. There is appropriate venous and arterial blood flow with Doppler interrogation. Urinary bladder contains 111 mL of urine prior to voiding. Bladder wall is unremarkable. A 39 mL residual volume is seen following voiding. Prostatic volume is 12 mL which is not enlarged. IMPRESSION: 1. Increased renal cortical echogenicity consistent with a component of medical renal disease. 2. Small left renal cysts. 3. Small post void residual volume in the urinary bladder. Interpreted by: Cirilo Deutsch DO Preliminary Report By: Cirilo Deutsch DO Electronically signed By Cirilo Deutsch DO Dictated Date: 09/06/2023 9:14:26 AM Prelim Date: 09/06/2023 9:18:54 AM Sign Date: 09/06/2023 9:18:54 AM Ordering Provider: DU WHITFIELD [facility] 07-28-2023 Note . MICRO - Microbiology PROCEDURE: Urine Culture [*1] SOURCE: Urine, Clean Catch BODY SITE: COLLECTED DATE/TIME: 07/26/2023 16:42 EDT RECEIVED DATE/TIME: 07/26/2023 19:04 EDT START DATE/TIME: 07/26/2023 19:04 EDT FREE TEXT SOURCE: FINAL REPORTS Final Report [] Verified Date/Time/Personnel: 07/28/2023 08:00 EDT >100,000 cfu/ml Proteus mirabilis PRELIMINARY REPORTS Preliminary Report [] Verified Date/Time/Personnel: 07/27/2023 10:27 EDT >100,000 cfu/ml Proteus mirabilis LUZ MARIA to follow SUSCEPTIBILITY RESULTS Proteus mirabilis Antibiotic LUZ MARIA Dilut LUZ MARIA Inter Ampicillin <=8 Susceptible Ampicillin/ <=4/2 Susceptible Sulbactam Aztreonam <=4 Susceptible Cefazolin <=2 Susceptible Ciprofloxacin <=0.25 Susceptible Ertapenem <=0.5 Susceptible Gentamicin <=2 Susceptible ID Panel Not Not Applicable Applicable Levofloxacin <=0.5 Susceptible Meropenem <=1 Susceptible Minocycline 8 Intermediate Nitrofurantoin >64 Resistant Trimethoprim/ <=0.5/9.5 Susceptible Sulfa Performing Locations *1: This test was performed at: [facility], [address] [place] [address], [facility] , [facility] ([place]) 03-02-2021 Evaluation note Diagnosis Onset Date Atherosclerotic heart diseas e of [place] coronary artery without angina pectoris chronic Essential hypertension chron ic Mixed hyperlipidemia chronic 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, chronic Subclavian artery stenosis, left [facility] Work Phone: 1(267) 331-858011-01-2021 Evaluation note* Diagnosis Onset Date Resolution Status Essential hypertension chron ic Mixed hyperlipidemia chronic 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, chronic Subclavian artery stenosis, left [facility] Work Phone: Evaluation + Plan note Future Appointments Appointment Date:07/20/2021 10:30:00 AM Scheduled Provider:DU WHITFIELD MD Location:[facility] Appointment Type: OV Future Scheduled Tests Laboratory* Lipid Profile 07/19/21 * Complete Metabolic Panel 07/19/21 Radiology* US Abdomen Complete 01/06/21 [facility] Evaluation + Plan note Future Appointments Appointment Date:01/26/2022 10:00:00 AM Scheduled Provider:DU WHITFIELD MD Location:[facility] Appointment Type:PC OV [facility] Evaluation + Plan note Future Appointments Appointment Date:07/27/2022 10:00:00 AM Scheduled Provider:DU WHITFIELD MD Location:[facility] Appointment Type:PC OV [facility] Evaluation + Plan note Future Appointments Appointment Date:01/17/2024 08:00:00 AM Scheduled Provider:DU WHITFIELD MD Location:[facility] Appointment Type:PC OV [facility] Evaluation + Plan note Future Appointments Appointment Date:01/20/2024 08:30:00 AM Scheduled Provider:DU WHITFIELD MD Location:[facility] Appointment Type:PC OV [facility] Evaluation + Plan note Future Appointments Appointment Date:07/19/2024 08:30:00 AM Scheduled Provider:DU WHITFIELD MD Location:[facility] Appointment Type:PC OV Future Scheduled Tests Laboratory* Complete Blood Count 01/20/24 * Lipid Profile 07/19/24 * Complete Metabolic Panel 07/19/24 [facility] Evaluation + Plan note Future Appointments Appointment Date:01/18/2025 10:00:00 AM Scheduled Provider:DU WHITFIELD MD Location:[facility] Appointment Type: OV Future Scheduled Tests Laboratory* Prostate Specific Antigen 07/19/24 * Complete Blood Count 07/19/24 * Lipid Profile 01/19/25 * Complete Metabolic Panel 01/19/25 [facility] Evaluation note* Diagnosis Onset Date Resolution Status Subclavian artery stenosis, left acute Atherosclerotic heart diseas e of [place] coronary artery without angina pectoris chronic Essential hypertension chron ic Mixed hyperlipidemia chronic [facility] Work Phone: Evaluation noteNo assessment information available [facility] Work Phone: Hospital course Narrative No data available for this section [facility] Hospital Discharge instructions No data available for this section [facility] Progress note No data available for this section [facility] Summary Purpose Family History Relationship Condition Age at Onset Recorded Date/T víctor father Coronary artery disease Unknown Malignant neoplasm Unknown mother Coronary artery disease Unknown History of coronary artery bypass surgery Unknown History of heart valve replacement Unknow n Advance Directives Advance Directive Response Recorded Date/ Time Advance Directives Yes March 03, 2021 8:11am Living Will Yes May 06 10:29am Power of Mold Stripper Yes May 06 10:29am Advance Directive Response Recorded Date/ Time Advance Directives Yes March 03, 2021 7:11am Living Will Yes May 06 9:29am Power of Mold Stripper Yes May 06 9:29am Chief Complaint and Reason for Visit Chief Complaint PCIw/stenting 3 M FU STEMI & PCI W/CORONARY STENTING CKD, OBESITY STEMI & PCI W/CORONARY STENTING STEMI & PCI W/CORONARY STENTING Reason for Visit Subclavian artery st enosis, left Atherosclerotic heart disease of [place] coronary artery without angina pectoris Essential hypertension Mixed hyperlipidemia Chief Complaint 10 m fu STRICTURE OF ARTREY/WBI Reason for Visit Atherosclerotic hear t disease of [place] coronary artery without angina pectoris Essential hypertension Mixed hyperlipidemia Presence of stent in coronary artery Subclavian artery stenosis, left Chief Complaint NEED LAB ORDER Chief Complaint NEED LAB ORDER 6 M FU Reason for Visit Atherosclerotic hear t disease of [place] coronary artery without angina pectoris Essential hypertension Mixed hyperlipidemia Presence of stent in coronary artery Subclavian artery stenosis, left Chief Complaint AHD AHD Chief Complaint AHD AHD 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 Reason for Visit Essential hypertensi on Mixed hyperlipidemia Presence of stent in coronary artery Subclavian artery stenosis, left Chief Complaint HYPERTENSION PSA- 1 YEAR ROUTINE 6 M FU Reason for Visit Essential hypertensi on Mixed hyperlipidemia Presence of stent in coronary artery Subclavian artery stenosis, left Additional Source Comments (unrecognized sect ion and content) No Status Records FoundNo Status Records FoundNo Status Records FoundNo Status Records Found INFORMATION SOURCE (unrecogn ized section and content) DATE CREATED AUTHOR 10/26/2017 [facility] DATE CREATED AUTHOR AUTHOR'S ORGANIZ ATION 01/05/2024 [facility] ([place]) DATE CREATED AUTHOR AUTHOR'S ORGANIZ ATION 05/25/2024 [facility] DATE CREATED AUTHOR AUTHOR'S ORGANIZ ATION 08/26/2024 [facility] Goals (unrecognized section and content) Goals may be documented in a n alternate section Care Team (unrecognized sect ion and content) Care Team Personnel Name: DU WHITFIELD MD Position: P4 Physician - Primary Care Med Service: Active Provider Member Role: Primary Care Physician Address: Address: [address] [place] [address] Care Team Related Persons Name: LEONARDO VILLEGAS Patient Care team informatio n (unrecognized section and content) Care Team Personnel Name: DU WHITFIELD MD Position: P4 Physician - Primary Care Member Role: Primary Care Physician Address: [address] [place] [address] Telecom: Care Team Related Persons Name: LEONARDO VILLEGAS Team Status: Active Member Role Status Dates Dr. Du Whitfield MD Family Provider Active Dr. Du Whitfield MD Primary Care Provider Active Team Status: Active Member Role Status Dates Dr. Du Whitfield MD Primary Care Provider Active Blossom HURST PA Referring Provider, Other Provider Active Dr. Sharlene Cunningham MD Attending Provider Active Team Status: Inactive Member Role Status Dates Dr. Du Whitfield MD Primary Care Provider Active Blossom HURST PA Attending Provider, Referr ing Provider Active Team Status: Active Member Role Status Dates Dr. Du Whitfield MD Primary Care Provider Active Dr. Grey Haddad MD Attending Provider, Referring Provider Active Team Status: Inactive Member Role Status Dates Dr. Du Whitfield MD Primary Care Provider Active Dr. Grey Haddad MD Attending Provider, Referring Provider Active Team Status: Inactive Member Role Status Dates Dr. Du Whitfield MD Primary Care Provider, Referrin g Provider Active Sabrina Robertson SOFTWARE QUALITY SPECIALIST, SOFTWARE QUALITY SPECIALIST-C Attending Provider Active Team Status: Inactive Member Role Status Dates Dr. Du Whitfield MD Primary Care Provider Active Dr. Randy Sparrow MD Attending Provider, Referring Provider Active Team Status: Inactive Member Role Status Dates Dr. Du Whitfield MD Primary Care Provider Active Ellen Montes De Oca , FERNANDO Attending Provider, Rico rincon Provider Active FOR RECORDS PERTAINING TO PATIENTS WHO ARE [...] BE BASED ON THE PRIMARY CLINICAL RECORDS. [facility] [employer] [facility]. provides no warranty or guarantee of the accuracy or completeness of information in this document.
[2024-12-28 07:34] LABS: CRP < 3.00 mg/L (0.0-3.0)
== END | disposition home or self-care (01) ==
LOC: LAB 13:32
PROVIDERS: PCP Family Medicine; Referring Provider Internal Medicine Rheumatology; Visit Provider Internal Medicine Rheumatology
DX: L40.59 Other psoriatic arthropathy (principal); L40.8 Other psoriasis; Z79.899 Other long term (current) drug therapy
CPT/HCPCS: 36415; 80053; 82570; 84156; 85025; 85652; 86140

== ENCOUNTER → 2025-04-03 | Outpatient (CLI) | payer MEDICARE, OTHER, SELFPAY ==
[2021-07-06 09:34] VITALS: BMI 26.7
[2025-04-03 18:15] LABS: PSA,Total- Diagnostic < 0.02 ng/mL (0.00-4.00)
== END | disposition home or self-care (01) ==
LOC: LAB 15:37
PROVIDERS: PCP Family Medicine; Referring Provider Urology; Visit Provider Urology
DX: C61 Malignant neoplasm of prostate (principal)
CPT/HCPCS: 36415; 84153

== ENCOUNTER → 2025-04-10 | Outpatient (CLI) | payer MEDICARE, OTHER, SELFPAY ==
[2021-07-06 09:34] VITALS: BMI 26.7
--- NOTE | 2025-04-10 08:02 | ADUUE_ITS ---
Reason For Study Reason For Study: LUE Pain / Swelling LEFT Left Subclavian velocity = 71.1 cm/sec. Left Axillary velocity = 43.5 cm/sec. Left Brachial velocity = 60.7 cm/sec. Left Radial velocity = 41.7 cm/sec. Left Ulnar velocity = 48.5 cm/sec. VL/US Art Duplex Unilat UP Extrem Interpretation Summary Normal left arm arterial duplex. Ordering Physician: PRESTON WIN Referring Physician: Du Howe Performed By: Delmer Matias RVT and Student
--- NOTE | 2025-04-10 08:02 | ART_ITS ---
Reason For Study Reason For Study: LUE Pain / Swelling Procedure A bilateral upper extremity continuous wave Doppler with analog waveform analysis and segmental pressures. Left Segmental Pressures Left brachial= 120mmHg. Left radial= 167mmHg. Left ulnar= 145mmHg. Left digit = 118 mmHg. The left brachial waveforms are triphasic. The left radial waveforms are biphasic. The left ulnar waveforms are biphasic. Right Segmental Pressures Right brachial= 137mmHg. Right radial= 164mmHg. Right ulnar= 163mmHg. Right digit = 137 mmHg. The right brachial waveforms are triphasic. The right radial waveforms are triphasic. The right ulnar waveforms are triphasic. Indices The right wrist-brachial index is 1.20. The right digital-brachial index is 1.00. The left wrist-brachial index is 1.22. The left digital-brachial index is 0.86. VL/Ankle Brachial Index Interpretation Summary Bilateral normal WBI. Ordering Physician: PRESTON WIN Referring Physician: Du Howe Performed By: Delmer Matias RVT and Student
== END | disposition home or self-care (01) ==
LOC: CVS 08:01
PROVIDERS: PCP Family Medicine; Referring Provider Surgery; Visit Provider Surgery
DX: I77.1 Stricture of artery (principal); M79.89 Other specified soft tissue disorders; M79.602 Pain in left arm; I10 Essential (primary) hypertension; I65.23 Occlusion and stenosis of bilateral carotid arteries
CPT/HCPCS: 93922; 93931